=== PATIENT | female | born 1930 | race Caucasian/White ===

== ENCOUNTER 2017-08-24 02:19 | Inpatient (IN) ==
--- NOTE | 2017-08-24 02:41 | Emergency Department Note ---
Disposition Clinical Impression: Chest pain Qualifiers: Chest pain type: unspecified Qualified Code(s): R07.9 - Chest pain, unspecified Dyspnea Qualifiers: Dyspnea type: unspecified Qualified Code(s): R06.00 - Dyspnea, unspecified Disposition: Admitted As Inpatient Condition: Good Referrals: Arelis Will CNP [Primary Care Provider] - Time of Disposition: 06:02 Chest Pain HPI - General Stated Complaint: chest pain Time Seen by Provider: 08/24/17 02:22 Vital Signs Reviewed: Yes Nursing Notes Reviewed: Yes - History of Present Illness HPI Narrative: 86-year-old female arrives via squad with complaint of chest pain, shortness of breath. She did have improvement after squad had given her nitroglycerin. She is accompanied by her daughter who assist with history. They describe patient has had some intermittent chest pain, back pain shortness of breath over the past 3 days. Tonight is much more severe. Patient describes she was awake, prior to arrival, when the back pain worsened acutely. She denies any weakness , abdominal pain, cough, fever, new syncopal symptoms, vision changes. - Related Data Home Medications Medication Instructions Recorded Confirmed Amlodipine Besylate 100 mg PO 08/24/17 Atenolol [Tenormin] 25 mg PO DAILY 08/24/17 08/24/17 Cholecalciferol (Vitamin D3) 1,000 unit PO DAILY 08/24/17 08/24/17 [Vitamin D] Esomeprazole Magnesium [Nexium] 20 mg PO DAILY 08/24/17 08/24/17 Gabapentin [Neurontin] 600 mg PO BID 08/24/17 08/24/17 Hydrocodone/Acetaminophen 1 each PO 08/24/17 [Hydrocodon-Acetaminophen 5-325] Insulin Glargine,Hum.rec.anlog 24 unit SQ 08/24/17 [Lantus Solostar] Quinapril HCl [Accupril] 4 mg PO 08/24/17 Warfarin [Coumadin] 3 mg PO 1800 08/24/17 08/24/17 buPROPion HCl [Zyban] 100 mg PO DAILY 08/24/17 08/24/17 Allergies Allergy/AdvReac Type Severity Reaction Status Date / Time metoclopramide AdvReac Joint Pain Verified 08/24/17 02:53 simvastatin AdvReac Hives Verified 08/24/17 02:53 All systems ED: reviewed and negative except as stated. Review of Systems: As Per HPI Constitutional: Denies: fever, chills Eyes: Denies: vision change ENT ED: Denies: throat pain Cardiovascular: Reports: as per HPI. Denies: palpitations Respiratory: Reports: dyspnea Gastrointestinal: Reports: as per HPI Genitourinary: Denies: dysuria Musculoskeletal: Reports: as per HPI Integumentary: Denies: rash Neurological: Denies: headache, weakness Endocrine: Denies: fatigue Hematological/Lymphatic: Denies: easy bleeding Allergic/Immunologic: Denies: facial swelling Chest Pain PMH - Past Medical History Medical history: Reports: diabetes, hyperlipidemia, hypertension, pulmonary embolus - Social History Smoking Status: Never smoker Physical Exam - General Limitations: no limitations General appearance: in no apparent distress - Head Head exam: atraumatic, normocephalic - Eye Eye exam: Present: normal appearance, EOMI - ENT ENT exam: mucous membranes moist - Neck Neck exam: Present: full ROM - Chest Chest inspection: Present: normal inspection, symmetric chest wall rise - Respiratory Respiratory exam: Present: normal lung sounds bilaterally. Absent: respiratory distress - Cardiovascular Cardiovascular exam: Present: regular rate, normal rhythm - Abdominal Exam Abdominal exam: Present: soft - Extremities Exam Extremities exam: Present: normal inspection, full ROM, normal capillary refill - Back Exam Back exam: Present: full ROM - Neurological Exam Neurological exam: Present: alert - Psychiatric Psychiatric exam: Present: normal affect, normal mood - Skin Skin exam: Present: warm, dry, intact, normal color. Absent: rash, cyanosis, diaphoresis Course Course Narrative: 86-year-old female arrives via squad with complaint of chest pain, shortness of breath. She did have improvement after squad had given her nitroglycerin. She is accompanied by her daughter who assist with history. They describe patient has had some intermittent chest pain, back pain shortness of breath over the past 3 days. Tonight is much more severe. Patient describes she was awake, prior to arrival, when the back pain worsened acutely. She denies any weakness , abdominal pain, cough, fever, new syncopal symptoms, vision changes. Pt received ASA and nitro in route via squad. Patient seen and examined. she is alert no acute distress. Denies additional analgesics. Vital stable. Workup initiated. - Reevaluation(s) Reevaluation #1: patient was discussed with Dr. Banks, who agreed to see patient, and ordered the CTA due to patient's thoracic back pain. Time: 03:15 Reevaluation #2: Pt currently on 3 L oxygen. With good O2 sats. However on room air, patient does decrease into the low 90s. CTA findings show chronic pulmonary embolism, and patient is currently on Coumadin. CTA also shows evidence of groundglass opacities. Patient had presented with chest pain and SOB. Discussed with attending Dr. Banks, plan will be for admission for ACS rule out and will also start antibiotics. Will plan lactic and cultures then start antibiotics. Pt has received fluids. Time: 06:00 Vital Signs Temperature 97.9 F 08/24/17 02:26 Pulse Rate 77 08/24/17 02:26 Respiratory Rate 22 08/24/17 02:26 Blood Pressure 130/55 08/24/17 02:26 O2 Sat by Pulse Oximetry 90 08/24/17 02:26 Temperature 97.9 F 08/24/17 02:26 Pulse Rate 61 08/24/17 06:05 Respiratory Rate 16 08/24/17 06:05 Blood Pressure 153/62 08/24/17 06:05 O2 Sat by Pulse Oximetry 97 08/24/17 06:05 Oxygen Delivery Oxygen Delivery Nasal Cannula Chest Pain - MDM Narrative Medical decision making narrative: CT findings, showed chronic PE, and multifocal groundglass opacities pulmonary edema versus sepsis process. On reexamination patient is resting complaint exam bed, good oxygen saturation on 3 L, however on room air, patient does decrease into the low 90s. I did discuss patient with Dr. Alexander who also had face time with patient, and agreed with workup and evaluation. Recommendation is for admission for ACS rule out, and possible pneumonia. Patient was discussed with and accepted by hospitalist Dr. Fry. Chest CTA 08/24/17 03:10 IMPRESSION: 1. Chronic pulmonary embolism in the right lower lobar pulmonary artery. There is no evidence of right ventricular strain. 2. Multifocal ground-glass opacities in the lungs may represent pulmonary edema. Infectious or inflammatory etiologies may also be considered. 3. Several pulmonary nodules are observed bilaterally. These are unchanged since 2011. Exception in the middle lobe with slight increase in the size of a 6 mm nodule. Recommend follow-up imaging in 6-12 months to ensure stability. Critical results were called by Dr. Dakota Orozco MD to Rich Banks on 08/24/2017 at 04:35. D/ / Dakota Orozco MD / Dakota Orozco MD Interpreting Provider: Dakota Orozco MD Laboratory Tests 08/24/17 08/24/17 08/24/17 03:04 03:06 03:14 WBC 8.2 RBC 5.22 H Hgb 15.6 H Hct 47.7 H MCV 91.4 MCH 29.9 MCHC 32.7 RDW 14.5 Plt Count 150 MPV 10.2 Immature Gran % 0.5 Seg Neutrophils % 55.1 Lymphocytes % 32.6 Monocytes % 8.3 Eosinophils % 2.8 Basophils % 0.7 Neutrophils # 4.5 Lymphocytes # 2.7 Monocytes # 0.7 Eosinophils # 0.2 Basophils # 0.1 Immature Plt Fraction 3.8 PT 28.0 H INR 2.5 APTT 43.8 H Sodium Potassium Chloride Carbon Dioxide BUN Creatinine Est GFR ( Amer) Est GFR (Non-Af Amer) BUN/Creatinine Ratio Glucose Calculated Osmolality Calcium Total Bilirubin 0.3 Direct Bilirubin 0.1 Indirect Bilirubin 0.2 AST 20 ALT 17 Alkaline Phosphatase 76 Troponin I Serum Total Protein 8.0 Albumin 4.4 Globulin 3.6 H Albumin/Globulin Ratio 1.2 Lipase 17 08/24/17 03:14 WBC RBC Hgb Hct MCV MCH MCHC RDW Plt Count MPV Immature Gran % Seg Neutrophils % Lymphocytes % Monocytes % Eosinophils % Basophils % Neutrophils # Lymphocytes # Monocytes # Eosinophils # Basophils # Immature Plt Fraction PT INR APTT Sodium 134 L Potassium 4.4 Chloride 98 Carbon Dioxide 27 BUN 37 H Creatinine 1.31 H Est GFR ( Amer) 47 L Est GFR (Non-Af Amer) 38 L BUN/Creatinine Ratio 28 H Glucose 194 H Calculated Osmolality 292 Calcium 9.9 Total Bilirubin Direct Bilirubin Indirect Bilirubin AST ALT Alkaline Phosphatase Troponin I < 0.03 Serum Total Protein Albumin Globulin Albumin/Globulin Ratio Lipase - Lab Data Lab results reviewed: Yes I reviewed the patient's lab results. Result diagrams: 08/24/17 03:14 08/24/17 03:14 Lab Results 08/24/17 08/24/17 08/24/17 Range/Units 03:04 03:06 03:14 WBC 8.2 (4.3-11.1) K/mcL RBC 5.22 H (3.82-4.97) M/mcL Hgb 15.6 H (11.5-15.4) g/dL Hct 47.7 H (35.3-44.9) % MCV 91.4 (83.0-100.0) fL MCH 29.9 (28.0-33.3) pg MCHC 32.7 (31.6-35.5) g/dL RDW 14.5 (11.5-14.5) % Plt Count 150 (140-400) K/mcL MPV 10.2 (9.4-12.4) fL Immature Gran % 0.5 (0-4) % Seg Neutrophils % 55.1 % Lymphocytes % 32.6 % Monocytes % 8.3 % Eosinophils % 2.8 % Basophils % 0.7 % Neutrophils # 4.5 (1.6-8.9) K/mcL Lymphocytes # 2.7 (0.6-4.6) K/mcL Monocytes # 0.7 (0.0-1.3) K/mcL Eosinophils # 0.2 (0.0-0.6) K/mcL Basophils # 0.1 (0.0-0.2) K/mcL Immature Plt Fraction 3.8 (1.1-6.1) % PT 28.0 H (9.4-12.1) Seconds INR 2.5 APTT 43.8 H (26.0-36.0) Seconds Sodium (136-145) mEq/L Potassium (3.5-5.1) mEq/L Chloride (98-107) mEq/L Carbon Dioxide (23-29) mEq/L BUN (8-23) mg/dL Creatinine (0.60-1.20) mg/dL Est GFR ( Amer) (> 60) Est GFR (Non-Af Amer) (> 60) BUN/Creatinine Ratio (6-26) Glucose (70-105) mg/dL Calculated Osmolality (280-300) Lactic Acid (0.5-2.2) mmol/L Calcium (8.6-10.3) mg/dL Total Bilirubin 0.3 (0.3-1.0) mg/dL Direct Bilirubin 0.1 (0.0-0.2) mg/dL Indirect Bilirubin 0.2 (0.0-1.2) mg/dL AST 20 (13-39) Units/L ALT 17 (7-52) Units/L Alkaline Phosphatase 76 (34-104) Units/L Troponin I (< 0.04) ng/mL Serum Total Protein 8.0 (6.4-8.9) g/dL Albumin 4.4 (3.5-5.7) g/dL Globulin 3.6 H (2.4-3.5) g/dL Albumin/Globulin Ratio 1.2 (1.1-2.2) Lipase 17 (11-82) Units/L 08/24/17 08/24/17 Range/Units 03:14 06:16 WBC (4.3-11.1) K/mcL RBC (3.82-4.97) M/mcL Hgb (11.5-15.4) g/dL Hct (35.3-44.9) % MCV (83.0-100.0) fL MCH (28.0-33.3) pg MCHC (31.6-35.5) g/dL RDW (11.5-14.5) % Plt Count (140-400) K/mcL MPV (9.4-12.4) fL Immature Gran % (0-4) % Seg Neutrophils % % Lymphocytes % % Monocytes % % Eosinophils % % Basophils % % Neutrophils # (1.6-8.9) K/mcL Lymphocytes # (0.6-4.6) K/mcL Monocytes # (0.0-1.3) K/mcL Eosinophils # (0.0-0.6) K/mcL Basophils # (0.0-0.2) K/mcL Immature Plt Fraction (1.1-6.1) % PT (9.4-12.1) Seconds INR APTT (26.0-36.0) Seconds Sodium 134 L (136-145) mEq/L Potassium 4.4 (3.5-5.1) mEq/L Chloride 98 (98-107) mEq/L Carbon Dioxide 27 (23-29) mEq/L BUN 37 H (8-23) mg/dL Creatinine 1.31 H (0.60-1.20) mg/dL Est GFR ( Amer) 47 L (> 60) Est GFR (Non-Af Amer) 38 L (> 60) BUN/Creatinine Ratio 28 H (6-26) Glucose 194 H (70-105) mg/dL Calculated Osmolality 292 (280-300) Lactic Acid 1.3 (0.5-2.2) mmol/L Calcium 9.9 (8.6-10.3) mg/dL Total Bilirubin (0.3-1.0) mg/dL Direct Bilirubin (0.0-0.2) mg/dL Indirect Bilirubin (0.0-1.2) mg/dL AST (13-39) Units/L ALT (7-52) Units/L Alkaline Phosphatase (34-104) Units/L Troponin I < 0.03 (< 0.04) ng/mL Serum Total Protein (6.4-8.9) g/dL Albumin (3.5-5.7) g/dL Globulin (2.4-3.5) g/dL Albumin/Globulin Ratio (1.1-2.2) Lipase (11-82) Units/L - Radiology Data Radiology results reviewed: Yes I reviewed the patient's radiology results. - EKG Data EKG attestation: Yes I reviewed and interpreted this EKG. EKG shows normal: sinus rhythm Voltage: c/w LVH When compared to previous EKG there are: no significant changes Interpretation: nonspecific ST-T wave changes Heart Score - Score History: Slightly Suspicious EKG: Normal Age: Greater than 65 Risk Factors: Equal/Greater than 3 risk factor or history of atherosclerotic disease Troponin: Less than normal limit HEART Score Total: 4
[2017-08-24] MEDS ORDERED: Isovue-370 500 ML INFUS..BTL IV ONE (03:10)
[2017-08-24 03:16] LABS: Basophils # 0.1 K/mcL (0.0-0.2); Basophils % 0.7 %; Eosinophils # 0.2 K/mcL (0.0-0.6); Eosinophils % 2.8 %; Hematocrit 47.7 % (35.3-44.9); Hemoglobin 15.6 g/dL (11.5-15.4); Immature Granulocytes % 0.5 % (0-4); Immature Platelets 3.8 % (1.1-6.1); Lymphocytes # 2.7 K/mcL (0.6-4.6); Lymphocytes % 32.6 %; Mean Corpuscular HGB Conc 32.7 g/dL (31.6-35.5); Mean Corpuscular Hemoglobin 29.9 pg (28.0-33.3); Mean Corpuscular Volume 91.4 fL (83.0-100.0); Mean Platelet Volume 10.2 fL (9.4-12.4); Monocytes # 0.7 K/mcL (0.0-1.3); Monocytes % 8.3 %; Neutrophils # 4.5 K/mcL (1.6-8.9); Platelet Count 150 K/mcL (140-400); Red Blood Count 5.22 M/mcL (3.82-4.97); Red Cell Distribution Width 14.5 % (11.5-14.5); Segmented Neutrophils % 55.1 %
[2017-08-24 03:33] LABS: INR 2.5
[2017-08-24 03:35] LABS: Activated Partial Thrombo Time 43.8 Seconds (26.0-36.0)
[2017-08-24 03:47] LABS: Albumin 4.4 g/dL (3.5-5.7); Albumin/Globulin Ratio 1.2 (1.1-2.2); Bilirubin,Direct 0.1 mg/dL (0.0-0.2); Bilirubin,Indirect 0.2 mg/dL (0.0-1.2); Bilirubin,Total 0.3 mg/dL (0.3-1.0); Globulin 3.6 g/dL (2.4-3.5)
[2017-08-24 03:48] LABS: BUN/Creatinine Ratio 28 (6-26); Blood Urea Nitrogen 37 mg/dL (8-23); Calcium 9.9 mg/dL (8.6-10.3); Carbon Dioxide 27 mEq/L (23-29); Chloride 98 mEq/L (98-107); Glucose 194 mg/dL (70-105); Osmolality,Calculated 292 (280-300); Potassium 4.4 mEq/L (3.5-5.1); Sodium 134 mEq/L (136-145); eGFR For African Americans 47 (> 60); eGFR For Non-African Americans 38 (> 60)
[2017-08-24 03:49] LABS: Troponin I < 0.03 ng/mL (< 0.04)
[2017-08-24] MEDS ORDERED: 0.9 % Sodium Chloride 1,000 ML IVC ONE (04:18)
[2017-08-24] MEDS ORDERED: Ondansetron 4 MG/2 ML VIAL IVP ONE (04:18)
--- NOTE | 2017-08-24 05:50 | Emergency Department Note ---
Disposition Clinical Impression: Chest pain Qualifiers: Chest pain type: unspecified Qualified Code(s): R07.9 - Chest pain, unspecified Dyspnea Qualifiers: Dyspnea type: unspecified Qualified Code(s): R06.00 - Dyspnea, unspecified Disposition: Admitted As Inpatient Condition: Good General Adult HPI - General Chief complaint: ED Chest Pain Stated complaint: chest pain Time Seen by Provider: 08/24/17 02:22 Source: patient, family Limitations: no limitations - History of Present Illness Pain Scale: 0 - Related Data Home Medications Medication Instructions Recorded Confirmed Amlodipine Besylate 10 mg PO DAILY 08/24/17 08/25/17 Cholecalciferol (Vitamin D3) 1,000 unit PO DAILY 08/24/17 08/24/17 [Vitamin D] Esomeprazole Magnesium [Nexium] 20 mg PO DAILY 08/24/17 08/24/17 Gabapentin [Neurontin] 600 mg PO BID 08/24/17 08/24/17 Insulin Glargine,Hum.rec.anlog 24 unit SQ DAILY 08/24/17 08/25/17 [Lantus Solostar] Warfarin [Coumadin] 3 mg PO 1800 08/24/17 08/24/17 buPROPion HCl [Zyban] 100 mg PO DAILY 08/24/17 08/24/17 Atenolol 100 mg PO DAILY 08/25/17 08/25/17 HYDROcodone/Acet 7.5/325 mg [[place] 1 tab PO Q4-6H PRN 08/25/17 08/25/17 7.5-325 mg] Quinapril HCl [Accupril] 40 mg PO DAILY 08/25/17 08/25/17 Allergies Allergy/AdvReac Type Severity Reaction Status Date / Time metoclopramide AdvReac Joint Pain Verified 08/24/17 02:53 simvastatin AdvReac Hives Verified 08/24/17 02:53 Constitutional: Denies: fever, chills Eyes: Denies: vision change ENT ED: Denies: throat pain Cardiovascular: Reports: as per HPI. Denies: palpitations Respiratory: Reports: dyspnea Gastrointestinal: Reports: as per HPI Genitourinary: Denies: dysuria Musculoskeletal: Reports: as per HPI Integumentary: Denies: rash Neurological: Denies: headache, weakness Endocrine: Denies: fatigue Hematological/Lymphatic: Denies: easy bleeding Allergic/Immunologic: Denies: facial swelling Past Medical History - Past Medical History Medical history: Reports: pulmonary embolus Psychiatric history: Reports: depression - Social History Smoking Status: Never smoker Smokeless Tobacco Status: No Alcohol use: Reports: none Drug use: Reports: none Physical Exam - General Limitations: no limitations General appearance: in no apparent distress Course Vital Signs Temperature 97.9 F 08/24/17 02:26 Pulse Rate 77 08/24/17 02:26 Respiratory Rate 22 08/24/17 02:26 Blood Pressure 130/55 08/24/17 02:26 O2 Sat by Pulse Oximetry 90 08/24/17 02:26 Temperature 97.5 F L 08/26/17 19:44 Pulse Rate 102 08/26/17 19:44 Respiratory Rate 20 08/26/17 19:44 Blood Pressure 117/90 08/26/17 19:44 O2 Sat by Pulse Oximetry 93 08/26/17 19:44 Oxygen Delivery Oxygen Delivery Nasal Cannula Medical Decision Making - Lab Data Result diagrams: 08/26/17 12:44 08/26/17 04:01 Lab Results 08/24/17 08/24/17 08/24/17 Range/Units 03:04 03:06 03:14 WBC 8.2 (4.3-11.1) K/mcL RBC 5.22 H (3.82-4.97) M/mcL Hgb 15.6 H (11.5-15.4) g/dL Hct 47.7 H (35.3-44.9) % MCV 91.4 (83.0-100.0) fL MCH 29.9 (28.0-33.3) pg MCHC 32.7 (31.6-35.5) g/dL RDW 14.5 (11.5-14.5) % Plt Count 150 (140-400) K/mcL MPV 10.2 (9.4-12.4) fL Immature Gran % 0.5 (0-4) % Seg Neutrophils % 55.1 % Lymphocytes % 32.6 % Monocytes % 8.3 % Eosinophils % 2.8 % Basophils % 0.7 % Neutrophils # 4.5 (1.6-8.9) K/mcL Lymphocytes # 2.7 (0.6-4.6) K/mcL Monocytes # 0.7 (0.0-1.3) K/mcL Eosinophils # 0.2 (0.0-0.6) K/mcL Basophils # 0.1 (0.0-0.2) K/mcL Immature Plt Fraction 3.8 (1.1-6.1) % PT 28.0 H (9.4-12.1) Seconds INR 2.5 APTT 43.8 H (26.0-36.0) Seconds Sodium (136-145) mEq/L Potassium (3.5-5.1) mEq/L Chloride (98-107) mEq/L Carbon Dioxide (23-29) mEq/L BUN (8-23) mg/dL Creatinine (0.60-1.20) mg/dL Est GFR ( Amer) (> 60) Est GFR (Non-Af Amer) (> 60) BUN/Creatinine Ratio (6-26) Glucose (70-105) mg/dL Calculated Osmolality (280-300) Lactic Acid (0.5-2.2) mmol/L Calcium (8.6-10.3) mg/dL Total Bilirubin 0.3 (0.3-1.0) mg/dL Direct Bilirubin 0.1 (0.0-0.2) mg/dL Indirect Bilirubin 0.2 (0.0-1.2) mg/dL AST 20 (13-39) Units/L ALT 17 (7-52) Units/L Alkaline Phosphatase 76 (34-104) Units/L Troponin I (< 0.04) ng/mL Serum Total Protein 8.0 (6.4-8.9) g/dL Albumin 4.4 (3.5-5.7) g/dL Globulin 3.6 H (2.4-3.5) g/dL Albumin/Globulin Ratio 1.2 (1.1-2.2) Lipase 17 (11-82) Units/L 18 08/24/17 Range/Units 03:14 06:16 WBC (4.3-11.1) K/mcL RBC (3.82-4.97) M/mcL Hgb (11.5-15.4) g/dL Hct (35.3-44.9) % MCV (83.0-100.0) fL MCH (28.0-33.3) pg MCHC (31.6-35.5) g/dL RDW (11.5-14.5) % Plt Count (140-400) K/mcL MPV (9.4-12.4) fL Immature Gran % (0-4) % Seg Neutrophils % % Lymphocytes % % Monocytes % % Eosinophils % % Basophils % % Neutrophils # (1.6-8.9) K/mcL Lymphocytes # (0.6-4.6) K/mcL Monocytes # (0.0-1.3) K/mcL Eosinophils # (0.0-0.6) K/mcL Basophils # (0.0-0.2) K/mcL Immature Plt Fraction (1.1-6.1) % PT (9.4-12.1) Seconds INR APTT (26.0-36.0) Seconds Sodium 134 L (136-145) mEq/L Potassium 4.4 (3.5-5.1) mEq/L Chloride 98 (98-107) mEq/L Carbon Dioxide 27 (23-29) mEq/L BUN 37 H (8-23) mg/dL Creatinine 1.31 H (0.60-1.20) mg/dL Est GFR ( Amer) 47 L (> 60) Est GFR (Non-Af Amer) 38 L (> 60) BUN/Creatinine Ratio 28 H (6-26) Glucose 194 H (70-105) mg/dL Calculated Osmolality 292 (280-300) Lactic Acid 1.3 (0.5-2.2) mmol/L Calcium 9.9 (8.6-10.3) mg/dL Total Bilirubin (0.3-1.0) mg/dL Direct Bilirubin (0.0-0.2) mg/dL Indirect Bilirubin (0.0-1.2) mg/dL AST (13-39) Units/L ALT (7-52) Units/L Alkaline Phosphatase (34-104) Units/L Troponin I < 0.03 (< 0.04) ng/mL Serum Total Protein (6.4-8.9) g/dL Albumin (3.5-5.7) g/dL Globulin (2.4-3.5) g/dL Albumin/Globulin Ratio (1.1-2.2) Lipase (11-82) Units/L Attestation Statement - Attestation Attestation: I examined this patient and my medical decision-making was reviewed with the Resident Physician. I agree with the documented findings, disposition and treatment plan as described except to the extent set forth below. Findings consistent with chest pain. There is chronic pulmonary embolism however she is on Coumadin. We will admit for ACS rule out. Also radiology reported groundglass opacities which may suggest underlying infectious process. We will start antibiotic therapy.
[2017-08-24] MEDS ORDERED: Azithromycin 500 MG in D5% in Water 250 ML IVPB ONE (06:14)
[2017-08-24] MEDS ORDERED: *HR* Promethazine 25 MG/ML VIAL IVP PRN (07:39)
[2017-08-24] MEDS ORDERED: Acetaminophen 325 MG TABLET PO PRN (07:39)
[2017-08-24] MEDS ORDERED: Naloxone 0.4 MG/ML INJ IVP PRN (07:39)
[2017-08-24] MEDS ORDERED: 0.9 % Sodium Chloride 1,000 ML IVC SCH (07:45)
[2017-08-24] MEDS ORDERED: *HR* Dextrose 50 % in Water (Syg) 50 ML SYRINGE IVP PRN (07:47)
[2017-08-24] MEDS ORDERED: Dextrose Gel 15 GM/37.5 ML TUBE PO PRN ×2 (07:47)
[2017-08-24] MEDS ORDERED: D5% in Water 1,000 ML IVC PRN (07:47)
--- NOTE | 2017-08-24 09:28 | Internal Med History&Physical ---
Date of Encounter: 08/24/17 Time of Encounter: 08:30 Internal Medicine - H&P: HPI Chief complaint: Chest pain Admitted From: Emergency Dept Plans for Post Hospital Care: Home History of present illness: Ms. Mccloud is a 86 year old female with a known past medical history of Gerd, hypertension, hyperlipidemia, diabetes type II and chronic PE who is on Coumadin for anticoagulation who lives by herself was brought into the ER by family stating that since last night patient has been having midst general and left lateral chest wall pain. Her chest pain is so most of 10 in severity, non- radiating, and relieved with pain medication. She denied of any cold, cough and URI symptoms. She did mention intermittent chest pain from last couple of days however since last night which seems to be worsening. She denied of any active chest pain now however she feels like some chest discomfort still there. In the ER her CT of the chest showed chronic PE, multifocal ground glass opacities in the long basis may present pulmonary edema, concerning for inflammatory versus infectious process She does have several pulmonary nodules bilaterally. Past Med Surg Social Fam HX - Past Medical History Medical history: diabetes, hyperlipidemia, hypertension, pulmonary embolus Additional medical history: peripheral neuropathy Psychiatric history: depression - Past Surgical History Additional surgical history: colon cancer surgery - Social History Smoking Status: Never smoker Smokeless Tobacco Status: No Alcohol use: none Drug use: none - Additional Family History Additional family history: Family hsitory reviewed and non contribuitory to current problem. Internal Medicine - H&P: Meds Amlodipine Besylate 100 mg PO 08/24/17 [History] Atenolol [Tenormin] 25 mg PO DAILY 08/24/17 [History] Cholecalciferol (Vitamin D3) [Vitamin D] 1,000 unit PO DAILY 08/24/17 [History] Esomeprazole Magnesium [Nexium] 20 mg PO DAILY 08/24/17 [History] Gabapentin [Neurontin] 600 mg PO BID 08/24/17 [History] Hydrocodone/Acetaminophen [Hydrocodon-Acetaminophen 5-325] 1 each PO 08/24/17 [ History] Insulin Glargine,Hum.rec.anlog [Lantus Solostar] 24 unit SQ 08/24/17 [History] Quinapril HCl [Accupril] 4 mg PO 08/24/17 [History] Warfarin [Coumadin] 3 mg PO 1800 08/24/17 [History] buPROPion HCl [Zyban] 100 mg PO DAILY 08/24/17 [History] 3 Allergy/AdvReac Type Severity Reaction Status Date / Time metoclopramide AdvReac Joint Pain Verified 08/24/17 02:53 simvastatin AdvReac Hives Verified 08/24/17 02:53 All Systems PM: A 10-system review of systems was performed and is negative for pertinent findings except as documented above in the HPI. Review of systems: All the systems are reviewed everything is benign except the systems and symptoms I mentioned in the history of present illness - Constitutional Vitals: Temp Pulse Resp BP Pulse Ox 96.6 F L 76 16 157/68 97 08/24/17 09:02 08/24/17 09:02 08/24/17 09:02 08/24/17 09:02 08/24/17 09:02 General appearance: Present: cooperative, A&O X 3, no acute distress, answers questions appropriately - Head Head exam: Present: atraumatic, normal inspection - Neck Neck exam general surgery: Present: supple - Respiratory Respiratory exam: Present: decreased breath sounds. Absent: rales, respiratory distress, rhonchi, wheezes - Cardiovascular Cardiovascular exam: Present: RRR, +S1, +S2. Absent: tachycardia - GI/Abdominal GI/Abdominal exam: Present: normal bowel sounds, soft. Absent: rebound, rigid, tenderness - Extremities Exam Extremities exam: Absent: calf tenderness, pedal edema, tenderness - Back Exam Back exam: Absent: CVA tenderness (L), CVA tenderness (R) - Neurological Exam Neurological exam: Present: alert, oriented X3, no focal deficits - Psychiatric Psychiatric exam: Present: normal affect, normal mood - Skin Skin exam: Absent: rash Internal Med - H&P Results - Labs CBC & Chem 7: 08/24/17 03:14 08/24/17 03:14 - Assessment and plan (1) Chest pain Current Visit: Yes Status: Acute Assessment and plan: Admit the patient into Tele Will place pt on safety officer check serial troponin so far negative troponin EKG reviewed - showed normal sinus rhythm and some nonspecific T wave abnormalities in the letter leads will start pt on ASA and Nitro PRN for pain Will check FLP in AM patient does need stress test as further workup, however she did mention she had some kind of lightheadedness/syncopal episode with pharmacological stress test in the past here at [facility] in the past. We will reach out to the stress test lab in the morning and find out what happened Qualifiers: Chest pain type: unspecified Qualified Code(s): R07.9 - Chest pain, unspecified (2) Pneumonia Current Visit: Yes Status: Acute Assessment and plan: Reviewed her CTA of the chest concerning for pneumonia could be bacterial versus aspirational I would check for sputum culture, step pneumonia, Legionella and respiratory viral panel started her on empirical antibiotic Rocephin and azithromycin Qualifiers: Pneumonia type: due to unspecified organism Laterality: right Lung location: unspecified part of lung Qualified Code(s): J18.9 - Pneumonia, unspecified organism (3) TAVO (acute kidney injury) Current Visit: Yes Status: Acute Assessment and plan: She does have slightly elevated creatinine mostly prerenal due to dehydration started on IV hydration gently (4) Hypertension Current Visit: Yes Status: Acute Assessment and plan: Fairly controlled resumed all her home medications will use hydralazine IV PRN Qualifiers: Hypertension type: essential hypertension Qualified Code(s): I10 - Essential (primary) hypertension (5) Lung nodules Current Visit: Yes Status: Acute Assessment and plan: Which is chronic however slightly increased nodule noticed in the right middle lobe need outpatient follow-up CT scan and 6 months talked to the patient and her family at bedside, they do aware of it (6) PE (pulmonary thromboembolism) Current Visit: No Status: Acute - Time Spent With Patient Total time spent is greater than 50% in coordination of care (as documented) at patient's floor/unit and/or counseling patient:
[2017-08-24] MEDS ORDERED: Azithromycin 250 MG TABLET PO SCH (09:45)
[2017-08-24] MEDS: Ipratropium/Albuterol Neb 3 ML IH SCH ×5 (10:19→23:21)
[2017-08-24] MEDS: Cholecalciferol (D-3) 1,000 UNIT TABLET PO SCH (11:31)
[2017-08-24] MEDS: Gabapentin 300 MG CAPSULE PO SCH ×2 (11:31→21:11)
[2017-08-24] MEDS: cefTRIAXone 1,000 MG in Water for inj. (sterile) 20 ML 10 ML IVP SCH (11:31)
[2017-08-24] MEDS ORDERED: Furosemide 40 MG/4 ML VIAL IVP ONE ×2 (11:48)
--- NOTE | 2017-08-24 11:58 | Pulmonology Consult Note ---
Date of Encounter: 08/24/17 Time of Encounter: 11:00 Assessment and Plan (1) Acute respiratory failure with hypoxia Current Visit: Yes Status: Acute Secondary to Hydrostatic pulmonary edema vs Atypical pneumonia . To continue O2 supplementation Keep SPO2 around 94% (2) Pulmonary edema cardiac cause Current Visit: Yes Status: Acute Patient has classical symptoms of pulmonary edema secondary to possible ACS or can due to diastolic heart failure secondary to hypertensive heart disease will trend tropnin's will get ECHO will give dose of diuresis and then reasses . I examined the sputum it was blood tinged with frothy secretions consistent with most likely pulmonary edema . Patient got IV fluids overnight , will stop IV fluids (3) Atypical pneumonia Current Visit: Yes Status: Acute CT chest showed bilateral ground glass opacities more consistent with pulmonary edema , atypical pneumonia is possibility agree with antibiotics and a short course of steroids (4) PE (pulmonary thromboembolism) Current Visit: No Status: Chronic Patient has chronic right lower branch of pulmonary artery filling defect which is there in the old scan . Patient is chronic coumadin for this PE . Since there is blood tinged sputum will hold coumadin and observe if the blood tinged sputum worsens . (5) Lung nodules Current Visit: Yes Status: Chronic Most of the lung nodules are stable except for some increase in Size of lung nodule IN RML Will need outpatient follow up of imaging in 2-3 months History of Present Illness Consult date: 08/24/17 Requesting physician: Steph Eastman Reason for consult: dyspnea, cough, abnormal CXR/CT, other (HEMOPTYSIS ) Chief complaint: Chest pain and Shortness of breadth History of present illness: 86 year old female with past medical history significant for GERD, HLD , HTN , DM comes to the hospital sudden onset of chest pain . It started sausage wrapper with left sided chest pain , had some orthopnea for past 2-3 nights , patient has poor exercise tolerance is at baseline patient denies any current chest pain or tightness , didnt have any cough prior to the hospital stay but today suddenly she developed rattled breathing started cough with some pink frothy sputum say she feels better propped up denies any palpitations , denies any syncope , denies any neuro symptoms patient had Chronic PE from 2010 still has some chronic filling defect in one of the branches right lower lobe pulmonary artery , CT also showed bilateral ground glass opacity . Pulmonary was consulted for evaluation of blood tinged sputum. Past Med Surg Social Fam HX - Past Medical History Medical history: diabetes, hyperlipidemia, hypertension, pulmonary embolus Additional medical history: peripheral neuropathy Psychiatric history: depression - Past Surgical History Additional surgical history: colon cancer surgery - Social History Smoking Status: Never smoker Smokeless Tobacco Status: No Alcohol use: none Drug use: none - Family History Mother Living Status: Age at : 44 Hx Family Cardiac Disorders: Yes Hx Family Endocrine Disorder: Yes (DM) Father Living Status: Hx Family Respiratory Disorders: Yes (Emphyzema, Lung cancer) Brother Living Status: Hx Family Cancer: Yes Medications and Allergies Amlodipine Besylate 100 mg PO 08/24/17 [History] Atenolol [Tenormin] 25 mg PO DAILY 08/24/17 [History] Cholecalciferol (Vitamin D3) [Vitamin D] 1,000 unit PO DAILY 08/24/17 [History] Esomeprazole Magnesium [Nexium] 20 mg PO DAILY 08/24/17 [History] Gabapentin [Neurontin] 600 mg PO BID 08/24/17 [History] Hydrocodone/Acetaminophen [Hydrocodon-Acetaminophen 5-325] 1 each PO 08/24/17 [ History] Insulin Glargine,Hum.rec.anlog [Lantus Solostar] 24 unit SQ 08/24/17 [History] Quinapril HCl [Accupril] 4 mg PO 08/24/17 [History] Warfarin [Coumadin] 3 mg PO 1800 08/24/17 [History] buPROPion HCl [Zyban] 100 mg PO DAILY 08/24/17 [History] 3 Allergy/AdvReac Type Severity Reaction Status Date / Time metoclopramide AdvReac Joint Pain Verified 08/24/17 02:53 simvastatin AdvReac Hives Verified 08/24/17 02:53 All Systems: The remainder of the systems were reviewed and are negative Physical Examination Vital Signs: Vital Signs, Last 4 Hours Temp Pulse Resp BP Pulse Ox 08/24/17 11:36 98.6 F 83 14 164/77 95 08/24/17 10:19 16 96 08/24/17 09:02 96.6 F L 76 16 157/68 97 Effort: mildly labored Auscultation: bilateral: other (bilateral bibasilar crackles ) Results - Laboratory Findings CBC and BMP: 08/24/17 03:14 08/24/17 03:14 PT/INR, D-dimer PT 28.0 Seconds (9.4-12.1) H 08/24/17 03:04 Abnormal lab findings: Abnormal lab results RBC 5.22 M/mcL (3.82-4.97) H 08/24/17 03:14 Hgb 15.6 g/dL (11.5-15.4) H 08/24/17 03:14 Hct 47.7 % (35.3-44.9) H 08/24/17 03:14 PT 28.0 Seconds (9.4-12.1) H 08/24/17 03:04 APTT 43.8 Seconds (26.0-36.0) H 08/24/17 03:04 Sodium 134 mEq/L (136-145) L 08/24/17 03:14 BUN 37 mg/dL (8-23) H 08/24/17 03:14 Creatinine 1.31 mg/dL (0.60-1.20) H 08/24/17 03:14 Est GFR ( Amer) 47 (> 60) L 08/24/17 03:14 Est GFR (Non-Af Amer) 38 (> 60) L 08/24/17 03:14 BUN/Creatinine Ratio 28 (6-26) H 08/24/17 03:14 Glucose 194 mg/dL (70-105) H 08/24/17 03:14 Globulin 3.6 g/dL (2.4-3.5) H 08/24/17 03:06 - Diagnostic Findings CT scan - chest: report reviewed, image reviewed - Clinical Findings Intake & Output: Intake & Output 08/23/17 08/24/17 08/24/17 23:59 07:59 15:59 Intake Total 100 / 100 Balance 100 / 100 Consult Discharge Plan - Plan Referrals: Arelis Will, MENTAL HEALTH PROGRAM DIRECTOR [Primary Care Provider] -
[2017-08-24] MEDS: BuPROPion SR (12 HR) 100 MG TABLET PO SCH (12:18)
[2017-08-24] MEDS: Insulin LISPRO 300 UNITS/3 ML VIAL SQ SCH ×3 (12:18→21:13)
[2017-08-24] MEDS: MethylPREDNISolone 40 MG/ML VIAL IVP SCH (17:20)
[2017-08-24] MEDS ORDERED: Warfarin perPT PO PRN (18:00)
[2017-08-24] MEDS ORDERED: Nitroglycerin 0.4 MG TAB.SUBL SL ONE (20:53)
[2017-08-24] MEDS: Nitroglycerin 0.4 MG TAB.SUBL SL PRN ×6 (20:55→22:32)
[2017-08-24] MEDS ORDERED: Furosemide 20 MG/2 ML VIAL IVP SCH (21:00)
[2017-08-24] MEDS: *HR* HYDROcodone/Acet 5/325 mg TABLET PO PRN (21:05)
--- NOTE | 2017-08-24 21:44 | Event Note ---
Date of Encounter: 08/24/17 Time of Encounter: 21:37 Patient had episode of chest pain, after flipping into Atrial fib RVR, new onset. Her trop was elevated at 0.22 at 1700, getting a another trop now. The patient family indicated that she has never been in afib. Spoke with Dr. Joe ( cardiology) who will consult. Patient to be npo after midnight, no coumadin in case of need for heart cath, give cardizem bolus and start drip. EKG showed afib.
[2017-08-25] MEDS: Nitroglycerin 0.4 MG TAB.SUBL SL PRN ×5 (00:09→08:36)
[2017-08-25] MEDS: Ipratropium/Albuterol Neb 3 ML IH SCH ×2 (04:01→07:59)
[2017-08-25 05:01] LABS: Basophils % 0.1 %; Hematocrit 42.8 % (35.3-44.9); Hemoglobin 13.9 g/dL (11.5-15.4); Immature Granulocytes % 0.4 % (0-4); Lymphocytes # 0.5 K/mcL (0.6-4.6); Lymphocytes % 5.1 %; Mean Corpuscular HGB Conc 32.5 g/dL (31.6-35.5); Mean Corpuscular Hemoglobin 29.2 pg (28.0-33.3); Mean Corpuscular Volume 89.9 fL (83.0-100.0); Mean Platelet Volume 10.9 fL (9.4-12.4); Monocytes # 0.1 K/mcL (0.0-1.3); Monocytes % 1.3 %; Neutrophils # 8.5 K/mcL (1.6-8.9); Platelet Count 138 K/mcL (140-400); Red Blood Count 4.76 M/mcL (3.82-4.97); Red Cell Distribution Width 14.1 % (11.5-14.5); Segmented Neutrophils % 93.1 %
[2017-08-25 05:02] LABS: Calcium 8.8 mg/dL (8.6-10.3); Chol/HDL Ratio 6.1 (0-4.9); Potassium 4.1 mEq/L (3.5-5.1)
[2017-08-25 05:22] LABS: INR 2.4; Prothrombin Time 26.2 Seconds (9.4-12.1)
--- NOTE | 2017-08-25 08:30 | Pulmonology Progress Note ---
Date of Encounter: 08/25/17 Time of Encounter: 08:00 Assessment and Plan (1) Cough with hemoptysis Current Visit: Yes Status: Acute This is only mild and her INR above 2 and suspect this could be from pulmonary edema/pneumonia/pulmonary embolism. Less likely pulmonary hemorrhage. Continue monitor for now mainly with patient having chest pain and any invasive procedures will be high risk. (2) Chest pain Current Visit: Yes Status: Acute Concern about ACS and will change bronchodilators to less frequent and Xopenox. Cardiology has been consulted. Qualifiers: Chest pain type: unspecified Qualified Code(s): R07.9 - Chest pain, unspecified Subjective Principal diagnosis: dyspnea Interval history: Patient continue to have chest pain that respond partially to Nitroglycern and pain is worsen after bronchodilators. patient have mild hemoptysis. Objective PUL Vital signs: Last Vital Signs Temp 98.2 F 08/25/17 06:56 Pulse 93 08/25/17 06:56 Resp 18 08/25/17 06:56 BP 156/110 08/25/17 06:56 Pulse Ox 93 08/25/17 06:56 General appearance: appears uncomfortable Eyes: nonicteric ENT: oropharynx dry Neck: supple, no lymphadenopathy Effort: mildly labored Auscultation: left: clear, right: rhonchi Percussion: bilateral: not dull Cardiovascular: irregular rhythm Gastrointestinal: normoactive bowel sounds, non-distended Extremities: no cyanosis, no edema normal mental status, non-focal exam anxious Results - Laboratory Findings CBC and BMP: 08/25/17 04:08 08/25/17 04:08 PT/INR, D-dimer PT 26.2 Seconds (9.4-12.1) H 08/25/17 04:08 Abnormal lab findings: Abnormal lab results Plt Count 138 K/mcL (140-400) L 08/25/17 04:08 Lymphocytes # 0.5 K/mcL (0.6-4.6) L 08/25/17 04:08 PT 26.2 Seconds (9.4-12.1) H 08/25/17 04:08 APTT 43.8 Seconds (26.0-36.0) H 08/24/17 03:04 BUN 32 mg/dL (8-23) H 08/25/17 04:08 Creatinine 1.22 mg/dL (0.60-1.20) H 08/25/17 04:08 Est GFR ( Amer) 51 (> 60) L 08/25/17 04:08 Est GFR (Non-Af Amer) 42 (> 60) L 08/25/17 04:08 Glucose 338 mg/dL (70-105) H 08/25/17 04:08 POC Glucose 228 mg/dL (70-99) H 08/24/17 20:43 Calculated Osmolality 304 (280-300) H 08/25/17 04:08 Troponin I 0.37 ng/mL (< 0.04) H* 08/25/17 04:08 B-Natriuretic Peptide 301 pg/mL (Less than 100) H 08/25/17 04:08 Globulin 3.6 g/dL (2.4-3.5) H 08/24/17 03:06 Cholesterol 251 mg/dL (< 200) H 08/25/17 04:08 LDL Cholesterol, Calc 180 mg/dL (0-99) H 08/25/17 04:08 Cholesterol/HDL Ratio 6.1 (0-4.9) H 08/25/17 04:08 - Microbiology Findings Microbiology Findings: Microbiology, Last 48 Hours 08/24/17 17:30 Legionella Antigen - Final Urine,Clean Catch Streptococcus pneumoniae Antigen (M - Final - Diagnostic Findings Chest x-ray: report reviewed, image reviewed - Clinical Findings Intake & Output: Intake & Output 08/24/17 08/25/17 08/25/17 23:59 07:59 15:59 Intake Total 0 / 0 10 10 Output Total 250 / 250 500 / 500 Balance -250 / -250 -490 / -490 Weight 79 kg Consult Discharge Plan - Plan Referrals: Arelis Will, CHEMICAL ENGINEERING INTERN [Primary Care Provider] -
[2017-08-25] MEDS ORDERED: *HR* FentaNYL (PF) 100 MCG/2 ML VIAL IVP ONE (08:37)
--- NOTE | 2017-08-25 08:56 | Internal Med Progress Note ---
Date of Encounter: 08/25/17 Time of Encounter: 08:54 - Assessment and plan (1) Chest pain Current Visit: Yes Status: Acute Assessment and plan: Reviewed EKG no changes from y/d Now in NSR Troponin trending high.. Peak @ 0.37 this morning INR - 2.4 held Coumadin Started the pt on Nitro gtt Spoke Card Dr. Hoang who is going to evaluate the pt soon Pt may need LHC.. If so, will give 2 U FFP to reverse the coumadin effect Qualifiers: Chest pain type: unspecified Qualified Code(s): R07.9 - Chest pain, unspecified (2) Acute on chronic diastolic (congestive) heart failure Current Visit: Yes Status: Acute Assessment and plan: Reviewed 2D Echo showed preserved LVEF Her SOB improved with diuresis will hold Lasix today if she need to go for C Card consulted resumed other home meds (3) Pneumonia Current Visit: Yes Status: Acute Assessment and plan: Reviewed her CTA of the chest concerning for pneumonia could be bacterial - atypical sputum culture, and respiratory viral panel - P step pneumonia, Legionella - Negative Cont empirical antibiotic Rocephin and azithromycin Qualifiers: Pneumonia type: due to unspecified organism Laterality: right Lung location: unspecified part of lung Qualified Code(s): J18.9 - Pneumonia, unspecified organism (4) New onset a-fib Current Visit: Yes Status: Acute Assessment and plan: Resolved now in NSR rate controlled with Cardizem gtt will switch to PO Metoprolol instead atenolol and wean her off the Cardizem (5) TAVO (acute kidney injury) Current Visit: Yes Status: Acute Assessment and plan: Mostly cardio renal improving gentle diuresis Held Lasix now if pt need to go for C (6) Hypertension Current Visit: Yes Status: Acute Assessment and plan: Fairly controlled resumed all her home medications will use hydralazine IV PRN Qualifiers: Hypertension type: essential hypertension Qualified Code(s): I10 - Essential (primary) hypertension (7) Lung nodules Current Visit: Yes Status: Acute Assessment and plan: Which is chronic however slightly increased nodule noticed in the right middle lobe need outpatient follow-up CT scan and 6 months talked to the patient and her family at bedside, they do aware of it (8) PE (pulmonary thromboembolism) Current Visit: No Status: Chronic Assessment and plan: on coumadin ..but held it for now due to hemoptysis (9) Hemoptysis Current Visit: Yes Status: Acute Assessment and plan: mostly due to pulmonary edema with CHF + PNA stable Hb cont close monitoring - Time Spent With Patient Total time spent is greater than 50% in coordination of care (as documented) at patient's floor/unit and/or counseling patient: - Subjective Interval history: Pt was seen and examined at bed side. She still has intermittent hemoptysis She did c/o intermittent CP all night long which resolved with SL Nitro. Her Troponin continue trending high Also pt went into A fib last night.. Started on Cardizem gtt. Now pt is in NSR Pt c/o severe CP this morning when I examined her.. 12/31 in severity, radiating to her back. - Constitutional Vitals: Temp Pulse Resp BP Pulse Ox 98.2 F 93 18 156/110 93 08/25/17 06:56 08/25/17 06:56 08/25/17 06:56 08/25/17 06:56 08/25/17 06:56 General appearance: Present: cooperative, A&O X 3, severe distress, answers questions appropriately - Head Head exam: Present: atraumatic, normal inspection - Respiratory Respiratory exam: Present: decreased breath sounds, rales (mild), wheezes (mild) . Absent: respiratory distress, rhonchi - Cardiovascular Cardiovascular exam: Present: RRR, +S1, +S2. Absent: systolic murmur, tachycardia - GI/Abdominal GI/Abdominal exam: Present: normal bowel sounds, soft. Absent: rebound, rigid, tenderness - Extremities Exam Extremities exam: Absent: calf tenderness, pedal edema, tenderness - Back Exam Back exam: Absent: CVA tenderness (L), CVA tenderness (R) - Neurological Exam Neurological exam: Present: alert, oriented X3 - Psychiatric Psychiatric exam: Present: normal affect, normal mood - Skin Skin exam: Absent: rash Internal Medicine: Result - Labs CBC & Chem 7: 08/25/17 04:08 08/25/17 04:08 Labs: Short CBC 08/25/17 Range/Units 04:08 WBC 9.1 (4.3-11.1) K/mcL Hgb 13.9 D (11.5-15.4) g/dL Hct 42.8 (35.3-44.9) % Plt Count 138 L (140-400) K/mcL Neutrophils # 8.5 (1.6-8.9) K/mcL BMP 08/25/17 04:08 Sodium 137 Potassium 4.1 Chloride 100 Carbon Dioxide 24 BUN 32 H Creatinine 1.22 H Glucose 338 H Calcium 8.8 Cardiac Enzymes 08/24/17 08/24/17 08/24/17 Range/Units 11:01 17:11 21:12 Troponin I 0.08 H* 0.22 H* 0.12 H* (< 0.04) ng/mL 08/25/17 Range/Units 04:08 Troponin I 0.37 H* (< 0.04) ng/mL - ABG Interpretation ABG results: PT/INR, D-dimer PT 26.2 Seconds (9.4-12.1) H 08/25/17 04:08 - Impressions Impressions Chest X-Ray 08/24/17 10:56 IMPRESSION: Mild patchy opacification the lungs bilaterally, right greater than left. D/ / Rich Almanzar MD / Rich Almanzar MD Interpreting Provider: Rich Almanzar MD Echocardiogram 08/24/17 11:23 Impressions: LVEF 65%. Mild concentric left ventricular hypertrophy. Normal left ventricular diastolic function. Trace aortic regurgitation. Trace mitral regurgitation. Trace tricuspid regurgitation. Left Ventricular Wall Motion: Rest Echo Findings All wall segments showed normal motion. Findings: Study Quality * Technically adequate exam. ECG Findings * Normal sinus rhythm. Left Ventricle * LVEF 65%. * Mild concentric left ventricular hypertrophy. * Normal left ventricular diastolic function. Right Ventricle * Normal right ventricular structure and function. Left Atrium * Normal left atrial size. Right Atrium * Normal right atrial size. Aortic Valve * Trileaflet aortic valve. * Mildly calcified aortic valve leaflets. * Moderately sclerotic aortic valve leaflets. * Trace aortic regurgitation. * Mild aortic stenosis. * Aortic valve leaflets are not restricted. Mitral Valve * Normal mitral valve structure and function. * Trace mitral regurgitation. Tricuspid Valve * Normal tricuspid valve structure and function. * Trace tricuspid regurgitation. Pulmonic Valve * Pulmonic valve not well visualized. Aorta * Normally sized aortic root. Pericardium * The pericardium appears normal. Consult Discharge Plan - Plan Referrals: Arelis Will, LENNOX [Primary Care Provider] -
[2017-08-25] MEDS: cefTRIAXone 1,000 MG in Water for inj. (sterile) 20 ML 10 ML IVP SCH (09:07)
[2017-08-25] MEDS: Azithromycin 500 MG in D5% in Water 250 ML IVPB SCH (09:08)
[2017-08-25] MEDS: MethylPREDNISolone 40 MG/ML VIAL IVP SCH ×3 (09:08→16:11)
[2017-08-25] MEDS: Nitroglycerin 25 MG/250 ML INFUS..BTL IVC SCH (09:09)
--- NOTE | 2017-08-25 09:29 | Cardiology Consult Note ---
Date of Encounter: 08/25/17 Time of Encounter: 09:29 Assessment and Plan (1) Chest pain Current Visit: Yes Status: Acute - Chest pain that is atypical in nature (substernal, relieved by NTG) - No recent ischemic workup >10 years. reports normal stress tests x3 - Echo shows EF 65% with normal diastolic dysfunction. Trace MR, TR, AR. on - Trops <0.03/ 0.08/0.22/0.12/0.37. Will continue to trend - Agree with BB, NTG gtt. Will increase NTG gtt to 10 mcg. - Not on anti-platelet due to being anticoagulated on coumadin and high bleeding risk. - LIZY score 3. Heart score 6 Plan - Etiology possibly ACS vs chronic PE vs MSK - Will increase NTG drip due to 10 - Discussed with family the possibility of LHC. Family considering and will monitor for additional day to see if symptoms improve. - Repeat EKG while in room due to worsening of pain shows Sinus rhythm with indeterminate ST depression. - Will hold coumadin tonight in case of intervention tomorrow. Qualifiers: Chest pain type: unspecified Qualified Code(s): R07.9 - Chest pain, unspecified (2) New onset a-fib Current Visit: Yes Status: Suspected - Reported new onset AFib RVR per chart review - Review of EKGs show sinus rhythm with ST depression intermittently. - CHADVASC 7, HASBLED 3 - Already anticoagulated on coumadin and has home BB Plan - Suspect that EKG was misinterpreted and no AFib present - Continue BB and coumadin, however will hold tonight for possible LHC tomorrow (3) Hypertension Current Visit: Yes Status: Acute - Well controlled on BB and CCB - Continue home meds. Qualifiers: Hypertension type: essential hypertension Qualified Code(s): I10 - Essential (primary) hypertension Discussion w patient/family: The assessment and plan as outlined above was discussed with the patient and/or family members who expressed understanding and agreement. All questions were answered. Thank you for involving us in the care of your patient. Please call with any questions. History of Present Illness Consult date: 08/25/17 Requesting physician: Sima Burgos Consult reason: chest pain, AFib RVR Chief complaint: chest pain History of present illness: Ms. Mccloud is a 86 year old female with a PMHx of DM2, HTN, HLD, PE on coumadin who presented with chest pain. Describes CP as substernal and sharp in nature which then becomes dull shortly after. It is intermittent, not associated with exertion however is relieved with NTG. She was resting in bed when onset began. CP has been persistent since admission. Also admits to nausea but no orthopnea, LE swelling. Cardiac workup in the past includes echo on 08/24/17 showing EF of 65% with normal diastolic dysfunction. Reports 3 previous stress tests >10 years ago and reports normal outcomes. She does note that the pharmacological stress tests she does not tolerate well due to dizziness. Reportedly went into AFib RVR overnight. EKGs reviewed. Past Med Surg Social Fam HX - Past Medical History Medical history: diabetes, hyperlipidemia, hypertension, pulmonary embolus Additional medical history: peripheral neuropathy Psychiatric history: depression - Past Surgical History Additional surgical history: colon cancer surgery - Social History Smoking Status: Never smoker Smokeless Tobacco Status: No Alcohol use: none Drug use: none - Family History Mother Living Status: Age at : 44 Hx Family Cardiac Disorders: Yes Hx Family Endocrine Disorder: Yes (DM) Father Living Status: Hx Family Respiratory Disorders: Yes (Emphyzema, Lung cancer) Brother Living Status: Hx Family Cancer: Yes Medications and Allergies Amlodipine Besylate 100 mg PO 08/24/17 [History] Atenolol [Tenormin] 25 mg PO DAILY 08/24/17 [History] Cholecalciferol (Vitamin D3) [Vitamin D] 1,000 unit PO DAILY 08/24/17 [History] Esomeprazole Magnesium [Nexium] 20 mg PO DAILY 08/24/17 [History] Gabapentin [Neurontin] 600 mg PO BID 08/24/17 [History] Hydrocodone/Acetaminophen [Hydrocodon-Acetaminophen 5-325] 1 each PO 08/24/17 [ History] Insulin Glargine,Hum.rec.anlog [Lantus Solostar] 24 unit SQ 08/24/17 [History] Quinapril HCl [Accupril] 4 mg PO 08/24/17 [History] Warfarin [Coumadin] 3 mg PO 1800 08/24/17 [History] buPROPion HCl [Zyban] 100 mg PO DAILY 08/24/17 [History] 3 Allergy/AdvReac Type Severity Reaction Status Date / Time metoclopramide AdvReac Joint Pain Verified 08/24/17 02:53 simvastatin AdvReac Hives Verified 08/24/17 02:53 All Systems Review: The remainder of the systems were reviewed and are negative - Constitutional Constitutional: no chills, no fatigue, no fever(s) - Cardiovascular Cardiovascular: as per HPI, chest pain at rest, no chest pain with exertion, no diaphoresis, no dyspnea at rest, no dyspnea on exertion, no irregular heart rhythm, no leg edema, no lightheadedness, no palpitations - Respiratory Respiratory: no dyspnea - Gastrointestinal Gastrointestinal: nausea Physical Examination Vital Signs, Last 4 Hours Temp Pulse Resp BP Pulse Ox 08/25/17 06:56 98.2 F 93 18 156/110 93 08/25/17 06:00 75 102/45 General: Conversant, No Apparent Distress HEENT: Atraumatic, Normocephaly, Mucus Membranes Moist Neck: No JVD, Normal carotid pulses Cardiac: Reg Rate and Rhythm, Normal S1 and S2, No Murmur Lungs: Normal Breath Sounds, No Wheeze, Rales, Rhonchi Neuro: Alert and responsive, No focal deficits noted Musculoskeletal: Other (chest wall moderately tender to palpation) Extremities: No Clubbing, No Cyanosis, No Edema, Normal Pulses Results 08/25/17 04:08 08/25/17 04:08 Lab Results 08/24/17 08/24/17 08/24/17 11:01 11:12 17:11 WBC Hgb Hct Plt Count INR Sodium Potassium Chloride Carbon Dioxide BUN Creatinine Glucose Calcium Troponin I 0.08 H* 0.22 H* B-Natriuretic Peptide 180 H 08/24/17 08/25/17 08/25/17 21:12 04:08 04:08 WBC 9.1 Hgb 13.9 D Hct 42.8 Plt Count 138 L INR Sodium 137 Potassium 4.1 Chloride 100 Carbon Dioxide 24 BUN 32 H Creatinine 1.22 H Glucose 338 H Calcium 8.8 Troponin I 0.12 H* B-Natriuretic Peptide 08/25/17 08/25/17 08/25/17 04:08 04:08 04:08 WBC Hgb Hct Plt Count INR 2.4 Sodium Potassium Chloride Carbon Dioxide BUN Creatinine Glucose Calcium Troponin I 0.37 H* B-Natriuretic Peptide 301 H Consult Discharge Plan - Plan Referrals: Arelis Will, HAMMERER HELPER [Primary Care Provider] - (SENT WEB REQUEST ON 08-25-17 @ 0085)
[2017-08-25] MEDS: BuPROPion SR (12 HR) 100 MG TABLET PO SCH (09:37)
[2017-08-25] MEDS: Cholecalciferol (D-3) 1,000 UNIT TABLET PO SCH (09:37)
[2017-08-25] MEDS: Gabapentin 300 MG CAPSULE PO SCH ×2 (09:37→20:01)
[2017-08-25] MEDS: Insulin LISPRO 300 UNITS/3 ML VIAL SQ SCH ×4 (09:42→20:35)
--- NOTE | 2017-08-25 17:00 | Electrocardiograph Report ---
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
--- NOTE | 2017-08-25 17:14 | Electrocardiograph Report ---
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
--- NOTE | 2017-08-25 17:19 | Electrocardiograph Report ---
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
[2017-08-25] MEDS: Furosemide 20 MG/2 ML VIAL IVP SCH (20:02)
[2017-08-26] MEDS: MethylPREDNISolone 40 MG/ML VIAL IVP SCH ×2 (00:40→08:55)
[2017-08-26] MEDS: *HR* HYDROcodone/Acet 5/325 mg TABLET PO PRN ×3 (02:38→23:10)
[2017-08-26 04:38] LABS: Basophils % 0.1 %; Hematocrit 41.2 % (35.3-44.9); Hemoglobin 13.7 g/dL (11.5-15.4); Immature Granulocytes % 1.3 % (0-4); Lymphocytes # 1.2 K/mcL (0.6-4.6); Lymphocytes % 6.3 %; Mean Corpuscular HGB Conc 33.3 g/dL (31.6-35.5); Mean Corpuscular Hemoglobin 29.7 pg (28.0-33.3); Mean Corpuscular Volume 89.4 fL (83.0-100.0); Mean Platelet Volume 10.7 fL (9.4-12.4); Monocytes # 0.9 K/mcL (0.0-1.3); Monocytes % 4.6 %; Neutrophils # 16.7 K/mcL (1.6-8.9); Platelet Count 145 K/mcL (140-400); Red Blood Count 4.61 M/mcL (3.82-4.97); Red Cell Distribution Width 14.6 % (11.5-14.5); Segmented Neutrophils % 87.7 %
[2017-08-26] MEDS: Melatonin 3 MG TABLET PO PRN (04:39)
[2017-08-26 04:43] LABS: INR 1.6; Prothrombin Time 17.3 Seconds (9.4-12.1)
[2017-08-26 04:57] LABS: Magnesium 1.9 mg/dL (1.6-2.6); Potassium 4.5 mEq/L (3.5-5.1)
[2017-08-26] MEDS ORDERED: MOM Conc 10 ML UD.LIQ PO PRN (08:00)
[2017-08-26] MEDS: Insulin LISPRO 300 UNITS/3 ML VIAL SQ SCH ×2 (08:54→12:33)
[2017-08-26] MEDS: Furosemide 20 MG/2 ML VIAL IVP SCH (08:54)
[2017-08-26] MEDS: Gabapentin 300 MG CAPSULE PO SCH (08:54)
[2017-08-26] MEDS: Cholecalciferol (D-3) 1,000 UNIT TABLET PO SCH (08:55)
[2017-08-26] MEDS: cefTRIAXone 1,000 MG in Water for inj. (sterile) 20 ML 10 ML IVP SCH (08:55)
[2017-08-26] MEDS: BuPROPion SR (12 HR) 100 MG TABLET PO SCH (08:55)
[2017-08-26] MEDS: Azithromycin 500 MG in D5% in Water 250 ML IVPB SCH (08:56)
--- NOTE | 2017-08-26 09:27 | Pulmonology Progress Note ---
Date of Encounter: 08/26/17 Time of Encounter: 09:00 Assessment and Plan (1) Cough with hemoptysis Current Visit: Yes Status: Resolved This is only mild and her INR above 2 and suspect this could be from pulmonary edema/pneumonia/pulmonary embolism. Less likely pulmonary hemorrhage. Continue monitor for now mainly with patient having chest pain and any invasive procedures will be high risk. 6/5 This has resolved with INR is below 2. 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 Patient has cardiac cath scheduled. (2) Chest pain Current Visit: Yes Status: Acute Concern about ACS and will change bronchodilators to less frequent and Xopenox. Cardiology has been consulted. 6/ This is better and based on cardiac cath findings to decide about when to restart anticoagulation. Qualifiers: Chest pain type: unspecified Qualified Code(s): R07.9 - Chest pain, unspecified Subjective Principal diagnosis: dyspnea Interval history: Patient continue to have chest pain that respond partially to Nitroglycern and pain is worsen after bronchodilators. patient have mild hemoptysis. 6/5 No hemoptysis and INR is below 2 now and chest pain is better, plan for cardiac cath. Objective PUL Vital signs: Last Vital Signs Temp 98.0 F 08/26/17 06:44 Pulse 85 08/26/17 06:44 Resp 18 08/26/17 06:44 BP 100/60 08/26/17 04:41 Pulse Ox 93 08/26/17 06:44 General appearance: no acute distress Eyes: nonicteric ENT: oropharynx dry Neck: supple Effort: normal Auscultation: bilateral: diminished breath sounds Percussion: bilateral: not dull Cardiovascular: regular rate and rhythm Gastrointestinal: normoactive bowel sounds, non-distended Extremities: no cyanosis normal mental status, non-focal exam mood appropriate Results - Laboratory Findings CBC and BMP: 08/26/17 04:01 08/26/17 04:01 PT/INR, D-dimer PT 17.3 Seconds (9.4-12.1) H 08/26/17 04:01 Abnormal lab findings: Abnormal lab results WBC 19.0 K/mcL (4.3-11.1) H D 08/26/17 04:01 RDW 14.6 % (11.5-14.5) H 08/26/17 04:01 Neutrophils # 16.7 K/mcL (1.6-8.9) H 08/26/17 04:01 PT 17.3 Seconds (9.4-12.1) H 08/26/17 04:01 APTT 43.8 Seconds (26.0-36.0) H 08/24/17 03:04 BUN 45 mg/dL (8-23) H 08/26/17 04:01 Est GFR ( Amer) 53 (> 60) L 08/26/17 04:01 Est GFR (Non-Af Amer) 43 (> 60) L 08/26/17 04:01 BUN/Creatinine Ratio 38 (6-26) H 08/26/17 04:01 Glucose 254 mg/dL (70-105) H 08/26/17 04:01 POC Glucose 264 mg/dL (70-99) H 08/26/17 05:52 Calculated Osmolality 304 (280-300) H 08/26/17 04:01 Troponin I 0.67 ng/mL (< 0.04) H* 08/25/17 13:45 B-Natriuretic Peptide 301 pg/mL (Less than 100) H 08/25/17 04:08 Globulin 3.6 g/dL (2.4-3.5) H 08/24/17 03:06 Cholesterol 251 mg/dL (< 200) H 08/25/17 04:08 LDL Cholesterol, Calc 180 mg/dL (0-99) H 08/25/17 04:08 Cholesterol/HDL Ratio 6.1 (0-4.9) H 08/25/17 04:08 - Microbiology Findings Microbiology Findings: Microbiology, Last 48 Hours 08/24/17 17:30 Legionella Antigen - Final Urine,Clean Catch Streptococcus pneumoniae Antigen (M - Final - Clinical Findings Intake & Output: Intake & Output 08/25/17 08/26/17 08/26/17 23:59 07:59 15:59 Intake Total 129 / 129 511 / 511 Output Total 700 / 700 100 / 100 Balance -571 / -571 411 / 411 Weight 75.8 kg Consult Discharge Plan - Plan Referrals: Arelis Will, KETTLE COOK [Primary Care Provider] - (SENT WEB REQUEST ON 08-25-17 @ 1000)
[2017-08-26] MEDS: Nitroglycerin 25 MG/250 ML INFUS..BTL IVC SCH (11:41)
--- NOTE | 2017-08-26 12:25 | Cardiology Progress Note ---
Date of Encounter: 08/26/17 Time of Encounter: 12:21 Assessment and Plan (1) Elevated troponin Current Visit: Yes Status: Acute We discussed the potential etiologies of an elevated troponin. I explained to patient that mild troponin elevation could be related to other issues, namely PNA, chronic PE, AF with RVR, etc. I also explained that potential cardiac causes (NSTEMI) could not be excluded. Patient and family voiced understand, request a thorough evaluation, including. They were made aware of the r/b/a to the procedure, voiced understanding, and wish to proceed. All questions answered. Start aspirin. Continue NTG drip for now. Further recommendations pending results of [facility]. (2) PAF (paroxysmal atrial fibrillation) Current Visit: Yes Status: Acute PAF. No palpitations reported. Recommend continue BB. Okay to stop Cardizem drip. Patient will be bridged with Heparin (chronically on coumadin for PE). Episode of hemoptysis, pulmonary medicine following, recommending continue coumadin. (3) Chest pain Current Visit: Yes Status: Acute See comments under elevated troponin. Qualifiers: Chest pain type: unspecified Qualified Code(s): R07.9 - Chest pain, unspecified Discussion w patient/family: The assessment and plan as outlined above was discussed with the patient and/or family members who expressed understanding and agreement. All questions were answered. Thank you for involving us in the care of your patient. Please call with any questions. Subjective Principal diagnosis: dyspnea Interval history: Patient seen and examined. Overall, appears much better. No chest discomfort since last evening. Reports dyspnea has improved. We discussed findings up to this point - "Chronic" PE, PAF (noted overnight), mild troponin elevation, abnormal ECG, pneumonia. Objective Vital Signs, Last 4 Hours Temp Pulse Resp BP Pulse Ox 08/26/17 11:14 98.0 F 57 22 117/64 91 General: Conversant, No Apparent Distress HEENT: Atraumatic, Normocephaly, Mucus Membranes Moist, Other Neck: No JVD, Normal carotid pulses Cardiac: Other (Irregular rate and rhythm. ) Lungs: Normal Breath Sounds, No Wheeze, Rales, Rhonchi Neuro: Alert and responsive, No focal deficits noted Abdomen: Soft, Non-Tender Skin: No rashes noted on visualized skin Musculoskeletal: No Chest Wall Tenderness Extremities: No Clubbing, No Cyanosis, No Edema Results 08/26/17 04:01 08/26/17 04:01 Lab Results 08/25/17 08/26/17 08/26/17 13:45 04:01 04:01 WBC 19.0 H D Hgb 13.7 Hct 41.2 Plt Count 145 INR 1.6 Sodium Potassium Chloride Carbon Dioxide BUN Creatinine Glucose Calcium Magnesium Troponin I 0.67 H* 08/26/17 04:01 WBC Hgb Hct Plt Count INR Sodium 137 Potassium 4.5 Chloride 102 Carbon Dioxide 24 BUN 45 H Creatinine 1.18 Glucose 254 H Calcium 9.0 Magnesium 1.9 Troponin I - Imaging and Cardiology Echo: report reviewed - EKG Interpretation EKG results cardiology: personally reviewed Consult Discharge Plan - Plan Referrals: Arelis Will, LENNOX [Primary Care Provider] - 09/03/17 3:00 pm ()
[2017-08-26] MEDS ORDERED: *HR* Heparin 5,000 UNIT/ML VIAL IVP ONE ×2 (12:32→22:43)
[2017-08-26] MEDS ORDERED: *HR* Heparin 5,000 UNIT/ML VIAL IVP PRN ×4 (12:32→22:43)
[2017-08-26] MEDS ORDERED: Heparin 25,000 UNIT/500 ML D5W 25,000 UNIT/500 ML BAG IVC SCH (12:45)
[2017-08-26 13:14] LABS: Hematocrit 40.8 % (35.3-44.9); Hemoglobin 13.1 g/dL (11.5-15.4); Mean Corpuscular HGB Conc 32.1 g/dL (31.6-35.5); Mean Corpuscular Hemoglobin 28.5 pg (28.0-33.3); Mean Corpuscular Volume 88.7 fL (83.0-100.0); Mean Platelet Volume 10.7 fL (9.4-12.4); Platelet Count 146 K/mcL (140-400); Red Cell Distribution Width 14.8 % (11.5-14.5)
[2017-08-26 13:24] LABS: INR 1.5; Prothrombin Time 15.8 Seconds (9.4-12.1)
[2017-08-26 13:27] LABS: Activated Partial Thrombo Time 28.1 Seconds (26.0-36.0)
[2017-08-26] MEDS: Aspirin 81 MG TAB.CHEW PO SCH (14:11)
--- NOTE | 2017-08-26 16:25 | Internal Med Progress Note ---
Date of Encounter: 08/26/17 Time of Encounter: 16:25 - Assessment and plan (1) Chest pain Current Visit: Yes Status: Acute Assessment and plan: Reviewed EKG no changes from y/d Now in NSR Troponin trending high.. Peak @ 0.37 this morning Started the pt on Nitro gtt Cardiology on board. Plan is for [facility] today INR now 1.5 Need to evaluate based on [facility] findings in regards to anticoagulation. She is high risk and has chronic PE. Qualifiers: Chest pain type: unspecified Qualified Code(s): R07.9 - Chest pain, unspecified (2) Hypertension Current Visit: Yes Status: Acute Assessment and plan: Fairly controlled resumed all her home medications will use hydralazine IV PRN Currently on nitro drip. Qualifiers: Hypertension type: essential hypertension Qualified Code(s): I10 - Essential (primary) hypertension (3) New onset a-fib Current Visit: Yes Status: Suspected Assessment and plan: Resolved now in NSR rate controlled with Cardizem gtt will switch to PO Metoprolol instead atenolol and wean her off the Cardizem (4) Leukocytosis Current Visit: Yes Status: Acute Assessment and plan: Patient does not appear to have signs or symptoms of infection at this point unless this is an early infection Patient currently requiring O2, which not listed as home issue. She is on Solu Medrol but this has not changed acutely Will obtain CXR and rule out pneumonia. Qualifiers: Leukocytosis type: unspecified Qualified Code(s): D72.829 - Elevated white blood cell count, unspecified - Time Spent With Patient Total time spent is greater than 50% in coordination of care (as documented) at patient's floor/unit and/or counseling patient: - Subjective Interval history: No acute events. Patient states she did not have CP today. - Constitutional Vitals: Temp Pulse Resp BP Pulse Ox 98.0 F 57 22 117/64 91 08/26/17 11:14 08/26/17 11:14 08/26/17 11:14 08/26/17 11:14 08/26/17 11:14 General appearance: Present: cooperative, A&O X 3, severe distress, answers questions appropriately Exam: - Head Head exam: Present: atraumatic, normal inspection - Respiratory Respiratory exam: Present: decreased breath sounds, rales (mild), wheezes (mild) . Absent: respiratory distress, rhonchi - Cardiovascular Cardiovascular exam: Present: RRR, +S1, +S2. Absent: systolic murmur, tachycardia - GI/Abdominal GI/Abdominal exam: Present: normal bowel sounds, soft. Absent: rebound, rigid, tenderness - Extremities Exam Extremities exam: Absent: calf tenderness, pedal edema, tenderness - Back Exam Back exam: Absent: CVA tenderness (L), CVA tenderness (R) - Neurological Exam Neurological exam: Present: alert, oriented X3 - Psychiatric Psychiatric exam: Present: normal affect, normal mood - Skin Skin exam: Absent: rash Internal Medicine: Result - Labs CBC & Chem 7: 08/26/17 12:44 08/26/17 04:01 Labs: Short CBC 08/26/17 08/26/17 Range/Units 04:01 12:44 WBC 19.0 H D 18.5 H (4.3-11.1) K/mcL Hgb 13.7 13.1 (11.5-15.4) g/dL Hct 41.2 40.8 (35.3-44.9) % Plt Count 145 146 (140-400) K/mcL Neutrophils # 16.7 H (1.6-8.9) K/mcL BMP 08/26/17 04:01 Sodium 137 Potassium 4.5 Chloride 102 Carbon Dioxide 24 BUN 45 H Creatinine 1.18 Glucose 254 H Calcium 9.0 - ABG Interpretation ABG results: PT/INR, D-dimer PT 15.8 Seconds (9.4-12.1) H 08/26/17 12:44 Consult Discharge Plan - Plan Referrals: Arelis Will CNP [Primary Care Provider] - 09/03/17 3:00 pm ()
[2017-08-26] MEDS ORDERED: Verapamil 5 MG/2 ML VIAL ONE (16:39)
[2017-08-26] MEDS ORDERED: ISOVUE-370 200 ML INFUS..BTL IV ONE ×2 (16:39→18:33)
[2017-08-26] MEDS ORDERED: *HR* Heparin 10,000 UNIT/10 ML VIAL ONE (16:39)
[2017-08-26] MEDS ORDERED: 0.9 % Sodium Chloride 1,000 ML ONE ×3 (16:39→23:23)
[2017-08-26] MEDS ORDERED: Heparin 1,000 UNITS/500 mL 500 ML ONE (16:39)
[2017-08-26] MEDS ORDERED: Nitroglycerin 1,000 MCG/10 ML VIAL IV ONE (16:39)
--- NOTE | 2017-08-26 16:53 | Electrocardiograph Report ---
[place] [address] Test Date: 2017-08-25 Pat Name: Jerrica Mccloud Department: 110 Room: 2N12 Gender: F [employer]: : 1930 Requested By: Steph Eastman Order Number: [id number] Reading MD: Emile Severino Measurements Intervals [place] Rate: 86 P: 68 AL: 194 QRS: -13 QRSD: 86 T: 119 QT: 365 QTc: 409 Interpretive Statements SINUS RHYTHM LEFT VENTRICULAR HYPERTROPHY AND ST-T CHANGE Electronically Signed On 08-26-2017 16:52:29 EDT by Emile Severino
[2017-08-26] MEDS ORDERED: *HR* Midazolam HCl 2 MG/2 ML VIAL ONE (17:10)
[2017-08-26] MEDS ORDERED: *HR* FentaNYL (PF) 100 MCG/2 ML VIAL ONE (17:10)
[2017-08-26] MEDS ORDERED: Tirofiban 5 MG/100 mL 5 MG/100 ML VIAL IV ONE (17:26)
[2017-08-26] MEDS ORDERED: Tirofiban 12.5 MG/250ML 12.5 MG/250 ML BAG ONE (17:27)
[2017-08-26] MEDS ORDERED: *HR* Metoprolol 5 MG/5 ML VIAL IVP ONE (17:41)
[2017-08-26] MEDS ORDERED: *HR* Adenosine 6 MG/2 ML VIAL IVP ONE (17:45)
[2017-08-26] MEDS ORDERED: Ondansetron 4 MG/2 ML VIAL ONE (17:49)
[2017-08-26] MEDS ORDERED: Nitroglycerin 25 MG/250 ML INFUS..BTL IVC ONE (18:44)
--- NOTE | 2017-08-26 18:48 | Invasive Diagnostic Lab Proc ---
Name: Jerrica Mccloud Date of Study: 08/26/2017 Date: 1930 Ht: 63.0in Medical Record#: [id number] Age: 86 Wt: 165.35lb Gender: Female BSA: 1.78 Order #: [id number] BMI: 29.3 Physicians Procedure Physician: Emile Severino MD, [facility] Referring MD: Referring MD: Staff Name Position Time In Teddy Pierre RN Actimize Architect 05:03 PM Shireen Palacios RN Monitor 05:04 PM Shanelle, Ana RT (R) Scrub 05:04 PM Indications Indication Non-Stemi Procedures Performed Procedure L HRT ARTERY/VENTRICLE ANGIO PRQ CARD BM STENT W/ANGIO 1 VSL Pre-Procedure Checklist Informed consent is complete signed and on chart. H&P is on chart. ID band is on and ID verified with patient. Patient NPO for procedure The procedure was described for the patient and questions were answered. Blood Pressure: 134/81 ECG is on chart. Rhythm: Atrial Fibrillation Plan of Care Patient will tolerate the procedure without complications. Adequate level of comfort will be maintained. Hemodynamics will remain stable Patient will recover from procedure without complications. Respiratory function will be maintained. Cardiac rhythm will remain stable. Patient temperature will be maintained. Patient and/or family have verbalized understanding of the procedure. Patient Education Intravenous Access Time IV Size Location DC'd Fluid/Drip Rate Units RN 05:08 PM 20g 1 /" Patent On Arrival Lt Wrist 0.9NaCl 25 ml/hr Allergies simvastatin Fenofibrate metoclopramide Metoclopramide Hydrochloride No Known Allergies NONE KNOWN Vital Signs Time BP (mmHg) HR (bpm) O2 Sat. RR (bpm) LOC 05:07 PM 117 / 64 57 92 % 5 = Fully awake and oriented or at pre-proc level 05:07 PM / % 4 = Oriented but drowsy 05:22 PM / % 4 = Oriented but drowsy 05:37 PM / % 5 = Fully awake and oriented or at pre-proc level 05:53 PM / % 4 = Oriented but drowsy 05:09 PM 134 / 81 93 90 % 05:14 PM 144 / 87 130 89 % 05:19 PM 130 / 85 91 88 % 05:24 PM 140 / 79 118 88 % 05:30 PM 127 / 78 103 89 % 05:34 PM 130 / 84 97 88 % 05:39 PM 133 / 81 112 87 % 05:42 PM 124 / 85 111 87 % 05:44 PM 132 / 81 94 89 % 05:49 PM 107 / 68 77 89 % 05:54 PM 121 / 72 103 83 % 05:59 PM 118 / 88 121 91 % 06:04 PM 119 / 81 108 92 % Procedural Medications Time Medication Dose Units Method Given By 05:06 PM Oxygen 2 L/min nasal cannula Teddy Pierre RN 05:13 PM Versed 1 mg Intravenous Teddy Pierre RN 05:13 PM Fentanyl 25 mcg Intravenous Teddy Pierre RN 05:31 PM Aggrastat Bolus: 37.5 ml Intravenous Teddy Pierre RN 05:32 PM Aggrastat 12.5mg/250ml 6.75 ml Intravenous Teddy Pierre RN 05:32 PM Heparin 2000 units Intravenous Teddy Pierre RN 05:42 PM Metoprolol 2.5 mg Intravenous Teddy Pierre RN 05:45 PM Nitroglycerin 200 mcg Intracoronary Emile Severino MD 05:47 PM Adenosine 60 mcg Intracoronary Emile Severino MD, FACC 05:47 PM Adenosine 60 mcg Intracoronary Emile Severino MD, FACC 05:48 PM Adenosine 60 mcg Intracoronary Emile Severino MD, FACC 05:49 PM Adenosine 60 mcg Intracoronary Emile Severino MD, FACC 05:49 PM Fentanyl 12.5 mcg Intravenous Teddy Pierre RN 05:50 PM Zofran 4 mg Intravenous Shireen Palacios RN 06:06 PM Plavix 600 mg Orally Teddy Pierre RN ASA Classification: CLASS II- Mild systemic disease (i.e. well-controlled diabetes, hypertension, asthma, cigarette smoking) Bushra Score Preprocedure Postprocedure Activity 2- Moves 4 extremities sustained head lift Activity 2- Moves 4 extremities sustained head lift Circulation 2- SBP +/= 20 points of pre-anesthetic level Circulation 2- SBP +/= 20 points of pre-anesthetic level Consciousness 2- Awake and alert oriented x 3 Consciousness 2- Awake and alert oriented x 3 O2 Saturation 2- Able to maintain O2 satruation of 92% on room air O2 Saturation 2- Able to maintain O2 satruation of 92% on room air Respiratory 2- Able to deep breathe and cough well Respiratory 2- Able to deep breathe and cough well Total Score 10 Total Score 10 Contrast Agent: Isovue Diagnostic Contrast: 123 ml Total Contrast: 123 ml Fluoro Dose: 6774 mGy Activated Clotting Time Time Seconds to Clot 05:30 PM 220 06:11 PM 319 Procedure Log Time Note Enter By 05:03 PM Pt arrived to clinical laboratory technician 2 at 17:03 cedwards 05:04 PM Teddy Pierre RN Position: Actimize Architect Time in: 17:03 cedwards 05:04 PM Shireen Palacios RN Position: Monitor Time in: 17:04 cedwards 05:04 PM Ana Timmons (R) Position: Scrub Time in: 17:04 cedwards 05:04 PM Patient charges- Angio tray pack, Navilyst 3mm J, Pulse Oximetry and ACIST tubing and transducer cedwards 05:04 PM Hair removed from procedure site in procedure lab using clippers. Bilateral groin prepped with Chloraprep by Ana Timmons (R), then patient was draped. Skin intact. cedwards 05:04 PM Physician arrived 17:04 cedwards 05:04 PM Meet and greet completed cedwards 05:04 PM Sign in performed according to hospital policy. cedwards 05:04 PM Procedure start 17:04 cedwards 05:05 PM CathStat 05:06 PM Time: 17:06 Oxygen on at 2 L/min per nasal cannula by Teddy Pierre RN cedwards 05:06 PM Time: 17:06 Patient comfortable and pain free: Yes cedwards 05:07 PM Time: 17:07LOC: 5 = Fully awake and oriented or at pre-proc level cedwards 05:09 PM Vitals capture started with the following parameters, Patient=Adult, Interval=5 min, Initial Ywkyebhj=443 mmHg, Deflation Rate=5 mmHg, Cuff placed on Right Arm 05:09 PM HR=93 bpm, IOFO=844/81 mmhg, SpO2=90.0 % 05:13 PM Time: 17:13 Versed 1 mg Intravenous Given by Teddy Pierre RN cedwards 05:13 PM Time: 17:13 Fentanyl 25 mcg Intravenous Given by Teddy Pierre RN cedwards 05:14 PM WS=517 bpm, JTCE=177/87 mmhg, SpO2=89.0 % 05:15 PM Case Delayed no, inpatient cedwards 05:15 PM Clinical Presentation: Non-STEMI cedwards 05:18 PM Time out performed according to hospital policy cedwards 05:19 PM HR=91 bpm, GNZB=251/85 mmhg, SpO2=88.0 %, Comment=afib 05:20 PM ASA Class CLASS II- Mild systemic disease (i.e. well-controlled diabetes, hypertension, asthma, cigarette smoking) cedwards 05:20 PM Access obtained by percutaneous puncture. 5Fr 10cm Terumo [place] sheath placed in right Femoral artery. [id number] cedwards 05:21 PM 5Fr FL 4 catheter inserted over the wire [facility] cedwards 05:21 PM Recorded Pressure: Ao, HJ=472, Condition=Condition 1 (Aorta) Ao 126/102/114 05:22 PM Time: 17:06 Patient comfortable and pain free: Yes cedwards 05:22 PM Time: 17:07LOC: 4 = Oriented but drowsy cedwards 05:22 PM LCA angiography performed in multiple views. cedwards 05:23 PM Catheter removed cedwards 05:23 PM 5Fr FR 4 catheter inserted over the wire [facility] cedwards 05:24 PM Coronary Dominance: right cedwards 05:24 PM RCA angiography performed in multiple views. cedwards 05:24 PM XH=297 bpm, INYT=495/79 mmhg, SpO2=88.0 %, Comment=afib 05:26 PM Pressure channel 1 zeroed. 05:26 PM Recorded Pressure: LV, JN=079, Condition=Condition 1 (Left Ventricle) LV 150/12/21 05:28 PM Lesion found in Proximal LAD. Pre Stenosis: 99 Pre LIZY Flow: 2: Partial Flow/Perfusion (> 1 but < 3) cedwards 05:28 PM Lesion found in Mid LAD. Pre Stenosis: 60 Pre LIZY Flow: cedwards 05:28 PM Lesion found in Mid Circumflex. Pre Stenosis: 70 Pre LIZY Flow: cedwards 05:29 PM PCI Status Urgent cedwards 05:29 PM PCI Indication: PCI for high risk Non-STEMI or unstable angina cedwards 05:29 PM Inflation device was opened. cedwards 05:29 PM Sheath exchanged for a 6 Fr 11 cm Cordis Stephanie sheath [id number] cedwards 05:30 PM HA=297 bpm, JKEU=392/78 mmhg, SpO2=89.0 %, Comment=afib 05:30 PM 6Fr RBL 3.5 Convey guide catheter was used to cannulate the PCI vessel successfully. reused? No cedwards 05:30 PM .014 [place] 190cm guide wire across target lesion- successful. reused? No cedwards 05:30 PM At 17:30 the ACT was 220 seconds. cedwards 05:32 PM Time: 17:31 Aggrastat Bolus: 37.5 ml Intravenous Given by Teddy Pierre RN Curry pump cedwards 05:32 PM Time: 17:32 Aggrastat 12.5mg/250ml 6.75 ml Intravenous Given by Teddy Pierre RN Curry pump cedwards 05:32 PM Time: 17:32 Heparin 2000 units Intravenous Given by Teddy Pierre RN Curry pump cedwards 05:34 PM 2.0 mm x 12 mm Emerge Monorail balloon across target lesion- successful. reused? No cedwards 05:34 PM Balloon inflated @ 14 sangeeta for 8 seconds cedwards 05:34 PM Recorded Pressure: Ao, LH=438, Condition=Condition 1 (Aorta) Ao 114/85/100 05:34 PM HR=97 bpm, AHUA=118/84 mmhg, SpO2=88.0 %, Comment=afib 05:36 PM Balloon catheter removed intact. cedwards 05:37 PM Time: 17:22LOC: 4 = Oriented but drowsy cedwards 05:37 PM Time: 17:22 Patient comfortable and pain free: Yes cedwards 05:37 PM 3.0mm x 16mm Rebel [employer] bare metal stent across target lesion- successful Lot #[id number] cedwards 05:38 PM Stent deployed @ 11 sangeeta for 16 seconds cedwards 05:39 PM Recorded Pressure: Ao, HR=96, Condition=Condition 1 (Aorta) Ao 99/71/84 05:39 PM ZE=930 bpm, RJTS=418/81 mmhg, SpO2=87.0 % 05:40 PM Stent delivery system removed intact. cedwards 05:40 PM Recorded Pressure: Ao, LH=171, Condition=Condition 1 (Aorta) Ao 114/72/91 05:41 PM NIBP STAT measurement started. 05:42 PM 3.5 mm x 6mm NC Emerge balloon across target lesion- successful. reused? No cedwards 05:42 PM OK=804 bpm, AENE=767/85 mmhg, SpO2=87.0 %, Comment=afib 05:43 PM Time: 17:42 Metoprolol 2.5 mg Intravenous Given by Teddy Pierre RN cedwards 05:43 PM Balloon inflated @ 16 sangeeta for 8 seconds cedwards 05:43 PM Balloon inflated @ 12 sangeeta for 8 seconds cedwards 05:44 PM HR=94 bpm, MBMT=611/81 mmhg, SpO2=89.0 %, Comment=afib 05:45 PM Balloon removed. cedwards 05:46 PM Time: 17:45 Nitroglycerin 200 mcg Intracoronary Given by Emile Severino MD cedwards 05:47 PM Time: 17:47 Adenosine 60 mcg administered Intracoronary by Emile Severino MD, [facility] cedwards 05:48 PM Time: 17:47 Adenosine 60 mcg administered Intracoronary by Emile Severino MD, [facility] cedwards 05:48 PM Time: 17:48 Adenosine 60 mcg administered Intracoronary by Emile Severino MD, [facility] cedwards 05:48 PM Patient complaining of ongoing chest pain and nausea. cedwards 05:49 PM Time: 17:49 Adenosine 60 mcg administered Intracoronary by Emile Severino MD, [facility] cedwards 05:49 PM Time: 17:49 Fentanyl 12.5 mcg Intravenous Given by Teddy Pierre RN cedwards 05:49 PM HR=77 bpm, NPWX=117/68 mmhg, SpO2=89 % 05:51 PM Time: 17:50 Zofran 4 mg Intravenous Given by Teddy Pierre RN cedwards 05:53 PM Time: 17:37 Patient comfortable and pain free: No cedwards 05:53 PM Time: 17:37LOC: 5 = Fully awake and oriented or at pre-proc level cedwards 05:54 PM HV=512 bpm, SKNZ=271/72 mmhg, SpO2=83 % 05:[address] Severino assessing patient's chest pain and overall discomfort. reviewing films. cedwards 05:57 PM Patient states chest pain is 5/10. cedwards 05:59 PM Patient states "she is feeling better." cedwards 05:59 PM UR=175 bpm, WZHO=477/88 mmhg, SpO2=91 % 06:01 PM Guide wire removed intact. cedwards 06:01 PM Guide catheter removed intact. cedwards 06:04 PM BU=760 bpm, JUHL=300/81 mmhg, SpO2=92.0 % 06:06 PM Time: 18:06 Plavix 600 mg Orally Given by Teddy Pierre RN cedwards 06:07 PM Procedure completed at 18:06 cedwards 06:07 PM Sign out completed: Radiation Dose 769 mGy Fluoro Time: 6.6 Isovue 370 - 200ml contrast 123 ml given by Emile Severino MD, [facility]. Complications: NoneCardiac Rehab Consult needed: YesConfirmed administered medications: Yes cedwards 06:08 PM Time: 17:53LOC: 4 = Oriented but drowsy cedwards 06:08 PM Time: 17:53 Patient comfortable and pain free: Yes cedwards 06:11 PM At 18:11 the ACT was 319 seconds. cedwards 06:14 PM Sheath left in place to be pulled on floor/holding area cedwards 06:15 PM Estimated Blood Loss: less than 20cc cedwards 06:15 PM Post ECG Atrial Fibrillation cedwards 06:15 PM patient states that she is having no chest pain at all at this time cedwards 06:16 PM Post Blood Pressure 119/81 cedwards 06:16 PM 18:16 Post Pulses Bilateral DP & PT 1+ cedwards 06:16 PM Information taught Cardiac Cath and PCI cedwards 06:16 PM Education needs Procedure, Plan of Care, and Responsibilities of Patient in Care cedwards 06:16 PM Learning barriers :None cedwards 06:16 PM Education Methods Verbal cedwards 06:16 PM Education evaluation Able to repeat information cedwards 06:16 PM Site status No bleeding/hematoma - Rt Groin as reported by Sites, Ana RT (R) at 18:16 cedwards 06:16 PM Opsite applied cedwards 06:16 PM Plavix, Effient or Brilinta given Yes cedwards 06:16 PM Delay to floor No cedwards 06:16 PM Patient out of room: 18:16 cedwards 06:16 PM Family placed in consult room. cedwards 06:16 PM Complications: None cedwards 06:17 PM Fluoro Time: 6.6 cedwards 06:17 PM Isovue 370 - 200ml contrast 123 ml given by . cedwards 06:17 PM Radiation Dose 6774 mGy cedwards 06:19 PM Lesion found in LMCA. Pre Stenosis: 40 Pre LIZY Flow: cedwards Complications Complication None None Hemodynamics Pressures Site Systolic/A Wave Diastolic/V Wave Mean AO 126 102 114 LV 150 12 21 AO 114 85 100 AO 99 71 84 AO 114 72 91 Post Procedure Information Blood Pressure: 119/81 mmHg Rhythm: Atrial Fibrillation Post procedural instructions were given Closure Device Time Device Success/Fail 08/26/2017 6:18:00 PM Manual Compression - sheath to be pulled on 2N when appropriate Site Checks Time Location Status Staff Sheath In? Note 06:16 PM Rt Groin No bleeding/hematoma Sites, Ana RT (R) Pulses Time Site Pre-Procedure Post-Procedure Note 08/26/2017 5:09:00 PM Bilateral DP & PT 1+ 08/26/2017 5:09:00 PM Bilateral radial 2+ 6:16:00 PM Bilateral DP & PT 1+ Updated by Teddy Pierre RN on 08/26/2017 6:40:21 PM electronically signed on 08/26/2017 6:40:54 PM with status of Final
--- NOTE | 2017-08-26 19:13 | Invasive Diagnostic Lab Proc ---
Name: Jerrica Mccloud Date of Study: 08/26/2017 Date: 1930 Ht: 63.0in Medical Record#: [id number] Age: 86 Wt: 165.35lb Gender: Female BSA: 1.78 Order #: [id number] BMI: 29.3 Physicians Procedure Physician: Emile Severino MD, [facility] Referring MD: Referring MD: Staff Name Position Time In Teddy Pierre RN Supply Chain Systems Manager 05:03 PM Shireen Palacios RN Monitor 05:04 PM Shanelle, Ana RT (R) Scrub 05:04 PM Indications Indication Non-Stemi Procedures Performed Procedure L HRT ARTERY/VENTRICLE ANGIO PRQ CARD BM STENT W/ANGIO 1 VSL Pre-Procedure Checklist Informed consent is complete signed and on chart. H&P is on chart. ID band is on and ID verified with patient. Patient NPO for procedure The procedure was described for the patient and questions were answered. Blood Pressure: 134/81 ECG is on chart. Rhythm: Atrial Fibrillation Plan of Care Patient will tolerate the procedure without complications. Adequate level of comfort will be maintained. Hemodynamics will remain stable Patient will recover from procedure without complications. Respiratory function will be maintained. Cardiac rhythm will remain stable. Patient temperature will be maintained. Patient and/or family have verbalized understanding of the procedure. Patient Education Intravenous Access Time IV Size Location DC'd Fluid/Drip Rate Units RN 05:08 PM 20g 1 /" Patent On Arrival Lt Wrist 0.9NaCl 25 ml/hr Allergies simvastatin Fenofibrate metoclopramide Metoclopramide Hydrochloride No Known Allergies NONE KNOWN Vital Signs Time BP (mmHg) HR (bpm) O2 Sat. RR (bpm) LOC 05:07 PM 117 / 64 57 92 % 5 = Fully awake and oriented or at pre-proc level 05:07 PM / % 4 = Oriented but drowsy 05:22 PM / % 4 = Oriented but drowsy 05:37 PM / % 5 = Fully awake and oriented or at pre-proc level 05:53 PM / % 4 = Oriented but drowsy 05:09 PM 134 / 81 93 90 % 05:14 PM 144 / 87 130 89 % 05:19 PM 130 / 85 91 88 % 05:24 PM 140 / 79 118 88 % 05:30 PM 127 / 78 103 89 % 05:34 PM 130 / 84 97 88 % 05:39 PM 133 / 81 112 87 % 05:42 PM 124 / 85 111 87 % 05:44 PM 132 / 81 94 89 % 05:49 PM 107 / 68 77 89 % 05:54 PM 121 / 72 103 83 % 05:59 PM 118 / 88 121 91 % 06:04 PM 119 / 81 108 92 % 07:01 PM 164 / 90 112 95 % 20 5 = Fully awake and oriented or at pre-proc level Procedural Medications Time Medication Dose Units Method Given By 05:06 PM Oxygen 2 L/min nasal cannula Teddy Pierre RN 05:13 PM Versed 1 mg Intravenous Teddy Pierre RN 05:13 PM Fentanyl 25 mcg Intravenous Teddy Pierre RN 05:31 PM Aggrastat Bolus: 37.5 ml Intravenous Teddy Pierre RN 05:32 PM Aggrastat 12.5mg/250ml 6.75 ml Intravenous Teddy Pierre RN 05:32 PM Heparin 2000 units Intravenous Teddy Pierre RN 05:42 PM Metoprolol 2.5 mg Intravenous Teddy Pierre RN 05:45 PM Nitroglycerin 200 mcg Intracoronary Emile Severino MD 05:47 PM Adenosine 60 mcg Intracoronary Emile Severino MD, FACC 05:47 PM Adenosine 60 mcg Intracoronary Emile Severino MD, FACC 05:48 PM Adenosine 60 mcg Intracoronary Emile Severino MD, FACC 05:49 PM Adenosine 60 mcg Intracoronary Emile Severino MD, FACC 05:49 PM Fentanyl 12.5 mcg Intravenous Teddy Pierre RN 05:50 PM Zofran 4 mg Intravenous Shireen Palacios RN 06:06 PM Plavix 600 mg Orally Teddy Pierre RN ASA Classification: CLASS II- Mild systemic disease (i.e. well-controlled diabetes, hypertension, asthma, cigarette smoking) Bushra Score Preprocedure Postprocedure Activity 2- Moves 4 extremities sustained head lift Activity 2- Moves 4 extremities sustained head lift Circulation 2- SBP +/= 20 points of pre-anesthetic level Circulation 2- SBP +/= 20 points of pre-anesthetic level Consciousness 2- Awake and alert oriented x 3 Consciousness 2- Awake and alert oriented x 3 O2 Saturation 2- Able to maintain O2 satruation of 92% on room air O2 Saturation 2- Able to maintain O2 satruation of 92% on room air Respiratory 2- Able to deep breathe and cough well Respiratory 2- Able to deep breathe and cough well Total Score 10 Total Score 10 Contrast Agent: Isovue Diagnostic Contrast: 123 ml Total Contrast: 123 ml Fluoro Dose: 6774 mGy Activated Clotting Time Time Seconds to Clot 05:30 PM 220 06:11 PM 319 Procedure Log Time Note Enter By 05:03 PM Pt arrived to labor service representative 2 at 17:03 cedwards 05:04 PM Teddy Pierre RN Position: Supply Chain Systems Manager Time in: 17:03 cedwards 05:04 PM Shireen Palacios RN Position: Monitor Time in: 17:04 cedwards 05:04 PM Aan Timmons RT (R) Position: Scrub Time in: 17:04 cedwards 05:04 PM Patient charges- Angio tray pack, Navilyst 3mm J, Pulse Oximetry and ACIST tubing and transducer cedwards 05:04 PM Hair removed from procedure site in procedure lab using clippers. Bilateral groin prepped with Chloraprep by Ana Timmons (R), then patient was draped. Skin intact. cedwards 05:04 PM Physician arrived 17:04 cedwards 05:04 PM Chester and jayden completed cedwards 05:04 PM Sign in performed according to hospital policy. cedwards 05:04 PM Procedure start 17:04 cedwards 05:05 PM CathStat 05:06 PM Time: 17:06 Oxygen on at 2 L/min per nasal cannula by Teddy Pierre RN cedwards 05:06 PM Time: 17:06 Patient comfortable and pain free: Yes cedwards 05:07 PM Time: 17:07LOC: 5 = Fully awake and oriented or at pre-proc level cedwards 05:09 PM Vitals capture started with the following parameters, Patient=Adult, Interval=5 min, Initial Ktjcxxro=137 mmHg, Deflation Rate=5 mmHg, Cuff placed on Right Arm 05:09 PM HR=93 bpm, QHVA=354/81 mmhg, SpO2=90.0 % 05:13 PM Time: 17:13 Versed 1 mg Intravenous Given by Teddy Pierre RN cedwards 05:13 PM Time: 17:13 Fentanyl 25 mcg Intravenous Given by Teddy Pierre RN cedwards 05:14 PM PL=727 bpm, ZSTV=529/87 mmhg, SpO2=89.0 % 05:15 PM Case Delayed no, inpatient cedwards 05:15 PM Clinical Presentation: Non-STEMI cedwards 05:18 PM Time out performed according to hospital policy cedwards 05:19 PM HR=91 bpm, QCPR=209/85 mmhg, SpO2=88.0 %, Comment=afib 05:20 PM ASA Class CLASS II- Mild systemic disease (i.e. well-controlled diabetes, hypertension, asthma, cigarette smoking) cedwards 05:20 PM Access obtained by percutaneous puncture. 5Fr 10cm Terumo Centerview sheath placed in right Femoral artery. [id number] cedwards 05:21 PM 5Fr FL 4 catheter inserted over the wire [facility] cedwards 05:21 PM Recorded Pressure: Ao, ZY=306, Condition=Condition 1 (Aorta) Ao 126/102/114 05:22 PM Time: 17:06 Patient comfortable and pain free: Yes cedwards 05:22 PM Time: 17:07LOC: 4 = Oriented but drowsy cedwards 05:22 PM LCA angiography performed in multiple views. cedwards 05:23 PM Catheter removed cedwards 05:23 PM 5Fr FR 4 catheter inserted over the wire [facility] cedwards 05:24 PM Coronary Dominance: right cedwards 05:24 PM RCA angiography performed in multiple views. cedwards 05:24 PM EH=424 bpm, BCBF=711/79 mmhg, SpO2=88.0 %, Comment=afib 05:26 PM Pressure channel 1 zeroed. 05:26 PM Recorded Pressure: LV, UT=156, Condition=Condition 1 (Left Ventricle) LV 150/12/21 05:28 PM Lesion found in Proximal LAD. Pre Stenosis: 99 Pre LIZY Flow: 2: Partial Flow/Perfusion (> 1 but < 3) cedwards 05:28 PM Lesion found in Mid LAD. Pre Stenosis: 60 Pre LIZY Flow: cedwards 05:28 PM Lesion found in Mid Circumflex. Pre Stenosis: 70 Pre LIZY Flow: cedwards 05:29 PM PCI Status Urgent cedwards 05:29 PM PCI Indication: PCI for high risk Non-STEMI or unstable angina cedwards 05:29 PM Inflation device was opened. cedwards 05:29 PM Sheath exchanged for a 6 Fr 11 cm Cordis Stephanie sheath [id number] cedwards 05:30 PM OB=750 bpm, LENY=771/78 mmhg, SpO2=89.0 %, Comment=afib 05:30 PM 6Fr RBL 3.5 Convey guide catheter was used to cannulate the PCI vessel successfully. reused? No cedwards 05:30 PM .014 Glendo 190cm guide wire across target lesion- successful. reused? No cedwards 05:30 PM At 17:30 the ACT was 220 seconds. cedwards 05:32 PM Time: 17:31 Aggrastat Bolus: 37.5 ml Intravenous Given by Teddy Pierre RN Curry pump cedwards 05:32 PM Time: 17:32 Aggrastat 12.5mg/250ml 6.75 ml Intravenous Given by Teddy Pierre RN Curry pump cedwards 05:32 PM Time: 17:32 Heparin 2000 units Intravenous Given by Teddy Pierre RN Curry pump cedwards 05:34 PM 2.0 mm x 12 mm Emerge Monorail balloon across target lesion- successful. reused? No cedwards 05:34 PM Balloon inflated @ 14 sangeeta for 8 seconds cedwards 05:34 PM Recorded Pressure: Ao, OW=714, Condition=Condition 1 (Aorta) Ao 114/85/100 05:34 PM HR=97 bpm, VEXH=852/84 mmhg, SpO2=88.0 %, Comment=afib 05:36 PM Balloon catheter removed intact. cedwards 05:37 PM Time: 17:22LOC: 4 = Oriented but drowsy cedwards 05:37 PM Time: 17:22 Patient comfortable and pain free: Yes cedwards 05:37 PM 3.0mm x 16mm Re[employer] bare metal stent across target lesion- successful Lot #[id number] cedwards 05:38 PM Stent deployed @ 11 sangeeta for 16 seconds cedwards 05:39 PM Recorded Pressure: Ao, HR=96, Condition=Condition 1 (Aorta) Ao 99/71/84 05:39 PM JO=367 bpm, HKVW=222/81 mmhg, SpO2=87.0 % 05:40 PM Stent delivery system removed intact. cedwards 05:40 PM Recorded Pressure: Ao, SL=379, Condition=Condition 1 (Aorta) Ao 114/72/91 05:41 PM NIBP STAT measurement started. 05:42 PM 3.5 mm x 6mm NC Emerge balloon across target lesion- successful. reused? No cedwards 05:42 PM XI=003 bpm, JUPS=523/85 mmhg, SpO2=87.0 %, Comment=afib 05:43 PM Time: 17:42 Metoprolol 2.5 mg Intravenous Given by Teddy Pierre RN cedwards 05:43 PM Balloon inflated @ 16 sangeeta for 8 seconds cedwards 05:43 PM Balloon inflated @ 12 sangeeta for 8 seconds cedwards 05:44 PM HR=94 bpm, YFQV=595/81 mmhg, SpO2=89.0 %, Comment=afib 05:45 PM Balloon removed. cedwards 05:46 PM Time: 17:45 Nitroglycerin 200 mcg Intracoronary Given by Emile Severino MD cedwards 05:47 PM Time: 17:47 Adenosine 60 mcg administered Intracoronary by Emile Severino MD, [facility] cedwards 05:48 PM Time: 17:47 Adenosine 60 mcg administered Intracoronary by Emile Severino MD, [facility] cedwards 05:48 PM Time: 17:48 Adenosine 60 mcg administered Intracoronary by Emile Severino MD, [facility] cedwards 05:48 PM Patient complaining of ongoing chest pain and nausea. cedwards 05:49 PM Time: 17:49 Adenosine 60 mcg administered Intracoronary by Emile Severino MD, [facility] cedwards 05:49 PM Time: 17:49 Fentanyl 12.5 mcg Intravenous Given by Teddy Pierre RN cedwards 05:49 PM HR=77 bpm, FAQL=936/68 mmhg, SpO2=89 % 05:51 PM Time: 17:50 Zofran 4 mg Intravenous Given by Teddy Pierre RN cedwards 05:53 PM Time: 17:37 Patient comfortable and pain free: No cedwards 05:53 PM Time: 17:37LOC: 5 = Fully awake and oriented or at pre-proc level cedwards 05:54 PM JV=277 bpm, ISPH=500/72 mmhg, SpO2=83 % 05:[address] Severino assessing patient's chest pain and overall discomfort. reviewing films. cedwards 05:57 PM Patient states chest pain is 5/10. cedwards 05:59 PM Patient states "she is feeling better." cedwards 05:59 PM HU=775 bpm, ECZA=301/88 mmhg, SpO2=91 % 06:01 PM Guide wire removed intact. cedwards 06:01 PM Guide catheter removed intact. cedwards 06:04 PM MQ=467 bpm, PLLE=674/81 mmhg, SpO2=92.0 % 06:06 PM Time: 18:06 Plavix 600 mg Orally Given by Teddy Pierre RN cedwards 06:07 PM Procedure completed at 18:06 cedwards 06:07 PM Sign out completed: Radiation Dose 769 mGy Fluoro Time: 6.6 Isovue 370 - 200ml contrast 123 ml given by Emile Severino MD, [facility]. Complications: NoneCardiac Rehab Consult needed: YesConfirmed administered medications: Yes cedwards 06:08 PM Time: 17:53LOC: 4 = Oriented but drowsy cedwards 06:08 PM Time: 17:53 Patient comfortable and pain free: Yes cedwards 06:11 PM At 18:11 the ACT was 319 seconds. cedwards 06:14 PM Sheath left in place to be pulled on floor/holding area cedwards 06:15 PM Estimated Blood Loss: less than 20cc cedwards 06:15 PM Post ECG Atrial Fibrillation cedwards 06:15 PM patient states that she is having no chest pain at all at this time cedwards 06:16 PM Post Blood Pressure 119/81 cedwards 06:16 PM 18:16 Post Pulses Bilateral DP & PT 1+ cedwards 06:16 PM Information taught Cardiac Cath and PCI cedwards 06:16 PM Education needs Procedure, Plan of Care, and Responsibilities of Patient in Care cedwards 06:16 PM Learning barriers :None cedwards 06:16 PM Education Methods Verbal cedwards 06:16 PM Education evaluation Able to repeat information cedwards 06:16 PM Site status No bleeding/hematoma - Rt Groin as reported by Sites, Ana RT (R) at 18:16 cedwards 06:16 PM Opsite applied cedwards 06:16 PM Plavix, Effient or Brilinta given Yes cedwards 06:16 PM Delay to floor No cedwards 06:16 PM Patient out of room: 18:16 cedwards 06:16 PM Family placed in consult room. cedwards 06:16 PM Complications: None cedwards 06:17 PM Fluoro Time: 6.6 cedwards 06:17 PM Isovue 370 - 200ml contrast 123 ml given by . cedwards 06:17 PM Radiation Dose 6774 mGy cedwards 06:19 PM Lesion found in LMCA. Pre Stenosis: 40 Pre LIZY Flow: cedwards 06:41 PM Pt states that she is having chest pain again 12/01. Dr. Severino paged. He ordered an EKG and a nitro gtt scoates 06:59 PM EKG completed, Pt placed on a nitro gtt at 10mcg/min scoates 07:00 PM Current EKG and previous EKG sent to Dr.Chen song 07:02 PM pt states that her chest pain is now a 08/31 scoates 07:02 PM pt will be taken to 2N room 12 now scoates Complications Complication None None Hemodynamics Pressures Site Systolic/A Wave Diastolic/V Wave Mean AO 126 102 114 LV 150 12 21 AO 114 85 100 AO 99 71 84 AO 114 72 91 Post Procedure Information Blood Pressure: 119/81 mmHg Rhythm: Atrial Fibrillation Post procedural instructions were given Closure Device Time Device Success/Fail 08/26/2017 6:18:00 PM Manual Compression - sheath to be pulled on 2N when appropriate Site Checks Time Location Status Staff Sheath In? Note 06:16 PM Rt Groin No bleeding/hematoma Sites, Ana RT (R) Pulses Time Site Pre-Procedure Post-Procedure Note 08/26/2017 5:09:00 PM Bilateral DP & PT 1+ 08/26/2017 5:09:00 PM Bilateral radial 2+ 6:16:00 PM Bilateral DP & PT 1+ 08/26/2017 7:00:00 PM Bilateral DP & PT 1+ Updated by Shireen Delgado RN on 08/26/2017 7:06:25 PM electronically signed on 08/26/2017 7:07:38 PM with status of Final
--- NOTE | 2017-08-26 20:49 | Electrocardiograph Report ---
[address] [place], [place] [address] Test Date: 2017-08-25 Pat Name: Jerrica Mccloud Department: 110 Room: 2N12 Gender: F [employer] Driver: : [id number] Requested By: Bijan Real Order Number: [id number] Reading MD: Emile Severino Measurements Intervals [place] Rate: 111 P: OK: 0 QRS: -12 QRSD: 112 T: 152 QT: 339 QTc: 405 Interpretive Statements ATRIAL FIBRILLATION WITH RAPID VENTRICULAR RESPONSE VOLTAGE CRITERIA FOR LVH MARKED ST DEPRESSION, CONSIDER SUBENDOCARDIAL INJURY Electronically Signed On 08-26-2017 20:47:51 EDT by Emile Severino
[2017-08-26] MEDS ORDERED: *HR* Atropine Sulfate 1 MG/10 ML SYRINGE ONE (23:01)
[2017-08-26 23:07] LABS: Hematocrit 43.1 % (35.3-44.9); Hemoglobin 13.7 g/dL (11.5-15.4); Mean Corpuscular HGB Conc 31.8 g/dL (31.6-35.5); Mean Corpuscular Hemoglobin 28.8 pg (28.0-33.3); Mean Corpuscular Volume 90.7 fL (83.0-100.0); Platelet Count 165 K/mcL (140-400); Red Blood Count 4.75 M/mcL (3.82-4.97); Red Cell Distribution Width 14.9 % (11.5-14.5)
[2017-08-26 23:15] LABS: INR 1.5; Prothrombin Time 16.2 Seconds (9.4-12.1)
[2017-08-27] MEDS: MethylPREDNISolone 40 MG/ML VIAL IVP SCH ×4 (00:41→17:04)
[2017-08-27] MEDS: Insulin LISPRO 300 UNITS/3 ML VIAL SQ SCH ×6 (00:41→21:32)
[2017-08-27] MEDS: Gabapentin 300 MG CAPSULE PO SCH ×3 (01:01→21:25)
[2017-08-27] MEDS: Furosemide 20 MG/2 ML VIAL IVP SCH ×3 (01:04→17:06)
[2017-08-27] MEDS: Heparin 25,000 UNIT/500 ML D5W 25,000 UNIT/500 ML BAG IVC SCH ×2 (01:57→10:56)
[2017-08-27 04:20] LABS: Basophils % 0.1 %; Hematocrit 39.4 % (35.3-44.9); Hemoglobin 12.9 g/dL (11.5-15.4); Immature Granulocytes % 0.8 % (0-4); Lymphocytes # 0.9 K/mcL (0.6-4.6); Lymphocytes % 5.5 %; Mean Corpuscular HGB Conc 32.7 g/dL (31.6-35.5); Mean Corpuscular Hemoglobin 29.9 pg (28.0-33.3); Mean Corpuscular Volume 91.2 fL (83.0-100.0); Mean Platelet Volume 10.9 fL (9.4-12.4); Monocytes # 1.4 K/mcL (0.0-1.3); Monocytes % 8.8 %; Neutrophils # 13.8 K/mcL (1.6-8.9); Platelet Count 147 K/mcL (140-400); Red Blood Count 4.32 M/mcL (3.82-4.97); Red Cell Distribution Width 14.8 % (11.5-14.5); Segmented Neutrophils % 84.8 %
[2017-08-27 04:41] LABS: BUN/Creatinine Ratio 46 (6-26); Blood Urea Nitrogen 48 mg/dL (8-23); Calcium 8.7 mg/dL (8.6-10.3); Carbon Dioxide 24 mEq/L (23-29); Chloride 103 mEq/L (98-107); Glucose 333 mg/dL (70-105); Osmolality,Calculated 310 (280-300); Potassium 4.4 mEq/L (3.5-5.1); Sodium 137 mEq/L (136-145); eGFR For African Americans > 60 (> 60); eGFR For Non-African Americans 50 (> 60)
[2017-08-27] MEDS: BuPROPion SR (12 HR) 100 MG TABLET PO SCH (08:09)
[2017-08-27] MEDS: Aspirin 81 MG TAB.CHEW PO SCH (08:09)
[2017-08-27] MEDS: cefTRIAXone 1,000 MG in Water for inj. (sterile) 20 ML 10 ML IVP SCH (08:09)
[2017-08-27] MEDS: Cholecalciferol (D-3) 1,000 UNIT TABLET PO SCH (08:09)
--- NOTE | 2017-08-27 08:09 | Pre-Sedation Evaluation ---
Pre-sedation evaluation - Pre-sedation checklist Date of procedure: 08/26/17 Procedure: heart cath Recent Vitals: Last Vital Signs Temp 97.5 F L 08/27/17 03:29 Pulse 109 08/27/17 07:27 Resp 16 08/27/17 07:27 BP 118/95 08/27/17 07:27 Pulse Ox 93 08/27/17 07:27 H&P (including ROS) documented in medical record: Yes Previous reaction to sedatives/anesthetics: No Dietary Status: NPO after Midnight Dentition: No loose teeth or bridges ASA Classification *see protocol: CLASS II-Mild systemic disease Plan of Care: Pt appropriate candidate for procedure/moderate/conscious sedation , Risks/benefits of procedure/sedation discussed w/ patient/family (presedation late entry)
[2017-08-27] MEDS: Azithromycin 500 MG in D5% in Water 250 ML IVPB SCH (08:10)
[2017-08-27] MEDS: Nitroglycerin 25 MG/250 ML INFUS..BTL IVC SCH (08:48)
--- NOTE | 2017-08-27 09:35 | Cardiology Progress Note ---
Date of Encounter: 08/27/17 Time of Encounter: 09:10 Assessment and Plan (1) Chest pain Current Visit: Yes Status: Acute See comments under elevated troponin. Qualifiers: Chest pain type: unspecified Qualified Code(s): R07.9 - Chest pain, unspecified (2) New onset a-fib Current Visit: Yes Status: Suspected - Confirmed on EKG - Review of EKGs show sinus rhythm with ST depression intermittently. - CHADVASC 7, HASBLED 3 - Already anticoagulated on coumadin and has home BB - Rate mildly elevated in 90s-100s. Plan - Continue BB and heparin gtt with bridge to coumadin - Continue to monitor as underlying PNA, PE resolve (3) Hypertension Current Visit: Yes Status: Acute - Well controlled on BB and CCB - Continue home meds. Qualifiers: Hypertension type: essential hypertension Qualified Code(s): I10 - Essential (primary) hypertension (4) Elevated troponin Current Visit: Yes Status: Acute LHC performed 08/26/17 with placement of 1 BMS and PTCA to proximal LAD. Also noted borderline severe mid LCx We discussed the potential etiologies of an elevated troponin. I explained to patient that mild troponin elevation could be related to other issues, namely PNA, chronic PE, AF with RVR, etc. I also explained that potential cardiac causes (NSTEMI) could not be excluded. Chest pain resolved. Plan - Continue triple therapy (ASA, plavix, AC) for at least 1 month in duration - Duration depends on follow up at 1 month - Patient and family advised to continue triple therapy and to watch for signs of bleeding including melena, hematochezia, etc. - She will have a follow up appointment with cardiology and PCP upon discharge. (5) PE (pulmonary thromboembolism) Current Visit: Yes Status: Chronic - Chronic on anticoagulation of coumadin - Continue to bridge from heparin gtt (6) NSTEMI (non-ST elevated myocardial infarction) Current Visit: Yes Status: Suspected - As above under elevated troponin Discussion w patient/family: The assessment and plan as outlined above was discussed with the patient and/or family members who expressed understanding and agreement. All questions were answered. Thank you for involving us in the care of your patient. Please call with any questions. Subjective Principal diagnosis: dyspnea Interval history: patient seen and examined at bedside. Patient states that she is doing much better after undergoing LHC yesterday. She reports no episodes of chest pain since the evening of 08/25 and no associated SOB, nausea, vomiting. She does have complaint of persistent "rattling" in her chest with cough. Objective Vital Signs, Last 4 Hours Pulse Resp BP Pulse Ox 08/27/17 07:27 109 16 118/95 93 General: Conversant, No Apparent Distress HEENT: Atraumatic, Normocephaly, Mucus Membranes Moist Neck: No JVD, Normal carotid pulses Cardiac: Reg Rate and Rhythm, Normal S1 and S2, No Murmur, Other (mildly tachycardic) Lungs: Other (diffuse stridor, course breath sounds, upper airway congestion) Neuro: Alert and responsive, No focal deficits noted Abdomen: Soft, Non-Tender Skin: No rashes noted on visualized skin Musculoskeletal: No Chest Wall Tenderness Extremities: No Clubbing, No Cyanosis, No Edema, Normal Pulses Results 08/27/17 03:50 08/27/17 03:50 Lab Results 08/26/17 08/26/17 08/26/17 12:44 12:44 19:27 WBC 18.5 H 16.9 H Hgb 13.1 13.7 Hct 40.8 43.1 Plt Count 146 165 INR 1.5 APTT 28.1 Sodium Potassium Chloride Carbon Dioxide BUN Creatinine Glucose Calcium 08/26/17 08/27/17 08/27/17 19:27 03:50 03:50 WBC 16.3 H Hgb 12.9 Hct 39.4 Plt Count 147 INR 1.5 APTT 77.0 H D Sodium 137 Potassium 4.4 Chloride 103 Carbon Dioxide 24 BUN 48 H Creatinine 1.04 Glucose 333 H Calcium 8.7 Consult Discharge Plan - Plan Referrals: Arelis Will, LENNOX [Primary Care Provider] - 09/03/17 3:00 pm ()
[2017-08-27 11:33] LABS: Activated Partial Thrombo Time > 360.0 Seconds (26.0-36.0)
[2017-08-27 11:39] LABS: Activated Partial Thrombo Time > 360.0 Seconds (26.0-36.0)
[2017-08-27 11:48] LABS: Heparin anti-factor XA UFH 1.93 IU/mL (0.30-0.70)
[2017-08-27 11:48] LABS: Heparin anti-factor XA UFH 1.95 IU/mL (0.30-0.70)
[2017-08-27] MEDS ORDERED: *HR* Metoprolol 5 MG/5 ML VIAL IVP ONE (11:53)
--- NOTE | 2017-08-27 11:53 | Internal Med Progress Note ---
Date of Encounter: 08/27/17 Time of Encounter: 11:53 - Assessment and plan (1) PE (pulmonary thromboembolism) Current Visit: Yes Status: Chronic Assessment and plan: Coumadin was held for procedure and brief episode of hemoptysis Patient is extremely high risk for further VTE and cardiovascular events. Since patient had C 08/26 now it is okay to bridge her back to coumadin. (2) Chest pain Current Visit: Yes Status: Acute Assessment and plan: Reviewed EKG no changes from y/d NSTEMI Troponin trended, Peak @ 0.67 Cardiology on board. [facility] 08/26: high grade lesion - recommendations per Cardiology asa/plavix for 30 days and bridging back to coumadin. Stopping aspirin in 30 days. Qualifiers: Chest pain type: unspecified Qualified Code(s): R07.9 - Chest pain, unspecified (3) Hypertension Current Visit: Yes Status: Acute Assessment and plan: Fairly controlled On lopressor and is going to be increased today because of RVR Qualifiers: Hypertension type: essential hypertension Qualified Code(s): I10 - Essential (primary) hypertension (4) New onset a-fib Current Visit: Yes Status: Suspected Assessment and plan: Patient tachycardic today and so PO Toprol being increased in dose. (5) Elevated troponin Current Visit: Yes Status: Acute (6) NSTEMI (non-ST elevated myocardial infarction) Current Visit: Yes Status: Suspected Assessment and plan: Plan as above. (7) Leukocytosis Current Visit: Yes Status: Acute Assessment and plan: Patient does not appear to have signs or symptoms of infection at this point unless this is an early infection Patient currently requiring O2, which not listed as home issue. She is on Solu Medrol but this has not changed acutely A follow-up CXR 08/26 done for leukocytosis shows right perihilar consolidation c/ w pneumonia and also shows perihilar nodular densities that could be representing septic emboli. No change in antibiotics were done and patient was monitored on Rocephin/ Azithromycin WBC still 16k today. Will continue antibiotics and discuss with Pulmonology on this findings, which on portable chest x-ray may be limited in interpretation. Clinically she states she is feeling great better than the past two days. Qualifiers: Leukocytosis type: unspecified Qualified Code(s): D72.829 - Elevated white blood cell count, unspecified - Time Spent With Patient Total time spent is greater than 50% in coordination of care (as documented) at patient's floor/unit and/or counseling patient: - Subjective Interval history: No acute events. Patient denies CP or shortness of breath She states "i feel much better today". Denies fevers/chills, n/v. States having some better energy today and is sitting upright. - Constitutional Vitals: Temp Pulse Resp BP Pulse Ox 97.5 F L 115 16 110/84 92 08/27/17 03:29 08/27/17 11:30 08/27/17 11:30 08/27/17 11:30 08/27/17 11:30 General appearance: Present: cooperative, A&O X 3, severe distress, answers questions appropriately - Head Head exam: Present: atraumatic, normocephalic - Eye Eye exam: Present: PERRL, conjuntiva pink, sclera anicteric Pupils: Present: PERRL - Neck Neck exam general surgery: Present: supple, trachea midline. Absent: lymphadenopathy - Respiratory Respiratory exam: Present: decreased breath sounds, CTAB. Absent: accessory muscle use, rales, rhonchi, wheezes - Cardiovascular Cardiovascular exam: Present: irregular rhythm, +S1, +S2, tachycardia. Absent: diastolic murmur, gallop, rubs, systolic murmur - GI/Abdominal GI/Abdominal exam: Present: normal bowel sounds, soft, no peritoneal signs. Absent: distended, tenderness - Extremities Exam Extremities exam: Present: warm, radial pulses palpable and symmetrical. Absent : calf tenderness, cyanotic, pedal edema - Neurological Exam Neurological exam: Present: CN II-XII intact, oriented X3, no focal deficits. Absent: pronater drift, facial droop, speech deficit - Skin Skin exam: Present: dry, intact Internal Medicine: Result - Labs CBC & Chem 7: 08/27/17 03:50 08/27/17 03:50 Labs: Short CBC 08/26/17 08/26/17 08/27/17 Range/Units 12:44 19:27 03:50 WBC 18.5 H 16.9 H 16.3 H (4.3-11.1) K/mcL Hgb 13.1 13.7 12.9 (11.5-15.4) g/dL Hct 40.8 43.1 39.4 (35.3-44.9) % Plt Count 146 165 147 (140-400) K/mcL Neutrophils # 13.8 H (1.6-8.9) K/mcL BMP 08/27/17 03:50 Sodium 137 Potassium 4.4 Chloride 103 Carbon Dioxide 24 BUN 48 H Creatinine 1.04 Glucose 333 H Calcium 8.7 - ABG Interpretation ABG results: PT/INR, D-dimer PT 16.2 Seconds (9.4-12.1) H 08/26/17 19:27 - Impressions Impressions Chest X-Ray 08/26/17 16:42 IMPRESSION: 1. Patchy right perihilar consolidation which may represent pneumonia. 2. Progressive perihilar nodular densities with the largest measuring 1.6 cm. This could represent developing septic emboli. D/ / 08/26/2017 17:16:22 Tre Harden MD / traci Interpreting Provider: Tre Harden MD Consult Discharge Plan - Plan Referrals: Arelis Will, LINUX KERNEL DEVELOPER [Primary Care Provider] - 09/03/17 3:00 pm ()
[2017-08-27 12:55] LABS: Mycoplasma pneumoniae IgG 0.91 U/L (<=0.09)
[2017-08-27 14:00] LABS: INR 1.5; Prothrombin Time 16.5 Seconds (9.4-12.1)
[2017-08-27] MEDS ORDERED: *HR* Warfarin 3 MG TABLET PO ONE (18:00)
[2017-08-27] MEDS ORDERED: Warfarin perPT PO PRN (18:00)
--- NOTE | 2017-08-27 18:07 | Electrocardiograph Report ---
[address] [place], [place] [address] Test Date: 2017-08-26 Pat Name: Jerrica Mccloud Department: 106 Room: 2N12 Gender: F Director Of Human Resources: : [id number] Requested By: Emile Severino Order Number: [id number] Reading MD: Emile Severino Measurements Intervals [place] Rate: 95 P: IA: 0 QRS: -30 QRSD: 105 T: 129 QT: 389 QTc: 441 Interpretive Statements ATRIAL FIB BORDERLINE LEFT AXIS DEVIATION Electronically Signed On 08-27-2017 18:05:38 EDT by Emile Severino
[2017-08-27 20:40] LABS: Activated Partial Thrombo Time > 360.0 Seconds (26.0-36.0)
[2017-08-27 20:45] LABS: Heparin anti-factor XA UFH 1.52 IU/mL (0.30-0.70)
[2017-08-27] MEDS: Insulin DETEMIR 100 UNIT/ML X5UNITS SQ SCH (21:26)
[2017-08-27] MEDS: *HR* Metoprolol 5 MG/5 ML VIAL IVP PRN (22:30)
[2017-08-28] MEDS: MethylPREDNISolone 40 MG/ML VIAL IVP SCH ×2 (00:41→07:36)
[2017-08-28 04:16] LABS: Basophils % 0.2 %; Hematocrit 38.5 % (35.3-44.9); Hemoglobin 12.3 g/dL (11.5-15.4); Immature Granulocytes % 1.4 % (0-4); Lymphocytes # 1.3 K/mcL (0.6-4.6); Lymphocytes % 8.3 %; Mean Corpuscular HGB Conc 31.9 g/dL (31.6-35.5); Mean Corpuscular Hemoglobin 28.9 pg (28.0-33.3); Mean Corpuscular Volume 90.6 fL (83.0-100.0); Monocytes # 1.2 K/mcL (0.0-1.3); Monocytes % 8.2 %; Neutrophils # 12.4 K/mcL (1.6-8.9); Nucleated Red Blood Cells 0.1 /100 WBC (0); Platelet Count 139 K/mcL (140-400); Red Blood Count 4.25 M/mcL (3.82-4.97); Red Cell Distribution Width 14.7 % (11.5-14.5); Segmented Neutrophils % 81.9 %
[2017-08-28 04:33] LABS: BUN/Creatinine Ratio 46 (6-26); Blood Urea Nitrogen 46 mg/dL (8-23); Calcium 8.6 mg/dL (8.6-10.3); Carbon Dioxide 25 mEq/L (23-29); Chloride 107 mEq/L (98-107); Glucose 203 mg/dL (70-105); Osmolality,Calculated 314 (280-300); Potassium 4.3 mEq/L (3.5-5.1); Sodium 143 mEq/L (136-145); eGFR For African Americans > 60 (> 60); eGFR For Non-African Americans 53 (> 60)
[2017-08-28 04:35] LABS: INR 1.6; Prothrombin Time 17.5 Seconds (9.4-12.1)
[2017-08-28 05:08] LABS: Activated Partial Thrombo Time 115.5 Seconds (26.0-36.0)
[2017-08-28 05:09] LABS: Heparin anti-factor XA UFH 1.28 IU/mL (0.30-0.70)
[2017-08-28] MEDS: Furosemide 20 MG/2 ML VIAL IVP SCH ×2 (07:36→16:31)
[2017-08-28] MEDS: Heparin 25,000 UNIT/500 ML D5W 25,000 UNIT/500 ML BAG IVC SCH (07:37)
[2017-08-28] MEDS: Insulin LISPRO 300 UNITS/3 ML VIAL SQ SCH ×4 (07:56→20:26)
--- NOTE | 2017-08-28 09:20 | Cardiology Progress Note ---
Date of Encounter: 08/28/17 Time of Encounter: 09:20 Assessment and Plan (1) Chest pain Current Visit: Yes Status: Acute See comments under elevated troponin. Qualifiers: Chest pain type: unspecified Qualified Code(s): R07.9 - Chest pain, unspecified (2) New onset a-fib Current Visit: Yes Status: Acute - Confirmed on EKG - Review of EKGs show sinus rhythm with ST depression intermittently. - CHADVASC 7, HASBLED 3 - Already anticoagulated on coumadin and has home BB - Rate has been very labile from 70-150 documented. - Increased metoprolol to 50 mg BID yesterday from 25. Plan - Continue BB and heparin gtt with bridge to coumadin - Add amiodarone 200 mg PO BID today - Continue to monitor as underlying PNA, PE resolve (3) Hypertension Current Visit: Yes Status: Acute - Well controlled on BB and CCB - Continue home meds. Qualifiers: Hypertension type: essential hypertension Qualified Code(s): I10 - Essential (primary) hypertension (4) Elevated troponin Current Visit: Yes Status: Acute LHC performed 08/26/17 with placement of 1 BMS and PTCA to proximal LAD. Also noted borderline severe mid LCx We discussed the potential etiologies of an elevated troponin. I explained to patient that mild troponin elevation could be related to other issues, namely PNA, chronic PE, AF with RVR, etc. I also explained that potential cardiac causes (NSTEMI) could not be excluded. Chest pain resolved. Plan - Continue triple therapy (ASA, plavix, AC) for at least 1 month in duration - Duration depends on follow up at 1 month, likely discontinue ASA at that time. - Patient and family advised to continue triple therapy and to watch for signs of bleeding including melena, hematochezia, etc. - She will have a follow up appointment with cardiology and PCP upon discharge. (5) PE (pulmonary thromboembolism) Current Visit: Yes Status: Chronic - Chronic on anticoagulation of coumadin - Continue to bridge from heparin gtt (6) NSTEMI (non-ST elevated myocardial infarction) Current Visit: Yes Status: Acute - As above under elevated troponin Discussion w patient/family: The assessment and plan as outlined above was discussed with the patient and/or family members who expressed understanding and agreement. All questions were answered. Thank you for involving us in the care of your patient. Please call with any questions. Subjective Principal diagnosis: dyspnea Interval history: patient seen and examined at bedside. She reports no futher episodes of chest pain. SOB is improved and rattling in her chest is minimal. No complaints of pain, nausea, vomiting. Overall is doing much better. She has had continued new onset AFib with RVR. Objective Vital Signs, Last 4 Hours Temp Pulse Resp BP Pulse Ox 08/28/17 07:44 97.6 F 84 18 136/108 95 General: Conversant, No Apparent Distress HEENT: Atraumatic, Normocephaly, Mucus Membranes Moist Cardiac: Normal S1 and S2, No Murmur, Other (Irregular rhythm, tachycardic) Lungs: Other (moderate rales, more prominent on right) Neuro: Alert and responsive, No focal deficits noted Abdomen: Soft, Non-Tender Skin: No rashes noted on visualized skin Musculoskeletal: No Chest Wall Tenderness Extremities: No Clubbing, No Cyanosis, No Edema, Normal Pulses Results 08/28/17 04:04 08/28/17 04:04 Lab Results 08/27/17 08/27/17 08/27/17 08:01 10:33 13:27 WBC Hgb Hct Plt Count INR 1.5 APTT > 360.0 H* D > 360.0 H* Sodium Potassium Chloride Carbon Dioxide BUN Creatinine Glucose Calcium 08/27/17 08/28/17 08/28/17 19:34 04:04 04:04 WBC 15.1 H Hgb 12.3 Hct 38.5 Plt Count 139 L INR APTT > 360.0 H* Sodium 143 Potassium 4.3 Chloride 107 Carbon Dioxide 25 BUN 46 H Creatinine 0.99 Glucose 203 H Calcium 8.6 08/28/17 08/28/17 04:04 04:04 WBC Hgb Hct Plt Count INR 1.6 APTT 115.5 H* D Sodium Potassium Chloride Carbon Dioxide BUN Creatinine Glucose Calcium Consult Discharge Plan - Plan Referrals: Arelis Will CNP [Primary Care Provider] - 09/03/17 3:00 pm ()
[2017-08-28] MEDS: Gabapentin 300 MG CAPSULE PO SCH ×2 (09:25→20:25)
[2017-08-28] MEDS: Cholecalciferol (D-3) 1,000 UNIT TABLET PO SCH (09:25)
[2017-08-28] MEDS: cefTRIAXone 1,000 MG in Water for inj. (sterile) 20 ML 10 ML IVP SCH (09:25)
[2017-08-28] MEDS: BuPROPion SR (12 HR) 100 MG TABLET PO SCH (09:25)
[2017-08-28] MEDS: Aspirin 81 MG TAB.CHEW PO SCH (09:25)
[2017-08-28] MEDS: Azithromycin 500 MG in D5% in Water 250 ML IVPB SCH (09:28)
--- NOTE | 2017-08-28 17:35 | Internal Med Progress Note ---
Date of Encounter: 08/28/17 Time of Encounter: 17:32 - Assessment and plan (1) Pneumonia Current Visit: Yes Status: Acute Assessment and plan: Reviewed her CTA of the chest CXR on 08/26 shows right lung consolidation likely pneumonia. step pneumonia, Legionella - Negative - Completed Azithro course, has received 4 days rocephin - De escalate antibiotics to Omnicef. Qualifiers: Pneumonia type: due to unspecified organism Laterality: right Lung location: unspecified part of lung Qualified Code(s): J18.9 - Pneumonia, unspecified organism (2) PE (pulmonary thromboembolism) Current Visit: Yes Status: Chronic Assessment and plan: Coumadin was held for procedure and brief episode of hemoptysis Patient is extremely high risk for further VTE and cardiovascular events. Since patient had [facility] 08/26 now it is okay to bridge her back to coumadin. Continue bridge until INR therapeutic (3) Chest pain Current Visit: Yes Status: Acute Assessment and plan: Reviewed EKG no changes from y/d NSTEMI Troponin trended, Peak @ 0.[address] [facility] 08/26: high grade lesion - recommendations per Cardiology asa/plavix for 30 days and bridging back to coumadin. Stopping aspirin in 30 days. Qualifiers: Chest pain type: unspecified Qualified Code(s): R07.9 - Chest pain, unspecified (4) Hypertension Current Visit: Yes Status: Acute Assessment and plan: Continue current treatment. Qualifiers: Hypertension type: essential hypertension Qualified Code(s): I10 - Essential (primary) hypertension (5) New onset a-fib Current Visit: Yes Status: Acute Assessment and plan: Patient had toprol increased and now HR improved. (6) Elevated troponin Current Visit: Yes Status: Acute (7) NSTEMI (non-ST elevated myocardial infarction) Current Visit: Yes Status: Acute Assessment and plan: Plan as above. - Time Spent With Patient Total time spent is greater than 50% in coordination of care (as documented) at patient's floor/unit and/or counseling patient: - Subjective Interval history: No acute events. Patient denies CP or shortness of breath. Enjoying lunch. - Constitutional Vitals: Temp Pulse Resp BP Pulse Ox 97.9 F 83 18 123/62 96 08/28/17 15:42 08/28/17 15:42 08/28/17 15:42 08/28/17 15:42 08/28/17 15:42 General appearance: Present: cooperative, A&O X 3, severe distress, answers questions appropriately Exam: - Head Head exam: Present: atraumatic, normocephalic - Eye Eye exam: Present: PERRL, conjuntiva pink, sclera anicteric Pupils: Present: PERRL - Neck Neck exam general surgery: Present: supple, trachea midline. Absent: lymphadenopathy - Respiratory Respiratory exam: Present: decreased breath sounds, CTAB. Absent: accessory muscle use, rales, rhonchi, wheezes - Cardiovascular Cardiovascular exam: Present: irregular rhythm, +S1, +S2, tachycardia. Absent: diastolic murmur, gallop, rubs, systolic murmur - GI/Abdominal GI/Abdominal exam: Present: normal bowel sounds, soft, no peritoneal signs. Absent: distended, tenderness - Extremities Exam Extremities exam: Present: warm, radial pulses palpable and symmetrical. Absent : calf tenderness, cyanotic, pedal edema - Neurological Exam Neurological exam: Present: CN II-XII intact, oriented X3, no focal deficits. Absent: pronater drift, facial droop, speech deficit - Skin Skin exam: Present: dry, intact Internal Medicine: Result - Labs CBC & Chem 7: 08/28/17 04:04 08/28/17 04:04 Labs: Short CBC 08/28/17 Range/Units 04:04 WBC 15.1 H (4.3-11.1) K/mcL Hgb 12.3 (11.5-15.4) g/dL Hct 38.5 (35.3-44.9) % Plt Count 139 L (140-400) K/mcL Neutrophils # 12.4 H (1.6-8.9) K/mcL BMP 08/28/17 04:04 Sodium 143 Potassium 4.3 Chloride 107 Carbon Dioxide 25 BUN 46 H Creatinine 0.99 Glucose 203 H Calcium 8.6 - ABG Interpretation ABG results: PT/INR, D-dimer PT 17.5 Seconds (9.4-12.1) H 08/28/17 04:04 Consult Discharge Plan - Plan Referrals: Arelis Will, HUSKER OPERATOR [Primary Care Provider] - 09/03/17 3:00 pm ()
[2017-08-28] MEDS ORDERED: *HR* Metoprolol 5 MG/5 ML VIAL IVP ONE (17:48)
[2017-08-28] MEDS ORDERED: *HR* Warfarin 3 MG TABLET PO ONE (18:00)
[2017-08-28] MEDS: *HR* Amiodarone 200 MG TABLET PO SCH (20:26)
[2017-08-28] MEDS: Insulin DETEMIR 100 UNIT/ML X5UNITS SQ SCH (20:26)
[2017-08-28] MEDS ORDERED: *HR* LORazepam 2 MG/ML VIAL IVP ONE (20:47)
[2017-08-28] MEDS: *HR* Metoprolol 5 MG/5 ML VIAL IVP PRN (22:04)
[2017-08-29 01:23] LABS: Basophils % 0.2 %; Hematocrit 31.6 % (35.3-44.9); Immature Granulocytes % 2.3 % (0-4); Lymphocytes # 1.4 K/mcL (0.6-4.6); Lymphocytes % 12.5 %; Mean Corpuscular HGB Conc 31.6 g/dL (31.6-35.5); Mean Corpuscular Hemoglobin 29.1 pg (28.0-33.3); Mean Corpuscular Volume 91.9 fL (83.0-100.0); Mean Platelet Volume 11.3 fL (9.4-12.4); Monocytes # 1.1 K/mcL (0.0-1.3); Monocytes % 9.8 %; Neutrophils # 8.1 K/mcL (1.6-8.9); Nucleated Red Blood Cells 0.3 /100 WBC (0); Platelet Count 105 K/mcL (140-400); Red Blood Count 3.44 M/mcL (3.82-4.97); Red Cell Distribution Width 14.6 % (11.5-14.5); Segmented Neutrophils % 75.2 %
[2017-08-29 01:30] LABS: INR 1.8; Prothrombin Time 20.1 Seconds (9.4-12.1)
[2017-08-29 01:33] LABS: Activated Partial Thrombo Time 80.7 Seconds (26.0-36.0)
[2017-08-29 01:45] LABS: BUN/Creatinine Ratio 41 (6-26); Blood Urea Nitrogen 39 mg/dL (8-23); Calcium 7.9 mg/dL (8.6-10.3); Carbon Dioxide 27 mEq/L (23-29); Chloride 104 mEq/L (98-107); Glucose 362 mg/dL (70-105); Osmolality,Calculated 310 (280-300); Potassium 3.5 mEq/L (3.5-5.1); Sodium 138 mEq/L (136-145); eGFR For African Americans > 60 (> 60); eGFR For Non-African Americans 56 (> 60)
[2017-08-29] MEDS ORDERED: 0.9 % Sodium Chloride 1,000 ML ONE (03:39)
[2017-08-29] MEDS: Aspirin 81 MG TAB.CHEW PO SCH (08:42)
[2017-08-29] MEDS: Cefdinir 300 MG CAPSULE PO SCH ×2 (08:42→20:53)
[2017-08-29] MEDS: Gabapentin 300 MG CAPSULE PO SCH ×2 (08:42→20:53)
[2017-08-29] MEDS: *HR* Amiodarone 200 MG TABLET PO SCH ×2 (08:42→20:53)
[2017-08-29] MEDS: Cholecalciferol (D-3) 1,000 UNIT TABLET PO SCH (08:42)
[2017-08-29] MEDS: BuPROPion SR (12 HR) 100 MG TABLET PO SCH (08:43)
[2017-08-29] MEDS: Furosemide 20 MG/2 ML VIAL IVP SCH ×2 (08:43→16:38)
[2017-08-29] MEDS ORDERED: Insulin DETEMIR 100 UNIT/ML X5UNITS SQ ONE (08:45)
[2017-08-29] MEDS: Insulin LISPRO 300 UNITS/3 ML VIAL SQ SCH ×4 (08:48→20:52)
[2017-08-29] MEDS ORDERED: predniSONE 20 MG TABLET PO SCH (09:00)
--- NOTE | 2017-08-29 11:04 | Cardiology Progress Note ---
<Aristides John - Last Filed: 08/29/17 14:33> Date of Encounter: 08/29/17 Time of Encounter: 11:03 Assessment and Plan (1) Chest pain Current Visit: Yes Status: Resolved See comments under elevated troponin. Qualifiers: Chest pain type: chest pain due to myocardial ischemia Ischemic chest pain type: unspecified angina pectoris type Qualified Code(s): I25.9 - Chronic ischemic heart disease, unspecified (2) New onset a-fib Current Visit: Yes Status: Acute - Confirmed on EKG - CHADVASC 7, HASBLED 3 - Already anticoagulated on coumadin and has home BB - Rate has better controlled with range of 80s-90s - Increased metoprolol to 50 mg BID Plan - Continue BB and heparin gtt with bridge to coumadin, INR 1.8 - Added amiodarone 200 mg PO BID yesterday - Continue to monitor as underlying PNA, PE resolve - Will need close cardiology follow up with possible cardioversion as outpatient. (3) Hypertension Current Visit: Yes Status: Acute - Well controlled on BB and CCB - Continue home meds. Qualifiers: Hypertension type: essential hypertension Qualified Code(s): I10 - Essential (primary) hypertension (4) Elevated troponin Current Visit: Yes Status: Acute LHC performed 08/26/17 with placement of 1 BMS and PTCA to proximal LAD. Also noted borderline severe mid LCx We discussed the potential etiologies of an elevated troponin. Mild troponin elevation could be related to other issues, namely PNA, chronic PE , AF with RVR, etc. Likely etiology of NSTEMI however. Chest pain resolved. Plan - Continue triple therapy (ASA, plavix, AC) for at least 1 month in duration - Duration depends on follow up at 1 month, likely discontinue ASA at that time. - Patient and family advised to continue triple therapy and to watch for signs of bleeding including melena, hematochezia, etc. - She will have a follow up appointment with cardiology and PCP upon discharge. (5) PE (pulmonary thromboembolism) Current Visit: Yes Status: Chronic - Chronic on anticoagulation of coumadin - Continue to bridge from heparin gtt (6) NSTEMI (non-ST elevated myocardial infarction) Current Visit: Yes Status: Acute - As above under elevated troponin Discussion w patient/family: The assessment and plan as outlined above was discussed with the patient and/or family members who expressed understanding and agreement. All questions were answered. Thank you for involving us in the care of your patient. Please call with any questions. Subjective Principal diagnosis: dyspnea Interval history: patient seen and examined at bedside. She reports no futher episodes of chest pain. SOB is improved and rattling in her chest is minimal. No complaints of pain, nausea, vomiting. Overall is doing much better. She has had continued new onset AFib with rate ranging from 80s-90s. Objective Vital Signs, Last 4 Hours Temp Pulse Resp BP Pulse Ox 08/29/17 07:15 98.3 F 82 16 131/66 93 General: Conversant, No Apparent Distress HEENT: Atraumatic, Normocephaly, Mucus Membranes Moist Neck: No JVD, Normal carotid pulses Cardiac: Normal S1 and S2, No Murmur, Other (irregular rhythm) Lungs: Other (decreased rales on right, improving) Neuro: Alert and responsive, No focal deficits noted Abdomen: Soft, Non-Tender Skin: No rashes noted on visualized skin Musculoskeletal: No Chest Wall Tenderness Extremities: No Clubbing, No Cyanosis, No Edema, Normal Pulses Results 08/29/17 01:09 08/29/17 01:09 Lab Results 08/28/17 08/28/17 08/29/17 11:47 18:54 01:09 WBC 10.8 Hgb 10.0 L D Hct 31.6 L Plt Count 105 L INR APTT 49.3 H D 91.0 H D Sodium Potassium Chloride Carbon Dioxide BUN Creatinine Glucose Calcium 08/29/17 08/29/17 01:09 01:09 WBC Hgb Hct Plt Count INR 1.8 APTT 80.7 H Sodium 138 Potassium 3.5 Chloride 104 Carbon Dioxide 27 BUN 39 H Creatinine 0.94 Glucose 362 H Calcium 7.9 L Consult Discharge Plan - Plan Referrals: Arelis Will, COMMUNITY RELATIONS OFFICER [Primary Care Provider] - 09/03/17 3:00 pm () <Anand Joe - Last Filed: 08/29/17 15:32> Date of Encounter: 08/29/17 Assessment and Plan Discussion w patient/family: The assessment and plan as outlined above was discussed with the patient and/or family members who expressed understanding and agreement. All questions were answered. Thank you for involving us in the care of your patient. Please call with any questions. Objective Vital Signs, Last 4 Hours Pulse 08/29/17 13:00 151 Results 08/29/17 01:09 08/29/17 01:09 Lab Results 08/28/17 08/29/17 08/29/17 18:54 01:09 01:09 WBC 10.8 Hgb 10.0 L D Hct 31.6 L Plt Count 105 L INR APTT 91.0 H D Sodium 138 Potassium 3.5 Chloride 104 Carbon Dioxide 27 BUN 39 H Creatinine 0.94 Glucose 362 H Calcium 7.9 L 08/29/17 01:09 WBC Hgb Hct Plt Count INR 1.8 APTT 80.7 H Sodium Potassium Chloride Carbon Dioxide BUN Creatinine Glucose Calcium - Attending Attestation I examined this patient and my medical decision-making was reviewed with the Resident Physician. I agree with the documented findings, disposition and treatment plan as described except to the extent set forth below. CC: Palpitations, chest pain Pt reports heart racing and skipping have resolved. She had brief episode early evening yesterday, felt like her heart was skipping, lasted less than two minutes, resolved spontaneously, did not contact nursing. She feels much better today. IMP: 1. A Fib, new onset, ventricular rate controlled, on po aminodarone and metoprolol, continue current meds, increase activity as tolerated. Pt started on oral warfarin for systemic anticoagulation for primary stroke risk reduction , goal INR 2.0 to 3.0 2, CAD: chest pain resolved post PCI with BMS mild LAD for ACS. 3. Benign essetial hypertension, well controlled on current meds., continue to monitor.
--- NOTE | 2017-08-29 13:54 | Internal Med Progress Note ---
Date of Encounter: 08/29/17 Time of Encounter: 13:54 - Assessment and plan (1) Acute respiratory failure with hypoxia Current Visit: Yes Status: Acute Assessment and plan: Likely from pneumonia, PE. - Continue Omnicef - Heparin drip bridging to coumadin - I.S. - Increase activity as tolerated. (2) Chest pain Current Visit: Yes Status: Resolved Assessment and plan: Reviewed EKG no changes from y/d NSTEMI Troponin trended, Peak @ 0.67 Cardiology on board. [facility] 08/26: high grade lesion - recommendations per Cardiology asa/plavix for 30 days and bridging back to coumadin. Stopping aspirin in 30 days. Qualifiers: Chest pain type: chest pain due to myocardial ischemia Ischemic chest pain type: unspecified angina pectoris type Qualified Code(s): I25.9 - Chronic ischemic heart disease, unspecified (3) PE (pulmonary thromboembolism) Current Visit: Yes Status: Chronic Assessment and plan: Coumadin was held for procedure and brief episode of hemoptysis Patient is extremely high risk for further VTE and cardiovascular events. Since patient had [facility] 08/26 now it is okay to bridge her back to coumadin. Continue bridge until INR therapeutic, currently 1.8 (4) NSTEMI (non-ST elevated myocardial infarction) Current Visit: Yes Status: Acute Assessment and plan: Plan as above. (5) Hypertension Current Visit: Yes Status: Acute Assessment and plan: Continue current treatment. Qualifiers: Hypertension type: essential hypertension Qualified Code(s): I10 - Essential (primary) hypertension (6) New onset a-fib Current Visit: Yes Status: Acute Assessment and plan: Management per Cardiology (7) Elevated troponin Current Visit: Yes Status: Acute (8) Pneumonia Current Visit: Yes Status: Acute Assessment and plan: Reviewed her CTA of the chest CXR on 08/26 shows right lung consolidation likely pneumonia. step pneumonia, Legionella - Negative - Completed Azithro course, has received 4 days rocephin - Continue Omnicef Qualifiers: Pneumonia type: due to unspecified organism Laterality: right Lung location: unspecified part of lung Qualified Code(s): J18.9 - Pneumonia, unspecified organism (9) Diabetes Current Visit: Yes Status: Acute Assessment and plan: Continue Levemir - Insulin 200-300s but she is completing steroids today - Recheck in AM. Insulin adjusted today Continue ISS Diabetic diet. Qualifiers: Diabetes mellitus type: type 2 Diabetes mellitus assisted insulin use: unspecified assisted insulin use status Diabetes mellitus complication status : with unspecified complications Qualified Code(s): E11.8 - Type 2 diabetes mellitus with unspecified complications - Time Spent With Patient Total time spent is greater than 50% in coordination of care (as documented) at patient's floor/unit and/or counseling patient: - Subjective Interval history: No acute events. Patient denies CP or shortness of breath. Cooperative with I.S. per nursing. - Constitutional Vitals: Temp Pulse Resp BP Pulse Ox 98.2 F 151 18 105/90 92 08/29/17 11:09 08/29/17 13:00 08/29/17 11:09 08/29/17 11:09 08/29/17 11:09 General appearance: Present: cooperative, A&O X 3, severe distress, answers questions appropriately Exam: - Head Head exam: Present: atraumatic, normocephalic - Eye Eye exam: Present: PERRL, conjuntiva pink, sclera anicteric Pupils: Present: PERRL - Neck Neck exam general surgery: Present: supple, trachea midline. Absent: lymphadenopathy - Respiratory Respiratory exam: Present: decreased breath sounds, CTAB. Absent: accessory muscle use, rales, rhonchi, wheezes - Cardiovascular Cardiovascular exam: Present: irregular rhythm, +S1, +S2, tachycardia. Absent: diastolic murmur, gallop, rubs, systolic murmur - GI/Abdominal GI/Abdominal exam: Present: normal bowel sounds, soft, no peritoneal signs. Absent: distended, tenderness - Extremities Exam Extremities exam: Present: warm, radial pulses palpable and symmetrical. Absent : calf tenderness, cyanotic, pedal edema - Neurological Exam Neurological exam: Present: CN II-XII intact, oriented X3, no focal deficits. Absent: pronater drift, facial droop, speech deficit - Skin Skin exam: Present: dry, intact Internal Medicine: Result - Labs CBC & Chem 7: 08/29/17 01:09 08/29/17 01:09 Labs: Short CBC 08/29/17 Range/Units 01:09 WBC 10.8 (4.3-11.1) K/mcL Hgb 10.0 L D (11.5-15.4) g/dL Hct 31.6 L (35.3-44.9) % Plt Count 105 L (140-400) K/mcL Neutrophils # 8.1 (1.6-8.9) K/mcL BMP 08/29/17 01:09 Sodium 138 Potassium 3.5 Chloride 104 Carbon Dioxide 27 BUN 39 H Creatinine 0.94 Glucose 362 H Calcium 7.9 L - ABG Interpretation ABG results: PT/INR, D-dimer PT 20.1 Seconds (9.4-12.1) H 08/29/17 01:09 Consult Discharge Plan - Plan Referrals: Arelis Will, HIDE MILL MAN [Primary Care Provider] - 09/03/17 3:00 pm ()
--- NOTE | 2017-08-29 14:20 | Event Note ---
Date of Encounter: 08/29/17 Time of Encounter: 14:20 - Cardiology Event Note Apparently IV Cardizem gtt weaned to off this am. HR now up in 140's. On amio 200mg PO BID. On Lopressor 50mg PO BID. SBP 100's - 110's. Will give IV Cardizem 10mg bolus and start Cardizem 30mg PO every 6 hrs as BP tolerates. Will attempt to avoid IV cardizem gtt if able. Will resume IV Lopressor 5mg PRN for HR greater than 110 and as lons as SBP over 100 mmHG
[2017-08-29] MEDS ORDERED: *HR* Metoprolol 5 MG/5 ML VIAL IVP PRN (14:21)
[2017-08-29 16:15] LABS: Hematocrit 32.2 % (35.3-44.9); Hemoglobin 10.1 g/dL (11.5-15.4)
[2017-08-29] MEDS ORDERED: *HR* Warfarin 3 MG TABLET PO ONE (18:00)
[2017-08-29] MEDS ORDERED: Insulin DETEMIR 100 UNIT/ML X5UNITS SQ SCH (21:00)
[2017-08-29] MEDS: Melatonin 3 MG TABLET PO PRN (23:10)
[2017-08-30 00:56] LABS: Basophils % 0.2 %; Eosinophils % 0.1 %; Immature Granulocytes % 3.9 % (0-4); Lymphocytes # 1.4 K/mcL (0.6-4.6); Lymphocytes % 11.5 %; Mean Corpuscular HGB Conc 32.1 g/dL (31.6-35.5); Mean Corpuscular Hemoglobin 29.1 pg (28.0-33.3); Mean Corpuscular Volume 90.6 fL (83.0-100.0); Monocytes # 1.2 K/mcL (0.0-1.3); Monocytes % 9.6 %; Neutrophils # 8.9 K/mcL (1.6-8.9); Nucleated Red Blood Cells 0.8 /100 WBC (0); Platelet Count 107 K/mcL (140-400); Red Blood Count 3.09 M/mcL (3.82-4.97); Red Cell Distribution Width 14.9 % (11.5-14.5); Segmented Neutrophils % 74.7 %
[2017-08-30 01:03] LABS: INR 2.1; Prothrombin Time 22.6 Seconds (9.4-12.1)
[2017-08-30 01:15] LABS: BUN/Creatinine Ratio 38 (6-26); Blood Urea Nitrogen 37 mg/dL (8-23); Calcium 8.1 mg/dL (8.6-10.3); Carbon Dioxide 29 mEq/L (23-29); Chloride 104 mEq/L (98-107); Glucose 265 mg/dL (70-105); Osmolality,Calculated 306 (280-300); Potassium 3.5 mEq/L (3.5-5.1); Sodium 139 mEq/L (136-145); eGFR For African Americans > 60 (> 60); eGFR For Non-African Americans 54 (> 60)
[2017-08-30] MEDS: Heparin 25,000 UNIT/500 ML D5W 25,000 UNIT/500 ML BAG IVC SCH (05:36)
[2017-08-30] MEDS: Aspirin 81 MG TAB.CHEW PO SCH (08:00)
[2017-08-30] MEDS: Furosemide 20 MG/2 ML VIAL IVP SCH ×2 (08:00→16:56)
[2017-08-30] MEDS: Gabapentin 300 MG CAPSULE PO SCH ×2 (08:00→20:28)
[2017-08-30] MEDS: BuPROPion SR (12 HR) 100 MG TABLET PO SCH (08:00)
[2017-08-30] MEDS: Cefdinir 300 MG CAPSULE PO SCH ×2 (08:00→20:28)
[2017-08-30] MEDS: *HR* Amiodarone 200 MG TABLET PO SCH ×2 (08:00→20:28)
[2017-08-30] MEDS: Cholecalciferol (D-3) 1,000 UNIT TABLET PO SCH (08:01)
[2017-08-30] MEDS: Insulin LISPRO 300 UNITS/3 ML VIAL SQ SCH ×4 (08:03→20:28)
--- NOTE | 2017-08-30 09:13 | Cardiology Progress Note ---
Date of Encounter: 08/30/17 Time of Encounter: 09:10 Assessment and Plan (1) PE (pulmonary thromboembolism) Current Visit: Yes Status: Chronic Per Cardiology: Chronic on anticoagulation of coumadin. (2) New onset a-fib Current Visit: Yes Status: Acute Per Cardiology: Apparent new onset atrial ablation in setting of chronic PE, non-STEMI status post stenting, and pneumonia. Currently telemetry shows heart rates in the 80s to 100s and atrial atrial fibrillation/flutter with average heart rate the past 12 hours 100. Systolic blood pressures in the 100s. On amiodarone 200 mg by mouth twice a day. On Lopressor 50 mg by mouth twice a day. On Cardizem 30 mg by mouth every 6 hours. Did received IV Lopressor 5 mg yesterday evening. Will increase Cardizem to 60 mg by mouth every 6 hours. Continue to monitor heart rate and blood pressure closely. Anticipate will be difficult to rate control with underlining comorbidities. Acceptable target heart rate around 100. CHADVASC 7, HASBLED 3. INR today 2.1. We will discontinue IV heparin drip. Of note, hemoglobin overall down from 15.6 to now 9.0 during hospital stay. Patient now on triple therapy of Coumadin, aspirin, Plavix-- recent stenting to this hospital stay. Recommend guaiac stools. Monitor closely. May require blood transfusion. (3) NSTEMI (non-ST elevated myocardial infarction) Current Visit: Yes Status: Acute Per Cardiology: [facility] performed 08/26/17 with placement of 1 BMS and PTCA to proximal LAD. Also noted borderline severe mid LCx. Continue triple therapy (ASA, plavix, AC) for at least 1 month in duration. Duration depends on follow up at 1 month, likely discontinue ASA at that time. Patient and family advised to continue triple therapy and to watch for signs of bleeding including melena, hematochezia, etc. CP free. On aspirin, Plavix, beta sp. Not currently on statin, however has listed allergy to simvastatin. Discussion w patient/family: The assessment and plan as outlined above was discussed with the patient who expressed understanding and agreement. All questions were answered. Thank you for involving us in the care of your patient. Please call with any questions. Subjective Principal diagnosis: dyspnea Interval history: Patient denies any new concerns over night. She denies any chest pain, shortness of breath, palpitations. Denies any active bleeding or blood loss. Objective Vital Signs, Last 4 Hours Temp Pulse Resp BP Pulse Ox 08/30/17 08:00 95 08/30/17 07:46 97.8 F 91 20 102/69 91 General: Conversant, No Apparent Distress HEENT: Atraumatic, Normocephaly, Mucus Membranes Moist Cardiac: No Murmur, Other (Irregularly irregular) Lungs: Normal Breath Sounds, No Wheeze, Rales, Rhonchi Neuro: Alert and responsive, No focal deficits noted Extremities: No Edema Results 08/30/17 00:42 08/30/17 00:42 Lab Results Laboratory Tests 08/24/17 08/26/17 08/30/17 03:14 04:01 00:42 Hgb 15.6 H 9.0 L Hct 47.7 H 28.0 L INR Creatinine Est GFR (Non-Af Amer) Magnesium 1.9 08/30/17 08/30/17 00:42 00:42 Hgb Hct INR 2.1 Creatinine 0.97 Est GFR (Non-Af Amer) 54 L Magnesium ITS Impressions Chest CTA 08/24/17 03:10 IMPRESSION: 1. Chronic pulmonary embolism in the right lower lobar pulmonary artery. There is no evidence of right ventricular strain. 2. Multifocal ground-glass opacities in the lungs may represent pulmonary edema. Infectious or inflammatory etiologies may also be considered. 3. Several pulmonary nodules are observed bilaterally. These are unchanged since 2011. Exception in the middle lobe with slight increase in the size of a 6 mm nodule. Recommend follow-up imaging in 6-12 months to ensure stability. Critical results were called by Dr. Dakota Orozco MD to Rich Banks on 08/24/2017 at 04:35. D/ / Dakota Orozco MD / Dakota Orozco MD Interpreting Provider: Daokta Orozco MD Chest X-Ray 08/24/17 10:56 IMPRESSION: Mild patchy opacification the lungs bilaterally, right greater than left. D/ / Rich Almanzar MD / Rich Almanzar MD Interpreting Provider: Rich Almanzar MD Echocardiogram 08/24/17 11:23 Impressions: LVEF 65%. Mild concentric left ventricular hypertrophy. Normal left ventricular diastolic function. Trace aortic regurgitation. Trace mitral regurgitation. Trace tricuspid regurgitation. Left Ventricular Wall Motion: Rest Echo Findings All wall segments showed normal motion. Findings: Study Quality * Technically adequate exam. ECG Findings * Normal sinus rhythm. Left Ventricle * LVEF 65%. * Mild concentric left ventricular hypertrophy. * Normal left ventricular diastolic function. Right Ventricle * Normal right ventricular structure and function. Left Atrium * Normal left atrial size. Right Atrium * Normal right atrial size. Aortic Valve * Trileaflet aortic valve. * Mildly calcified aortic valve leaflets. * Moderately sclerotic aortic valve leaflets. * Trace aortic regurgitation. * Mild aortic stenosis. * Aortic valve leaflets are not restricted. Mitral Valve * Normal mitral valve structure and function. * Trace mitral regurgitation. Tricuspid Valve * Normal tricuspid valve structure and function. * Trace tricuspid regurgitation. Pulmonic Valve * Pulmonic valve not well visualized. Aorta * Normally sized aortic root. Pericardium * The pericardium appears normal. Chest X-Ray 08/26/17 16:42 IMPRESSION: 1. Patchy right perihilar consolidation which may represent pneumonia. 2. Progressive perihilar nodular densities with the largest measuring 1.6 cm. This could represent developing septic emboli. D/ / 08/26/2017 17:16:22 Tre Harden MD / traci Interpreting Provider: Tre Harden MD Active Medications Acetaminophen (Tylenol) 650 mg PO Q6H PRN PRN Reason: Mild Pain/Fever Stop: 02/23/18 07:40 Hydrocodone Bitart/Acetaminophen ([place] 5-325 Mg) 1 tab PO Q6H PRN PRN Reason: Moderate Pain Stop: 02/23/18 07:40 Last Admin: 08/26/17 23:10 Dose: 1 tab Amiodarone HCl (Cordarone) 200 mg PO BID CIARA Stop: 02/27/18 21:01 Last Admin: 08/30/17 08:00 Dose: 200 mg Aspirin (Aspirin) 81 mg PO DAILY [facility] Stop: 02/25/18 12:46 Last Admin: 08/30/17 08:00 Dose: 81 mg Bupropion HCl (Wellbutrin Sr) 100 mg PO DAILY [facility]ARA Stop: 02/23/18 09:01 Last Admin: 08/30/17 08:00 Dose: 100 mg Cefdinir (Omnicef) 300 mg PO BID CIARA PRN Reason: Protocol Stop: 09/01/17 09:01 Last Admin: 08/30/17 08:00 Dose: 300 mg Clopidogrel Bisulfate (Plavix) 75 mg PO DAILY [facility] Stop: 02/26/18 09:01 Last Admin: 08/30/17 08:00 Dose: 75 mg Dextrose/Water (Dextrose 50% (Syg)) 25 ml IVP AD PRN PRN Reason: Hypoglycemia Stop: 02/23/18 07:48 Diltiazem HCl (Cardizem) 30 mg PO Q6HR CIARA Stop: 02/28/18 14:16 Last Admin: 08/30/17 05:36 Dose: 30 mg Docusate Sodium (Colace) 100 mg PO BID PRN PRN Reason: Constipation Stop: 02/23/18 09:01 Furosemide (Lasix) 20 mg IVP BIDDIURETIC CIARA Stop: 02/24/18 19:01 Last Admin: 08/30/17 08:00 Dose: 20 mg Gabapentin (Neurontin) 600 mg PO BID CIARA Stop: 02/23/18 09:01 Last Admin: 08/30/17 08:00 Dose: 600 mg Glucagon (Glucagen) 1 mg IM ONCE PRN PRN Reason: Hypoglycemia Stop: 02/23/18 07:48 Glucose (Gluctose) 15 gm PO ONCE PRN PRN Reason: Hypoglycemia Stop: 02/23/18 07:48 Glucose (Gluctose) 30 gm PO ONCE PRN PRN Reason: Hypoglycemia Stop: 02/23/18 07:48 Heparin Sodium (Porcine) (Heparin) 5,300 unit 70 unit/kg (5300 unit) IVP Q6HR PRN PRN Reason: SEE COMMENTS Stop: 02/25/18 22:44 Heparin Sodium (Porcine) (Heparin) 2,700 unit 35 unit/kg (2700 unit) IVP Q6H PRN PRN Reason: SEE COMMENTS Stop: 02/25/18 22:44 Last Admin: 08/28/17 13:13 Dose: 2,700 unit Dextrose (Dextrose 5%) 1,000 mls @ 100 mls/hr IVC .Q10H PRN PRN Reason: HYPOGLYCEMIA Stop: 02/23/18 07:48 Heparin Sodium/Dextrose (Heparin 25,000 Unit/500 Ml D5w) 25,000 unit in 500 mls @ 22.708 mls/hr IVC .Q22H2M CIARA; 14 UNIT/KG/HR PRN Reason: Protocol Stop: 02/25/18 22:46 Last Admin: 08/30/17 05:36 Dose: 8.77 unit/kg/hr, 13.3 mls/hr Insulin Detemir (Levemir) 30 unit SQ HS CIARA Stop: 02/28/18 21:01 Last Admin: 08/29/17 20:53 Dose: 30 unit Insulin Human Lispro (Humalog) 0 units SQ HS CIARA PRN Reason: Protocol Stop: 02/23/18 21:01 Last Admin: 08/29/17 20:52 Dose: 7 unit Insulin Human Lispro (Humalog) 0 units SQ TIDAC CIARA PRN Reason: Protocol Stop: 02/23/18 11:31 Last Admin: 08/30/17 08:03 Dose: 6 units Levalbuterol HCl (Xopenex) 0.63 mg IH [id number] PRN PRN Reason: shortness of breath/wheezing Stop: 09/24/17 08:07 Magnesium Hydroxide (Milk Of Magnesia Conc) 10 ml PO DAILY PRN PRN Reason: Constipation Stop: 02/25/18 08:01 Melatonin (Melatonin) 3 mg PO HS PRN PRN Reason: Insomnia Stop: 02/25/18 02:36 Last Admin: 08/29/17 23:10 Dose: 3 mg Metoprolol Tartrate (Lopressor) 50 mg PO BID CIARA Stop: 02/26/18 12:01 Last Admin: 08/30/17 08:00 Dose: 50 mg Metoprolol Tartrate (Lopressor) 5 mg IVP Q6HR PRN PRN Reason: SEE COMMENTS Stop: 02/26/18 12:16 Last Admin: 08/28/17 22:04 Dose: 5 mg Metoprolol Tartrate (Lopressor) 5 mg IVP Q6HR PRN PRN Reason: tachy Stop: 02/28/18 14:22 Last Admin: 08/29/17 20:52 Dose: 5 mg Naloxone HCl (Narcan) 0.4 mg IVP Q2MIN PRN PRN Reason: SEE COMMENTS Stop: 02/23/18 07:40 Nitroglycerin (Nitroglycerin) 0.4 mg SL Q5MIN PRN PRN Reason: Chest Pain Stop: 02/23/18 20:50 Last Admin: 08/25/17 08:36 Dose: 0.4 mg Omeprazole (Prilosec) 20 mg PO DAILY [facility] Stop: 02/23/18 09:01 Last Admin: 08/30/17 07:59 Dose: 20 mg Ondansetron HCl (Zofran) 4 mg IVP Q8H PRN PRN Reason: Nausea And Vomiting Stop: 02/23/18 07:40 Promethazine HCl (Phenergan) 12.5 mg IVP Q6H PRN PRN Reason: Nausea And Vomiting Stop: 02/23/18 07:40 Vitamin D (Vitamin D) 1,000 unit PO DAILY [facility] Stop: 02/23/18 09:01 Last Admin: 08/30/17 08:01 Dose: 1,000 unit Warfarin Sodium (Coumadin Perpt) 1 each PO DAILY@1800 PRN PRN Reason: SEE COMMENTS Stop: 02/26/18 18:01 - Imaging and Cardiology Echo: report reviewed Cardiac cath: report reviewed - EKG Interpretation EKG results cardiology: other (Telemetry reviewed and shows atrial fib/flutter with average heart rate the past 12 hours 100) Consult Discharge Plan - Plan Referrals: Arelis Will [employer] ADMINISTRATOR [Primary Care Provider] - 09/03/17 3:00 pm ()
[2017-08-30] MEDS: dilTIAZem HCl 60 MG TABLET PO SCH ×3 (11:29→23:51)
--- NOTE | 2017-08-30 12:18 | Event Note ---
Date of Encounter: 08/30/17 Time of Encounter: 12:15 - Cardiology Event Note Patient reevaluated with current systolic blood pressures in high 90s and heart rate still 110s to 120s. Upon further discussion, patient did mention still having significant bruising and soreness from her right groin site. Patient noticed to have moderate to large ecchymotic area with no active bleeding, no bruit noted, baseball-sized hematoma noted to medial aspect of groin, right to posterior lateral hip with ecchymosis and large hematoma. In light of patient being on triple therapy, and overall downgrade in hemoglobin, and continued A. fib with RVR with hypotension; suspect potential pseudoaneurysm/RP bleed. Discussed and reviewed with Dr. Severino, we will proceed with right lower extremity arterial imaging to rule out pseudoaneurysm and CT of abdomen and pelvis without contrast to rule out RP bleed. Continue to monitor closely.
--- NOTE | 2017-08-30 16:26 | Internal Med Progress Note ---
Date of Encounter: 08/30/17 Time of Encounter: 16:26 - Assessment and plan (1) Acute respiratory failure with hypoxia Current Visit: Yes Status: Acute Assessment and plan: Likely from pneumonia, PE. -Continue Omnicef - Continue coumadin, now is therapeutic - I.S. - Increase activity as tolerated. (2) Chest pain Current Visit: Yes Status: Resolved Assessment and plan: Reviewed EKG no changes from y/d NSTEMI Troponin trended, Peak @ 0.67 Cardiology on board. [facility] 08/26: high grade lesion - recommendations per Cardiology asa/plavix for 30 days and bridging back to coumadin. Stopping aspirin in 30 days. Qualifiers: Chest pain type: chest pain due to myocardial ischemia Ischemic chest pain type: unspecified angina pectoris type Qualified Code(s): I25.9 - Chronic ischemic heart disease, unspecified (3) PE (pulmonary thromboembolism) Current Visit: Yes Status: Chronic Assessment and plan: Coumadin was held for procedure and brief episode of hemoptysis Patient is extremely high risk for further VTE and cardiovascular events. Since patient had [facility] 08/26 now it is okay to bridge her back to coumadin. Continue bridge until INR therapeutic, currently 1.8 (4) NSTEMI (non-ST elevated myocardial infarction) Current Visit: Yes Status: Acute Assessment and plan: Plan as above. (5) Hypertension Current Visit: Yes Status: Acute Assessment and plan: Continue current treatment. Qualifiers: Hypertension type: essential hypertension Qualified Code(s): I10 - Essential (primary) hypertension (6) New onset a-fib Current Visit: Yes Status: Acute Assessment and plan: Management per Cardiology (7) Elevated troponin Current Visit: Yes Status: Acute (8) Pneumonia Current Visit: Yes Status: Acute Assessment and plan: Reviewed her CTA of the chest CXR on 08/26 shows right lung consolidation likely pneumonia. step pneumonia, Legionella - Negative - Completed Azithro course, has received 4 days rocephin - Continue Omnicef Qualifiers: Pneumonia type: due to unspecified organism Laterality: right Lung location: unspecified part of lung Qualified Code(s): J18.9 - Pneumonia, unspecified organism (9) Diabetes Current Visit: Yes Status: Acute Assessment and plan: Continue Levemir - Insulin 200-300s but she is completing steroids today - Recheck in AM. Insulin adjusted today Continue ISS Diabetic diet. 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 Patient denies CP or shortness of breath. Cooperative with I.S. patient states uses it 6-10 times per hour - Constitutional Vitals: Temp Pulse Resp BP Pulse Ox 98.5 F 101 18 99/75 92 08/30/17 16:00 08/30/17 16:00 08/30/17 16:00 08/30/17 16:00 08/30/17 16:00 General appearance: Present: cooperative, A&O X 3, severe distress, answers questions appropriately Exam: CVS: irregular rhythm Lungs: CTAB abd; nt/md Skin: right groin region with bruising along iliac and groin region, no induration appreciated Ext: no edema Internal Medicine: Result - Labs CBC & Chem 7: 08/30/17 00:42 08/30/17 00:42 Labs: Short CBC 08/30/17 Range/Units 00:42 WBC 12.0 H (4.3-11.1) K/mcL Hgb 9.0 L (11.5-15.4) g/dL Hct 28.0 L (35.3-44.9) % Plt Count 107 L (140-400) K/mcL Neutrophils # 8.9 (1.6-8.9) K/mcL BMP 08/30/17 00:42 Sodium 139 Potassium 3.5 Chloride 104 Carbon Dioxide 29 BUN 37 H Creatinine 0.97 Glucose 265 H Calcium 8.1 L - ABG Interpretation ABG results: PT/INR, D-dimer PT 22.6 Seconds (9.4-12.1) H 08/30/17 00:42 - Impressions Impressions Abdomen/Pelvis CT 08/30/17 12:07 IMPRESSION: No retroperitoneal or intrapelvic hematoma. Induration of the fat and skin in the inferior abdominal wall extending to the perineum is noted which may represent soft tissue blood products or inflammatory process. Bilateral lower lobe airspace disease and a discrete left lower lobe nodule is noted, as detailed on recent chest CT imaging. No new airspace disease is otherwise appreciated in this region. D/ / Wenceslao Abdul / Wenceslao Abdul Interpreting Provider: Wenceslao Abdul Consult Discharge Plan - Plan Referrals: Arelis Will CNP [Primary Care Provider] - 09/03/17 3:00 pm ()
[2017-08-30] MEDS ORDERED: *HR* Warfarin 3 MG TABLET PO ONE (18:00)
[2017-08-30] MEDS: Insulin DETEMIR 100 UNIT/ML X5UNITS SQ SCH (20:29)
[2017-08-30] MEDS: Melatonin 3 MG TABLET PO PRN (21:51)
[2017-08-31 03:42] LABS: Basophils % 0.1 %; Eosinophils # 0.1 K/mcL (0.0-0.6); Eosinophils % 1.2 %; Hematocrit 25.4 % (35.3-44.9); Hemoglobin 8.1 g/dL (11.5-15.4); Immature Granulocytes % 2.9 % (0-4); Lymphocytes # 1.7 K/mcL (0.6-4.6); Lymphocytes % 16.2 %; Mean Corpuscular HGB Conc 31.9 g/dL (31.6-35.5); Mean Platelet Volume 11.3 fL (9.4-12.4); Monocytes % 9.3 %; Neutrophils # 7.5 K/mcL (1.6-8.9); Platelet Count 100 K/mcL (140-400); Red Blood Count 2.79 M/mcL (3.82-4.97); Segmented Neutrophils % 70.3 %
[2017-08-31 03:50] LABS: INR 2.1; Prothrombin Time 23.4 Seconds (9.4-12.1)
[2017-08-31 04:01] LABS: BUN/Creatinine Ratio 40 (6-26); Blood Urea Nitrogen 42 mg/dL (8-23); Carbon Dioxide 28 mEq/L (23-29); Chloride 103 mEq/L (98-107); Glucose 154 mg/dL (70-105); Osmolality,Calculated 302 (280-300); Potassium 3.3 mEq/L (3.5-5.1); Sodium 139 mEq/L (136-145); eGFR For African Americans > 60 (> 60); eGFR For Non-African Americans 50 (> 60)
[2017-08-31] MEDS: dilTIAZem HCl 60 MG TABLET PO SCH (05:20)
[2017-08-31] MEDS: Gabapentin 300 MG CAPSULE PO SCH ×2 (07:39→19:34)
[2017-08-31] MEDS: BuPROPion SR (12 HR) 100 MG TABLET PO SCH (07:39)
[2017-08-31] MEDS: Cefdinir 300 MG CAPSULE PO SCH ×2 (07:39→19:34)
--- NOTE | 2017-08-31 07:39 | Cardiology Progress Note ---
Date of Encounter: 08/31/17 Time of Encounter: 07:35 Assessment and Plan (1) PE (pulmonary thromboembolism) Current Visit: Yes Status: Chronic Per Cardiology: Chronic on anticoagulation of coumadin. (2) New onset a-fib Current Visit: Yes Status: Acute Per Cardiology: Apparent new onset atrial ablation in setting of chronic PE, non-STEMI status post stenting, and pneumonia. Telemetry shows avg heart past 12 hours 84, currently a flutter in the 80s. Systolic blood pressures in the 100s. On amiodarone 200 mg by mouth twice a day, lopressor 50 mg by mouth twice a day, Cardizem 60 mg by mouth every 6 hours-- patient better rate controlled now and systolic blood pressures fairly stable. We will switch Cardizem to Cardizem CD 240 mg by mouth daily.. CHADVASC 7, HASBLED 3. INR today 2.1. Off IV heparin drip. Of note, hemoglobin overall down from 15.6 to now 8.1 during hospital stay. Patient now on triple therapy of Coumadin, aspirin, Plavix-- recent stenting this hospital stay. Monitor/guaiac stools. Suspect acute anemia related to R groin large hematoma-- CT Abd/Pelvis shows no evidence of RP bleed. Prelim vascular study shows no pseudoaneurysm. Continue to monitor closely. Appears improved today. May require blood transfusion. Will review/discuss with Dr. Severino. (3) NSTEMI (non-ST elevated myocardial infarction) Current Visit: Yes Status: Acute Per Cardiology: [facility] performed 08/26/17 with placement of 1 BMS and PTCA to proximal LAD. Also noted borderline severe mid LCx. Continue triple therapy (ASA, plavix, AC) for at least 1 month in duration-- likely discontinue ASA at that time. On aspirin , Plavix, beta sp. Not currently on statin, however has listed allergy to simvastatin. Discussion w patient/family: The assessment and plan as outlined above was discussed with the patient who expressed understanding and agreement. All questions were answered. Thank you for involving us in the care of your patient. Please call with any questions. Subjective Principal diagnosis: dyspnea Interval history: Denies any concerns this morning. Reports shortness of breath overall improved. Denies any awareness any active bleeding or blood loss. Objective Vital Signs, Last 4 Hours Temp Pulse Resp BP Pulse Ox 08/31/17 07:23 98.2 F 98 20 103/57 91 08/31/17 04:06 98 F 77 22 102/48 96 General: Conversant, No Apparent Distress HEENT: Atraumatic, Normocephaly, Mucus Membranes Moist Neck: No JVD, Normal carotid pulses Cardiac: No Murmur, Other (Irregularly irregular) Lungs: Normal Breath Sounds, No Wheeze, Rales, Rhonchi Neuro: Alert and responsive, No focal deficits noted Abdomen: Soft, Non-Tender Skin: Other (Right groin large amount of ecchymosis and moderate to large hematoma, appears improved today, no active bleeding or blood loss, right PT and dorsalis pedis pulses 2+ palpable) Musculoskeletal: No Chest Wall Tenderness Extremities: No Clubbing, No Cyanosis, No Edema, Normal Pulses Results 08/31/17 03:10 08/31/17 03:10 Lab Results Laboratory Tests 08/31/17 08/31/17 08/31/17 03:10 03:10 03:10 Hgb 8.1 L Hct 25.4 L INR 2.1 Potassium 3.3 L Creatinine 1.04 BUN/Creatinine Ratio 40 H Impressions Abdomen/Pelvis CT 08/30/17 12:07 IMPRESSION: No retroperitoneal or intrapelvic hematoma. Induration of the fat and skin in the inferior abdominal wall extending to the perineum is noted which may represent soft tissue blood products or inflammatory process. Bilateral lower lobe airspace disease and a discrete left lower lobe nodule is noted, as detailed on recent chest CT imaging. No new airspace disease is otherwise appreciated in this region. D/ / Wenceslao Abdul / Wenceslao Abdul Interpreting Provider: Wenceslao Abdul - EKG Interpretation EKG results cardiology: other (Telemetry reviewed with average heart rate the past 12 hours 84, currently 84 atrial flutter, longest pause 2.5 seconds) Consult Discharge Plan - Plan Referrals: Arelis Will, CLAIMS PROCESSOR [Primary Care Provider] - 09/03/17 3:00 pm ()
[2017-08-31] MEDS: Furosemide 20 MG/2 ML VIAL IVP SCH ×2 (07:40→17:56)
[2017-08-31] MEDS: *HR* Amiodarone 200 MG TABLET PO SCH ×2 (07:40→19:34)
[2017-08-31] MEDS: Insulin LISPRO 300 UNITS/3 ML VIAL SQ SCH ×4 (07:40→21:32)
[2017-08-31] MEDS: Aspirin 81 MG TAB.CHEW PO SCH (07:40)
[2017-08-31] MEDS: Cholecalciferol (D-3) 1,000 UNIT TABLET PO SCH (07:40)
[2017-08-31] MEDS: Diltiazem CD (24hr) 240 MG CAPSULE PO SCH (10:53)
[2017-08-31 12:29] LABS: Hematocrit 26.5 % (35.3-44.9); Hemoglobin 8.5 g/dL (11.5-15.4)
--- NOTE | 2017-08-31 15:42 | Internal Med Progress Note ---
Date of Encounter: 08/31/17 Time of Encounter: 15:35 - Assessment and plan (1) Acute respiratory failure with hypoxia Current Visit: Yes Status: Acute Assessment and plan: Likely from pneumonia, PE. - Continue Omnicef - Continue coumadin, now is therapeutic - I.S. - Increase activity as tolerated. Disposition: - Wean oxygen, would like to get patient to room air, currently on 2L - Bipap qualification test tonight - SW to set up [facility] if approved. (2) Chest pain Current Visit: Yes Status: Resolved Assessment and plan: Reviewed EKG no changes from y/d NSTEMI Troponin trended, Peak @ 0.67 Cardiology on board. [facility] 08/26: high grade lesion - recommendations per Cardiology asa/plavix for 30 days and bridging back to coumadin. Stopping aspirin in 30 days. Qualifiers: Chest pain type: chest pain due to myocardial ischemia Ischemic chest pain type: unspecified angina pectoris type Qualified Code(s): I25.9 - Chronic ischemic heart disease, unspecified (3) PE (pulmonary thromboembolism) Current Visit: Yes Status: Chronic Assessment and plan: Coumadin was held for procedure and brief episode of hemoptysis Patient is extremely high risk for further VTE and cardiovascular events. Since patient had [facility] 08/26 now it is okay to bridge her back to coumadin. Continue bridge until INR therapeutic, currently 1.8 (4) NSTEMI (non-ST elevated myocardial infarction) Current Visit: Yes Status: Acute Assessment and plan: Plan as above. (5) Hypertension Current Visit: Yes Status: Acute Assessment and plan: Continue current treatment. Qualifiers: Hypertension type: essential hypertension Qualified Code(s): I10 - Essential (primary) hypertension (6) New onset a-fib Current Visit: Yes Status: Acute Assessment and plan: Management per Cardiology (7) Elevated troponin Current Visit: Yes Status: Acute (8) Pneumonia Current Visit: Yes Status: Acute Assessment and plan: Reviewed her CTA of the chest CXR on 08/26 shows right lung consolidation likely pneumonia. step pneumonia, Legionella - Negative - Completed Azithro course, has received 4 days rocephin - Continue Omnicef Qualifiers: Pneumonia type: due to unspecified organism Laterality: right Lung location: unspecified part of lung Qualified Code(s): J18.9 - Pneumonia, unspecified organism (9) Diabetes Current Visit: Yes Status: Acute Assessment and plan: Continue Levemir - Insulin 200-300s but she is completing steroids today - Recheck in AM. Insulin adjusted today Continue ISS Diabetic diet. 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 Qualifiers: Anemia type: unspecified type Qualified Code(s): D64.9 - Anemia, unspecified - Time Spent With Patient Total time spent is greater than 50% in coordination of care (as documented) at patient's floor/unit and/or counseling patient: - Subjective Interval history: No acute events. Patient denies CP or shortness of breath. Cooperative with I.S. States she does feel weak but she knows she is getting better. Denies palpitations denies any worsening bruising. - Constitutional Vitals: Temp Pulse Resp BP Pulse Ox 98.1 F 92 18 105/64 96 08/31/17 11:17 08/31/17 15:15 08/31/17 15:15 08/31/17 11:17 08/31/17 15:15 General appearance: Present: cooperative, A&O X 3, severe distress, answers questions appropriately Exam: CVS: irregular rhythm Lungs: CTAB abd; nt/md Skin: right groin region with bruising along iliac and groin region, no induration appreciated Ext: no edema Internal Medicine: Result - Labs CBC & Chem 7: 08/31/17 12:05 08/31/17 03:10 Labs: Short CBC 08/31/17 08/31/17 Range/Units 03:10 12:05 WBC 10.6 (4.3-11.1) K/mcL Hgb 8.1 L 8.5 L (11.5-15.4) g/dL Hct 25.4 L 26.5 L (35.3-44.9) % Plt Count 100 L (140-400) K/mcL Neutrophils # 7.5 (1.6-8.9) K/mcL BMP 08/31/17 03:10 Sodium 139 Potassium 3.3 L Chloride 103 Carbon Dioxide 28 BUN 42 H Creatinine 1.04 Glucose 154 H Calcium 8.0 L - ABG Interpretation ABG results: PT/INR, D-dimer PT 23.4 Seconds (9.4-12.1) H 08/31/17 03:10 Consult Discharge Plan - Plan Referrals: Arelis Will, LENNOX [Primary Care Provider] - 09/03/17 3:00 pm ()
[2017-08-31] MEDS ORDERED: *HR* Warfarin 3 MG TABLET PO ONE (18:00)
[2017-08-31] MEDS: Insulin DETEMIR 100 UNIT/ML X5UNITS SQ SCH (21:33)
[2017-08-31] MEDS: Melatonin 3 MG TABLET PO PRN (21:33)
[2017-09-01 04:45] LABS: Basophils % 0.1 %; Eosinophils # 0.1 K/mcL (0.0-0.6); Eosinophils % 1.5 %; Hematocrit 24.8 % (35.3-44.9); Hemoglobin 8.2 g/dL (11.5-15.4); Immature Granulocytes % 3.2 % (0-4); Lymphocytes % 10.4 %; Mean Corpuscular HGB Conc 33.1 g/dL (31.6-35.5); Mean Corpuscular Hemoglobin 29.9 pg (28.0-33.3); Mean Corpuscular Volume 90.5 fL (83.0-100.0); Mean Platelet Volume 11.5 fL (9.4-12.4); Monocytes # 1.1 K/mcL (0.0-1.3); Monocytes % 11.2 %; Nucleated Red Blood Cells 0.5 /100 WBC (0); Platelet Count 109 K/mcL (140-400); Red Blood Count 2.74 M/mcL (3.82-4.97); Red Cell Distribution Width 15.4 % (11.5-14.5); Segmented Neutrophils % 73.6 %
[2017-09-01 04:54] LABS: INR 2.3; Prothrombin Time 25.4 Seconds (9.4-12.1)
[2017-09-01 05:08] LABS: BUN/Creatinine Ratio 38 (6-26); Blood Urea Nitrogen 36 mg/dL (8-23); Calcium 8.3 mg/dL (8.6-10.3); Carbon Dioxide 31 mEq/L (23-29); Chloride 103 mEq/L (98-107); Glucose 139 mg/dL (70-105); Osmolality,Calculated 303 (280-300); Potassium 3.3 mEq/L (3.5-5.1); Sodium 141 mEq/L (136-145); eGFR For African Americans > 60 (> 60); eGFR For Non-African Americans 56 (> 60)
[2017-09-01] MEDS: Diltiazem CD (24hr) 240 MG CAPSULE PO SCH (08:25)
[2017-09-01] MEDS: *HR* Amiodarone 200 MG TABLET PO SCH (08:25)
[2017-09-01] MEDS: Furosemide 20 MG/2 ML VIAL IVP SCH (08:25)
[2017-09-01] MEDS: Aspirin 81 MG TAB.CHEW PO SCH (08:25)
[2017-09-01] MEDS: Gabapentin 300 MG CAPSULE PO SCH ×2 (08:26→21:33)
[2017-09-01] MEDS: Cholecalciferol (D-3) 1,000 UNIT TABLET PO SCH (08:27)
[2017-09-01] MEDS: Cefdinir 300 MG CAPSULE PO SCH (08:27)
[2017-09-01] MEDS: BuPROPion SR (12 HR) 100 MG TABLET PO SCH (08:28)
[2017-09-01] MEDS: Insulin LISPRO 300 UNITS/3 ML VIAL SQ SCH ×4 (09:23→21:32)
--- NOTE | 2017-09-01 09:40 | Cardiology Progress Note ---
Date of Encounter: 09/01/17 Time of Encounter: 09:10 Assessment and Plan (1) PE (pulmonary thromboembolism) Current Visit: Yes Status: Chronic Per Cardiology: Chronic on anticoagulation of coumadin. (2) New onset a-fib Current Visit: Yes Status: Acute Per Cardiology: Apparent new onset atrial ablation in setting of chronic PE, non-STEMI status post stenting, and pneumonia. Telemetry shows avg heart past 12 hours 84, currently a flutter in the 80s. Systolic blood pressures in the 100s. On amiodarone 200 mg by mouth twice a day, lopressor 50 mg by mouth twice a day, Cardizem 60 CD 240mg. Afib RVR 110-120 today. Will increase Lopressor to 75mg PO BID. SBP stable. CHADVASC 7, HASBLED 3. INR today 2.1. Off IV heparin drip. Of note, hemoglobin overall down from 15.6 to now 8.1 during hospital stay. Patient now on triple therapy of Coumadin, aspirin, Plavix-- recent stenting this hospital stay. Monitor/guaiac stools. Suspect acute anemia related to R groin large hematoma-- CT Abd/Pelvis shows no evidence of RP bleed. Prelim vascular study shows no pseudoaneurysm. Continue to monitor closely. Appears improved today. May require blood transfusion. (3) NSTEMI (non-ST elevated myocardial infarction) Current Visit: Yes Status: Acute Per Cardiology: LHC performed 08/26/17 with placement of 1 BMS and PTCA to proximal LAD. Also noted borderline severe mid LCx. Continue triple therapy (ASA, plavix, AC) for at least 1 month in duration-- likely discontinue ASA at that time. On aspirin , Plavix, beta sp. Not currently on statin, however has listed allergy to simvastatin. Discussion w patient/family: The assessment and plan as outlined above was discussed with the patient who expressed understanding and agreement. All questions were answered. Thank you for involving us in the care of your patient. Please call with any questions. Subjective Principal diagnosis: dyspnea Interval history: Denies any concerns this morning. Reports shortness of breath overall improved. Denies any awareness any active bleeding or blood loss. Objective Vital Signs, Last 4 Hours Temp Pulse Resp BP Pulse Ox 09/01/17 07:23 97.8 F 114 20 114/71 93 General: Conversant, No Apparent Distress HEENT: Atraumatic, Normocephaly, Mucus Membranes Moist Neck: No JVD, Normal carotid pulses Cardiac: No Murmur, Other (Irregularly irregular) Lungs: Normal Breath Sounds, No Wheeze, Rales, Rhonchi Neuro: Alert and responsive, No focal deficits noted Abdomen: Soft, Non-Tender Skin: Other (Right groin site remains stable with large hematoma and large ecchymosis, no active bleeding or blood loss, right PT and DP pulses 1+ palpable ) Musculoskeletal: No Chest Wall Tenderness Extremities: No Clubbing, No Cyanosis, No Edema, Normal Pulses Results 09/01/17 04:09 09/01/17 04:09 Lab Results Laboratory Tests 09/01/17 09/01/17 09/01/17 04:09 04:09 04:09 Hgb 8.2 L Hct 24.8 L INR 2.3 Creatinine 0.94 Est GFR (Non-Af Amer) 56 L Active Medications Acetaminophen (Tylenol) 650 mg PO Q6H PRN PRN Reason: Mild Pain/Fever Stop: 02/23/18 07:40 Last Admin: 08/30/17 21:51 Dose: 650 mg Hydrocodone Bitart/Acetaminophen ([place] 5-325 Mg) 1 tab PO Q6H PRN PRN Reason: Moderate Pain Stop: 02/23/18 07:40 Last Admin: 08/26/17 23:10 Dose: 1 tab Amiodarone HCl (Cordarone) 200 mg PO BID [facility]ARA Stop: 02/27/18 21:01 Last Admin: 09/01/17 08:25 Dose: 200 mg Aspirin (Aspirin) 81 mg PO DAILY [facility] Stop: 02/25/18 12:46 Last Admin: 09/01/17 08:25 Dose: 81 mg Bupropion HCl (Wellbutrin Sr) 100 mg PO DAILY [facility] Stop: 02/23/18 09:01 Last Admin: 09/01/17 08:28 Dose: 100 mg Clopidogrel Bisulfate (Plavix) 75 mg PO DAILY [facility] Stop: 02/26/18 09:01 Last Admin: 09/01/17 08:27 Dose: 75 mg Dextrose/Water (Dextrose 50% (Syg)) 25 ml IVP AD PRN PRN Reason: Hypoglycemia Stop: 02/23/18 07:48 Diltiazem HCl (Cardizem Cd) 240 mg PO DAILY [facility] Stop: 03/02/18 09:01 Last Admin: 09/01/17 08:25 Dose: 240 mg Docusate Sodium (Colace) 100 mg PO BID PRN PRN Reason: Constipation Stop: 02/23/18 09:01 Furosemide (Lasix) 20 mg IVP BIDDIURETIC [facility] Stop: 02/24/18 19:01 Last Admin: 09/01/17 08:25 Dose: 20 mg Gabapentin (Neurontin) 600 mg PO BID [facility] Stop: 02/23/18 09:01 Last Admin: 09/01/17 08:26 Dose: 600 mg Glucagon (Glucagen) 1 mg IM ONCE PRN PRN Reason: Hypoglycemia Stop: 02/23/18 07:48 Glucose (Gluctose) 15 gm PO ONCE PRN PRN Reason: Hypoglycemia Stop: 02/23/18 07:48 Glucose (Gluctose) 30 gm PO ONCE PRN PRN Reason: Hypoglycemia Stop: 02/23/18 07:48 Dextrose (Dextrose 5%) 1,000 mls @ 100 mls/hr IVC .Q10H PRN PRN Reason: HYPOGLYCEMIA Stop: 02/23/18 07:48 Insulin Detemir (Levemir) 35 unit SQ HS [facility] Stop: 03/01/18 21:01 Last Admin: 08/31/17 21:33 Dose: 35 unit Insulin Human Lispro (Humalog) 0 units SQ HS [facility] PRN Reason: Protocol Stop: 02/23/18 21:01 Last Admin: 08/31/17 21:32 Dose: 7 unit Insulin Human Lispro (Humalog) 0 units SQ TIDAC [facility] PRN Reason: Protocol Stop: 02/23/18 11:31 Last Admin: 09/01/17 09:23 Dose: Not Given Levalbuterol HCl (Xopenex) 0.63 mg IH [id number] PRN PRN Reason: shortness of breath/wheezing Stop: 09/24/17 08:07 Magnesium Hydroxide (Milk Of Magnesia Conc) 10 ml PO DAILY PRN PRN Reason: Constipation Stop: 02/25/18 08:01 Melatonin (Melatonin) 3 mg PO HS PRN PRN Reason: Insomnia Stop: 02/25/18 02:36 Last Admin: 08/31/17 21:33 Dose: 3 mg Metoprolol Tartrate (Lopressor) 50 mg PO BID [facility] Stop: 02/26/18 12:01 Last Admin: 09/01/17 08:26 Dose: 50 mg Naloxone HCl (Narcan) 0.4 mg IVP Q2MIN PRN PRN Reason: SEE COMMENTS Stop: 02/23/18 07:40 Nitroglycerin (Nitroglycerin) 0.4 mg SL Q5MIN PRN PRN Reason: Chest Pain Stop: 02/23/18 20:50 Last Admin: 08/25/17 08:36 Dose: 0.4 mg Omeprazole (Prilosec) 20 mg PO DAILY [facility] Stop: 02/23/18 09:01 Last Admin: 09/01/17 08:27 Dose: 20 mg Ondansetron HCl (Zofran) 4 mg IVP Q8H PRN PRN Reason: Nausea And Vomiting Stop: 02/23/18 07:40 Promethazine HCl (Phenergan) 12.5 mg IVP Q6H PRN PRN Reason: Nausea And Vomiting Stop: 02/23/18 07:40 Vitamin D (Vitamin D) 1,000 unit PO DAILY [facility] Stop: 02/23/18 09:01 Last Admin: 09/01/17 08:27 Dose: 1,000 unit Warfarin Sodium (Coumadin Perpt) 1 each PO DAILY@1800 PRN PRN Reason: SEE COMMENTS Stop: 02/26/18 18:01 - EKG Interpretation EKG results cardiology: other (Tele shows avg HR 99 past 12 hrs, currently aflutter/fib 100's - 110's) Consult Discharge Plan - Plan Referrals: Arelis Will, HOSPITAL ADMISSIONS OFFICER [Primary Care Provider] - 09/03/17 3:00 pm ()
[2017-09-01] MEDS: Furosemide 20 MG/2 ML VIAL IVP ONE ×2 (09:55→10:56)
[2017-09-01] MEDS ORDERED: Furosemide 40 MG TABLET PO ONE (10:53)
--- NOTE | 2017-09-01 13:30 | Event Note ---
Date of Encounter: 09/01/17 Time of Encounter: 13:30 - Cardiology Event Note Tele reviewed and now noted to be SR 68. Monitor HR and SBP with meds. Will decrease amio to 200mg PO daily (send home on this dose). Cardiology will s/o, re-consult PRN, f/u arranged. Continue to monitor H&H.
[2017-09-01 15:23] LABS: Hematocrit 29.5 % (35.3-44.9)
[2017-09-01] MEDS: Furosemide 20 MG TABLET PO SCH (17:24)
--- NOTE | 2017-09-01 17:43 | Discharge Summary ---
- NOTES TO OUTPATIENT PROVIDER Notes to Outpatient Provider: Follow-up CBC. Monitor for signs of worsening bleeding. Per Cardiology recommendations, DC aspirin in 30 days. Mointor INR for therapeutic levels. Wean O2 as tolerated. Orders not resulted at time of discharge: Pending orders 08/27/17 06:00 ECG 12 lead ECG [ECG] AM 0600 09/01/17 05:49 Fecal Hemoccult [Occult Blood,Stool] [BF] Routine 09/02/17 04:00 INR/PT [Prothrombin Time INR] [COAG] AM 0400 09/03/17 04:00 INR/PT [Prothrombin Time INR] [COAG] AM 0400 Date of Encounter: 09/01/17 Time of Encounter: 17:41 - Discharge Diagnosis (1) Acute respiratory failure with hypoxia Priority: Primary Status: Acute (2) Chest pain Priority: Secondary Status: Resolved Qualifiers: Chest pain type: chest pain due to myocardial ischemia Ischemic chest pain type: unspecified angina pectoris type Qualified Code(s): I25.9 - Chronic ischemic heart disease, unspecified (3) PE (pulmonary thromboembolism) Priority: Secondary Status: Chronic (4) NSTEMI (non-ST elevated myocardial infarction) Priority: Secondary Status: Acute (5) Hypertension Priority: Secondary Status: Acute Qualifiers: Hypertension type: essential hypertension Qualified Code(s): I10 - Essential (primary) hypertension (6) New onset a-fib Priority: Secondary Status: Acute (7) Elevated troponin Priority: Secondary Status: Acute (8) Pneumonia Priority: Secondary Status: Acute Qualifiers: Pneumonia type: due to unspecified organism Laterality: right Lung location: unspecified part of lung Qualified Code(s): J18.9 - Pneumonia, unspecified organism (9) Diabetes Priority: Secondary Status: Acute Qualifiers: Diabetes mellitus type: type 2 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 Mccloud is a 86 year old female hypertension, hyperlipidemia, diabetes type II and chronic PE who is on Coumadin for anticoagulation who lives by herself was brought into the ER by family stating that since last night patient has been having midst general and left lateral chest wall pain. Her chest pain is so most of 10 in severity, non-radiating, and relieved with pain medication. She did mention intermittent chest pain from last couple of days however since last night which seems to be worsening. She denied of any active chest pain now however she feels like some chest discomfort still there. In the ER her CT of the chest showed chronic PE, multifocal ground glass opacities in the long basis may present pulmonary edema, concerning for inflammatory versus infectious process She does have several pulmonary nodules bilaterally. She had troponin initially negative. She was admitted for further management of chest pain, NSTEMI, PE, and pneumonia. She had blood cultures obtained, started on antibiotics, IV steroids, IV Lasix. She was admitted to the 2N step down unit for critical care monitoring. She did have episode of chest pain and also went nto atrial fibrillation with RVR which is new to patient. She had troponin levels that were now elevated. Cardiology was consulted. She was placed briefly on a nitro drip. Once her INR was 1.5 she had left heart cath done on 08/26/17, which showed high grade lesion, proximal LAD with 99% disease and had successful PTCA/BMS placement. Per Cardiology recommendations, she will be on coumadin, aspirin, and Plavix. Aspirin and Plavix for 30 days and after 30 days stopping aspirin. After titration of rate control medications, atrial fibrillation was under rate control. Her INR was therapeutic on discharge. She had episode of bruising with drop of hemoglobin after left heart cath. She was hemodynamically stable and hemoglobin stablized. She was monitored closely and CT was negative for acute bleed or hematoma. Rate remained controlled, patient respiratory campbell was stable but being weaned off of oxygen, currently requires 2 L at time of discharge. She was discharged to SNF in stable condition. - Time Spent with Patient Total time spent providing and/or coordinating discharge services: - Discharge Medications Prescriptions: HYDROcodone/Acet 7.5/325 mg [Zoe 7.5-325 mg] 1 tab PO Q6H PRN 3 Days #12 tablet PRN Reason: Pain Home Medications: Cholecalciferol (Vitamin D3) [Vitamin D3] 1,000 unit PO DAILY 08/24/17 [History] Esomeprazole Magnesium [Nexium] 20 mg PO DAILY 08/24/17 [History] Gabapentin [Neurontin] 600 mg PO BID 08/24/17 [History] Insulin Glargine,Hum.rec.anlog [Lantus Solostar] 24 unit SQ DAILY 08/24/17 [ History] buPROPion HCl [Zyban] 100 mg PO DAILY 08/24/17 [History] Amiodarone [Cordarone] 200 mg PO DAILY tablet 09/01/17 [Rx] Aspirin 81 mg PO DAILY 30 Days tab.chew 09/01/17 [Rx] Clopidogrel [Plavix] 75 mg PO DAILY tablet 09/01/17 [Rx] Diltiazem CD (24hr) [Cardizem CD] 240 mg PO DAILY cap.er.24h 09/01/17 [Rx] Docusate [Colace] 100 mg PO BID PRN capsule 09/01/17 [Rx] Furosemide [Lasix] 20 mg PO BIDDIURETIC tablet 09/01/17 [Rx] HYDROcodone/Acet 7.5/325 mg [[place]oe 7.5-325 mg] 1 tab PO Q6H PRN 3 Days #12 tablet 09/01/17 [Rx] Insulin LISPRO [HumaLOG] 0 units SQ HS vial 09/01/17 [Rx] Insulin LISPRO [HumaLOG] 0 units SQ TIDAC vial 09/01/17 [Rx] MOM Conc [MILK OF MAGNESIA conc] 10 ml PO DAILY PRN ud.liq 09/01/17 [Rx] Melatonin 3 mg PO HS PRN tablet 09/01/17 [Rx] Metoprolol [Lopressor] 75 mg PO BID tablet 09/01/17 [Rx] Warfarin perPT [Coumadin perPT] 3 each PO DAILY@1800 PRN each 09/01/17 [Rx] Allergies/Adverse Reactions: 3 Allergy/AdvReac Type Severity Reaction Status Date / Time metoclopramide AdvReac Joint Pain Verified 08/24/17 02:53 simvastatin AdvReac Hives Verified 08/24/17 02:53 Date of admission: 08/24/17 07:54 Primary care physician: Arelis Will CNP Consults: 08/24/17 11:46 Consult to Pulmonology [CONS] Routine Consulting Provider: Pulm [facility] Berenice Reason for Consult: Shortness of breath Time Notified: 11:48 Call Completed: Yes 08/24/17 21:44 Consult to Cardiology [CONS] Routine Comment: Consulting Provider: Cardiology Berenice Reason for Consult: Afib, elevated trops, chest pain Time Notified: 21:44 Call Completed: Yes 08/27/17 08:06 Consult to Cardiac Rehabilitation-Phase1 [CONS] Routine Comment: Reason for Consult: nstemi Call Completed: No 08/28/17 15:08 OT [Consult to Occupational Therapy] [CONS] Routine Comment: Evaluate, develop and implement POC Reason for Consult: Weakness Does patient have active BEDREST order?: No Is patient medically & hemodynamically stable?: Yes PT [Consult to Physical Therapy] [CONS] Routine Comment: Evaluate, develop and implement POC Reason for Consult: Weakness Does patient have active BEDREST order?: No Is patient medically & hemodynamically stable?: Yes 08/30/17 17:10 Consult to Drier Unloader [CONS] Routine Reason for SW Consult: Home health set up Discharging clinician: Debora Garzon - Constitutional Vitals: Temp Pulse Resp BP Pulse Ox 97.8 F 72 18 118/53 92 09/01/17 16:24 09/01/17 16:24 09/01/17 16:24 09/01/17 16:24 09/01/17 16:24 General appearance: Present: cooperative, A&O X 3, severe distress, answers questions appropriately Exam: CVS: irregular rhythm Lungs: CTAB abd; nt/md Skin: right groin region with bruising along iliac and groin region, no induration appreciated Ext: no edema - Patient Status Disposition: Transfer SNF Condition: Good Functional capacity at discharge: wheelchair bound Overall status at discharge: patient is progressing back to baseline - Discharge Instructions Follow Up With: Arelis Will [employer] [Primary Care Provider] - 09/03/17 3:00 pm () Forms: ED Satisfaction Letter - Diet and Activity Activity: as per physical therapy Diet: diabetic diet, low fat, low cholesterol, low salt diet
[2017-09-01] MEDS ORDERED: *HR* Warfarin 3 MG TABLET PO ONE (18:00)
--- NOTE | 2017-09-01 18:00 | Physician Discharge Referral ---
ExtendedCare Referral Info Institutional Level of Care: Skilled - Diagnosis (1) Acute respiratory failure with hypoxia Priority: Primary Status: Acute (2) Chest pain Priority: Secondary Status: Resolved (3) PE (pulmonary thromboembolism) Priority: Secondary Status: Chronic (4) NSTEMI (non-ST elevated myocardial infarction) Priority: Secondary Status: Acute (5) Hypertension Priority: Secondary Status: Acute (6) New onset a-fib Priority: Secondary Status: Acute (7) Elevated troponin Priority: Secondary Status: Acute (8) Pneumonia Priority: Secondary Status: Acute (9) Diabetes Priority: Secondary Status: Acute (10) Anemia Priority: Secondary Status: Acute - Transfer Medications Prescriptions: HYDROcodone/Acet 7.5/325 mg [[place] 7.5-325 mg] 1 tab PO Q6H PRN 3 Days #12 tablet PRN Reason: Pain Home Medications: Cholecalciferol (Vitamin D3) [Vitamin D3] 1,000 unit PO DAILY 08/24/17 [History] Esomeprazole Magnesium [Nexium] 20 mg PO DAILY 08/24/17 [History] Gabapentin [Neurontin] 600 mg PO BID 08/24/17 [History] Insulin Glargine,Hum.rec.anlog [Lantus Solostar] 24 unit SQ DAILY 08/24/17 [ History] buPROPion HCl [Zyban] 100 mg PO DAILY 08/24/17 [History] Amiodarone [Cordarone] 200 mg PO DAILY tablet 09/01/17 [Rx] Aspirin 81 mg PO DAILY 30 Days tab.chew 09/01/17 [Rx] Clopidogrel [Plavix] 75 mg PO DAILY tablet 09/01/17 [Rx] Diltiazem CD (24hr) [Cardizem CD] 240 mg PO DAILY cap.er.24h 09/01/17 [Rx] Docusate [Colace] 100 mg PO BID PRN capsule 09/01/17 [Rx] Furosemide [Lasix] 20 mg PO BIDDIURETIC tablet 09/01/17 [Rx] HYDROcodone/Acet 7.5/325 mg [[place] 7.5-325 mg] 1 tab PO Q6H PRN 3 Days #12 tablet 09/01/17 [Rx] Insulin LISPRO [HumaLOG] 0 units SQ HS vial 09/01/17 [Rx] Insulin LISPRO [HumaLOG] 0 units SQ TIDAC vial 09/01/17 [Rx] MOM Conc [MILK OF MAGNESIA conc] 10 ml PO DAILY PRN ud.liq 09/01/17 [Rx] Melatonin 3 mg PO HS PRN tablet 09/01/17 [Rx] Metoprolol [Lopressor] 75 mg PO BID tablet 09/01/17 [Rx] Warfarin perPT [Coumadin perPT] 3 each PO DAILY@1800 PRN each 09/01/17 [Rx] Allergies/Adverse Reactions: 3 Allergy/AdvReac Type Severity Reaction Status Date / Time metoclopramide AdvReac Joint Pain Verified 08/24/17 02:53 simvastatin AdvReac Hives Verified 08/24/17 02:53 - Respiratory Orders Oxygen / L per min (2) Smoking Cessation: Smoking cessation has been advised. For more information, call the [employer] Tobacco Quit Line at 4-058-UFGN-NOW. - Lab Orders Lab Orders: CBC - Ancillary Orders May use pressure relief devices daily prn, May go on CHRISTI w/family/respon republican w /meds at nurse discretion PRN - Advance Directives Code Status: Full Code - Mobility Orders Other (As per physical therapy) - Rehabiliation Orders Rehab Orders: Evaluation for Physical Therapy, Evaluation for Occupational Therapy - Treatments Skin tear care topically daily PRN per policy, May check for fecal impaction rectally daily PRN - Diet Orders No Concentrated Sweets, Pureed, Cardiac CERTIFICATION: I certify that the transfer of the above named patient to an Extended Care Facility is necessary for the continuing treatment of the diagnosis listed. The above information is true and accurate reflection of patient's current condition. Confidential - Redisclosure prohibited without a patient's written consent.
[2017-09-01] MEDS: Insulin DETEMIR 100 UNIT/ML X5UNITS SQ SCH (21:32)
[2017-09-01] MEDS: *HR* HYDROcodone/Acet 5/325 mg TABLET PO PRN (21:33)
[2017-09-01] MEDS: Melatonin 3 MG TABLET PO PRN (21:34)
[2017-09-02] MEDS: Levalbuterol Neb 0.63 MG/3 ML IH PRN ×2 (04:33→13:27)
[2017-09-02 04:49] LABS: INR 2.4; Prothrombin Time 26.8 Seconds (9.4-12.1)
[2017-09-02] MEDS: Insulin LISPRO 300 UNITS/3 ML VIAL SQ SCH ×4 (08:10→20:41)
[2017-09-02] MEDS: Furosemide 20 MG TABLET PO SCH ×2 (08:22→16:53)
[2017-09-02] MEDS: Cholecalciferol (D-3) 1,000 UNIT TABLET PO SCH (08:22)
[2017-09-02] MEDS: BuPROPion SR (12 HR) 100 MG TABLET PO SCH (08:22)
[2017-09-02] MEDS: Aspirin 81 MG TAB.CHEW PO SCH (08:22)
[2017-09-02] MEDS: Gabapentin 300 MG CAPSULE PO SCH ×2 (08:22→20:44)
[2017-09-02] MEDS: Diltiazem CD (24hr) 240 MG CAPSULE PO SCH (08:23)
[2017-09-02] MEDS: *HR* Amiodarone 200 MG TABLET PO SCH (08:23)
--- NOTE | 2017-09-02 13:37 | Internal Med Progress Note ---
Date of Encounter: 09/02/17 Time of Encounter: 15:01 - Assessment and plan (1) Acute respiratory failure with hypoxia Current Visit: Yes Status: Acute Assessment and plan: Patient remains hypoxic and requiring oxygen supplementation. Chest x-ray done today shows increased bilateral infiltrates especially in right upper lobe. Most likely due to asymmetric. Pulmonary edema. We will give additional dose of Lasix today. Awaiting placement to skilled rehabilitation. (2) PE (pulmonary thromboembolism) Current Visit: Yes Status: Chronic Assessment and plan: On anticoagulation with Coumadin. INR is therapeutic (3) Chest pain Current Visit: Yes Status: Resolved Assessment and plan: Improved. Status post left heart catheterization with bare-metal stent to proximal LAD Qualifiers: Chest pain type: chest pain due to myocardial ischemia Ischemic chest pain type: unspecified angina pectoris type Qualified Code(s): I25.9 - Chronic ischemic heart disease, unspecified (4) Pneumonia Current Visit: Yes Status: Acute Assessment and plan: Completed antibiotic course Qualifiers: Pneumonia type: due to unspecified organism Laterality: right Lung location: unspecified part of lung Qualified Code(s): J18.9 - Pneumonia, unspecified organism (5) Hypertension Current Visit: Yes Status: Chronic Assessment and plan: well-controlled Qualifiers: Hypertension type: essential hypertension Qualified Code(s): I10 - Essential (primary) hypertension (6) New onset a-fib Current Visit: Yes Status: Acute (7) Elevated troponin Current Visit: Yes Status: Acute (8) NSTEMI (non-ST elevated myocardial infarction) Current Visit: Yes Status: Acute Assessment and plan: Treated with left heart catheterization and bare metal stent to proximal LAD. On aspirin, Plavix. Continue dual antiplatelet therapy for 30 days. Follow up with cardiology as outpatient (9) Diabetes Current Visit: Yes Status: Chronic Assessment and plan: Blood sugars are better controlled today. 95 this morning. We will continue to monitor and adjust insulin regimen accordingly Qualifiers: Diabetes mellitus type: type 2 Diabetes mellitus jail insulin use: unspecified jail insulin use status Diabetes mellitus complication status : with unspecified complications Qualified Code(s): E11.8 - Type 2 diabetes mellitus with unspecified complications (10) Anemia Current Visit: Yes Status: Chronic Assessment and plan: Hemoglobin levels for 9 yesterday. Will continue to monitor. Qualifiers: Anemia type: unspecified type Qualified Code(s): D64.9 - Anemia, unspecified (11) PAF (paroxysmal atrial fibrillation) Current Visit: Yes Status: Chronic Assessment and plan: Rate controlled. On anticoagulation with Coumadin. Also on amiodarone at 200 mg daily. - Time Spent With Patient Total time spent is greater than 50% in coordination of care (as documented) at patient's floor/unit and/or counseling patient: - Subjective Interval history: Patient complaining of shortness of breath. Especially with minimal exertion. Improves with rest. She is awaiting placement to skilled rehabilitation. Denies any chest pain or palpitations. No nausea or vomiting. - Constitutional Vitals: Temp Pulse Resp BP Pulse Ox 97.6 F 68 18 136/58 92 09/02/17 11:34 09/02/17 11:34 09/02/17 11:34 09/02/17 11:34 09/02/17 11:34 General appearance: Present: cooperative, A&O X 3, severe distress, answers questions appropriately - Respiratory Respiratory exam: Absent: accessory muscle use, rales, rhonchi, wheezes Additional comments: Bilateral crackles especially in right upper lobe - Cardiovascular Cardiovascular exam: Present: RRR, +S1, +S2. Absent: diastolic murmur, gallop, rubs, systolic murmur - GI/Abdominal GI/Abdominal exam: Present: normal bowel sounds, soft, no peritoneal signs. Absent: distended, tenderness - Extremities Exam Extremities exam: Present: pedal edema (Bilateral), warm, radial pulses palpable and symmetrical. Absent: calf tenderness, cyanotic - Neurological Exam Neurological exam: Present: alert, oriented X3, no focal deficits. Absent: facial droop, speech deficit - Skin Skin exam: Present: dry, intact Internal Medicine: Result - Labs CBC & Chem 7: 09/01/17 15:04 09/01/17 04:09 Labs: Short CBC 09/01/17 Range/Units 15:04 Hgb 9.0 L (11.5-15.4) g/dL Hct 29.5 L (35.3-44.9) % - ABG Interpretation ABG results: PT/INR, D-dimer PT 26.8 Seconds (9.4-12.1) H 09/02/17 04:10 Consult Discharge Plan - Plan Referrals: Arelis Will, LIGHT BULB TESTER [Primary Care Provider] - (Patient is going to [facility] no PCP appointment needed) Prescriptions: HYDROcodone/Acet 7.5/325 mg [[place] 7.5-325 mg] 1 tab PO Q6H PRN 3 Days #12 tablet PRN Reason: Moderate Pain
[2017-09-02] MEDS ORDERED: Furosemide 40 MG TABLET PO ONE (14:20)
[2017-09-02] MEDS ORDERED: *HR* Warfarin 3 MG TABLET PO ONE (18:00)
[2017-09-02] MEDS: Insulin DETEMIR 100 UNIT/ML X5UNITS SQ SCH (20:44)
[2017-09-02] MEDS ORDERED: Furosemide 40 MG/4 ML VIAL IVP ONE (22:19)
[2017-09-02] MEDS ORDERED: Nitroglycerin 1 INCH/GM PACKET TP ONE (22:20)
[2017-09-02] MEDS ORDERED: Nitroglycerin 1 INCH/GM PACKET ONE (22:35)
[2017-09-02] MEDS ORDERED: Furosemide 40 MG/4 ML VIAL ONE (22:35)
[2017-09-02] MEDS: Ondansetron 4 MG/2 ML VIAL IVP PRN (23:02)
[2017-09-02] MEDS ORDERED: *HR* Morphine 2 MG/ML SYRINGE IV ONE (23:45)
--- NOTE | 2017-09-02 23:53 | Event Note ---
Date of Encounter: 09/02/17 Time of Encounter: 23:30 Called to see patient for concerns of respiratory distress. I ordered Lasix, NTP, and IV placement earlier. Upon my assessment, patient has clinical evidence of flash pulmonary edema. I ordered some more Lasix, IV Morphine one time, Jones, and BiPap placement. I asked RN to reassess and update me. If she fails above measures, she may need intubation. However, patient and RN note some improvement with initial measures.
[2017-09-03] MEDS ORDERED: Furosemide 40 MG/4 ML VIAL IVP ONE
[2017-09-03 00:21] LABS: BUN/Creatinine Ratio 33 (6-26); Blood Urea Nitrogen 31 mg/dL (8-23); Carbon Dioxide 31 mEq/L (23-29); Chloride 100 mEq/L (98-107); Glucose 136 mg/dL (70-105); Magnesium 1.8 mg/dL (1.6-2.6); Osmolality,Calculated 301 (280-300); Potassium 4.1 mEq/L (3.5-5.1); Sodium 141 mEq/L (136-145); eGFR For African Americans > 60 (> 60); eGFR For Non-African Americans 56 (> 60)
[2017-09-03 01:08] LABS: Troponin I 0.69 ng/mL (< 0.04)
[2017-09-03 06:40] LABS: Basophils % 0.2 %; Eosinophils # 0.1 K/mcL (0.0-0.6); Eosinophils % 0.6 %; Hematocrit 25.3 % (35.3-44.9); Immature Granulocytes % 1.8 % (0-4); Lymphocytes # 0.7 K/mcL (0.6-4.6); Lymphocytes % 6.5 %; Mean Corpuscular HGB Conc 31.6 g/dL (31.6-35.5); Mean Corpuscular Hemoglobin 29.1 pg (28.0-33.3); Mean Platelet Volume 11.1 fL (9.4-12.4); Monocytes # 0.9 K/mcL (0.0-1.3); Monocytes % 8.1 %; Neutrophils # 9.4 K/mcL (1.6-8.9); Nucleated Red Blood Cells 0.3 /100 WBC (0); Platelet Count 123 K/mcL (140-400); Red Blood Count 2.75 M/mcL (3.82-4.97); Red Cell Distribution Width 15.7 % (11.5-14.5); Segmented Neutrophils % 82.8 %
[2017-09-03 06:51] LABS: INR 2.8; Prothrombin Time 30.6 Seconds (9.4-12.1)
[2017-09-03 07:01] LABS: BUN/Creatinine Ratio 34 (6-26); Blood Urea Nitrogen 30 mg/dL (8-23); Calcium 8.7 mg/dL (8.6-10.3); Carbon Dioxide 32 mEq/L (23-29); Chloride 100 mEq/L (98-107); Glucose 110 mg/dL (70-105); Osmolality,Calculated 299 (280-300); Potassium 3.7 mEq/L (3.5-5.1); Sodium 141 mEq/L (136-145); eGFR For African Americans > 60 (> 60); eGFR For Non-African Americans > 60 (> 60)
[2017-09-03] MEDS: Insulin LISPRO 300 UNITS/3 ML VIAL SQ SCH ×4 (07:40→21:07)
[2017-09-03] MEDS ORDERED: Furosemide 20 MG TABLET PO SCH (08:00)
[2017-09-03] MEDS: Cholecalciferol (D-3) 1,000 UNIT TABLET PO SCH (08:41)
[2017-09-03] MEDS: *HR* Amiodarone 200 MG TABLET PO SCH (08:41)
[2017-09-03] MEDS: BuPROPion SR (12 HR) 100 MG TABLET PO SCH (08:42)
[2017-09-03] MEDS: Aspirin 81 MG TAB.CHEW PO SCH (08:42)
[2017-09-03] MEDS: Diltiazem CD (24hr) 240 MG CAPSULE PO SCH (08:42)
[2017-09-03] MEDS: Gabapentin 300 MG CAPSULE PO SCH ×2 (08:42→21:02)
[2017-09-03] MEDS: Furosemide 40 MG/4 ML VIAL IVP SCH ×2 (11:49→21:05)
--- NOTE | 2017-09-03 15:49 | Internal Med Progress Note ---
Date of Encounter: 09/03/17 Time of Encounter: 10:45 - Assessment and plan (1) Acute respiratory failure with hypoxia Current Visit: Yes Status: Acute Assessment and plan: Due to acute flash pulmonary edema. We will continue IV Lasix. Monitor input and output. Renal function is stable. Continue O2 supplementation. Hold discharge plan for now. Patient at high risk for complications (2) Pulmonary edema Current Visit: Yes Status: Acute Assessment and plan: Patient with acute pulmonary edema. We will treat with IV Lasix. Monitor input and output. Patient does have a negative fluid balance since admission. 2-D echocardiogram done earlier this hospitalization showed EF of risk 65% with normal left ventricular diastolic function. Pulmonary edema could be related to fluid overload. Qualifiers: Chronicity: acute Qualified Code(s): J81.0 - Acute pulmonary edema (3) PE (pulmonary thromboembolism) Current Visit: Yes Status: Chronic Assessment and plan: On Coumadin. INR is therapeutic (4) Chest pain Current Visit: Yes Status: Resolved Qualifiers: Chest pain type: chest pain due to myocardial ischemia Ischemic chest pain type: unspecified angina pectoris type Qualified Code(s): I25.9 - Chronic ischemic heart disease, unspecified (5) Pneumonia Current Visit: Yes Status: Acute Assessment and plan: Patient has completed antibiotic treatment. Qualifiers: Pneumonia type: due to unspecified organism Laterality: right Lung location: unspecified part of lung Qualified Code(s): J18.9 - Pneumonia, unspecified organism (6) Hypertension Current Visit: Yes Status: Chronic Assessment and plan: Blood pressure is well controlled at this time. Qualifiers: Hypertension type: essential hypertension Qualified Code(s): I10 - Essential (primary) hypertension (7) New onset a-fib Current Visit: Yes Status: Acute Assessment and plan: On amiodarone. Heart rate is well controlled. On and correlation with Coumadin. (8) Elevated troponin Current Visit: Yes Status: Acute (9) NSTEMI (non-ST elevated myocardial infarction) Current Visit: Yes Status: Acute Assessment and plan: Status post left heart catheterization with bare-metal stent placement to proximal LAD. Continue aspirin, Plavix (10) Diabetes Current Visit: Yes Status: Chronic Assessment and plan: Well controlled at this time Qualifiers: Diabetes mellitus type: type 2 Diabetes mellitus superintendent container terminal insulin use: unspecified superintendent container terminal insulin use status Diabetes mellitus complication status : with unspecified complications Qualified Code(s): E11.8 - Type 2 diabetes mellitus with unspecified complications (11) Anemia Current Visit: Yes Status: Chronic Assessment and plan: Hemoglobin 8. We will continue to monitor. Check iron, folic acid and B12 levels Qualifiers: Anemia type: unspecified type Qualified Code(s): D64.9 - Anemia, unspecified (12) PAF (paroxysmal atrial fibrillation) Current Visit: Yes Status: Chronic - Time Spent With Patient Total time spent is greater than 50% in coordination of care (as documented) at patient's floor/unit and/or counseling patient: - Subjective Interval history: Patient became significantly dyspneic last night and chest x-ray done showed flash pulmonary edema. She received IV Lasix with some improvement in her symptoms. She remains on mask ventilation at 5 L/m. Using BiPAP as needed. She denies any chest pain or palpitations - Constitutional Vitals: Temp Pulse Resp BP Pulse Ox 99.4 F 72 23 134/60 95 09/03/17 15:31 09/03/17 15:31 09/03/17 15:31 09/03/17 15:31 09/03/17 15:31 General appearance: Present: cooperative, A&O X 3, answers questions appropriately Exam: Moderate distress - Neck Neck exam general surgery: Present: supple, trachea midline. Absent: lymphadenopathy - Respiratory Respiratory exam: Absent: accessory muscle use, rales, rhonchi, wheezes Additional comments: Bilateral crackles especially in the right upper lobe - Cardiovascular Cardiovascular exam: Present: RRR, +S1, +S2, systolic murmur. Absent: diastolic murmur, gallop, rubs - GI/Abdominal GI/Abdominal exam: Present: normal bowel sounds, soft, no peritoneal signs. Absent: distended, tenderness - Extremities Exam Extremities exam: Present: pedal edema (Improved compared to yesterday), warm, radial pulses palpable and symmetrical. Absent: calf tenderness, cyanotic Internal Medicine: Result - Labs CBC & Chem 7: 09/03/17 05:53 09/03/17 05:53 Labs: Short CBC 09/03/17 Range/Units 05:53 WBC 11.3 H (4.3-11.1) K/mcL Hgb 8.0 L (11.5-15.4) g/dL Hct 25.3 L (35.3-44.9) % Plt Count 123 L (140-400) K/mcL Neutrophils # 9.4 H (1.6-8.9) K/mcL BMP 09/02/17 09/03/17 23:45 05:53 Sodium 141 141 Potassium 4.1 3.7 Chloride 100 100 Carbon Dioxide 31 H 32 H BUN 31 H 30 H Creatinine 0.94 0.87 Glucose 136 H 110 H Calcium 9.0 8.7 Cardiac Enzymes 09/02/17 09/03/17 09/03/17 Range/Units 23:45 05:53 11:14 Troponin I 0.69 H* 0.53 H* 0.51 H* (< 0.04) ng/mL - ABG Interpretation ABG results: PT/INR, D-dimer PT 30.6 Seconds (9.4-12.1) H 09/03/17 05:53 - Impressions Impressions Chest X-Ray 09/02/17 13:37 IMPRESSION: 1. Interval worsening of patchy airspace opacities bilaterally, worst in the right upper lung zone. Differential considerations include asymmetric edema versus atypical infection. D/ / 09/02/2017 14:25:39 Shireen Garcia MD / [facility] Interpreting Provider: Shireen Garcia MD Chest X-Ray 09/02/17 23:23 IMPRESSION: Rapid progression of bilateral airspace disease suggest pulmonary edema/ARDS. Superimposed pneumonia may also be present. D/ / Antonio Amos MD / Antonio Amos MD Interpreting Provider: Antonio Amos MD Consult Discharge Plan - Plan Referrals: Arelis Will, FISH CHECKER [Primary Care Provider] - (Patient is going to [facility] no PCP appointment needed) Prescriptions: HYDROcodone/Acet 7.5/325 mg [[place] 7.5-325 mg] 1 tab PO Q6H PRN 3 Days #12 tablet PRN Reason: Moderate Pain
[2017-09-03] MEDS ORDERED: *HR* Warfarin 3 MG TABLET PO ONE (18:00)
--- NOTE | 2017-09-03 19:49 | Electrocardiograph Report ---
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
[2017-09-03] MEDS: Insulin DETEMIR 100 UNIT/ML X5UNITS SQ SCH (21:07)
[2017-09-04 04:11] LABS: Eosinophils # 0.2 K/mcL (0.0-0.6); Eosinophils % 1.4 %; Hematocrit 24.6 % (35.3-44.9); Hemoglobin 7.7 g/dL (11.5-15.4); Immature Granulocytes % 1.3 % (0-4); Lymphocytes # 0.9 K/mcL (0.6-4.6); Lymphocytes % 8.7 %; Mean Corpuscular HGB Conc 31.3 g/dL (31.6-35.5); Mean Corpuscular Hemoglobin 29.4 pg (28.0-33.3); Mean Corpuscular Volume 93.9 fL (83.0-100.0); Mean Platelet Volume 11.1 fL (9.4-12.4); Monocytes # 0.8 K/mcL (0.0-1.3); Monocytes % 7.4 %; Neutrophils # 8.7 K/mcL (1.6-8.9); Nucleated Red Blood Cells 0.2 /100 WBC (0); Platelet Count 121 K/mcL (140-400); Red Blood Count 2.62 M/mcL (3.82-4.97); Red Cell Distribution Width 15.9 % (11.5-14.5); Segmented Neutrophils % 81.2 %
[2017-09-04 04:19] LABS: INR 2.9; Prothrombin Time 32.5 Seconds (9.4-12.1)
[2017-09-04 04:30] LABS: % Iron Saturation 7 % (15-50); BUN/Creatinine Ratio 27 (6-26); Blood Urea Nitrogen 27 mg/dL (8-23); Calcium 8.4 mg/dL (8.6-10.3); Carbon Dioxide 37 mEq/L (23-29); Chloride 99 mEq/L (98-107); Glucose 105 mg/dL (70-105); Iron 20 mcg/dL (50-170); Osmolality,Calculated 301 (280-300); Potassium 3.6 mEq/L (3.5-5.1); Sodium 143 mEq/L (136-145); Transferrin 195 mg/dL (203-362); eGFR For African Americans > 60 (> 60); eGFR For Non-African Americans 53 (> 60)
[2017-09-04 04:49] LABS: Ferritin 191 ng/mL (10-120)
[2017-09-04 04:54] LABS: Folate 11.5 ng/mL (3.0-16.0)
[2017-09-04] MEDS: Insulin LISPRO 300 UNITS/3 ML VIAL SQ SCH ×4 (09:31→20:26)
[2017-09-04] MEDS: Diltiazem CD (24hr) 240 MG CAPSULE PO SCH (09:34)
[2017-09-04] MEDS: Gabapentin 300 MG CAPSULE PO SCH ×2 (09:34→20:26)
[2017-09-04] MEDS: Cholecalciferol (D-3) 1,000 UNIT TABLET PO SCH (09:34)
[2017-09-04] MEDS: BuPROPion SR (12 HR) 100 MG TABLET PO SCH (09:34)
[2017-09-04] MEDS: Aspirin 81 MG TAB.CHEW PO SCH (09:34)
[2017-09-04] MEDS: *HR* Amiodarone 200 MG TABLET PO SCH (09:34)
[2017-09-04] MEDS: Furosemide 40 MG/4 ML VIAL IVP SCH ×2 (09:34→20:27)
[2017-09-04] MEDS: *HR* HYDROcodone/Acet 5/325 mg TABLET PO PRN (09:55)
[2017-09-04] MEDS ORDERED: 0.9 % Sodium Chloride 250 ML ONE (12:41)
[2017-09-04] MEDS ORDERED: Furosemide 40 MG/4 ML VIAL IVP ONE (13:23)
--- NOTE | 2017-09-04 14:10 | Pulmonology Consult Note ---
Date of Encounter: 09/04/17 Time of Encounter: 14:09 Assessment and Plan (1) Acute respiratory failure with hypoxia Current Visit: Yes Status: Acute Impression: In conclusion Mrs. 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 She presented with chest pain noted to have an STEMI status post left heart catheterization with PCI. She is now on dual antiplatelet therapy and continued on chronic warfarin therapy. She has had progressive hypoxemia over the last 48 hours requiring high flow nasal cannula and at times BiPAP. I reviewed her CT scan which is notable for multifocal infiltrates and bilateral pleural effusions. My overall impression is that this represents hydrostatic pulmonary edema from a cardiac etiology. Reviewed her echocardiogram which was not suggestive of diastolic heart failure although given her long-standing hypertension elevated BNP left heart catheter with evidence of LVEDP elevation and clinical presentation I suspect she does have underlying heart failure with preserved ejection fraction. Less likely but possible differential diagnosis would include hospital associated pneumonia atypical pneumonia possibly related to exposure to a sick contact while in the hospital inflammation with progression to ARDS this diagnosis would be very difficult to make at face value given her elevated BNP and underlying heart disease or the possibility of diffuse alveolar hemorrhage but given the absence of hemoptysis on 3 medications that can provoke bleeding I suspect this is very unlikely - fortunately. Recs: -Agree with continued diuresis with Gold that -1-1.5 L over the next 12-24 hours. She will need at least daily monitoring of her serum creatinine and electrolytes including magnesium I will defer to the primary medicine service for monitoring of these -Please obtain blood and sputum cultures and including urinary strep and legionella antigens. She will also need a respiratory infectious panel. Without elevation in her white count no fever and clinical stability and has not the start broad-spectrum antimicrobial for coverage however if any further decline in her course I would have low threshold first starting empiric broad- spectrum antimicrobials to cover for hospital associated organisms -Continue management of coronary artery disease status post PCI per cardiology service she is on dual antiplatelet therapy at explained to the family she has a high risk in general of pulmonary hemorrhage -Continue supplemental oxygen keep saturation around 92% she can use noninvasive ventilation as needed for hypoxemia or increased work of breathing -MR lunsford's began suspect she does have a significant component of atelectasis and recommend increased use of incentive spirometry which I showed her how to use a bedside out of bed to chair and ambulation with oxygen as tolerated and under supervision. This should help mitigate the effects of atelectasis causing VQ mismatching and worsening hypoxemia. -Continue warfarin with continued monitoring of INR per primary medicine service Despite the above measures patient does have a high risk of further decline/ decompensation will need to be continued to watch carefully in the stepdown unit. Thank you for this consultation pulmonary will continue to follow (2) Pulmonary edema cardiac cause Current Visit: Yes Status: Acute (3) Acute on chronic diastolic (congestive) heart failure Current Visit: Yes Status: Acute (4) NSTEMI (non-ST elevated myocardial infarction) Current Visit: Yes Status: Acute (5) PE (pulmonary thromboembolism) Current Visit: Yes Status: Chronic History of Present Illness Consult date: 09/04/17 Requesting physician: Thom Yousif Reason for consult: hypoxemia Chief complaint: Difficulty in Breathing History of present illness: This is a very pleasant 86-year-old woman with past medical history of hypertension who presented initially on this 08/24/17 for chest pain noted to be in respiratory failure. She also had minor hemoptysis it was really pink frothy secretions. At that time she was admitted to the ICU and was treated with noninvasive ventilation seen by pulmonary/critical care but was able to quickly be discharged from the ICU. She is undergone invasive cardiac evaluation was notable for significant coronary artery disease disease status post bare metal stent placement to the LAD. Subsequent to that she has done relatively well over last 48 hours she has had increasing oxygen requirements prompting a CT scan of the chest which is notable for multifocal infiltrates. This prompted a reconsultation to pulmonary for evaluation of worsening hypoxemia. She is required high flow nasal cannula is high as 8 L and intermittently requiring noninvasive ventilation to maintain oxygen saturation this is accompanied with a subjective increase in work of breathing and dyspnea. She denies any hemoptysis since presentation. She also denies cough fevers chills joint pains. She has multiple family members in the room and from the best I can tell she has had many visitors given her donna disposition and general positive outlook. Delay that seems to be bothering her outside of her respiratory complaints is chronic hip pain. She is a lifelong nonsmoker. She does have a history of pulmonary embolus and has been maintained on warfarin since diagnosis. She follows and warfarin clinic for this. She keeps cats at home but not no exposure to exotic animals no recent travel and no sick contacts. She worked in a [employer]. 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 No other industrial/environmental exposures. At the time of his writing the patient is hemodynamically stable she is on high flow nasal cannula at approximately 8 L she is speaking in full sentences without distress her oxygen saturation is in the low to mid 90s during this time. Past Med Surg Social Fam HX - Past Medical History Medical history: pulmonary embolus Additional medical history: peripheral neuropathy Psychiatric history: depression - Past Surgical History Additional surgical history: colon cancer surgery - Social History Smoking Status: Never smoker Smokeless Tobacco Status: No Alcohol use: none Drug use: none - Family History Mother Living Status: Age at : 44 Hx Family Cardiac Disorders: Yes Hx Family Endocrine Disorder: Yes (DM) Father Living Status: Hx Family Respiratory Disorders: Yes (Emphyzema, Lung cancer) Brother Living Status: Hx Family Cancer: Yes Medications and Allergies Cholecalciferol (Vitamin D3) [Vitamin D3] 1,000 unit PO DAILY 08/24/17 [History] Esomeprazole Magnesium [Nexium] 20 mg PO DAILY 08/24/17 [History] Gabapentin [Neurontin] 600 mg PO BID 08/24/17 [History] Insulin Glargine,Hum.rec.anlog [Lantus Solostar] 24 unit SQ DAILY 08/24/17 [ History] buPROPion HCl [Zyban] 100 mg PO DAILY 08/24/17 [History] Amiodarone [Cordarone] 200 mg PO DAILY tablet 09/01/17 [Rx] Aspirin 81 mg PO DAILY 30 Days tab.chew 09/01/17 [Rx] Clopidogrel [Plavix] 75 mg PO DAILY tablet 09/01/17 [Rx] Diltiazem CD (24hr) [Cardizem CD] 240 mg PO DAILY cap.er.24h 09/01/17 [Rx] Docusate [Colace] 100 mg PO BID PRN capsule 09/01/17 [Rx] Furosemide [Lasix] 20 mg PO BIDDIURETIC tablet 09/01/17 [Rx] Insulin LISPRO [HumaLOG] 0 units SQ HS vial 09/01/17 [Rx] Insulin LISPRO [HumaLOG] 0 units SQ TIDAC vial 09/01/17 [Rx] MOM Conc [MILK OF MAGNESIA conc] 10 ml PO DAILY PRN ud.liq 09/01/17 [Rx] Melatonin 3 mg PO HS PRN tablet 09/01/17 [Rx] Metoprolol [Lopressor] 75 mg PO BID tablet 09/01/17 [Rx] Warfarin perPT [Coumadin perPT] 3 each PO DAILY@1800 PRN each 09/01/17 [Rx] HYDROcodone/Acet 7.5/325 mg [[place] 7.5-325 mg] 1 tab PO Q6H PRN 3 Days #12 tablet 09/02/17 [Rx] 3 Allergy/AdvReac Type Severity Reaction Status Date / Time metoclopramide AdvReac Joint Pain Verified 08/24/17 02:53 simvastatin AdvReac Hives Verified 08/24/17 02:53 All Systems: The remainder of the systems were reviewed and are negative Physical Examination Vital Signs: Vital Signs, Last 4 Hours Temp Pulse Resp BP Pulse Ox 09/04/17 13:27 97.9 F 70 20 123/53 97 09/04/17 13:12 98.4 F 74 22 122/50 95 09/04/17 11:27 98.4 F 70 17 136/67 95 General appearance: no acute distress Eyes: nonicteric ENT: oropharynx moist Neck: supple Effort: normal Auscultation: bilateral: rales Cardiovascular: regular rate and rhythm Gastrointestinal: normoactive bowel sounds, soft, non-tender Integumentary: other (Scattered areas of ecchymosis. She also has diffuse ecchymotic changes in the right femoral region with extension into the pubis region) Extremities: no cyanosis, no clubbing, pink and warm, pulses normal, edema ( Trace bilateral nonpitting edema) Musculoskeletal: no deformities normal mental status, non-focal exam mood appropriate Results - Laboratory Findings CBC and BMP: 09/04/17 04:00 09/04/17 04:00 PT/INR, D-dimer PT 32.5 Seconds (9.4-12.1) H 09/04/17 04:00 Abnormal lab findings: Abnormal lab results RBC 2.62 M/mcL (3.82-4.97) L 09/04/17 04:00 Hgb 7.7 g/dL (11.5-15.4) L 09/04/17 04:00 Hct 24.6 % (35.3-44.9) L 09/04/17 04:00 MCHC 31.3 g/dL (31.6-35.5) L 09/04/17 04:00 RDW 15.9 % (11.5-14.5) H 09/04/17 04:00 Plt Count 121 K/mcL (140-400) L 09/04/17 04:00 Nucleated RBCs/100 WBC 0.2 /100 WBC (0) H 09/04/17 04:00 PT 32.5 Seconds (9.4-12.1) H 09/04/17 04:00 APTT 67.3 Seconds (26.0-36.0) H 08/30/17 07:07 Heparin Anti-Xa, Unfract 1.28 IU/mL (0.30-0.70) H* 08/28/17 04:04 Carbon Dioxide 37 mEq/L (23-29) H 09/04/17 04:00 BUN 27 mg/dL (8-23) H 09/04/17 04:00 Est GFR (Non-Af Amer) 53 (> 60) L 09/04/17 04:00 BUN/Creatinine Ratio 27 (6-26) H 09/04/17 04:00 Calculated Osmolality 301 (280-300) H 09/04/17 04:00 Calcium 8.4 mg/dL (8.6-10.3) L 09/04/17 04:00 Iron 20 mcg/dL (50-170) L 09/04/17 04:00 % Saturation 7 % (15-50) L 09/04/17 04:00 Transferrin 195 mg/dL (203-362) L 09/04/17 04:00 Ferritin 191 ng/mL (10-120) H 09/04/17 04:00 Troponin I 0.53 ng/mL (< 0.04) H* 09/03/17 17:30 B-Natriuretic Peptide 567 pg/mL (Less than 100) H 09/04/17 04:00 Globulin 3.6 g/dL (2.4-3.5) H 08/24/17 03:06 Cholesterol 251 mg/dL (< 200) H 08/25/17 04:08 LDL Cholesterol, Calc 180 mg/dL (0-99) H 08/25/17 04:08 Cholesterol/HDL Ratio 6.1 (0-4.9) H 08/25/17 04:08 Mycoplasma pneumon IgG 0.91 U/L (<=0.09) H 08/24/17 11:12 - Diagnostic Findings Chest x-ray: report reviewed, image reviewed CT scan - chest: report reviewed, image reviewed - Clinical Findings Intake & Output: Intake & Output 09/03/17 09/04/17 09/04/17 23:59 07:59 15:59 Intake Total 120 / 120 540 / 540 Output Total 1150 / 1150 500 / 500 1150 / 1150 Balance -1030 / -1030 -500 / -500 -610 / -610 Weight 81.8 kg Consult Discharge Plan - Plan Referrals: Arelis Will, SPEED READING TEACHER [Primary Care Provider] - (Patient is going to [facility] no PCP appointment needed) Prescriptions: HYDROcodone/Acet 7.5/325 mg [[place] 7.5-325 mg] 1 tab PO Q6H PRN 3 Days #12 tablet PRN Reason: Moderate Pain
--- NOTE | 2017-09-04 15:58 | Internal Med Progress Note ---
Date of Encounter: 09/04/17 Time of Encounter: 15:56 - Assessment and plan (1) Acute respiratory failure with hypoxia Current Visit: Yes Status: Acute Assessment and plan: Patient remains on high flow nasal cannula and requiring BiPAP intermittently. Most likely due to pulmonary edema. We will repeat limited echocardiogram to look at ejection fraction and diastolic function. We will consult cardiology for recommendations. Evaluated CT scan of the chest which shows bilateral infiltrates concerning for ARDS or multifocal pneumonia. Patient does not having fever and WBC count is normal. She does not have any cough either. I do not suspect ARDS or multifocal pneumonia at this time. However, we will consult pulmonology at this time for further evaluation to see if they would recommend broadening antibiotic spectrum. Patient did complete antibiotic course for pneumonia earlier during this hospitalization. High risk for complications. (2) Pulmonary edema Current Visit: Yes Status: Acute Assessment and plan: Continue IV Lasix for another day. Patient developing contraction alkalosis but her creatinine remains normal. Continue to monitor urine output. Cardiology and pulmonology consulted. 2-D echocardiogram-limited ordered. Qualifiers: Chronicity: acute Qualified Code(s): J81.0 - Acute pulmonary edema (3) Anemia Current Visit: Yes Status: Chronic Assessment and plan: Hemoglobin 7.7 today. We will transfuse 1 unit of packed red blood cells given patient's shortness of breath and also as patient is on aspirin and Plavix and Coumadin. Will also check stool for occult blood. Iron levels are low. We will place patient on iron replacement therapy. At this time patient is not stable to undergo EGD or colonoscopy. Qualifiers: Anemia type: iron deficiency Iron deficiency anemia type: unspecified iron deficiency Qualified Code(s): D50.9 - Iron deficiency anemia, unspecified (4) PE (pulmonary thromboembolism) Current Visit: Yes Status: Chronic Assessment and plan: On Coumadin. Patient does continue to have anemia. INR is therapeutic. Stool for occult blood ordered and is currently pending. (5) Chest pain Current Visit: Yes Status: Resolved Qualifiers: Chest pain type: chest pain due to myocardial ischemia Ischemic chest pain type: unspecified angina pectoris type Qualified Code(s): I25.9 - Chronic ischemic heart disease, unspecified (6) Pneumonia Current Visit: Yes Status: Acute Assessment and plan: Patient has completed treatment for this. WBC count is normal. No new episodes of fever. No cough or sputum production. Qualifiers: Pneumonia type: due to unspecified organism Laterality: right Lung location: unspecified part of lung Qualified Code(s): J18.9 - Pneumonia, unspecified organism (7) Hypertension Current Visit: Yes Status: Chronic Assessment and plan: Blood pressure is well controlled at this time Qualifiers: Hypertension type: essential hypertension Qualified Code(s): I10 - Essential (primary) hypertension (8) New onset a-fib Current Visit: Yes Status: Acute Assessment and plan: Rate controlled and regular rhythm currently. On the amiodarone. On anticoagulation with Coumadin (9) Elevated troponin Current Visit: Yes Status: Acute Assessment and plan: Could be related to pulmonary edema and recent non-ST elevation IA. Cardiology consulted for further recommendations (10) NSTEMI (non-ST elevated myocardial infarction) Current Visit: Yes Status: Acute Assessment and plan: Treated with left heart catheterization and placement of bare metal stent to proximal LAD. On aspirin, Plavix (11) Diabetes Current Visit: Yes Status: Chronic Assessment and plan: Improved blood sugars today. We will continue current insulin regimen Qualifiers: Diabetes mellitus type: type 2 Diabetes mellitus [employer] insulin use: unspecified [employer] insulin use status Diabetes mellitus complication status : with unspecified complications Qualified Code(s): E11.8 - Type 2 diabetes mellitus with unspecified complications (12) PAF (paroxysmal atrial fibrillation) Current Visit: Yes Status: Chronic - Time Spent With Patient Total time spent is greater than 50% in coordination of care (as documented) at patient's floor/unit and/or counseling patient: - Subjective Interval history: Patient continues to have shortness of breath today. Not much improvement compared to yesterday. Her sats dropped to 60% earlier this morning and patient was placed on BiPAP. Sats improved after that. Currently on nasal cannula at 6 L/m. She does have good urine output. No chest pain. - Constitutional Vitals: Temp Pulse Resp BP Pulse Ox 97.9 F 70 20 123/53 97 09/04/17 13:27 09/04/17 13:27 09/04/17 13:27 09/04/17 13:27 09/04/17 13:27 General appearance: Present: cooperative, A&O X 3, answers questions appropriately - Neck Neck exam general surgery: Present: supple, trachea midline. Absent: lymphadenopathy - Respiratory Respiratory exam: Absent: accessory muscle use, rales, rhonchi, wheezes Additional comments: Bilateral crackles still present - Cardiovascular Cardiovascular exam: Present: RRR, +S1, +S2. Absent: diastolic murmur, gallop, rubs, systolic murmur - GI/Abdominal GI/Abdominal exam: Present: normal bowel sounds, soft, no peritoneal signs. Absent: distended, tenderness - Extremities Exam Extremities exam: Present: pedal edema (Continues to improve), warm, radial pulses palpable and symmetrical. Absent: calf tenderness, cyanotic - Skin Skin exam: Present: dry, intact, pallor Internal Medicine: Result - Labs CBC & Chem 7: 09/04/17 04:00 09/04/17 04:00 Labs: Short CBC 09/04/17 Range/Units 04:00 WBC 10.7 (4.3-11.1) K/mcL Hgb 7.7 L (11.5-15.4) g/dL Hct 24.6 L (35.3-44.9) % Plt Count 121 L (140-400) K/mcL Neutrophils # 8.7 (1.6-8.9) K/mcL BMP 09/04/17 04:00 Sodium 143 Potassium 3.6 Chloride 99 Carbon Dioxide 37 H BUN 27 H Creatinine 0.99 Glucose 105 Calcium 8.4 L Cardiac Enzymes 09/03/17 Range/Units 17:30 Troponin I 0.53 H* (< 0.04) ng/mL - ABG Interpretation ABG results: PT/INR, D-dimer PT 32.5 Seconds (9.4-12.1) H 09/04/17 04:00 - Impressions Impressions Chest X-Ray 09/04/17 07:00 IMPRESSION: 1. Interval worsening of multifocal airspace opacities throughout both lungs, most likely a combination of asymmetric pulmonary edema, superimposed multifocal pneumonia. 2. Stable small bilateral pleural effusions. 3. Stable cardiomegaly. D/ / 09/04/2017 08:25:22 Arist[facility]ina[facility] Provider: Aristides Linares MD Chest CT 09/04/17 12:00 IMPRESSION: 1. Significant progressive bilateral pulmonary consolidation, more prominent on the right, which may represent respiratory ARDS versus multifocal pneumonia. 2. New mild bilateral pleural effusions with mild lower lobe atelectasis. Developing reactive mediastinal lymphadenopathy. 3. Stable right upper and lower lobe solid pulmonary nodules, with the right upper lobe nodule measuring 1.2 cm with speculation. These were identified on a prior 10/04/2011 exam and are stable consistent with benign nodules; no further evaluation is recommended. 4. Stable right inguinal hemorrhage/irregular hematoma. No intraabdominal/pelvic retroperitoneal extension. Stable pelvic subcutaneous induration which may represent hemorrhage. 5. Liver findings suggesting cirrhosis with mild splenomegaly. No acute intra-abdominal/pelvic process. D/ /04/2017 13:52:03 Tre Harden MD / [place] Interpreting Provider: Tre Harden MD Abdomen/Pelvis CT 09/04/17 12:07 IMPRESSION: 1. Significant progressive bilateral pulmonary consolidation, more prominent on the right, which may represent respiratory ARDS versus multifocal pneumonia. 2. New mild bilateral pleural effusions with mild lower lobe atelectasis. Developing reactive mediastinal lymphadenopathy. 3. Stable right upper and lower lobe solid pulmonary nodules, with the right upper lobe nodule measuring 1.2 cm with speculation. These were identified on a prior 10/04/2011 exam and are stable consistent with benign nodules; no further evaluation is recommended. 4. Stable right inguinal hemorrhage/irregular hematoma. No intraabdominal/pelvic retroperitoneal extension. Stable pelvic subcutaneous induration which may represent hemorrhage. 5. Liver findings suggesting cirrhosis with mild splenomegaly. No acute intra-abdominal/pelvic process. D/ : / 09/04/2017 13:52:03 Tre Harden MD / [place] Interpreting Provider: Tre Harden MD Hip CT 09/04/17 12:09 IMPRESSION: Mild subcutaneous fat stranding laterally to the right hip as well as anteriorly to the right groin/inguinal region and in the patient's pannus. There is also skin thickening in the patient's pannus. Findings appear mildly improved from prior CT exam 08/30/2017. There also appear to be some small somewhat focal areas of high-attenuation material within the subcutaneous fat of the right inguinal region measuring up to 2 cm in size which could reflect some small hematomas. These appear stable to minimally improved from prior CT exam. No acute bony or intrapelvic abnormalities. Degenerative changes to both hips and both SI joints as well as to the visualized lower lumbar spine. Diffuse bone demineralization. D/ / 09/04/2017 13:32:31 Wenceslao Villafana MD / [facility] Interpreting Provider: Wenceslao Villafana MD Consult Discharge Plan - Plan Referrals: Arelis Will, PRODUCTION TESTER [Primary Care Provider] - (Patient is going to [facility] no PCP appointment needed) Prescriptions: HYDROcodone/Acet 7.5/325 mg [[place] 7.5-325 mg] 1 tab PO Q6H PRN 3 Days #12 tablet PRN Reason: Moderate Pain
[2017-09-04 16:09] LABS: Estimated Average Glucose 177 mg/dl; Hemoglobin A1C 7.8 %
[2017-09-04] MEDS ORDERED: *HR* Warfarin 2 MG TABLET PO SCH (18:00)
[2017-09-04 19:02] LABS: Adenovirus Not Detected (Not Detect); Coronavirus 229E Not Detected (Not Detect); Coronavirus HKU1 Not Detected (Not Detect); Coronavirus NL63 Not Detected (Not Detect); Coronavirus OC43 Not Detected (Not Detect); Human Metapneumovirus Not Detected (Not Detect); Human Rhinovirus/Enterovirus Not Detected (Not Detect); Influenza A Subtype 2009 H1 Not Detected (Not Detect); Influenza A Untypeable Not Detected (Not Detect); Influenza B Not Detected (Not Detect); Parainfluenza Virus 1 Not Detected (Not Detect); Parainfluenza Virus 2 Not Detected (Not Detect); Parainfluenza Virus 3 Not Detected (Not Detect); Parainfluenza Virus 4 Not Detected (Not Detect); Respiratory Syncytial Virus Not Detected (Not Detect)
[2017-09-04 19:03] LABS: Bordetella Pertussis Not Detected (Not Detect); Chlamydophila pneumoniae Not Detected (Not Detect); Mycoplasma pneumoniae Not Detected (Not Detect)
[2017-09-04] MEDS: Insulin DETEMIR 100 UNIT/ML X5UNITS SQ SCH (20:27)
[2017-09-04] MEDS: Melatonin 3 MG TABLET PO PRN (22:10)
[2017-09-05 04:15] LABS: Basophils % 0.2 %; Eosinophils # 0.2 K/mcL (0.0-0.6); Eosinophils % 1.4 %; Hematocrit 27.9 % (35.3-44.9); Hemoglobin 8.8 g/dL (11.5-15.4); Immature Granulocytes % 1.3 % (0-4); Lymphocytes # 0.8 K/mcL (0.6-4.6); Lymphocytes % 7.3 %; Mean Corpuscular HGB Conc 31.5 g/dL (31.6-35.5); Mean Corpuscular Hemoglobin 28.8 pg (28.0-33.3); Mean Corpuscular Volume 91.2 fL (83.0-100.0); Mean Platelet Volume 10.6 fL (9.4-12.4); Monocytes # 0.8 K/mcL (0.0-1.3); Monocytes % 7.6 %; Neutrophils # 8.9 K/mcL (1.6-8.9); Nucleated Red Blood Cells 0.2 /100 WBC (0); Platelet Count 118 K/mcL (140-400); Red Blood Count 3.06 M/mcL (3.82-4.97); Red Cell Distribution Width 15.8 % (11.5-14.5); Segmented Neutrophils % 82.2 %
[2017-09-05 04:25] LABS: INR 2.5; Prothrombin Time 27.8 Seconds (9.4-12.1)
[2017-09-05 04:40] LABS: BUN/Creatinine Ratio 28 (6-26); Blood Urea Nitrogen 26 mg/dL (8-23); Calcium 8.7 mg/dL (8.6-10.3); Carbon Dioxide 37 mEq/L (23-29); Chloride 97 mEq/L (98-107); Glucose 186 mg/dL (70-105); Osmolality,Calculated 304 (280-300); Potassium 3.5 mEq/L (3.5-5.1); Sodium 142 mEq/L (136-145); eGFR For African Americans > 60 (> 60); eGFR For Non-African Americans 58 (> 60)
--- NOTE | 2017-09-05 06:25 | Pulmonology Progress Note ---
Date of Encounter: 09/05/17 Time of Encounter: 06:25 Assessment and Plan (1) Acute respiratory failure with hypoxia Current Visit: Yes Status: Acute This is second dairy to hydrostatic pulmonary edema wean FiO2 to keep saturation greater than 88% to approximately 92%. Out of bed to chair incentive spirometry and early ambulation under supervision and on oxygen as needed can also help mitigate the effects of atelectasis and improve VQ mismatching which can improve oxygenation Although the multifocal infiltrates could be of an infectious such as pneumonia or inflammatory such as ARDS pattern there is no clinical evidence that this is the case as of right now. Recommend formal PTOT consultation about already ordered (2) Pulmonary edema cardiac cause Current Visit: Yes Status: Acute Agree with continued Lasix diuresis today would again goal -1.5-2 L with daily monitoring of kidney function and electrolytes per primary medicine service (3) Acute on chronic diastolic (congestive) heart failure Current Visit: Yes Status: Acute Blood pressure stable continue diuresis (4) NSTEMI (non-ST elevated myocardial infarction) Current Visit: Yes Status: Acute Status post PCI on dual antiplatelet therapy cardiology managing this (5) PE (pulmonary thromboembolism) Current Visit: Yes Status: Chronic Continue warfarin goal INR between 2 and 3 she is at high risk for bleeding given dual antiplatelet therapy. Subjective Principal diagnosis: dyspnea Interval history: No acute events overnight. She has not had to wear BiPAP further. Per the nursing staff she had a very brisk diuresis of about 2 L over last 24 hours. She says she is generally feeling about the same to slightly better. Remains afebrile otherwise hemodynamically stable. Objective PUL Vital signs: Last Vital Signs Temp 98.1 F 09/05/17 03:55 Pulse 71 09/05/17 03:55 Resp 17 09/05/17 03:55 BP 141/65 09/05/17 03:55 Pulse Ox 94 09/05/17 03:55 General appearance: no acute distress Eyes: nonicteric ENT: oropharynx moist Neck: supple Effort: normal Auscultation: bilateral: diminished breath sounds, rales (In lung bases) Cardiovascular: regular rate and rhythm Gastrointestinal: normoactive bowel sounds, soft, non-tender Integumentary: normal Extremities: no cyanosis, no clubbing, edema (Trace bilateral pedal edema) Musculoskeletal: no deformities normal mental status, non-focal exam affect normal Results - Laboratory Findings CBC and BMP: 09/05/17 04:00 09/05/17 04:00 PT/INR, D-dimer PT 27.8 Seconds (9.4-12.1) H 09/05/17 04:00 Abnormal lab findings: Abnormal lab results RBC 3.06 M/mcL (3.82-4.97) L 09/05/17 04:00 Hgb 8.8 g/dL (11.5-15.4) L 09/05/17 04:00 Hct 27.9 % (35.3-44.9) L 09/05/17 04:00 MCHC 31.5 g/dL (31.6-35.5) L 09/05/17 04:00 RDW 15.8 % (11.5-14.5) H 09/05/17 04:00 Plt Count 118 K/mcL (140-400) L 09/05/17 04:00 Nucleated RBCs/100 WBC 0.2 /100 WBC (0) H 09/05/17 04:00 PT 27.8 Seconds (9.4-12.1) H 09/05/17 04:00 APTT 67.3 Seconds (26.0-36.0) H 08/30/17 07:07 Heparin Anti-Xa, Unfract 1.28 IU/mL (0.30-0.70) H* 08/28/17 04:04 Chloride 97 mEq/L (98-107) L 09/05/17 04:00 Carbon Dioxide 37 mEq/L (23-29) H 09/05/17 04:00 BUN 26 mg/dL (8-23) H 09/05/17 04:00 Est GFR (Non-Af Amer) 58 (> 60) L 09/05/17 04:00 BUN/Creatinine Ratio 28 (6-26) H 09/05/17 04:00 Glucose 186 mg/dL (70-105) H 09/05/17 04:00 POC Glucose 324 mg/dL (70-99) H 09/04/17 20:03 Hemoglobin A1c 7.8 % (-5.6) H 09/04/17 04:00 Calculated Osmolality 304 (280-300) H 09/05/17 04:00 Iron 20 mcg/dL (50-170) L 09/04/17 04:00 % Saturation 7 % (15-50) L 09/04/17 04:00 Transferrin 195 mg/dL (203-362) L 09/04/17 04:00 Ferritin 191 ng/mL (10-120) H 09/04/17 04:00 Troponin I 0.37 ng/mL (< 0.04) H* 09/04/17 12:38 B-Natriuretic Peptide 567 pg/mL (Less than 100) H 09/04/17 04:00 Globulin 3.6 g/dL (2.4-3.5) H 08/24/17 03:06 Cholesterol 251 mg/dL (< 200) H 08/25/17 04:08 LDL Cholesterol, Calc 180 mg/dL (0-99) H 08/25/17 04:08 Cholesterol/HDL Ratio 6.1 (0-4.9) H 08/25/17 04:08 Mycoplasma pneumon IgG 0.91 U/L (<=0.09) H 08/24/17 11:12 - Microbiology Findings Microbiology Findings: Microbiology, Last 48 Hours 09/04/17 20:41 Legionella Antigen - Final Urine,Clean Catch Streptococcus pneumoniae Antigen (M - Final - Clinical Findings Intake & Output: Intake & Output 09/04/17 09/04/17 09/05/17 15:59 23:59 07:59 Intake Total 540 / 540 780 / 780 Output Total 1150 / 1150 1900 / 1900 300 / 300 Balance -610 / -610 -1120 / -1120 -300 / -300 Weight 77 kg Consult Discharge Plan - Plan Referrals: Arelis Will, OCCUPATIONAL THERAPY AIDES TEACHER [Primary Care Provider] - (Patient is going to [facility] no PCP appointment needed) Prescriptions: HYDROcodone/Acet 7.5/325 mg [[place] 7.5-325 mg] 1 tab PO Q6H PRN 3 Days #12 tablet PRN Reason: Moderate Pain
[2017-09-05] MEDS: Insulin LISPRO 300 UNITS/3 ML VIAL SQ SCH ×4 (07:51→21:42)
[2017-09-05] MEDS: Diltiazem CD (24hr) 240 MG CAPSULE PO SCH (07:59)
[2017-09-05] MEDS: BuPROPion SR (12 HR) 100 MG TABLET PO SCH (07:59)
[2017-09-05] MEDS: Gabapentin 300 MG CAPSULE PO SCH ×2 (07:59→21:50)
[2017-09-05] MEDS: Aspirin 81 MG TAB.CHEW PO SCH (07:59)
[2017-09-05] MEDS: *HR* Amiodarone 200 MG TABLET PO SCH (07:59)
[2017-09-05] MEDS: Cholecalciferol (D-3) 1,000 UNIT TABLET PO SCH (07:59)
[2017-09-05] MEDS: Furosemide 40 MG/4 ML VIAL IVP SCH (08:00)
[2017-09-05] MEDS: Potassium Chloride Elixir 20 MEQ/15 ML UDC PO SCH (09:44)
--- NOTE | 2017-09-05 11:22 | Cardiology Consult Note ---
Date of Encounter: 09/05/17 Time of Encounter: 11:19 Assessment and Plan (1) Acute respiratory failure with hypoxia Current Visit: Yes Status: Acute Respiratory insufficiency likely non cardiac, continue medical management of CAD. No cardiac procedures planned Discussion w patient/family: The assessment and plan as outlined above was discussed with the patient and/or family members who expressed understanding and agreement. All questions were answered. Thank you for involving us in the care of your patient. Please call with any questions. History of Present Illness Consult date: 09/05/17 Consult reason: SOB Chief complaint: SOB History of present illness: Ms. Mccloud is a 86 year old female s/pPCI of the proximal LAD with residual mid LAD disease. Patient with no CP but having SOB. No significant riske in trops to indicate stent thrombosis. Trop repeat flat and groin stable. No indication for cardiac procedures at this time. Past Med Surg Social Fam HX - Past Medical History Medical history: pulmonary embolus Additional medical history: peripheral neuropathy Psychiatric history: depression - Past Surgical History Additional surgical history: colon cancer surgery - Social History Smoking Status: Never smoker Smokeless Tobacco Status: No Alcohol use: none Drug use: none - Family History Mother Living Status: Age at : 44 Hx Family Cardiac Disorders: Yes Hx Family Endocrine Disorder: Yes (DM) Father Living Status: Hx Family Respiratory Disorders: Yes (Emphyzema, Lung cancer) Brother Living Status: Hx Family Cancer: Yes Medications and Allergies Cholecalciferol (Vitamin D3) [Vitamin D3] 1,000 unit PO DAILY 08/24/17 [History] Esomeprazole Magnesium [Nexium] 20 mg PO DAILY 08/24/17 [History] Gabapentin [Neurontin] 600 mg PO BID 08/24/17 [History] Insulin Glargine,Hum.rec.anlog [Lantus Solostar] 24 unit SQ DAILY 08/24/17 [ History] buPROPion HCl [Zyban] 100 mg PO DAILY 08/24/17 [History] Amiodarone [Cordarone] 200 mg PO DAILY tablet 09/01/17 [Rx] Aspirin 81 mg PO DAILY 30 Days tab.chew 09/01/17 [Rx] Clopidogrel [Plavix] 75 mg PO DAILY tablet 09/01/17 [Rx] Diltiazem CD (24hr) [Cardizem CD] 240 mg PO DAILY cap.er.24h 09/01/17 [Rx] Docusate [Colace] 100 mg PO BID PRN capsule 09/01/17 [Rx] Furosemide [Lasix] 20 mg PO BIDDIURETIC tablet 09/01/17 [Rx] Insulin LISPRO [HumaLOG] 0 units SQ HS vial 09/01/17 [Rx] Insulin LISPRO [HumaLOG] 0 units SQ TIDAC vial 09/01/17 [Rx] MOM Conc [MILK OF MAGNESIA conc] 10 ml PO DAILY PRN ud.liq 09/01/17 [Rx] Melatonin 3 mg PO HS PRN tablet 09/01/17 [Rx] Metoprolol [Lopressor] 75 mg PO BID tablet 09/01/17 [Rx] Warfarin perPT [Coumadin perPT] 3 each PO DAILY@1800 PRN each 09/01/17 [Rx] HYDROcodone/Acet 7.5/325 mg [[place] 7.5-325 mg] 1 tab PO Q6H PRN 3 Days #12 tablet 09/02/17 [Rx] 3 Allergy/AdvReac Type Severity Reaction Status Date / Time metoclopramide AdvReac Joint Pain Verified 08/24/17 02:53 simvastatin AdvReac Hives Verified 08/24/17 02:53 All Systems Review: The remainder of the systems were reviewed and are negative Physical Examination Vital Signs, Last 4 Hours Temp Pulse Resp BP Pulse Ox 09/05/17 07:35 98.3 F 74 24 147/69 90 General: Conversant, No Apparent Distress HEENT: Atraumatic, Normocephaly, Mucus Membranes Moist Neck: No JVD, Normal carotid pulses Cardiac: Reg Rate and Rhythm, Normal S1 and S2, No Murmur Lungs: Normal Breath Sounds, No Wheeze, Rales, Rhonchi Neuro: Alert and responsive, No focal deficits noted Abdomen: Soft, Non-Tender Skin: No rashes noted on visualized skin Musculoskeletal: No Chest Wall Tenderness Extremities: No Clubbing, No Cyanosis, No Edema, Normal Pulses Results 09/05/17 04:00 09/05/17 04:00 Lab Results 09/04/17 09/05/17 09/05/17 12:38 04:00 04:00 WBC 10.9 Hgb 8.8 L Hct 27.9 L Plt Count 118 L INR 2.5 Sodium Potassium Chloride Carbon Dioxide BUN Creatinine Glucose Calcium Troponin I 0.37 H* 09/05/17 04:00 WBC Hgb Hct Plt Count INR Sodium 142 Potassium 3.5 Chloride 97 L Carbon Dioxide 37 H BUN 26 H Creatinine 0.92 Glucose 186 H Calcium 8.7 Troponin I Consult Discharge Plan - Plan Referrals: Arelis Will, SOFTWARE DEVELOPMENT ADVISOR [Primary Care Provider] - (Patient is going to [facility] no PCP appointment needed) Prescriptions: HYDROcodone/Acet 7.5/325 mg [[place] 7.5-325 mg] 1 tab PO Q6H PRN 3 Days #12 tablet PRN Reason: Moderate Pain
--- NOTE | 2017-09-05 15:58 | Internal Med Progress Note ---
Date of Encounter: 09/05/17 Time of Encounter: 15:59 - Assessment and plan (1) Acute respiratory failure with hypoxia Current Visit: Yes Status: Acute Assessment and plan: Due to pulmonary edema. Improving. Currently on 4 L O2 supplementation. Continue PT OT. Continue incentive spirometry. Has responded well to intravenous Lasix. Pulmonology and cardiology recommendations appreciated. (2) Pulmonary edema Current Visit: Yes Status: Acute Assessment and plan: Due to fluid overload. Improved with Lasix. Patient is breathing better now. Has had good response to IV Lasix. -6 L fluid balance during this hospital stay. Qualifiers: Chronicity: acute Qualified Code(s): J81.0 - Acute pulmonary edema (3) Anemia Current Visit: Yes Status: Chronic Assessment and plan: stool positive for occult blood. Hemoglobin is 8.8. Patient is on dual antiplatelet therapy and on anticoagulation with Coumadin.we will monitor blood counts for now. Consider EGD and colonoscopy as outpatient. If blood counts drop further, we may need to hold Coumadin temporarily. Qualifiers: Anemia type: iron deficiency Iron deficiency anemia type: unspecified iron deficiency Qualified Code(s): D50.9 - Iron deficiency anemia, unspecified (4) PE (pulmonary thromboembolism) Current Visit: Yes Status: Chronic Assessment and plan: Patient is currently on Coumadin. INR is therapeutic (5) Chest pain Current Visit: Yes Status: Resolved Qualifiers: Chest pain type: chest pain due to myocardial ischemia Ischemic chest pain type: unspecified angina pectoris type Qualified Code(s): I25.9 - Chronic ischemic heart disease, unspecified (6) Pneumonia Current Visit: Yes Status: Acute Assessment and plan: Patient has completed treatment for pneumonia. Chest x-ray does show bilateral infiltrates most likely related to pulmonary edema. Patient not having any fever. WBC count is normal. No cough or sputum production. Qualifiers: Pneumonia type: due to unspecified organism Laterality: right Lung location: unspecified part of lung Qualified Code(s): J18.9 - Pneumonia, unspecified organism (7) Hypertension Current Visit: Yes Status: Chronic Assessment and plan: Well-controlled at this time. Continue current medications Qualifiers: Hypertension type: essential hypertension Qualified Code(s): I10 - Essential (primary) hypertension (8) New onset a-fib Current Visit: Yes Status: Acute Assessment and plan: On amiodarone. Rate controlled. (9) Elevated troponin Current Visit: Yes Status: Acute (10) NSTEMI (non-ST elevated myocardial infarction) Current Visit: Yes Status: Acute Assessment and plan: Status post left heart catheterization with bare-metal stent placement (11) Diabetes Current Visit: Yes Status: Chronic Assessment and plan: Blood sugars are elevated this morning. We will adjust insulin regimen accordingly. 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 She was sitting up in chair. Feels better overall compared to the past couple of days. Denies any dizziness or lightheadedness at this time. Is currently on 4 L nasal cannula. No chest pain. Shortness of breath is improving. - Constitutional Vitals: Temp Pulse Resp BP Pulse Ox 98.6 F 57 24 134/53 94 09/05/17 11:29 09/05/17 11:29 09/05/17 11:29 09/05/17 11:29 09/05/17 11:29 General appearance: Present: cooperative, A&O X 3, answers questions appropriately - Respiratory Respiratory exam: Absent: accessory muscle use, rales, rhonchi, wheezes Additional comments: Bilateral crackles present - GI/Abdominal GI/Abdominal exam: Present: normal bowel sounds, soft, no peritoneal signs. Absent: distended, tenderness - Extremities Exam Extremities exam: Present: warm, radial pulses palpable and symmetrical. Absent : calf tenderness, cyanotic, pedal edema - Skin Skin exam: Present: dry, intact Internal Medicine: Result - Labs CBC & Chem 7: 09/05/17 04:00 09/05/17 04:00 Labs: Short CBC 09/05/17 Range/Units 04:00 WBC 10.9 (4.3-11.1) K/mcL Hgb 8.8 L (11.5-15.4) g/dL Hct 27.9 L (35.3-44.9) % Plt Count 118 L (140-400) K/mcL Neutrophils # 8.9 (1.6-8.9) K/mcL BMP 09/05/17 04:00 Sodium 142 Potassium 3.5 Chloride 97 L Carbon Dioxide 37 H BUN 26 H Creatinine 0.92 Glucose 186 H Calcium 8.7 Cardiac Enzymes 09/04/17 Range/Units 12:38 Troponin I 0.37 H* (< 0.04) ng/mL - ABG Interpretation ABG results: PT/INR, D-dimer PT 27.8 Seconds (9.4-12.1) H 09/05/17 04:00 - Impressions Impressions Chest X-Ray 09/04/17 07:00 IMPRESSION: 1. Interval worsening of multifocal airspace opacities throughout both lungs, most likely a combination of asymmetric pulmonary edema and superimposed multifocal pneumonia. 2. Stable small bilateral pleural effusions. 3. Stable cardiomegaly. D/ / 09/04/2017 08:25:22 Aristides Linares MD / [email or web address] Interpreting Provider: Aristides Linares MD Echocardiogram Limited Views 09/04/17 10:42 Impressions: LVEF 65%. Normal LV chamber size and function. Mild asymmetric hypertrophy of the basal septum. Left Ventricular Wall Motion: Rest Echo Findings All wall segments showed normal motion. Findings: Study Quality * Technically adequate exam. ECG Findings * Normal sinus rhythm. Left Ventricle * LVEF 65%. * Normal LV chamber size and function. * Mild asymmetric hypertrophy of the basal septum. Right Ventricle * Normal right ventricular structure and function. Aorta * Normally sized aortic root. Pericardium * There is a trivial pericardial effusion present. IVC * Normal IVC dimensions and inspiratory collapse. Consult Discharge Plan - Plan Referrals: Arelis Will, FIXTURE BUILDER [Primary Care Provider] - (Patient is going to [facility] no PCP appointment needed) Prescriptions: HYDROcodone/Acet 7.5/325 mg [[place] 7.5-325 mg] 1 tab PO Q6H PRN 3 Days #12 tablet PRN Reason: Moderate Pain
[2017-09-05] MEDS: Furosemide 40 MG TABLET PO SCH (16:53)
[2017-09-05] MEDS ORDERED: *HR* Warfarin 3 MG TABLET PO ONE (18:00)
[2017-09-05] MEDS: Insulin DETEMIR 100 UNIT/ML X5UNITS SQ SCH (21:51)
[2017-09-05] MEDS: Melatonin 3 MG TABLET PO PRN (21:51)
[2017-09-06 06:38] LABS: Basophils % 0.1 %; Eosinophils # 0.2 K/mcL (0.0-0.6); Eosinophils % 1.3 %; Hematocrit 29.5 % (35.3-44.9); Hemoglobin 9.4 g/dL (11.5-15.4); Immature Granulocytes % 1.3 % (0-4); Lymphocytes # 0.7 K/mcL (0.6-4.6); Lymphocytes % 5.1 %; Mean Corpuscular HGB Conc 31.9 g/dL (31.6-35.5); Mean Corpuscular Hemoglobin 29.6 pg (28.0-33.3); Mean Corpuscular Volume 92.8 fL (83.0-100.0); Mean Platelet Volume 10.3 fL (9.4-12.4); Monocytes # 0.9 K/mcL (0.0-1.3); Monocytes % 6.7 %; Neutrophils # 10.8 K/mcL (1.6-8.9); Nucleated Red Blood Cells 0.2 /100 WBC (0); Platelet Count 130 K/mcL (140-400); Red Blood Count 3.18 M/mcL (3.82-4.97); Red Cell Distribution Width 15.4 % (11.5-14.5); Segmented Neutrophils % 85.5 %
[2017-09-06 06:46] LABS: INR 2.7; Prothrombin Time 30.2 Seconds (9.4-12.1)
--- NOTE | 2017-09-06 06:49 | Pulmonology Progress Note ---
Date of Encounter: 09/06/17 Time of Encounter: 06:49 Assessment and Plan (1) Acute respiratory failure with hypoxia Current Visit: Yes Status: Acute This is second dairy to hydrostatic pulmonary edema wean FiO2 to keep saturation greater than 88% to approximately 92%. Out of bed to chair incentive spirometry and early ambulation under supervision and on oxygen as needed can also help mitigate the effects of atelectasis and improve VQ mismatching which can improve oxygenation Although the multifocal infiltrates could be of an infectious such as pneumonia or inflammatory such as ARDS pattern there is no clinical evidence that this is the case as of right now. Recommend formal PTOT consultation about already ordered (2) Pulmonary edema cardiac cause Current Visit: Yes Status: Acute Agree with continued Lasix diuresis today would again goal -1.5-2 L with daily monitoring of kidney function and electrolytes per primary medicine service (3) Acute on chronic diastolic (congestive) heart failure Current Visit: Yes Status: Acute Blood pressure stable continue diuresis (4) NSTEMI (non-ST elevated myocardial infarction) Current Visit: Yes Status: Acute Status post PCI on dual antiplatelet therapy cardiology managing this (5) PE (pulmonary thromboembolism) Current Visit: Yes Status: Chronic Continue warfarin goal INR between 2 and 3 she is at high risk for bleeding given dual antiplatelet therapy. Subjective Principal diagnosis: dyspnea Interval history: No acute events overnight. She has not had to wear BiPAP further. Per the nursing staff she had a very brisk diuresis of about 2 L over last 24 hours. She says she is generally feeling about the same to slightly better. Remains afebrile otherwise hemodynamically stable. Objective PUL Vital signs: Last Vital Signs Temp 98 F 09/06/17 04:12 Pulse 67 09/06/17 04:12 Resp 20 09/06/17 05:05 BP 142/62 09/06/17 05:05 Pulse Ox 95 09/06/17 05:05 Results - Laboratory Findings CBC and BMP: 09/06/17 06:15 09/05/17 04:00 PT/INR, D-dimer PT 30.2 Seconds (9.4-12.1) H 09/06/17 06:15 Abnormal lab findings: Abnormal lab results WBC 12.6 K/mcL (4.3-11.1) H 09/06/17 06:15 RBC 3.18 M/mcL (3.82-4.97) L 09/06/17 06:15 Hgb 9.4 g/dL (11.5-15.4) L 09/06/17 06:15 Hct 29.5 % (35.3-44.9) L 09/06/17 06:15 RDW 15.4 % (11.5-14.5) H 09/06/17 06:15 Plt Count 130 K/mcL (140-400) L 09/06/17 06:15 Neutrophils # 10.8 K/mcL (1.6-8.9) H 09/06/17 06:15 Nucleated RBCs/100 WBC 0.2 /100 WBC (0) H 09/06/17 06:15 PT 30.2 Seconds (9.4-12.1) H 09/06/17 06:15 APTT 67.3 Seconds (26.0-36.0) H 08/30/17 07:07 Heparin Anti-Xa, Unfract 1.28 IU/mL (0.30-0.70) H* 08/28/17 04:04 Chloride 97 mEq/L (98-107) L 09/05/17 04:00 Carbon Dioxide 37 mEq/L (23-29) H 09/05/17 04:00 BUN 26 mg/dL (8-23) H 09/05/17 04:00 Est GFR (Non-Af Amer) 58 (> 60) L 09/05/17 04:00 BUN/Creatinine Ratio 28 (6-26) H 09/05/17 04:00 Glucose 186 mg/dL (70-105) H 09/05/17 04:00 POC Glucose 148 mg/dL (70-99) H 09/05/17 21:09 Hemoglobin A1c 7.8 % (-5.6) H 09/04/17 04:00 Calculated Osmolality 304 (280-300) H 09/05/17 04:00 Iron 20 mcg/dL (50-170) L 09/04/17 04:00 % Saturation 7 % (15-50) L 09/04/17 04:00 Transferrin 195 mg/dL (203-362) L 09/04/17 04:00 Ferritin 191 ng/mL (10-120) H 09/04/17 04:00 Troponin I 0.37 ng/mL (< 0.04) H* 09/04/17 12:38 B-Natriuretic Peptide 567 pg/mL (Less than 100) H 09/04/17 04:00 Globulin 3.6 g/dL (2.4-3.5) H 08/24/17 03:06 Cholesterol 251 mg/dL (< 200) H 08/25/17 04:08 LDL Cholesterol, Calc 180 mg/dL (0-99) H 08/25/17 04:08 Cholesterol/HDL Ratio 6.1 (0-4.9) H 08/25/17 04:08 Stool Occult Blood Positive (Negative) A 09/05/17 09:45 Mycoplasma pneumon IgG 0.91 U/L (<=0.09) H 08/24/17 11:12 - Microbiology Findings Microbiology Findings: Microbiology, Last 48 Hours 09/04/17 20:41 Legionella Antigen - Final Urine,Clean Catch Streptococcus pneumoniae Antigen (M - Final - Clinical Findings Intake & Output: Intake & Output 09/05/17 09/05/17 09/06/17 15:59 23:59 07:59 Intake Total 360 / 360 Output Total 500 / 500 200 / 200 200 / 200 Balance -140 / -140 -200 / -200 -200 / -200 Weight 80.2 kg Consult Discharge Plan - Plan Referrals: Arelis Will, DRAPERY AND UPHOLSTERY MEASURER [Primary Care Provider] - (Patient is going to [facility] no PCP appointment needed) Prescriptions: HYDROcodone/Acet 7.5/325 mg [[place] 7.5-325 mg] 1 tab PO Q6H PRN 3 Days #12 tablet PRN Reason: Moderate Pain
[2017-09-06 07:02] LABS: BUN/Creatinine Ratio 28 (6-26); Blood Urea Nitrogen 22 mg/dL (8-23); Calcium 8.7 mg/dL (8.6-10.3); Carbon Dioxide 35 mEq/L (23-29); Chloride 97 mEq/L (98-107); Glucose 143 mg/dL (70-105); Osmolality,Calculated 298 (280-300); Potassium 3.5 mEq/L (3.5-5.1); Sodium 141 mEq/L (136-145); eGFR For African Americans > 60 (> 60); eGFR For Non-African Americans > 60 (> 60)
[2017-09-06] MEDS ORDERED: 0.9 % Sodium Chloride 1,000 ML ONE (07:59)
[2017-09-06] MEDS: Ondansetron 4 MG/2 ML VIAL IVP PRN (08:18)
[2017-09-06] MEDS: Cholecalciferol (D-3) 1,000 UNIT TABLET PO SCH (09:33)
[2017-09-06] MEDS: Furosemide 40 MG TABLET PO SCH ×2 (09:33→16:45)
[2017-09-06] MEDS: *HR* Amiodarone 200 MG TABLET PO SCH (09:33)
[2017-09-06] MEDS: BuPROPion SR (12 HR) 100 MG TABLET PO SCH (09:33)
[2017-09-06] MEDS: Aspirin 81 MG TAB.CHEW PO SCH (09:33)
[2017-09-06] MEDS: Diltiazem CD (24hr) 240 MG CAPSULE PO SCH (09:33)
[2017-09-06] MEDS: Gabapentin 300 MG CAPSULE PO SCH ×2 (09:33→21:27)
[2017-09-06] MEDS: Insulin LISPRO 300 UNITS/3 ML VIAL SQ SCH ×3 (09:34→16:46)
[2017-09-06] MEDS: Potassium Chloride Elixir 20 MEQ/15 ML UDC PO SCH (09:41)
[2017-09-06] MEDS ORDERED: Piperacillin/Tazobactam 3.375 GM in 0.9 % Sodium Chloride Mini Bag 100 ML IVPB SCH (10:31)
[2017-09-06] MEDS: Doxycycline 100 MG in 0.9 % Sodium Chloride Mini Bag 100 ML IVPB SCH ×2 (11:15→18:04)
[2017-09-06] MEDS: Insulin DETEMIR 100 UNIT/ML X5UNITS SQ SCH ×2 (11:16→21:27)
--- NOTE | 2017-09-06 15:54 | Internal Med Progress Note ---
Date of Encounter: 09/06/17 Time of Encounter: 15:51 - Assessment and plan (1) Acute respiratory failure with hypoxia Current Visit: Yes Status: Acute Assessment and plan: Respiratory failure persists. Patient currently on high flow nasal cannula. Discussed plan of care with family. Patient has not had much improvement despite aggressive diuresis. Chest x-ray also continues to show bilateral infiltrates concerning for multifocal pneumonia versus pulmonary edema. She has not had any fevers or cough. Pulmonology has no further recommendations at this time besides continuing diuresis. Explained situation to patient and family. Gave them options of continuing current management or transferring to a tertiary care center or changing CODE STATUS and consulting palliative care. At this time they wish to continue current management here and to see how the patient responds over the next day or 2. (2) Pulmonary edema Current Visit: Yes Status: Acute Assessment and plan: Patient continues to have hypoxic respiratory failure and pulmonary edema per chest x-ray. She does have good urine output. So far she has had almost 7-1/ 2 L negative fluid balance. On oral Lasix currently. Qualifiers: Chronicity: acute Qualified Code(s): J81.0 - Acute pulmonary edema (3) Pneumonia Current Visit: Yes Status: Acute Assessment and plan: Patient has completed treatment for pneumonia previously. However chest x-ray does continue to show bilateral infiltrates. Although this is most likely pulmonary edema, patient does have slight rise in her leukocytosis. Also she has not really improved despite aggressive diuresis. Cannot entirely rule out pneumonia. She has not had any fevers or chills. At this time I think it is appropriate to start patient back on broad-spectrum antibiotics. Will place her on Zosyn and doxycycline for now. Qualifiers: Pneumonia type: due to unspecified organism Laterality: right Lung location: unspecified part of lung Qualified Code(s): J18.9 - Pneumonia, unspecified organism (4) Anemia Current Visit: Yes Status: Chronic Assessment and plan: Hemoglobin levels are stable. Stool for occult blood was positive but patient at this time not in a position to undergo GI workup for this. We will continue to monitor blood counts for now. Patient is on dual antiplatelet therapy and Coumadin which increases risk of bleeding. Qualifiers: Anemia type: iron deficiency Iron deficiency anemia type: unspecified iron deficiency Qualified Code(s): D50.9 - Iron deficiency anemia, unspecified (5) PE (pulmonary thromboembolism) Current Visit: Yes Status: Chronic Assessment and plan: On Coumadin (6) Chest pain Current Visit: Yes Status: Resolved Qualifiers: Chest pain type: chest pain due to myocardial ischemia Ischemic chest pain type: unspecified angina pectoris type Qualified Code(s): I25.9 - Chronic ischemic heart disease, unspecified (7) Hypertension Current Visit: Yes Status: Chronic Assessment and plan: Blood pressure elevated today. Monitor. If persistently elevated, will increase antihypertensive regimen. Continue Cardizem and Lopressor. Qualifiers: Hypertension type: essential hypertension Qualified Code(s): I10 - Essential (primary) hypertension (8) New onset a-fib Current Visit: Yes Status: Acute Assessment and plan: Rate controlled. On Cardizem, Lopressor and amiodarone. (9) Elevated troponin Current Visit: Yes Status: Acute (10) NSTEMI (non-ST elevated myocardial infarction) Current Visit: Yes Status: Acute Assessment and plan: Treated with left heart catheterization and bare metal stent. On aspirin, Plavix (11) Diabetes Current Visit: Yes Status: Chronic Assessment and plan: Well controlled at this time. Continue current insulin regimen Qualifiers: Diabetes mellitus type: type 2 Diabetes mellitus longterm insulin use: unspecified longterm insulin use status Diabetes mellitus complication status : with unspecified complications Qualified Code(s): E11.8 - Type 2 diabetes mellitus with unspecified complications (12) PAF (paroxysmal atrial fibrillation) Current Visit: Yes Status: Chronic - Time Spent With Patient Total time spent is greater than 50% in coordination of care (as documented) at patient's floor/unit and/or counseling patient: - Subjective Interval history: Patient became hypoxic last night and was placed on BiPAP. She is concerned that she is not getting any better. Denies any chest pain. Shortness of breath persists. Feels very weak and tired. - Constitutional Vitals: Temp Pulse Resp BP Pulse Ox 98.6 F 62 20 142/58 96 09/06/17 11:15 09/06/17 11:15 09/06/17 11:15 09/06/17 11:15 09/06/17 11:15 General appearance: Present: cooperative, A&O X 3, answers questions appropriately - Neck Neck exam general surgery: Present: supple, trachea midline. Absent: lymphadenopathy - Respiratory Respiratory exam: Absent: accessory muscle use, rales, rhonchi, wheezes Additional comments: Bilateral crackles in all lung grace - Cardiovascular Cardiovascular exam: Present: RRR, +S1, +S2. Absent: diastolic murmur, gallop, rubs, systolic murmur - GI/Abdominal GI/Abdominal exam: Present: normal bowel sounds, soft, no peritoneal signs. Absent: distended, tenderness - Neurological Exam Neurological exam: Present: alert, oriented X3, no focal deficits. Absent: facial droop, speech deficit Internal Medicine: Result - Labs CBC & Chem 7: 09/06/17 06:15 09/06/17 06:15 Labs: Short CBC 09/06/17 Range/Units 06:15 WBC 12.6 H (4.3-11.1) K/mcL Hgb 9.4 L (11.5-15.4) g/dL Hct 29.5 L (35.3-44.9) % Plt Count 130 L (140-400) K/mcL Neutrophils # 10.8 H (1.6-8.9) K/mcL BMP 09/06/17 06:15 Sodium 141 Potassium 3.5 Chloride 97 L Carbon Dioxide 35 H BUN 22 Creatinine 0.78 Glucose 143 H Calcium 8.7 - ABG Interpretation ABG results: PT/INR, D-dimer PT 30.2 Seconds (9.4-12.1) H 09/06/17 06:15 - Impressions Impressions Chest X-Ray 09/06/17 07:00 IMPRESSION: 1. Worsening bilateral airspace disease. D/ / Dakota Nguyen MD / Dakota Nguyen MD Interpreting Provider: Dakota Nguyen MD Consult Discharge Plan - Plan Referrals: Arelis Will, LAWN SERVICE SUPERVISOR [Primary Care Provider] - (Patient is going to [facility] no PCP appointment needed) Prescriptions: HYDROcodone/Acet 7.5/325 mg [[place] 7.5-325 mg] 1 tab PO Q6H PRN 3 Days #12 tablet PRN Reason: Moderate Pain
[2017-09-06] MEDS: MethylPREDNISolone 40 MG/ML VIAL IVP SCH (16:45)
[2017-09-06] MEDS ORDERED: *HR* Warfarin 2 MG TABLET PO ONE (18:00)
[2017-09-06] MEDS: Piperacillin/Tazobactam 3.375 GM in 0.9 % Sodium Chloride Mini Bag 100 ML IVPB SCH ×2 (21:11→21:28)
[2017-09-06] MEDS: Lactobacillus 1 EACH CAP.SPRINK PO SCH (21:30)
[2017-09-07] MEDS: Insulin LISPRO 300 UNITS/3 ML VIAL SQ SCH ×5 (00:06→21:53)
[2017-09-07] MEDS: Doxycycline 100 MG in 0.9 % Sodium Chloride Mini Bag 100 ML IVPB SCH ×2 (06:54→17:03)
[2017-09-07] MEDS: MethylPREDNISolone 40 MG/ML VIAL IVP SCH ×2 (06:54→17:04)
[2017-09-07] MEDS: Furosemide 40 MG TABLET PO SCH ×2 (08:28→17:03)
[2017-09-07] MEDS: Diltiazem CD (24hr) 240 MG CAPSULE PO SCH (08:29)
[2017-09-07] MEDS: Cholecalciferol (D-3) 1,000 UNIT TABLET PO SCH (08:29)
[2017-09-07] MEDS: BuPROPion SR (12 HR) 100 MG TABLET PO SCH (08:29)
[2017-09-07] MEDS: *HR* Amiodarone 200 MG TABLET PO SCH (08:29)
[2017-09-07] MEDS: Lactobacillus 1 EACH CAP.SPRINK PO SCH ×2 (08:29→21:52)
[2017-09-07] MEDS: Gabapentin 300 MG CAPSULE PO SCH ×2 (08:29→21:53)
[2017-09-07] MEDS: Aspirin 81 MG TAB.CHEW PO SCH (08:29)
[2017-09-07] MEDS: Piperacillin/Tazobactam 3.375 GM in 0.9 % Sodium Chloride Mini Bag 100 ML IVPB SCH ×2 (08:34→20:21)
[2017-09-07 09:19] LABS: Basophils % 0.1 %; Hematocrit 29.7 % (35.3-44.9); Hemoglobin 9.4 g/dL (11.5-15.4); Immature Granulocytes % 1.4 % (0-4); Lymphocytes # 0.4 K/mcL (0.6-4.6); Lymphocytes % 3.1 %; Mean Corpuscular HGB Conc 31.6 g/dL (31.6-35.5); Mean Corpuscular Hemoglobin 29.4 pg (28.0-33.3); Mean Corpuscular Volume 92.8 fL (83.0-100.0); Mean Platelet Volume 10.6 fL (9.4-12.4); Monocytes # 0.6 K/mcL (0.0-1.3); Monocytes % 4.2 %; Neutrophils # 11.9 K/mcL (1.6-8.9); Platelet Count 136 K/mcL (140-400); Red Cell Distribution Width 14.9 % (11.5-14.5); Segmented Neutrophils % 91.2 %
[2017-09-07 09:43] LABS: BUN/Creatinine Ratio 30 (6-26); Blood Urea Nitrogen 24 mg/dL (8-23); Calcium 8.8 mg/dL (8.6-10.3); Carbon Dioxide 36 mEq/L (23-29); Chloride 98 mEq/L (98-107); Glucose 260 mg/dL (70-105); Osmolality,Calculated 303 (280-300); Potassium 3.7 mEq/L (3.5-5.1); Sodium 140 mEq/L (136-145); eGFR For African Americans > 60 (> 60); eGFR For Non-African Americans > 60 (> 60)
[2017-09-07] MEDS: Insulin DETEMIR 100 UNIT/ML X5UNITS SQ SCH ×2 (11:05→21:52)
--- NOTE | 2017-09-07 13:42 | Internal Med Progress Note ---
Date of Encounter: 09/07/17 Time of Encounter: 10:30 - Assessment and plan (1) Acute respiratory failure with hypoxia Current Visit: Yes Status: Acute Assessment and plan: Patient remains on high flow nasal cannula. Feels better today. Continue current management. Wean FiO2 as tolerated. Guarded prognosis. (2) Pulmonary edema Current Visit: Yes Status: Acute Assessment and plan: On oral Lasix. Has had good urine output and response to Lasix so far. Pedal edema has completely subsided. Qualifiers: Chronicity: acute Qualified Code(s): J81.0 - Acute pulmonary edema (3) Pneumonia Current Visit: Yes Status: Acute Assessment and plan: Patient was started on Zosyn and doxycycline yesterday. WBC count remains slightly elevated. She did receive steroids also. Will continue current antibiotics for now. No fever or chills reported. Qualifiers: Pneumonia type: due to unspecified organism Laterality: right Lung location: unspecified part of lung Qualified Code(s): J18.9 - Pneumonia, unspecified organism (4) Anemia Current Visit: Yes Status: Chronic Assessment and plan: Stable hemoglobin levels. Patient did have positive occult blood in stool. She is on dual antiplatelet therapy and Coumadin. Continue to monitor for now. At this time patient would not tolerate upper GI endoscopy or colonoscopy due to her respiratory illness. Once she gets better from this consider these procedures as outpatient. Qualifiers: Anemia type: iron deficiency Iron deficiency anemia type: unspecified iron deficiency Qualified Code(s): D50.9 - Iron deficiency anemia, unspecified (5) PE (pulmonary thromboembolism) Current Visit: Yes Status: Chronic Assessment and plan: On Coumadin. INR is therapeutic. (6) Chest pain Current Visit: Yes Status: Resolved Qualifiers: Chest pain type: chest pain due to myocardial ischemia Ischemic chest pain type: unspecified angina pectoris type Qualified Code(s): I25.9 - Chronic ischemic heart disease, unspecified (7) Hypertension Current Visit: Yes Status: Chronic Assessment and plan: Blood pressure is elevated today. Will place patient on lisinopril Qualifiers: Hypertension type: essential hypertension Qualified Code(s): I10 - Essential (primary) hypertension (8) New onset a-fib Current Visit: Yes Status: Acute Assessment and plan: Rate controlled. On anticoagulation with Coumadin. On Cardizem and metoprolol for rate control. (9) Elevated troponin Current Visit: Yes Status: Acute (10) NSTEMI (non-ST elevated myocardial infarction) Current Visit: Yes Status: Acute Assessment and plan: Treated with left heart catheterization with bare-metal stent to LAD. On aspirin, Plavix. (11) Diabetes Current Visit: Yes Status: Chronic Assessment and plan: Blood sugars are elevated today. Likely due to steroid use. Will increase long -acting insulin coverage. 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 Doing well today. Sitting up in chair. Feels much better overall. Is able to breathe much better. She denies any chest pain or palpitations. She does remain on high flow nasal cannula - Constitutional Vitals: Temp Pulse Resp BP Pulse Ox 98.3 F 66 18 150/62 94 09/07/17 11:10 09/07/17 11:10 09/07/17 11:10 09/07/17 11:10 09/07/17 11:10 General appearance: Present: cooperative, A&O X 3, answers questions appropriately - Neck Neck exam general surgery: Present: supple, trachea midline. Absent: lymphadenopathy - Respiratory Respiratory exam: Present: prolonged expiratory phase. Absent: accessory muscle use, rales, rhonchi, wheezes Additional comments: Bilateral crackles. - Cardiovascular Cardiovascular exam: Present: RRR, +S1, +S2. Absent: diastolic murmur, gallop, rubs, systolic murmur - GI/Abdominal GI/Abdominal exam: Present: normal bowel sounds, soft, no peritoneal signs. Absent: distended, tenderness - Extremities Exam Extremities exam: Present: warm, radial pulses palpable and symmetrical. Absent : calf tenderness, cyanotic, pedal edema - Neurological Exam Neurological exam: Present: alert, oriented X3, no focal deficits. Absent: facial droop, speech deficit Internal Medicine: Result - Labs CBC & Chem 7: 09/07/17 08:50 09/07/17 08:50 Labs: Short CBC 09/07/17 Range/Units 08:50 WBC 13.0 H (4.3-11.1) K/mcL Hgb 9.4 L (11.5-15.4) g/dL Hct 29.7 L (35.3-44.9) % Plt Count 136 L (140-400) K/mcL Neutrophils # 11.9 H (1.6-8.9) K/mcL BMP 09/07/17 08:50 Sodium 140 Potassium 3.7 Chloride 98 Carbon Dioxide 36 H BUN 24 H Creatinine 0.80 Glucose 260 H Calcium 8.8 - ABG Interpretation ABG results: PT/INR, D-dimer PT 33.0 Seconds (9.4-12.1) H 09/07/17 03:50 Consult Discharge Plan - Plan Referrals: Arelis Will, PHYSICAL SCIENCES INSTRUCTOR [Primary Care Provider] - (Patient is going to [facility] no PCP appointment needed) Prescriptions: HYDROcodone/Acet 7.5/325 mg [[place] 7.5-325 mg] 1 tab PO Q6H PRN 3 Days #12 tablet PRN Reason: Moderate Pain
[2017-09-07] MEDS ORDERED: *HR* Warfarin 3 MG TABLET PO ONE (18:00)
--- NOTE | 2017-09-07 20:08 | Electrocardiograph Report ---
[place] [id number] Test Date: 2017-09-03 Pat Name: Jerrica Mccloud Department: 110 Room: 2N12 Gender: F Manager Valuation: MARLEN : 1930 Requested By: Raf Morales Order Number: [id number] Reading MD: Hal Hoang Measurements Intervals [place] Rate: 74 P: 67 KS: 216 QRS: -4 QRSD: 89 T: 153 QT: 425 QTc: 452 Interpretive Statements SINUS RHYTHM WITH FIRST DEGREE AV BLOCK LEFT VENTRICULAR HYPERTROPHY AND ST-T CHANGE Electronically Signed On 09-07-2017 20:07:16 EDT by Hal Hoang
[2017-09-08] MEDS: Melatonin 3 MG TABLET PO PRN (00:41)
[2017-09-08] MEDS: Piperacillin/Tazobactam 3.375 GM in 0.9 % Sodium Chloride Mini Bag 100 ML IVPB SCH ×2 (03:30→09:11)
[2017-09-08] MEDS: MethylPREDNISolone 40 MG/ML VIAL IVP SCH (04:58)
[2017-09-08 05:50] LABS: INR 2.8; Prothrombin Time 30.3 Seconds (9.4-12.1)
[2017-09-08] MEDS: Doxycycline 100 MG in 0.9 % Sodium Chloride Mini Bag 100 ML IVPB SCH (07:56)
[2017-09-08] MEDS: Insulin LISPRO 300 UNITS/3 ML VIAL SQ SCH ×4 (08:02→20:50)
[2017-09-08] MEDS: Gabapentin 300 MG CAPSULE PO SCH ×2 (08:13→20:43)
[2017-09-08] MEDS: BuPROPion SR (12 HR) 100 MG TABLET PO SCH (08:13)
[2017-09-08] MEDS: Cholecalciferol (D-3) 1,000 UNIT TABLET PO SCH (08:13)
[2017-09-08] MEDS: Aspirin 81 MG TAB.CHEW PO SCH (08:13)
[2017-09-08] MEDS: *HR* Amiodarone 200 MG TABLET PO SCH (08:13)
[2017-09-08] MEDS: Lactobacillus 1 EACH CAP.SPRINK PO SCH ×2 (08:14→20:43)
[2017-09-08] MEDS: Diltiazem CD (24hr) 240 MG CAPSULE PO SCH (08:14)
[2017-09-08] MEDS: Furosemide 40 MG TABLET PO SCH ×2 (08:14→16:44)
[2017-09-08] MEDS: Insulin DETEMIR 100 UNIT/ML X5UNITS SQ SCH ×2 (08:23→20:43)
--- NOTE | 2017-09-08 10:37 | Internal Med Progress Note ---
Date of Encounter: 09/08/17 Time of Encounter: 09:30 - Assessment and plan (1) Acute respiratory failure with hypoxia Current Visit: Yes Status: Acute Assessment and plan: Due to pulmonary edema and possibly pneumonia. Improving. Currently on 9 L high flow nasal cannula but we should be able to wean down. Patient is saturating at 100%. Plan on discharge to skilled rehabilitation when patient tolerating 45 L O2 supplementation with sats greater than 88%. She may continue to need BiPAP at night . We will make arrangements for this. Taper steroids. (2) Pulmonary edema Current Visit: Yes Status: Acute Assessment and plan: Has responded well to Lasix. Currently on oral Lasix. Has had -8.8 L of fluid balance during her stay here. Renal function has been stable. Patient continues to have good urine output. We will continue Lasix at current dose Qualifiers: Chronicity: acute Qualified Code(s): J81.0 - Acute pulmonary edema (3) Pneumonia Current Visit: Yes Status: Acute Assessment and plan: Patient is clinically getting better. We will transition to oral antibiotics. Will place her on Augmentin and doxycycline. Also on lactobacillus to prevent C. difficile Qualifiers: Pneumonia type: due to unspecified organism Laterality: right Lung location: unspecified part of lung Qualified Code(s): J18.9 - Pneumonia, unspecified organism (4) Anemia Current Visit: Yes Status: Chronic Assessment and plan: Hemoglobin levels are stable. Stool was positive for occult blood. Given her respiratory status, patient is not in a stable state to undergo EGD or colonoscopy at this time. Since her blood counts have remained stable there is no urgency in getting these procedures done during this hospital stay. This can be arranged as outpatient once her respiratory status improves. We will continue to monitor blood counts. Continue iron supplementation. Patient is on dual antiplatelet therapy and on Coumadin. Qualifiers: Anemia type: iron deficiency Iron deficiency anemia type: unspecified iron deficiency Qualified Code(s): D50.9 - Iron deficiency anemia, unspecified (5) PE (pulmonary thromboembolism) Current Visit: Yes Status: Chronic Assessment and plan: History of PE with chronic thromboembolism per CT. On Coumadin (6) Chest pain Current Visit: Yes Status: Resolved Qualifiers: Chest pain type: chest pain due to myocardial ischemia Ischemic chest pain type: unspecified angina pectoris type Qualified Code(s): I25.9 - Chronic ischemic heart disease, unspecified (7) Hypertension Current Visit: Yes Status: Chronic Assessment and plan: Started on lisinopril. Will assess response. Continue to monitor blood pressure. Qualifiers: Hypertension type: essential hypertension Qualified Code(s): I10 - Essential (primary) hypertension (8) New onset a-fib Current Visit: Yes Status: Acute Assessment and plan: Rate controlled. On Coumadin. On amiodarone and Cardizem. (9) Elevated troponin Current Visit: Yes Status: Acute (10) NSTEMI (non-ST elevated myocardial infarction) Current Visit: Yes Status: Acute Assessment and plan: Status post left heart catheterization and bare metal stent to proximal LAD. On dual antiplatelet therapy. Not on statin due to Allergic reaction to simvastatin (11) Diabetes Current Visit: Yes Status: Chronic Assessment and plan: Blood sugars were elevated last night but has improved today. We will continue to monitor. Aspirations steroids are tapered, her sugar should improve. Continue current sliding scale insulin. Qualifiers: Diabetes mellitus type: type 2 Diabetes mellitus termite control technician insulin use: unspecified termite control technician insulin use status Diabetes mellitus complication status : with unspecified complications Qualified Code(s): E11.8 - Type 2 diabetes mellitus with unspecified complications (12) PAF (paroxysmal atrial fibrillation) Current Visit: Yes Status: Chronic - Time Spent With Patient Total time spent is greater than 50% in coordination of care (as documented) at patient's floor/unit and/or counseling patient: - Subjective Interval history: Patient is sitting up in chair. Continues to do well. On 9 L high flow nasal cannula but saturating at 100%. Denies any chest pain. Feels much better overall. - Constitutional Vitals: Temp Pulse Resp BP Pulse Ox 97.5 F L 62 18 158/78 95 09/08/17 07:00 09/08/17 10:26 09/08/17 10:26 09/08/17 07:00 09/08/17 10:26 General appearance: Present: cooperative, A&O X 3, answers questions appropriately - Neck Neck exam general surgery: Present: supple, trachea midline. Absent: lymphadenopathy - Respiratory Respiratory exam: Present: prolonged expiratory phase. Absent: accessory muscle use, rales, rhonchi, wheezes Additional comments: Bilateral crackles present - Cardiovascular Cardiovascular exam: Present: RRR, +S1, +S2. Absent: diastolic murmur, gallop, rubs, systolic murmur - GI/Abdominal GI/Abdominal exam: Present: normal bowel sounds, soft, no peritoneal signs. Absent: distended, tenderness - Extremities Exam Extremities exam: Present: warm, radial pulses palpable and symmetrical. Absent : calf tenderness, cyanotic, pedal edema - Neurological Exam Neurological exam: Present: CN II-XII intact, oriented X3, no focal deficits. Absent: facial droop, speech deficit - Skin Skin exam: Present: dry, intact Internal Medicine: Result - Labs CBC & Chem 7: 09/07/17 08:50 09/07/17 08:50 - ABG Interpretation ABG results: PT/INR, D-dimer PT 30.3 Seconds (9.4-12.1) H 09/08/17 05:15 Consult Discharge Plan - Plan Referrals: Arelis Will, TRACTOR DISTRIBUTOR [Primary Care Provider] - (Patient is going to [facility] no PCP appointment needed) Prescriptions: HYDROcodone/Acet 7.5/325 mg [[place] 7.5-325 mg] 1 tab PO Q6H PRN 3 Days #12 tablet PRN Reason: Moderate Pain
[2017-09-08] MEDS ORDERED: *HR* Warfarin 2 MG TABLET PO SCH (18:00)
[2017-09-08] MEDS: Doxycycline 100 MG CAPSULE PO SCH (20:43)
[2017-09-09 07:23] LABS: Basophils % 0.1 %; Eosinophils # 0.1 K/mcL (0.0-0.6); Eosinophils % 0.5 %; Hematocrit 32.1 % (35.3-44.9); Hemoglobin 10.2 g/dL (11.5-15.4); Immature Granulocytes % 1.4 % (0-4); Lymphocytes # 1.3 K/mcL (0.6-4.6); Lymphocytes % 7.1 %; Mean Corpuscular HGB Conc 31.8 g/dL (31.6-35.5); Mean Corpuscular Hemoglobin 29.3 pg (28.0-33.3); Mean Corpuscular Volume 92.2 fL (83.0-100.0); Mean Platelet Volume 10.4 fL (9.4-12.4); Monocytes # 0.9 K/mcL (0.0-1.3); Monocytes % 4.7 %; Neutrophils # 16.1 K/mcL (1.6-8.9); Nucleated Red Blood Cells 0.2 /100 WBC (0); Platelet Count 161 K/mcL (140-400); Red Blood Count 3.48 M/mcL (3.82-4.97); Red Cell Distribution Width 15.6 % (11.5-14.5); Segmented Neutrophils % 86.2 %
[2017-09-09] MEDS: Insulin LISPRO 300 UNITS/3 ML VIAL SQ SCH ×2 (07:23→11:46)
[2017-09-09 07:35] LABS: BUN/Creatinine Ratio 35 (6-26); Blood Urea Nitrogen 25 mg/dL (8-23); Carbon Dioxide 32 mEq/L (23-29); Chloride 100 mEq/L (98-107); Glucose 61 mg/dL (70-105); Osmolality,Calculated 296 (280-300); Potassium 3.3 mEq/L (3.5-5.1); Sodium 142 mEq/L (136-145); eGFR For African Americans > 60 (> 60); eGFR For Non-African Americans > 60 (> 60)
[2017-09-09] MEDS: Lactobacillus 1 EACH CAP.SPRINK PO SCH (07:44)
[2017-09-09] MEDS: Aspirin 81 MG TAB.CHEW PO SCH (07:45)
[2017-09-09] MEDS: Diltiazem CD (24hr) 240 MG CAPSULE PO SCH (07:45)
[2017-09-09] MEDS: Cholecalciferol (D-3) 1,000 UNIT TABLET PO SCH (07:45)
[2017-09-09] MEDS: Doxycycline 100 MG CAPSULE PO SCH (07:45)
[2017-09-09] MEDS: BuPROPion SR (12 HR) 100 MG TABLET PO SCH (07:46)
[2017-09-09] MEDS: Furosemide 40 MG TABLET PO SCH ×2 (07:46→17:51)
[2017-09-09] MEDS: Gabapentin 300 MG CAPSULE PO SCH (07:46)
[2017-09-09] MEDS: *HR* Amiodarone 200 MG TABLET PO SCH (07:46)
[2017-09-09] MEDS: Insulin DETEMIR 100 UNIT/ML X5UNITS SQ SCH (08:12)
[2017-09-09 08:16] LABS: INR 3.1; Prothrombin Time 33.9 Seconds (9.4-12.1)
[2017-09-09] MEDS ORDERED: predniSONE 20 MG TABLET PO SCH (09:00)
--- NOTE | 2017-09-09 15:55 | Discharge Summary ---
- NOTES TO OUTPATIENT PROVIDER Notes to Outpatient Provider: Follow-up with PCP in 3-5 day. Follow with log driver in 1-2 week. Follow-up with pulmonologists as per PCP advice. Keep appointment with other regular physician as a scheduled. CBC on 09/10/2017 -follow white count and hemoglobin level. Monitor for any active bleed or drop in hemoglobin. INR level in 2-3 days especially while on antibiotic to look out for interaction Orders not resulted at time of discharge: Pending orders 09/03/17 01:16 ECG 12 lead ECG [ECG] Stat 09/10/17 04:00 INR/PT [Prothrombin Time INR] [COAG] AM 0400 Date of Encounter: 09/12/17 Time of Encounter: 15:44 - Discharge Diagnosis (1) Acute respiratory failure with hypoxia Priority: Primary Status: Acute Assessment and Plan: Due to pulmonary edema and possibly pneumonia. Improving but is still requiring oxygen by nasal cannula. Therefore will discharge patient to skilled rehabilitation on home oxygen by nasal cannula. (2) New onset a-fib Priority: Primary Status: Acute Assessment and Plan: Rate controlled. Continue Coumadin, amiodarone and Cardizem. Follow with log driver in 1-2 weeks (3) Chest pain Priority: Primary Status: Resolved Assessment and Plan: Improved. Status post left heart catheterization with bare-metal stent to proximal LAD therefore needs to continue dual antiplatelet therapy and follow with log driver in 1 week. Qualifiers: Chest pain type: chest pain due to myocardial ischemia Ischemic chest pain type: unspecified angina pectoris type Qualified Code(s): I25.9 - Chronic ischemic heart disease, unspecified (4) Pneumonia Priority: Primary Status: Acute Assessment and Plan: Based on clinical assessment. Patient is improving after starting antibiotic and tapering steroid. Tapering a steroid and total 7 days course of antibiotic is the discharge plan .continue Augmentin and doxycycline. Patient had leukocytosis worsening with left shift but clinically improving more likely reactionary response to steroid. Repeat chest x-ray with no worsening. Recommended to continue same treatment and monitor CBC closely that can be done at [facility] though I offered patient to stay overnight in the hospital and get repeated CBC tomorrow morning but she chose for the discharge Qualifiers: Pneumonia type: due to unspecified organism Laterality: right Lung location: unspecified part of lung Qualified Code(s): J18.9 - Pneumonia, unspecified organism (5) PE (pulmonary thromboembolism) Priority: Secondary Status: Chronic Assessment and Plan: History of PE with chronic thromboembolism per CT. On Coumadin with subtherapeutic INR. Continue home dose of Coumadin (6) Hypertension Priority: Secondary Status: Chronic Assessment and Plan: Started on lisinopril. Monitor blood pressure. Stable at present. Qualifiers: Hypertension type: essential hypertension Qualified Code(s): I10 - Essential (primary) hypertension (7) NSTEMI (non-ST elevated myocardial infarction) Priority: Primary Status: Acute Assessment and Plan: Status post left heart catheterization and bare metal stent to proximal LAD. On dual antiplatelet therapy. Not on statin due to Allergic reaction to simvastatin (8) Diabetes Priority: Secondary Status: Chronic Assessment and Plan: Blood glucose level has been lower side therefore will hold long-acting insulin or preferably low-dose can be started at [facility]. Qualifiers: Diabetes mellitus type: type 2 Diabetes mellitus termite control technician insulin use: unspecified termite control technician insulin use status Diabetes mellitus complication status : with unspecified complications Qualified Code(s): E11.8 - Type 2 diabetes mellitus with unspecified complications (9) Anemia Priority: Primary Status: Chronic Assessment and Plan: Hemoglobin levels are stable. Stool was positive for occult blood. Given her respiratory status, patient is not in a stable state to undergo EGD or colonoscopy at this time. Since her blood counts have remained stable after 1 unit blood transfusion there is no urgency in getting these procedures done during this hospital stay. This can be arranged as outpatient once her respiratory status improves. iron supplementation was given. Patient is on dual antiplatelet therapy and on Coumadin therefore is still high risk for bleeding and needs to monitor CBC closely with the help of PCP. Her PCP can refer to GI specialist for EGD if find patient in appropriate condition. Qualifiers: Anemia type: iron deficiency Iron deficiency anemia type: unspecified iron deficiency Qualified Code(s): D50.9 - Iron deficiency anemia, unspecified (10) Pulmonary edema Priority: Primary Status: Acute Assessment and Plan: Has responded well to Lasix. Currently on oral Lasix. Has had -8.8 L of fluid balance during her stay here. Renal function has been stable. Patient continues to have good urine output. Continue Lasix and follow with PCP. Patient also has to keep follow-up appointment with food sales clerk within 7-10 days Qualifiers: Chronicity: acute Qualified Code(s): J81.0 - Acute pulmonary edema Hospital course: Ms. Mccloud is a 86 year old female hypertension, hyperlipidemia, diabetes type II and chronic PE who is on Coumadin for anticoagulation who lives by herself was brought into the ER by family for the evaluation of chest pain In the ER her CT of the chest showed chronic PE, multifocal ground glass opacities in the long basis may present pulmonary edema, concerning for inflammatory versus infectious process She does have several pulmonary nodules bilaterally. She had troponin initially negative. She was admitted for further management of chest pain, NSTEMI, PE, and pneumonia. She had blood cultures obtained, started on antibiotics, IV steroids, IV Lasix. She was admitted to the 2N step down unit for critical care monitoring. She did have episode of chest pain and also went nto atrial fibrillation with RVR which is new to patient. She had troponin levels that were now elevated. Cardiology was consulted. She was placed briefly on a nitro drip. Once her INR was 1.5 she had left heart cath done on 08/26/17, which showed high grade lesion, proximal LAD with 99% disease and had successful PTCA/BMS placement. Per Cardiology recommendations, she will be on coumadin, aspirin, and Plavix. Aspirin and Plavix for 30 days and after 30 days stop aspirin. Eventually patient is started to improve and there was planned to discharge but next day patient developed shortness of breath with pulmonary edema and lower extremity swelling therefore discharge was canceled. IV Lasix was restarted and patient responded. Eventually there was concern for pneumonia and therefore antibiotic and steroid was also started. Patient has been requiring oxygen by nasal cannula therefore home oxygen evaluation was done and recommended further continuation of oxygen. His stool was positive but is stable hemoglobin after 1 unit of PRC transfusion therefore it was decided to continue dual antiplatelet therapy for recent stent and Coumadin for existing PE. At the time of discharge hemoglobin stable and INR is therapeutic. Raised in white count with left shift but patient did not had any fever no new onset of cough or any urine problems therefore chest x-ray was repeated but no acute finding. Leukocytosis appear most likely reactionary due to steroid but is still needs to monitor closely. I discuss with patient and family whether to keep overnight to monitor white count but no additional treatment versus transferring to ECF with continuation of same antibiotic with tapering steroid and monitor CBC tomorrow. Patient decided to go [facility] jail. As patient has been is stable for last 2 days no further deterioration as she had fluctuant clinical condition during this admission therefore I also feel comfortable to discharge and monitor at [facility]. That could be still possibility that patient may get worse based on underlying multiple chronic condition but I would not offer anything different today except continuation of current treatment. She had episode of bruising with drop of hemoglobin after left heart cath therefore 1 unit of PRC was transfused and since then she has been hemodynamically stable with progressive improvement of hemoglobin. No active bleeding noticed. At the time of discharge patient is clinically stable, ambulating does still feel weakness Discharge discussed with: patient, family, nurse, social work - Time Spent with Patient Total time spent providing and/or coordinating discharge services: Greater than 30 minutes - Discharge Medications Prescriptions: Amoxicillin/Clavulanate [Augmentin] 875 mg PO BIDWM #10 tablet Doxycycline 100 mg PO BID #10 capsule HYDROcodone/Acet 7.5/325 mg [[place] 7.5-325 mg] 1 tab PO Q6H PRN 3 Days #12 tablet PRN Reason: Moderate Pain Home Medications: Cholecalciferol (Vitamin D3) [Vitamin D3] 1,000 unit PO DAILY 08/24/17 [History] Esomeprazole Magnesium [Nexium] 20 mg PO DAILY 08/24/17 [History] Gabapentin [Neurontin] 600 mg PO BID 08/24/17 [History] Insulin Glargine,Hum.rec.anlog [Lantus Solostar] 24 unit SQ DAILY 08/24/17 [ History] buPROPion HCl [Zyban] 100 mg PO DAILY 08/24/17 [History] Amiodarone [Cordarone] 200 mg PO DAILY tablet 09/01/17 [Rx] Aspirin 81 mg PO DAILY 30 Days tab.chew 09/01/17 [Rx] Clopidogrel [Plavix] 75 mg PO DAILY tablet 09/01/17 [Rx] Diltiazem CD (24hr) [Cardizem CD] 240 mg PO DAILY cap.er.24h 09/01/17 [Rx] Docusate [Colace] 100 mg PO BID PRN capsule 09/01/17 [Rx] Furosemide [Lasix] 20 mg PO BIDDIURETIC tablet 09/01/17 [Rx] Insulin LISPRO [HumaLOG] 0 units SQ HS vial 09/01/17 [Rx] Insulin LISPRO [HumaLOG] 0 units SQ TIDAC vial 09/01/17 [Rx] MOM Conc [MILK OF MAGNESIA conc] 10 ml PO DAILY PRN ud.liq 09/01/17 [Rx] Melatonin 3 mg PO HS PRN tablet 09/01/17 [Rx] Metoprolol [Lopressor] 75 mg PO BID tablet 09/01/17 [Rx] Warfarin perPT [Coumadin perPT] 3 each PO DAILY@1800 PRN each 09/01/17 [Rx] HYDROcodone/Acet 7.5/325 mg [[place] 7.5-325 mg] 1 tab PO Q6H PRN 3 Days #12 tablet 09/02/17 [Rx] Amoxicillin/Clavulanate [Augmentin] 875 mg PO BIDWM #10 tablet 09/09/17 [Rx] Doxycycline 100 mg PO BID #10 capsule 09/09/17 [Rx] Allergies/Adverse Reactions: 3 Allergy/AdvReac Type Severity Reaction Status Date / Time metoclopramide AdvReac Joint Pain Verified 08/24/17 02:53 simvastatin AdvReac Hives Verified 08/24/17 02:53 Date of admission: 08/24/17 07:54 Primary care physician: Arelis Will CNP Consults: 08/24/17 11:46 Consult to Pulmonology [CONS] Routine Consulting Provider: [facility] [place] Reason for Consult: Shortness of breath Time Notified: 11:48 Call Completed: Yes 08/24/17 21:44 Consult to Cardiology [CONS] Routine Comment: Consulting Provider: [facility] [place] Reason for Consult: Afib, elevated trops, chest pain Time Notified: 21:44 Call Completed: Yes 08/27/17 08:06 Consult to Cardiac Rehabilitation-Phase1 [CONS] Routine Comment: Reason for Consult: nstemi Call Completed: No 08/28/17 15:08 OT [Consult to Occupational Therapy] [CONS] Routine Comment: Evaluate, develop and implement POC Reason for Consult: Weakness Does patient have active BEDREST order?: No Is patient medically & hemodynamically stable?: Yes PT [Consult to Physical Therapy] [CONS] Routine Comment: Evaluate, develop and implement POC Reason for Consult: Weakness Does patient have active BEDREST order?: No Is patient medically & hemodynamically stable?: Yes 08/30/17 17:10 Consult to Senior Java Architect [CONS] Routine Reason for SW Consult: Home health set up 09/04/17 11:21 Consult to Cardiology [CONS] Routine Comment: Consulting Provider: [facility] [place] Reason for Consult: CHF Time Notified: 11:22 Call Completed: Yes 09/04/17 14:07 Consult to Pulmonology [CONS] Routine Consulting Provider: [facility] [place] Reason for Consult: Acute resp failure; ? ARDS/ multifocal pneumonia per CT Time Notified: 14:07 Call Completed: Yes - Constitutional Vitals: Temp Pulse Resp BP Pulse Ox 98.0 F 55 18 136/57 95 09/09/17 11:18 09/09/17 11:51 09/09/17 11:18 09/09/17 11:18 09/09/17 11:18 General appearance: Present: cooperative, A&O X 3, answers questions appropriately Exam: General appearance: No acute distress, A&O X 3. Oxygen by nasal cannula Head exam: Atraumatic Eye exam: EOMI, PERRLA ENT exam: Moist oral mucosa Neck nontender, supple Respiratory exam: Rales bilaterally Cardiovascular exam: Regular rate and rhythm Abdominal exam: Soft, nontender, nondistended, positive bowel sounds Extremities exam: No calf tenderness, no pedal edema Present: Skin-no rash, warm, dry, intact Neurological exam: Alert, awake, oriented 3, CN II-XII intact, no focal deficits. No facial droop. Normal speech. Normal gait. - Patient Status Disposition: Transfer SNF Condition: Fair Functional capacity at discharge: uses cane/walker Overall status at discharge: patient is not back to baseline - Discharge Instructions Follow Up With: Arelis Will, PRISON CLASSIFICATION COUNSELOR [Primary Care Provider] - (Patient is going to [facility] no PCP appointment needed) Forms: ED Satisfaction Letter - Diet and Activity Activity: as per physical therapy Diet: diabetic diet, low fat, low cholesterol, low salt diet
[2017-09-09 17:06] VITALS: BP 168/67
[2017-09-09] MEDS ORDERED: *HR* Warfarin 1 MG TABLET PO ONE (18:00)
== END 2017-09-09 18:44 | DRG 246 ==
LOC: 3BNU 02:19 → EMEROO 02:19 → SUATTDRO 07:54 → 3BNU 07:59 → 2NNU 16:52
PROVIDERS: ADMIT Internal Medicine; ATTEND Internal Medicine

== ENCOUNTER 2017-09-17 01:37 | Inpatient (IN) ==
--- NOTE | 2017-09-17 02:28 | Emergency Department Note ---
Disposition Clinical Impression: Acute dyspnea Acute exacerbation of CHF (congestive heart failure) Qualifiers: Heart failure type: combined systolic and diastolic Qualified Code(s): I50.43 - Acute on chronic combined systolic (congestive) and diastolic (congestive) heart failure Pneumonia Qualifiers: Pneumonia type: due to unspecified organism Laterality: bilateral Lung location : lower lobe of lung Qualified Code(s): J18.1 - Lobar pneumonia, unspecified organism Disposition: Admitted As Inpatient Condition: Undetermined Time of Disposition: 03:09 SOB HPI - General Chief Complaint: ED Shortness of Breath/Dyspnea Stated Complaint: sob Time Seen by Provider: 09/17/17 01:41 Source: patient, EMS Mode of arrival: EMS Limitations: no limitations Nursing Notes Reviewed: Yes Vital Signs Reviewed: Yes - History of Present Illness 86-year-old female with history of congestive heart failure who currently lives at for [facility] alf facility was recently discharged from the hospital arrives to the emergency department complaining of dyspnea. The patient states that she started complaining of his dyspnea roughly 1.5 hours ago. The patient wears BiPAP at night and states that despite the BiPAP she felt very short of breath. EMS was called due to the patient's shortness of breath and they noted an O2 saturation of 72% on the BiPAP. The patient was placed on nonrebreather and she quickly [place] to the upper 90s. She denies any chest pain, leg swelling, hemoptysis, fevers, chills. The patient states is identical to her previous congestive heart failure episodes in the past. Pt Subjective Complaint: shortness of breath - Related Data Home Medications Medication Instructions Recorded Confirmed Cholecalciferol (Vitamin D3) 1,000 unit PO DAILY 08/24/17 08/24/17 [Vitamin D3] Esomeprazole Magnesium [Nexium] 20 mg PO DAILY 08/24/17 08/24/17 Gabapentin [Neurontin] 600 mg PO BID 08/24/17 08/24/17 Insulin Glargine,Hum.rec.anlog 24 unit SQ DAILY 08/24/17 08/25/17 [Lantus Solostar] buPROPion HCl [Zyban] 100 mg PO DAILY 08/24/17 08/24/17 Previous Rx's Medication Instructions Recorded Amiodarone [Cordarone] 200 mg PO DAILY tablet 09/01/17 Aspirin 81 mg PO DAILY 30 Days tab.chew 09/01/17 Clopidogrel [Plavix] 75 mg PO DAILY tablet 09/01/17 Diltiazem CD (24hr) [Cardizem CD] 240 mg PO DAILY cap.er.24h 09/01/17 Docusate [Colace] 100 mg PO BID PRN capsule 09/01/17 Furosemide [Lasix] 20 mg PO BIDDIURETIC tablet 09/01/17 Insulin LISPRO [HumaLOG] 0 units SQ HS vial 09/01/17 Insulin LISPRO [HumaLOG] 0 units SQ TIDAC vial 09/01/17 MOM Conc [MILK OF MAGNESIA conc] 10 ml PO DAILY PRN ud.liq 09/01/17 Melatonin 3 mg PO HS PRN tablet 09/01/17 Metoprolol [Lopressor] 75 mg PO BID tablet 09/01/17 Warfarin perPT [Coumadin perPT] 3 each PO DAILY@1800 PRN each 09/01/17 HYDROcodone/Acet 7.5/325 mg [[place] 1 tab PO Q6H PRN 3 Days #12 tablet 09/02/17 7.5-325 mg] Amoxicillin/Clavulanate [Augmentin] 875 mg PO BIDWM #10 tablet 09/09/17 Doxycycline 100 mg PO BID #10 capsule 09/09/17 Allergies Allergy/AdvReac Type Severity Reaction Status Date / Time metoclopramide AdvReac Joint Pain Verified 08/24/17 02:53 simvastatin AdvReac Hives Verified 08/24/17 02:53 All systems ED: reviewed and negative except as stated. Constitutional: Denies: fever, chills, weakness ENT ED: Denies: congestion Cardiovascular: Reports: edema. Denies: chest pain, orthopnea Respiratory: Reports: dyspnea. Denies: sputum production Gastrointestinal: Denies: abdominal pain, nausea Genitourinary: Denies: urgency, dysuria Musculoskeletal: Denies: back pain Integumentary: Denies: rash Neurological: Denies: headache Past Medical History - Past Medical History Attestation: Yes The following information was validated with the patient. Source: patient Medical history: Reports: pulmonary embolus Surgical history: Reports: non-contributory Psychiatric history: Reports: depression - Social History Smoking Status: Never smoker Smokeless Tobacco Status: No Alcohol use: Reports: none Drug use: Reports: none Physical Exam - General Limitations: no limitations General appearance: alert, in distress (mild respiratory) - Head Head exam: atraumatic, normocephalic, normal inspection - Eye Eye exam: Present: normal appearance, PERRL, EOMI - ENT ENT exam: normal exam, normal oropharynx, mucous membranes moist - Neck Neck exam: Present: normal inspection, full ROM, trachea midline - Chest Chest inspection: Present: normal inspection, symmetric chest wall rise - Respiratory Respiratory exam: Present: respiratory distress (mild), accessory muscle use, other (Bilateral Lower lobe rhonchi). Absent: wheezes - Cardiovascular Cardiovascular exam: Present: regular rate, normal rhythm, normal heart sounds - Abdominal Exam Abdominal exam: Present: soft, Non-Tender. Absent: tenderness, distention, guarding, rebound, rigidity - Extremities Exam Extremities exam: Present: normal inspection, full ROM, pedal edema (1+ pitting) . Absent: tenderness - Neurological Exam Neurological exam: Present: alert, oriented X3 - Skin Skin exam: Present: warm, dry, intact, normal color Course Vital Signs Temperature 98.2 F 09/17/17 01:37 Pulse Rate 88 09/17/17 01:37 Respiratory Rate 28 09/17/17 01:37 Blood Pressure 169/65 09/17/17 01:37 O2 Sat by Pulse Oximetry 95 09/17/17 01:37 Temperature 98.2 F 09/17/17 01:37 Pulse Rate 59 09/17/17 04:03 Respiratory Rate 22 09/17/17 04:09 Blood Pressure 142/65 09/17/17 04:09 O2 Sat by Pulse Oximetry 95 09/17/17 04:03 Oxygen Delivery Oxygen Delivery Bipap Shortness of Breath/Dyspnea - [facility] Narrative Medical decision making narrative: Patient's workup in the emergency department demonstrates findings consistent with bilateral lower lobe pneumonia as well as congestive heart failure exacerbation. We will admit the patient to the hospital at this time after providing Rocephin as well as vancomycin. There is concern for possible hospital-acquired pneumonia as well as concern for the patient living at an extended care facility. Patient's family was made aware and agrees to plan. No further questions or concerns noted at this time. Accepted by Dr. Craven. - Medical Records Medical records reviewed: Yes I reviewed the patient's medical records. - Lab Data Lab results reviewed: Yes I reviewed the patient's lab results. Result diagrams: 09/17/17 01:42 09/17/17 01:42 Lab Results 09/17/17 09/17/17 09/17/17 Range/Units 01:42 01:42 01:42 WBC 11.6 H (4.3-11.1) K/mcL RBC 3.81 L (3.82-4.97) M/mcL Hgb 11.1 L (11.5-15.4) g/dL Hct 36.2 (35.3-44.9) % MCV 95.0 (83.0-100.0) fL MCH 29.1 (28.0-33.3) pg MCHC 30.7 L (31.6-35.5) g/dL RDW 17.2 H (11.5-14.5) % Plt Count 159 (140-400) K/mcL MPV 10.5 (9.4-12.4) fL Immature Gran % 4.1 H (0-4) % Seg Neutrophils % 83.0 % Lymphocytes % 5.5 % Monocytes % 5.0 % Eosinophils % 2.2 % Basophils % 0.2 % Neutrophils # 9.7 H (1.6-8.9) K/mcL Lymphocytes # 0.6 (0.6-4.6) K/mcL Monocytes # 0.6 (0.0-1.3) K/mcL Eosinophils # 0.3 (0.0-0.6) K/mcL Basophils # 0.0 (0.0-0.2) K/mcL Nucleated RBCs/100 WBC 0.3 H (0) /100 WBC Sodium 139 (136-145) mEq/L Potassium 3.5 (3.5-5.1) mEq/L Chloride 98 (98-107) mEq/L Carbon Dioxide 34 H (23-29) mEq/L BUN 24 H (8-23) mg/dL Creatinine 0.84 (0.60-1.20) mg/dL Est GFR ( Amer) > 60 (> 60) Est GFR (Non-Af Amer) > 60 (> 60) BUN/Creatinine Ratio 29 H (6-26) Glucose 194 H (70-105) mg/dL Calculated Osmolality 297 (280-300) Lactic Acid (0.5-2.2) mmol/L Calcium 8.6 (8.6-10.3) mg/dL Troponin I 0.03 (< 0.04) ng/mL B-Natriuretic Peptide 437 H (Less than 100) pg/mL 09/17/17 Range/Units 02:07 WBC (4.3-11.1) K/mcL RBC (3.82-4.97) M/mcL Hgb (11.5-15.4) g/dL Hct (35.3-44.9) % MCV (83.0-100.0) fL MCH (28.0-33.3) pg MCHC (31.6-35.5) g/dL RDW (11.5-14.5) % Plt Count (140-400) K/mcL MPV (9.4-12.4) fL Immature Gran % (0-4) % Seg Neutrophils % % Lymphocytes % % Monocytes % % Eosinophils % % Basophils % % Neutrophils # (1.6-8.9) K/mcL Lymphocytes # (0.6-4.6) K/mcL Monocytes # (0.0-1.3) K/mcL Eosinophils # (0.0-0.6) K/mcL Basophils # (0.0-0.2) K/mcL Nucleated RBCs/100 WBC (0) /100 WBC Sodium (136-145) mEq/L Potassium (3.5-5.1) mEq/L Chloride (98-107) mEq/L Carbon Dioxide (23-29) mEq/L BUN (8-23) mg/dL Creatinine (0.60-1.20) mg/dL Est GFR ( Amer) (> 60) Est GFR (Non-Af Amer) (> 60) BUN/Creatinine Ratio (6-26) Glucose (70-105) mg/dL Calculated Osmolality (280-300) Lactic Acid 1.8 (0.5-2.2) mmol/L Calcium (8.6-10.3) mg/dL Troponin I (< 0.04) ng/mL B-Natriuretic Peptide (Less than 100) pg/mL - Radiology Data Radiology results reviewed: Yes I reviewed the patient's radiology results. Chest X-Ray 09/17/17 01:42 IMPRESSION: Shifting bilateral airspace disease, probably pneumonia. D/ / Antonio Amos MD / Antonio Amos MD Interpreting Provider: Antonio Amos MD - EKG Data EKG attestation: Yes I reviewed and interpreted this EKG. EKG results narrative: Heart rate 62 beats for minute. Normal sinus rhythm. Mild ST depression noted in V4 as well as V3. No ST elevation noted. Critical Care Time Critical Care Time: Yes Total Critical Care Time: 35 Attestation: The high probability of a clinically significant, sudden or life threatening deterioration of the [respiratory] system(s) required my full and direct attention, intervention and personal management. The aggregate critical care time was [35] minutes. This time is in addition to time spent performing reported procedures but includes the following: Attestation Statement - Attestation Attestation: I examined this patient and my medical decision-making was reviewed with the Resident Physician. I agree with the documented findings, disposition and treatment plan as described except to the extent set forth below. Findings consistent with acute on chronic respiratory failure. Will start bipap, will admit for further management of hypoxic respiratory failure. I spent greater than 35 minutes of critical care time with this critical patient suffering from hypoxic respiratory failure. This was excluding billable procedures.
[2017-09-17 02:37] LABS: Basophils % 0.2 %; Eosinophils # 0.3 K/mcL (0.0-0.6); Eosinophils % 2.2 %; Hematocrit 36.2 % (35.3-44.9); Hemoglobin 11.1 g/dL (11.5-15.4); Immature Granulocytes % 4.1 % (0-4); Lymphocytes # 0.6 K/mcL (0.6-4.6); Lymphocytes % 5.5 %; Mean Corpuscular HGB Conc 30.7 g/dL (31.6-35.5); Mean Corpuscular Hemoglobin 29.1 pg (28.0-33.3); Mean Platelet Volume 10.5 fL (9.4-12.4); Monocytes # 0.6 K/mcL (0.0-1.3); Neutrophils # 9.7 K/mcL (1.6-8.9); Nucleated Red Blood Cells 0.3 /100 WBC (0); Platelet Count 159 K/mcL (140-400); Red Blood Count 3.81 M/mcL (3.82-4.97); Red Cell Distribution Width 17.2 % (11.5-14.5)
[2017-09-17 02:55] LABS: BUN/Creatinine Ratio 29 (6-26); Blood Urea Nitrogen 24 mg/dL (8-23); Calcium 8.6 mg/dL (8.6-10.3); Carbon Dioxide 34 mEq/L (23-29); Chloride 98 mEq/L (98-107); Glucose 194 mg/dL (70-105); Osmolality,Calculated 297 (280-300); Potassium 3.5 mEq/L (3.5-5.1); Sodium 139 mEq/L (136-145); eGFR For African Americans > 60 (> 60); eGFR For Non-African Americans > 60 (> 60)
[2017-09-17 02:56] LABS: Troponin I 0.03 ng/mL (< 0.04)
[2017-09-17] MEDS ORDERED: cefTRIAXone 1,000 MG in Water for inj. (sterile) 20 ML 10 ML IVP ONE (02:58)
[2017-09-17] MEDS ORDERED: Aminoglycoside Consult 1 EACH MC ONE (08:20)
[2017-09-17] MEDS ORDERED: Acetaminophen 325 MG TABLET PO PRN (09:15)
[2017-09-17] MEDS ORDERED: Naloxone 0.4 MG/ML INJ IVP PRN (09:15)
[2017-09-17] MEDS ORDERED: D5% in Water 1,000 ML IVC PRN (09:19)
[2017-09-17] MEDS ORDERED: *HR* Dextrose 50 % in Water (Syg) 50 ML SYRINGE IVP PRN (09:19)
[2017-09-17] MEDS ORDERED: Dextrose Gel 15 GM/37.5 ML TUBE PO PRN ×2 (09:19)
--- NOTE | 2017-09-17 09:28 | Internal Med History&Physical ---
Date of Encounter: 09/17/17 Time of Encounter: 05:00 Internal Medicine - H&P: HPI Chief complaint: CHF exacerbation, bilateral pneumonia Admitted From: Home Plans for Post Hospital Care: Home History of present illness: Ms. Mccloud is a 86 year old female Patient discharged a few days ago to a assisted facility. Previously admitted for CHF exacerbation. She states that she was using her Bipap but could not breathe. EMS called and noted that she was saturating at 72% with her bipap. She improved to greater than 90% with a non-rebreather mask. She was previously feeling fine up until the evening before she was taken to the ER. She denies chest pain, edema, fever and cough. She had not previously been on bipap prior to her last admission. Chest x-ray in the ER showed bilateral lung disease, probably pneumonia. Past Med Surg Social Fam HX - Past Medical History Medical history: pulmonary embolus Additional medical history: NSTEMI, ARF, neoplasm of large intestines, pulm edema, Psychiatric history: depression - Past Surgical History Surgical History: non-contributory Additional surgical history: colon cancer surgery, heart cath - Social History Smoking Status: Never smoker Smokeless Tobacco Status: No Alcohol use: none Drug use: none - Family History Mother Living Status: Age at : 44 Hx Family Cardiac Disorders: Yes Hx Family Endocrine Disorder: Yes (DM) Father Living Status: Age at : 80 Cause of : Influenza Hx Family Respiratory Disorders: Yes (Emphyzema, Lung cancer) Brother Name: Jhonny Living Status: Age at : 75 Hx Family Cancer: Yes Internal Medicine - H&P: Meds Amiodarone [Cordarone] 200 mg PO DAILY 09/17/17 [History] Aspirin [Adult Aspirin] 1 tab PO DAILY 09/17/17 [History] BuPROPion SR (12 HR) [Wellbutrin SR] 100 mg PO DAILY 09/17/17 [History] Cholecalciferol (Vitamin D3) [Vitamin D] 1,000 unit PO DAILY 09/17/17 [History] Clopidogrel [Plavix] 1 tab PO DAILY 09/17/17 [History] Diltiazem CD (24hr) [Cardizem CD] 240 mg PO DAILY 09/17/17 [History] Furosemide [Lasix] 2 tab PO DAILY 09/17/17 [History] Furosemide [Lasix] 20 mg PO 1600 09/17/17 [History] Gabapentin [Neurontin] 600 mg PO BID 09/17/17 [History] HYDROcodone/Acet 7.5/325 mg [[place] 7.5-325 mg] 1 tab PO Q6H PRN 09/17/17 [ History] Insulin Glargine,Hum.rec.anlog [Lantus Solostar] 24 units SQ HS 09/17/17 [ History] Insulin LISPRO [Humalog] 6 units SQ HS 09/17/17 [History] Insulin LISPRO [Humalog] 8 unit SQ TID 09/17/17 [History] Melatonin [Melatin] 1 tab PO HS 09/17/17 [History] Metoprolol Tartrate [Metoprolol Tartrate] 1 tab PO BID 09/17/17 [History] Pantoprazole Sodium [Protonix] 40 mg PO DAILY 09/17/17 [History] Warfarin [Coumadin] 2.5 mg PO DAILY 09/17/17 [History] predniSONE [PredniSONE] 10 mg PO DAILY 09/17/17 [History] 3 Allergy/AdvReac Type Severity Reaction Status Date / Time metoclopramide AdvReac Joint Pain Verified 08/24/17 02:53 simvastatin AdvReac Hives Verified 08/24/17 02:53 All Systems PM: A 10-system review of systems was performed and is negative for pertinent findings except as documented above in the HPI. - Constitutional Vitals: Temp Pulse Resp BP Pulse Ox 97.4 F L 72 22 138/62 93 09/17/17 07:17 09/17/17 07:17 09/17/17 07:17 09/17/17 07:17 09/17/17 07:17 General appearance: Present: A&O X 3, pleasant - Eye Eye exam: Present: EOMI, normal appearance - Respiratory Respiratory exam: Present: CTAB. Absent: respiratory distress, wheezes Additional comments: currently wearing non-rebreather mask. - Cardiovascular Cardiovascular exam: Present: RRR. Absent: diastolic murmur, systolic murmur - GI/Abdominal GI/Abdominal exam: Present: normal bowel sounds, soft. Absent: tenderness - Extremities Exam Extremities exam: Present: normal inspection, warm. Absent: tenderness - Neurological Exam Neurological exam: Present: oriented X3, no focal deficits, strengths equal and symetr throughout. Absent: facial droop, speech deficit - Skin Skin exam: Present: dry. Absent: rash Additional comments: Bruising on arms from past admission IV sites. Internal Med - H&P Results - Labs CBC & Chem 7: 09/17/17 01:42 09/17/17 01:42 - Assessment and plan (1) Pneumonia Current Visit: Yes Status: Acute Assessment and plan: As evidenced by chest x-ray, started on ceftriaxone and vanco in the ER. Continue antibiotics Follow up blood cultures. Continue to monitor oxygen status. Qualifiers: Pneumonia type: due to unspecified organism Laterality: bilateral Lung location: lower lobe of lung Qualified Code(s): J18.1 - Lobar pneumonia, unspecified organism (2) Acute exacerbation of CHF (congestive heart failure) Current Visit: Yes Status: Acute Assessment and plan: Elevated BNP of 437, on non-rebreather mask. Troponins likely elevated due to CHF as well. Continue lasix Qualifiers: Heart failure type: combined systolic and diastolic Qualified Code(s): I50.43 - Acute on chronic combined systolic (congestive) and diastolic ( congestive) heart failure (3) Acute respiratory failure with hypoxia Current Visit: No Status: Acute Assessment and plan: Patient improved with non-rebreather mask. Likely exacerbated by bilateral pneumonia. Treat pneumonia as above. Continue lasix Continue oxygen support, wean as tolerated. (4) Diabetes Current Visit: No Status: Chronic Assessment and plan: Chronic, patient on insulin. 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 Qualifiers: Diabetes mellitus type: type 2 Diabetes mellitus senior living insulin use: unspecified senior living insulin use status Diabetes mellitus complication status : with unspecified complications Qualified Code(s): E11.8 - Type 2 diabetes mellitus with unspecified complications (5) Afib Current Visit: Yes Status: Acute Assessment and plan: Patient well controlled Continue home meds Continue coumadin. Qualifiers: Qualified Code(s): I48.2 - Chronic atrial fibrillation (6) DVT prophylaxis Current Visit: Yes Status: Acute Assessment and plan: On coumadin at home for Afib. Continue. Check INR Pharmacy to dose coumadin - Time Spent With Patient Total time spent is greater than 50% in coordination of care (as documented) at patient's floor/unit and/or counseling patient: Greater than 35 minutes
[2017-09-17] MEDS ORDERED: Furosemide 20 MG/2 ML VIAL IVP SCH (09:30)
[2017-09-17] MEDS ORDERED: Furosemide 40 MG/4 ML VIAL IVP SCH (09:30)
--- NOTE | 2017-09-17 10:27 | Event Note ---
<Shaye Lynn - Last Filed: 09/17/17 10:25> Date of Encounter: 09/17/17 Time of Encounter: 10:25 Patient was seen and examined. No acute distress. Doing well on BiPAP. Vital signs stable. Physical exam shows coarse breath sounds throughout otherwise within normal limits. Patient diagnosed with multifocal pneumonia. Due to concerns for healthcare acquired pneumonia we will start vanc and Zosyn. Patient also has elevated BNP therefore we will provide her with 40 mg Lasix twice a day. Case discussed with Dr. Garibay. <Modesto Garibay R - Last Filed: 09/17/17 15:40> Date of Encounter: 09/17/17 I performed an independent interview and examine this patient.. Findings, assessment, and plan of Dr. Lynn, internal medicine resident. We saw the patient together at the bedside. Patient appears to have in addition to healthcare acquired pneumonia, acute on chronic diastolic CHF. We will continue with BiPAP as necessary, diuresis. Patient is still quite dyspneic but improving. Please see my partners for H&P done earlier this morning. This case was discussed in detail with the patient's family at the bedside.
[2017-09-17 11:20] LABS: INR 4.3
[2017-09-17 11:24] LABS: Prothrombin Time 48.2 Seconds (9.4-12.1)
[2017-09-17 11:43] LABS: Estimated Average Glucose 166 mg/dl; Hemoglobin A1C 7.4 %
[2017-09-17] MEDS ORDERED: Piperacillin/Tazobactam 3.375 GM in 0.9 % Sodium Chloride Mini Bag 100 ML IVPB SCH (12:00)
[2017-09-17] MEDS: Piperacillin/Tazobactam 3.375 GM in 0.9 % Sodium Chloride Mini Bag 100 ML IVPB SCH ×2 (12:06→19:22)
[2017-09-17] MEDS: Insulin LISPRO 300 UNITS/3 ML VIAL SQ SCH ×2 (12:07→16:38)
--- NOTE | 2017-09-17 12:25 | Electrocardiograph Report ---
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
[2017-09-17] MEDS ORDERED: *HR* HYDROcodone/Acet 7.5/325 mg TABLET PO PRN (14:49)
[2017-09-17] MEDS ORDERED: Ipratropium/Albuterol Neb 3 ML IH PRN (14:52)
[2017-09-17] MEDS: Furosemide 40 MG/4 ML VIAL IVP SCH (16:38)
[2017-09-17] MEDS ORDERED: Warfarin perPT PO PRN (18:00)
[2017-09-17] MEDS: Melatonin 3 MG TABLET PO SCH (22:32)
[2017-09-17] MEDS: Insulin DETEMIR 100 UNIT/ML X5UNITS SQ SCH (22:32)
[2017-09-17] MEDS: Gabapentin 300 MG CAPSULE PO SCH (22:32)
[2017-09-18] MEDS: Piperacillin/Tazobactam 3.375 GM in 0.9 % Sodium Chloride Mini Bag 100 ML IVPB SCH ×3 (03:22→17:54)
[2017-09-18 04:28] LABS: Mean Corpuscular Hemoglobin 28.8 pg (28.0-33.3); Mean Corpuscular Volume 92.9 fL (83.0-100.0); Mean Platelet Volume 10.4 fL (9.4-12.4); Platelet Count 109 K/mcL (140-400); Red Blood Count 3.23 M/mcL (3.82-4.97); Red Cell Distribution Width 17.1 % (11.5-14.5)
[2017-09-18 04:29] LABS: Hemoglobin 9.3 g/dL (11.5-15.4)
[2017-09-18 04:35] LABS: INR 3.6; Prothrombin Time 39.8 Seconds (9.4-12.1)
[2017-09-18 04:50] LABS: BUN/Creatinine Ratio 26 (6-26); Blood Urea Nitrogen 19 mg/dL (8-23); Carbon Dioxide 36 mEq/L (23-29); Chloride 95 mEq/L (98-107); Glucose 229 mg/dL (70-105); Osmolality,Calculated 298 (280-300); Potassium 2.8 mEq/L (3.5-5.1); Sodium 139 mEq/L (136-145); eGFR For African Americans > 60 (> 60); eGFR For Non-African Americans > 60 (> 60)
[2017-09-18] MEDS: Aspirin Enteric Coated 81 MG Tablet PO SCH (08:03)
[2017-09-18] MEDS: BuPROPion SR (12 HR) 100 MG TABLET PO SCH (08:03)
[2017-09-18] MEDS: Gabapentin 300 MG CAPSULE PO SCH ×2 (08:03→22:22)
[2017-09-18] MEDS: Diltiazem CD (24hr) 240 MG CAPSULE PO SCH (08:03)
[2017-09-18] MEDS: Cholecalciferol (D-3) 1,000 UNIT TABLET PO SCH (08:03)
[2017-09-18] MEDS: *HR* Amiodarone 200 MG TABLET PO SCH (08:04)
[2017-09-18] MEDS: Furosemide 40 MG/4 ML VIAL IVP SCH ×2 (08:04→17:50)
[2017-09-18] MEDS: Insulin LISPRO 300 UNITS/3 ML VIAL SQ SCH ×3 (08:04→17:49)
[2017-09-18 08:56] LABS: Magnesium 1.5 mg/dL (1.6-2.6)
[2017-09-18] MEDS ORDERED: cefTRIAXone 1,000 MG in Water for inj. (sterile) 20 ML 10 ML IVP SCH (09:00)
[2017-09-18] MEDS: Potassium Effervescent 25 MEQ TABLET.EFF PO SCH ×2 (10:30→15:48)
--- NOTE | 2017-09-18 10:35 | Internal Med Progress Note ---
<Shaye Lynn - Last Filed: 09/18/17 10:33> Date of Encounter: 09/18/17 Time of Encounter: 10:33 - Assessment and plan (1) HCAP (healthcare-associated pneumonia) Current Visit: Yes Status: Acute Assessment and plan: As evidenced by chest x-ray Patient MRSA swab negative therefore vancomycin stopped and augmentin stared, patient also on zosyn Follow up blood cultures. Continue to monitor oxygen status. (2) Diabetes Current Visit: No Status: Chronic Assessment and plan: Chronic, patient on insulin. 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 Increased lasix to 80mg BID Qualifiers: Heart failure type: combined systolic and diastolic Qualified Code(s): I50.43 - Acute on chronic combined systolic (congestive) and diastolic ( congestive) heart failure (4) Afib Current Visit: Yes Status: Acute Assessment and plan: Patient well controlled Continue home meds Continue coumadin. Qualifiers: Atrial fibrillation type: unspecified Qualified Code(s): I48.91 - Unspecified atrial fibrillation (5) DVT prophylaxis Current Visit: Yes Status: Acute Assessment and plan: INR supratherpeutic Holding dose and then pharmacy dosing - Time Spent With Patient Total time spent is greater than 50% in coordination of care (as documented) at patient's floor/unit and/or counseling patient: - Subjective Interval history: Patient feeling significantly better this am. Breathing well on 6L nasal cannula home oxygen. Eating and drinking without difficulty. - Constitutional Vitals: Temp Pulse Resp BP Pulse Ox 97.9 F 76 27 140/74 91 09/18/17 06:55 09/18/17 06:55 09/18/17 06:55 09/18/17 06:55 09/18/17 08:20 General appearance: Present: A&O X 3, pleasant - Head Head exam: Present: atraumatic, normocephalic - Respiratory Respiratory exam: Absent: accessory muscle use, respiratory distress Additional comments: coarse breath sounds throughout - Cardiovascular Cardiovascular exam: Present: RRR, +S1, +S2. Absent: diastolic murmur, gallop, rubs, systolic murmur - GI/Abdominal GI/Abdominal exam: Present: normal bowel sounds, soft, no peritoneal signs. Absent: distended, tenderness - Neurological Exam Neurological exam: Present: alert, oriented X3, no focal deficits Internal Medicine: Result - Labs CBC & Chem 7: 09/18/17 04:03 09/18/17 04:03 Labs: Short CBC 09/18/17 Range/Units 04:03 WBC 7.8 (4.3-11.1) K/mcL Hgb 9.3 L D (11.5-15.4) g/dL Hct 30.0 L (35.3-44.9) % Plt Count 109 L (140-400) K/mcL BMP 09/18/17 04:03 Sodium 139 Potassium 2.8 L Chloride 95 L Carbon Dioxide 36 H BUN 19 Creatinine 0.72 Glucose 229 H Calcium 8.0 L - ABG Interpretation ABG results: PT/INR, D-dimer PT 39.8 Seconds (9.4-12.1) H 09/18/17 04:03 Consult Discharge Plan - Plan Referrals: Arelis Will, [facility] [Primary Care Provider] - <Modesto Garibay - Last Filed: 09/18/17 15:40> Date of Encounter: 09/18/17 - Time Spent With Patient Total time spent is greater than 50% in coordination of care (as documented) at patient's floor/unit and/or counseling patient: - Constitutional Vitals: Temp Pulse Resp BP Pulse Ox 97.8 F 69 26 144/62 94 09/18/17 15:07 09/18/17 15:07 09/18/17 15:07 09/18/17 15:07 09/18/17 15:07 Internal Medicine: Result - Labs CBC & Chem 7: 09/18/17 04:03 09/18/17 04:03 Labs: Short CBC 09/18/17 Range/Units 04:03 WBC 7.8 (4.3-11.1) K/mcL Hgb 9.3 L D (11.5-15.4) g/dL Hct 30.0 L (35.3-44.9) % Plt Count 109 L (140-400) K/mcL BMP 09/18/17 04:03 Sodium 139 Potassium 2.8 L Chloride 95 L Carbon Dioxide 36 H BUN 19 Creatinine 0.72 Glucose 229 H Calcium 8.0 L Cardiac Enzymes 09/18/17 Range/Units 14:31 Troponin I 0.04 H* (< 0.04) ng/mL - ABG Interpretation ABG results: PT/INR, D-dimer PT 39.8 Seconds (9.4-12.1) H 09/18/17 04:03 - Impressions Impressions Chest X-Ray 09/18/17 14:15 IMPRESSION: Diffuse, multifocal airspace opacities are stable from prior exam. Pattern may represent ARDS or multifocal pneumonia. D/ / Dakota Orozco MD / Dakota Orozco MD Interpreting Provider: Dakota Orozco MD - Attending Attestation I performed an dependent interview and exam of this patient. I agree with the findings, assessment, and plan of Dr. Lynn, internal medicine resident. Patient has been improving. She continues with diuresis and his renal function allows. She remains on IV Zosyn for healthcare associated pneumonia. Vancomycin has been stopped. Patient's A. fib was under good control, her INR is elevated at 3.6 and we are going to be adjusting her Coumadin. Otherwise is beginning to increase activity. She will likely need to go home on oxygen but we will reassess frequently. Exam: Mild increased work of breathing, conversational dyspnea. Patient is pleasant. Skin warm and dry Lungs show crackles at the bases bilaterally Heart regular rate and rhythm Abdomen soft nontender Extremities 1+ edema Case was discussed with patient's daughter at the bedside.
--- NOTE | 2017-09-18 16:30 | Electrocardiograph Report ---
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
[2017-09-18] MEDS: Insulin DETEMIR 100 UNIT/ML X5UNITS SQ SCH (22:22)
[2017-09-18] MEDS: Melatonin 3 MG TABLET PO SCH (22:22)
[2017-09-19] MEDS: Piperacillin/Tazobactam 3.375 GM in 0.9 % Sodium Chloride Mini Bag 100 ML IVPB SCH ×3 (03:20→18:25)
[2017-09-19 04:08] LABS: Basophils % 0.1 %; Eosinophils # 0.3 K/mcL (0.0-0.6); Eosinophils % 4.2 %; Hematocrit 33.5 % (35.3-44.9); Hemoglobin 10.6 g/dL (11.5-15.4); Immature Granulocytes % 1.5 % (0-4); Lymphocytes # 0.5 K/mcL (0.6-4.6); Lymphocytes % 6.4 %; Mean Corpuscular HGB Conc 31.6 g/dL (31.6-35.5); Mean Corpuscular Hemoglobin 29.7 pg (28.0-33.3); Mean Corpuscular Volume 93.8 fL (83.0-100.0); Mean Platelet Volume 10.2 fL (9.4-12.4); Monocytes # 0.4 K/mcL (0.0-1.3); Monocytes % 4.4 %; Neutrophils # 6.8 K/mcL (1.6-8.9); Nucleated Red Blood Cells 0.2 /100 WBC (0); Platelet Count 116 K/mcL (140-400); Red Blood Count 3.57 M/mcL (3.82-4.97); Red Cell Distribution Width 17.1 % (11.5-14.5); Segmented Neutrophils % 83.4 %
[2017-09-19 04:15] LABS: INR 2.2; Prothrombin Time 25.1 Seconds (9.4-12.1)
[2017-09-19 04:34] LABS: BUN/Creatinine Ratio 27 (6-26); Blood Urea Nitrogen 20 mg/dL (8-23); Calcium 8.2 mg/dL (8.6-10.3); Carbon Dioxide 41 mEq/L (23-29); Chloride 92 mEq/L (98-107); Glucose 203 mg/dL (70-105); Osmolality,Calculated 294 (280-300); Potassium 3.1 mEq/L (3.5-5.1); Sodium 138 mEq/L (136-145); eGFR For African Americans > 60 (> 60); eGFR For Non-African Americans > 60 (> 60)
--- NOTE | 2017-09-19 09:20 | Internal Med Progress Note ---
<Shaye Lynn - Last Filed: 09/19/17 09:20> Date of Encounter: 09/19/17 Time of Encounter: 09:19 - Assessment and plan (1) HCAP (healthcare-associated pneumonia) Current Visit: Yes Status: Acute Assessment and plan: As evidenced by chest x-ray Patient MRSA swab negative therefore vancomycin stopped and augmentin stared, patient also on zosyn Follow up blood cultures. Continue to monitor oxygen status. (2) Diabetes Current Visit: No Status: Chronic Assessment and plan: Chronic, patient on insulin. 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 Increased lasix to 80mg BID Qualifiers: Heart failure type: combined systolic and diastolic Qualified Code(s): I50.43 - Acute on chronic combined systolic (congestive) and diastolic ( congestive) heart failure (4) Afib Current Visit: Yes Status: Acute Assessment and plan: Patient well controlled Continue home meds Continue coumadin per pharmacy dosing Qualifiers: Atrial fibrillation type: unspecified Qualified Code(s): I48.91 - Unspecified atrial fibrillation (5) DVT prophylaxis Current Visit: Yes Status: Acute Assessment and plan: Coumadin per pharmacy dosing - Time Spent With Patient Total time spent is greater than 50% in coordination of care (as documented) at patient's floor/unit and/or counseling patient: - Subjective Interval history: Patient states breathing status same as yesterday. Had some chest discomfort last evening and this morning. Patient states she believes this is associated with her anxiety. Patient used to take anti-anxiety medications at home but no longer is taking them. Denies chest pain at this time. Denies any dizziness or palpitations. Currently on 6 L high flow nasal cannula. Has been wearing BiPAP at night. - Constitutional Vitals: Temp Pulse Resp BP Pulse Ox 98.0 F 70 25 136/55 93 09/19/17 06:41 09/19/17 06:41 09/19/17 06:41 09/19/17 06:41 09/19/17 06:41 General appearance: Present: A&O X 3, pleasant - Head Head exam: Present: atraumatic, normocephalic - Respiratory Additional comments: coarse breath sounds throughout - Cardiovascular Cardiovascular exam: Present: RRR, +S1, +S2. Absent: gallop, rubs - GI/Abdominal GI/Abdominal exam: Present: normal bowel sounds, soft, no peritoneal signs. Absent: distended, tenderness - Extremities Exam Extremities exam: Present: warm. Absent: tenderness - Neurological Exam Neurological exam: Present: alert, oriented X3, no focal deficits Internal Medicine: Result - Labs CBC & Chem 7: 09/19/17 03:43 09/19/17 03:43 Labs: Short CBC 09/19/17 Range/Units 03:43 WBC 8.2 (4.3-11.1) K/mcL Hgb 10.6 L (11.5-15.4) g/dL Hct 33.5 L (35.3-44.9) % Plt Count 116 L (140-400) K/mcL Neutrophils # 6.8 (1.6-8.9) K/mcL BMP 09/19/17 03:43 Sodium 138 Potassium 3.1 L Chloride 92 L Carbon Dioxide 41 H* BUN 20 Creatinine 0.73 Glucose 203 H Calcium 8.2 L Cardiac Enzymes 09/18/17 09/18/17 Range/Units 14:31 20:14 Troponin I 0.04 H* 0.04 H* (< 0.04) ng/mL - ABG Interpretation ABG results: PT/INR, D-dimer PT 25.1 Seconds (9.4-12.1) H 09/19/17 03:43 - Impressions Impressions Chest X-Ray 09/18/17 14:15 IMPRESSION: Diffuse, multifocal airspace opacities are stable from prior exam. Pattern may represent ARDS or multifocal pneumonia. D/ / Dakota Orozco MD / Dakota Orozco MD Interpreting Provider: Dakota Orozco MD Consult Discharge Plan - Plan Referrals: Arelis Will, [facility] [employer] [facility] [Primary Care Provider] - <Modesto Garibay - Last Filed: 09/19/17 13:10> Date of Encounter: 09/19/17 - Time Spent With Patient Total time spent is greater than 50% in coordination of care (as documented) at patient's floor/unit and/or counseling patient: - Constitutional Vitals: Temp Pulse Resp BP Pulse Ox 97.5 F L 72 25 153/64 93 09/19/17 11:13 09/19/17 11:13 09/19/17 11:13 09/19/17 11:13 09/19/17 11:13 Internal Medicine: Result - Labs CBC & Chem 7: 09/19/17 03:43 09/19/17 03:43 Labs: Short CBC 09/19/17 Range/Units 03:43 WBC 8.2 (4.3-11.1) K/mcL Hgb 10.6 L (11.5-15.4) g/dL Hct 33.5 L (35.3-44.9) % Plt Count 116 L (140-400) K/mcL Neutrophils # 6.8 (1.6-8.9) K/mcL BMP 09/19/17 03:43 Sodium 138 Potassium 3.1 L Chloride 92 L Carbon Dioxide 41 H* BUN 20 Creatinine 0.73 Glucose 203 H Calcium 8.2 L Cardiac Enzymes 09/18/17 09/18/17 Range/Units 14:31 20:14 Troponin I 0.04 H* 0.04 H* (< 0.04) ng/mL - ABG Interpretation ABG results: PT/INR, D-dimer PT 25.1 Seconds (9.4-12.1) H 09/19/17 03:43 - Impressions Impressions Chest X-Ray 09/18/17 14:15 IMPRESSION: Diffuse, multifocal airspace opacities are stable from prior exam. Pattern may represent ARDS or multifocal pneumonia. D/ / Dakota Orozco MD / Dakota Orozco MD Interpreting Provider: Dakota Orozco MD - Attending Attestation I performed an independent interview and examine of this patient. I agree with the findings, assessment, and plan of Dr. Lynn , internal medicine resident. We discussed the case in detail. Patient continues to improve. She is diuresing well with IV Lasix, and renal function continues to tolerate this. We will continue with IV Lasix today. She also continues on 1 more day of Zosyn for healthcare associated pneumonia. He is having a very slow improvement , and we did add azithromycin to cover for atypical organisms. We will continue to wean oxygen as able. I discussed the case with the patient and her daughter at the bedside. Gen: Conversational dyspnea (although appears improved from yesterday), AAOx3 Skin warm and dry Neck supple Lung crackles bilat Ht IRR Abd Soft, NT +BS Ext -no edema
[2017-09-19] MEDS: Ipratropium/Albuterol Neb 3 ML IH SCH ×4 (09:21→20:08)
[2017-09-19] MEDS: Insulin LISPRO 300 UNITS/3 ML VIAL SQ SCH ×3 (09:35→18:29)
[2017-09-19] MEDS: Furosemide 40 MG/4 ML VIAL IVP SCH ×2 (09:35→18:25)
[2017-09-19] MEDS: Cholecalciferol (D-3) 1,000 UNIT TABLET PO SCH (09:41)
[2017-09-19] MEDS: *HR* Amiodarone 200 MG TABLET PO SCH (09:41)
[2017-09-19] MEDS: BuPROPion SR (12 HR) 100 MG TABLET PO SCH (09:41)
[2017-09-19] MEDS: Aspirin Enteric Coated 81 MG Tablet PO SCH (09:41)
[2017-09-19] MEDS: Diltiazem CD (24hr) 240 MG CAPSULE PO SCH (09:42)
[2017-09-19] MEDS: Gabapentin 300 MG CAPSULE PO SCH ×2 (09:42→21:51)
[2017-09-19] MEDS ORDERED: Potassium Effervescent 25 MEQ TABLET.EFF PO ONE (11:53)
[2017-09-19] MEDS: Azithromycin 500 MG in D5% in Water 250 ML IVPB SCH (13:00)
[2017-09-19] MEDS ORDERED: *HR* Warfarin 3 MG TABLET PO ONE (18:00)
[2017-09-19] MEDS ORDERED: *HR* Metoprolol 5 MG/5 ML VIAL IVP ONE ×6 (20:07→20:37)
--- NOTE | 2017-09-19 21:06 | Event Note ---
Date of Encounter: 09/19/17 Time of Encounter: 21:02 Was called to bedside a nurse at 1950 due to heart rate fluctuating between 100 and 140 with a systolic blood pressure in the 150s. EKG showed A. fib RVR. Patient was asymptomatic without chest pain,sob, palpitations, or dizziness. Patient was given three 5 mg doses of Lopressor without resolution of A. fib RVR. Cardizem bolus and drip was initiated. Last blood pressure reading before starting Cardizem drip was 125/64. Duoneb treatment for 1999 held and was switched to Levoalbuterol. Patient's HR responded to the Cardizem bolus and initiation of the drip.
[2017-09-19] MEDS ORDERED: 0.9 % Sodium Chloride 250 ML ONE (21:39)
[2017-09-19] MEDS: Insulin DETEMIR 100 UNIT/ML X5UNITS SQ SCH (21:51)
[2017-09-19] MEDS: Melatonin 3 MG TABLET PO SCH (21:51)
[2017-09-19] MEDS: Levalbuterol Neb 0.63 MG/3 ML IH SCH (22:18)
[2017-09-20] MEDS: Piperacillin/Tazobactam 3.375 GM in 0.9 % Sodium Chloride Mini Bag 100 ML IVPB SCH ×3 (02:39→18:19)
[2017-09-20] MEDS: Levalbuterol Neb 0.63 MG/3 ML IH SCH ×4 (03:33→21:05)
[2017-09-20 06:26] LABS: Basophils % 0.2 %; Eosinophils # 0.4 K/mcL (0.0-0.6); Eosinophils % 4.1 %; Hematocrit 30.5 % (35.3-44.9); Hemoglobin 9.3 g/dL (11.5-15.4); Immature Granulocytes % 1.3 % (0-4); Lymphocytes # 0.7 K/mcL (0.6-4.6); Lymphocytes % 8.4 %; Mean Corpuscular HGB Conc 30.5 g/dL (31.6-35.5); Mean Corpuscular Hemoglobin 28.2 pg (28.0-33.3); Mean Corpuscular Volume 92.4 fL (83.0-100.0); Mean Platelet Volume 10.6 fL (9.4-12.4); Monocytes # 0.4 K/mcL (0.0-1.3); Monocytes % 5.1 %; Nucleated Red Blood Cells 0.2 /100 WBC (0); Platelet Count 116 K/mcL (140-400); Red Cell Distribution Width 17.2 % (11.5-14.5); Segmented Neutrophils % 80.9 %
[2017-09-20 06:35] LABS: INR 1.8; Prothrombin Time 19.8 Seconds (9.4-12.1)
[2017-09-20 06:51] LABS: BUN/Creatinine Ratio 24 (6-26); Blood Urea Nitrogen 23 mg/dL (8-23); Calcium 8.2 mg/dL (8.6-10.3); Carbon Dioxide 40 mEq/L (23-29); Chloride 92 mEq/L (98-107); Glucose 173 mg/dL (70-105); Osmolality,Calculated 298 (280-300); Potassium 3.1 mEq/L (3.5-5.1); Sodium 140 mEq/L (136-145); eGFR For African Americans > 60 (> 60); eGFR For Non-African Americans 55 (> 60)
[2017-09-20] MEDS: Aspirin Enteric Coated 81 MG Tablet PO SCH (09:15)
[2017-09-20] MEDS: BuPROPion SR (12 HR) 100 MG TABLET PO SCH (09:15)
[2017-09-20] MEDS: *HR* Amiodarone 200 MG TABLET PO SCH (09:16)
[2017-09-20] MEDS: Diltiazem CD (24hr) 240 MG CAPSULE PO SCH (09:16)
[2017-09-20] MEDS: Gabapentin 300 MG CAPSULE PO SCH ×2 (09:16→20:49)
[2017-09-20] MEDS: Cholecalciferol (D-3) 1,000 UNIT TABLET PO SCH (09:17)
[2017-09-20] MEDS: Insulin LISPRO 300 UNITS/3 ML VIAL SQ SCH ×3 (09:27→18:18)
[2017-09-20] MEDS: Furosemide 40 MG/4 ML VIAL IVP SCH (09:48)
--- NOTE | 2017-09-20 10:43 | Internal Med Progress Note ---
Date of Encounter: 09/20/17 Time of Encounter: 09:00 - Assessment and plan (1) Acute respiratory failure with hypoxia Current Visit: No Status: Acute Assessment and plan: Multifactorial respiratory failure. Predominantly due to acute on chronic diastolic CHF. Healthcare associated pneumonia. ?COPD ?ARDS Chronic pulmonary embolism. See below. Continue Bipap and supplem O2 to maintain sats around 89-90% (2) Acute on chronic diastolic (congestive) heart failure Current Visit: No Status: Acute Assessment and plan: Lasix 80 mg IV twice a day. Excellent diuresis thus far of 6.3 L. Lasix due to soft blood pressure of 90 systolic. Renal function has tolerated Lasix well with a BUN/creatinine creatinine today of 23 over 0.96. Lopressor 75 mg po BID Continue to monitor. (3) HCAP (healthcare-associated pneumonia) Current Visit: Yes Status: Acute Assessment and plan: Day #4 IV Zosyn Day #2 IV Azithromycin All Cx Negative to date. Continue current abx. As she is not improving significantly, will add Vanco empirically for MRSA coverage Day #1 IV Vancomycin If fails to improve, will consider Pulmonary consult (4) Afib Current Visit: Yes Status: Acute Assessment and plan: Patient is on Coumadin. INR is near goal at 1.8. Of note she was supratherapeutic on admission. We will continue to adjust Coumadin dose as necessary. Check INR daily. She had A. fib with RVR last night. Rate is now controlled. Cardizem drip is off. Monitor. Qualifiers: Atrial fibrillation type: unspecified Qualified Code(s): I48.91 - Unspecified atrial fibrillation (5) Diabetes Current Visit: No Status: Chronic Assessment and plan: Attenuation basal bolus insulin. Overall reasonable glycemic control. 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 Diabetes mellitus complication status : with unspecified complications Qualified Code(s): E11.8 - Type 2 diabetes mellitus with unspecified complications (6) Hypertension Current Visit: No Status: Chronic Qualifiers: Hypertension type: essential hypertension Qualified Code(s): I10 - Essential (primary) hypertension (7) NSTEMI (non-ST elevated myocardial infarction) Current Visit: No Status: Acute Assessment and plan: S/P [facility] with PTCA and BMS on August 26 (8) Hypokalemia Current Visit: Yes Status: Acute (9) PE (pulmonary thromboembolism) Current Visit: No Status: Chronic Assessment and plan: On chronic anticoagulation - Time Spent With Patient Total time spent is greater than 50% in coordination of care (as documented) at patient's floor/unit and/or counseling patient: Greater than 35 minutes - Subjective Interval history: This is an 86-year-old female with a past medical history of hypertension, hyperlipidemia, coronary artery disease with NSTEMI ( [facility] on 08/26/17 with PTCA and BMS), type 2 diabetes mellitus, atrial fibrillation (new since 08/26/17), pulmonary embolism for which she is on Coumadin, as well as a recent admission for multifactorial respiratory failure from August 24 through 09/09/2017. During that admission patient was also felt to have CHF. Likely acute on chronic diastolic CHF. Echocardiogram performed on 09/04/2017 showed EF of 65%. Essntially a normal echocardiogram with the exception of some mild asymmetric hypertrophy of the basal septum. During that admission patient ultimately improved with medical management. He was ultimately discharged on Coumadin, aspirin, and Plavix. During that admission patient was also treated for suspected pneumonia with a 7 day course of antibiotics including Augmentin and doxycycline. She was also given a steroid taper for suspected COPD exacerbation. She was discharged to a alf facility on 09/09/2017. Patient was readmitted to our facility on 09/17/2017 for worsening shortness of breath, acute respiratory distress. She was placed on BiPAP and despite this was not improving. On arrival she had an O2 sat of 72%. Chest x-ray showed bilateral pneumonia versus CHF or both. White blood cell count was normal. BUN /creatinine of 24 over 0.76. INR 2.4. BNP elevated at 437. Troponin was 0.03. 09/17-: Patient has been placed on Lasix 80 mg IV twice a day. Patient has diuresed 6.3 L. He is slowly improving. Still requiring BiPAP. She also is undergoing treatment for suspected healthcare associated pneumonia. As of September 19 she is currently day #3 of IV Zosyn. Azithromycin was also started on September 19 at which time she is day #1. 09/20: Overnight patient developed atrial fibrillation with rapid ventricular response. She was on a Cardizem drip which is now turned off. Her heart rate remains controlled. Patient is still complaining of shortness of breath and weakness but is feeling better in this regard. No nausea, vomiting, diarrhea. She continues on BiPAP as needed, also wearing it at night. - Constitutional Vitals: Temp Pulse Resp BP Pulse Ox 97.8 F 104 27 101/48 94 09/20/17 07:52 09/20/17 07:52 09/20/17 10:09 09/20/17 07:52 09/20/17 10:09 General appearance: Present: mild distress, A&O X 3, pleasant Exam: Conversational dyspnea, pursed lip breathing - Head Head exam: Present: atraumatic, normocephalic - Eye Eye exam: Present: PERRL, conjuntiva pink, sclera anicteric Pupils: Present: PERRL - Neck Neck exam general surgery: Present: supple, trachea midline. Absent: lymphadenopathy - Respiratory Respiratory exam: Present: accessory muscle use, rales, respiratory distress - Cardiovascular Cardiovascular exam: Present: irregular rhythm - GI/Abdominal GI/Abdominal exam: Present: normal bowel sounds, soft, no peritoneal signs. Absent: distended, tenderness - Extremities Exam Extremities exam: Present: pedal edema, warm, radial pulses palpable and symmetrical. Absent: calf tenderness, cyanotic Additional comments: 1+ edema bilaterally - Neurological Exam Neurological exam: Present: CN II-XII intact, oriented X3, no focal deficits. Absent: pronater drift, facial droop, speech deficit - Skin Skin exam: Present: dry, intact Internal Medicine: Result - Labs CBC & Chem 7: 09/20/17 05:44 09/20/17 05:44 Labs: Short CBC 09/20/17 Range/Units 05:44 WBC 8.6 (4.3-11.1) K/mcL Hgb 9.3 L (11.5-15.4) g/dL Hct 30.5 L (35.3-44.9) % Plt Count 116 L (140-400) K/mcL Neutrophils # 7.0 (1.6-8.9) K/mcL BMP 09/20/17 05:44 Sodium 140 Potassium 3.1 L Chloride 92 L Carbon Dioxide 40 H* BUN 23 Creatinine 0.96 Glucose 173 H Calcium 8.2 L - ABG Interpretation ABG results: PT/INR, D-dimer PT 19.8 Seconds (9.4-12.1) H 09/20/17 05:44 Consult Discharge Plan - Plan Referrals: Arelis Will, [facility] [Primary Care Provider] -
[2017-09-20] MEDS ORDERED: Vancomycin 1 EACH in EMPTY BAG 1 EACH IVPB SCH (12:00)
[2017-09-20] MEDS: Azithromycin 500 MG in D5% in Water 250 ML IVPB SCH (12:34)
[2017-09-20] MEDS ORDERED: *HR* Warfarin 2.5 MG TABLET PO ONE (18:00)
[2017-09-20] MEDS: Melatonin 3 MG TABLET PO SCH (20:49)
[2017-09-20] MEDS: Insulin DETEMIR 100 UNIT/ML X5UNITS SQ SCH (20:53)
[2017-09-21] MEDS: Piperacillin/Tazobactam 3.375 GM in 0.9 % Sodium Chloride Mini Bag 100 ML IVPB SCH ×3 (02:38→17:13)
[2017-09-21] MEDS: Levalbuterol Neb 0.63 MG/3 ML IH SCH ×4 (03:52→22:20)
[2017-09-21 04:48] LABS: INR 2.1; Prothrombin Time 24.1 Seconds (9.4-12.1)
[2017-09-21] MEDS ORDERED: Furosemide 40 MG/4 ML VIAL IVP ONE ×2 (07:59→23:55)
[2017-09-21] MEDS: Cholecalciferol (D-3) 1,000 UNIT TABLET PO SCH (08:24)
[2017-09-21] MEDS: Gabapentin 300 MG CAPSULE PO SCH ×2 (08:25→20:41)
[2017-09-21] MEDS: *HR* Amiodarone 200 MG TABLET PO SCH (08:25)
[2017-09-21] MEDS: Diltiazem CD (24hr) 240 MG CAPSULE PO SCH (08:26)
[2017-09-21] MEDS: Aspirin Enteric Coated 81 MG Tablet PO SCH (08:26)
[2017-09-21] MEDS: Insulin LISPRO 300 UNITS/3 ML VIAL SQ SCH ×3 (08:26→17:10)
[2017-09-21] MEDS: BuPROPion SR (12 HR) 100 MG TABLET PO SCH (08:26)
[2017-09-21 08:43] LABS: Basophils % 0.2 %; Mean Platelet Volume 10.2 fL (9.4-12.4)
[2017-09-21 08:45] LABS: Eosinophils # 0.5 K/mcL (0.0-0.6); Eosinophils % 5.1 %; Hematocrit 33.6 % (35.3-44.9); Hemoglobin 10.4 g/dL (11.5-15.4); Immature Granulocytes % 1.2 % (0-4); Immature Platelets 3.4 % (1.1-6.1); Lymphocytes # 0.7 K/mcL (0.6-4.6); Lymphocytes % 7.7 %; Mean Corpuscular Hemoglobin 29.5 pg (28.0-33.3); Mean Corpuscular Volume 95.5 fL (83.0-100.0); Monocytes # 0.5 K/mcL (0.0-1.3); Monocytes % 4.9 %; Neutrophils # 7.4 K/mcL (1.6-8.9); Platelet Count 104 K/mcL (140-400); Red Blood Count 3.52 M/mcL (3.82-4.97); Red Cell Distribution Width 17.1 % (11.5-14.5); Segmented Neutrophils % 80.9 %
[2017-09-21 08:58] LABS: BUN/Creatinine Ratio 28 (6-26); Blood Urea Nitrogen 19 mg/dL (8-23); Calcium 8.6 mg/dL (8.6-10.3); Carbon Dioxide 39 mEq/L (23-29); Chloride 97 mEq/L (98-107); Glucose 84 mg/dL (70-105); Osmolality,Calculated 293 (280-300); Potassium 3.3 mEq/L (3.5-5.1); Sodium 141 mEq/L (136-145); eGFR For African Americans > 60 (> 60); eGFR For Non-African Americans > 60 (> 60)
[2017-09-21] MEDS: ALPRAZolam 0.25 MG TABLET PO PRN ×2 (09:27→16:53)
--- NOTE | 2017-09-21 12:25 | Internal Med Progress Note ---
Date of Encounter: 09/21/17 Time of Encounter: 09:00 - Assessment and plan (1) Acute on chronic diastolic (congestive) heart failure Current Visit: Yes Status: Acute Assessment and plan: EF of 65% on 09/04/2017. Continue Lasix 80 mg IV twice a day Lopressor 75 mg by mouth twice a day Monitor closely. Daily electrolytes. Renal function daily. (2) Acute respiratory failure with hypoxia Current Visit: No Status: Acute Assessment and plan: Multifactorial respiratory failure. Predominantly due to acute on chronic diastolic CHF. Healthcare associated pneumonia. ?COPD ?ARDS Chronic pulmonary embolism. See below. Continue Bipap and supplem O2 to maintain sats around 89-90% (3) Acute on chronic diastolic (congestive) heart failure Current Visit: No Status: Acute Assessment and plan: Lasix 80 mg IV twice a day. Excellent diuresis thus far of 6.3 L. Lasix due to soft blood pressure of 90 systolic. Renal function has tolerated Lasix well with a BUN/creatinine creatinine today of 23 over 0.96. Lopressor 75 mg po BID Continue to monitor. 09/21: Lasix restarted at 80 mg IV BID. Blood pressure is much improved today. Continue beta sp. Continue to closely monitor. Daily BMP (4) HCAP (healthcare-associated pneumonia) Current Visit: Yes Status: Acute Assessment and plan: Day #4 IV Zosyn Day #2 IV Azithromycin All Cx Negative to date. Continue current abx. As she is not improving significantly, will add Vanco empirically for MRSA coverage Day #1 IV Vancomycin If fails to improve, will consider Pulmonary consult 09/21: I did discuss the case of pulmonary medicine. Antibiotics: Zosyn for which she is now day #5, she is currently day #3 of IV azithromycin. Doxycycline 100 mg IV twice a day added for which he is now day #1. Vancomycin stopped. Fungal studies ordered Solumedrol 40 mg IV Q 8hr (5) Afib Current Visit: Yes Status: Acute Assessment and plan: Patient is on Coumadin. INR is near goal at 1.8. Of note she was supratherapeutic on admission. We will continue to adjust Coumadin dose as necessary. Check INR daily. She had A. fib with RVR last night. Rate is now controlled. Cardizem drip is off. Monitor. 09/21: Overall rate control improved. I will add in Cardizem 30 mg by mouth every 6 hours when necessary heart rate greater than 110. Continue current rate medications of: Lopressor 75 mg po BID Cardizem CD 240 mg po Daily Amiodarone 200 mg po daily On Coumadin, INR 2.1 today Qualifiers: Atrial fibrillation type: unspecified Qualified Code(s): I48.91 - Unspecified atrial fibrillation (6) Diabetes Current Visit: No Status: Chronic Assessment and plan: basal bolus insulin. Overall reasonable glycemic control. 09/21: Variable readings. Steroids now added so we will need to closely monitor and adjust accordingly. 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 with PTCA and BMS on August 26 (9) Hypokalemia Current Visit: Yes Status: Acute (10) PE (pulmonary thromboembolism) Current Visit: No Status: Chronic - Time Spent With Patient Total time spent is greater than 50% in coordination of care (as documented) at patient's floor/unit and/or counseling patient: Greater than 35 minutes - Subjective Interval history: This is an 86-year-old female with a past medical history of hypertension, hyperlipidemia, coronary artery disease with NSTEMI ( [facility] on 08/26/17 with PTCA and BMS), type 2 diabetes mellitus, atrial fibrillation (new since 08/26/17), pulmonary embolism for which she is on Coumadin, as well as a recent admission for multifactorial respiratory failure from August 24 through 09/09/2017. During that admission patient was also felt to have CHF. Likely acute on chronic diastolic CHF. Echocardiogram performed on 09/04/2017 showed EF of 65%. Essntially a normal echocardiogram with the exception of some mild asymmetric hypertrophy of the basal septum. During that admission patient ultimately improved with medical management. He was ultimately discharged on Coumadin, aspirin, and Plavix. During that admission patient was also treated for suspected pneumonia with a 7 day course of antibiotics including Augmentin and doxycycline. She was also given a steroid taper for suspected COPD exacerbation. [facility]. Patient was readmitted to our facility on 09/17/2017 for worsening shortness of breath, acute respiratory distress. She was placed on BiPAP and despite this was not improving. On arrival she had an O2 sat of 72%. Chest x-ray showed bilateral pneumonia versus CHF or both. White blood cell count was normal. BUN /creatinine of 24 over 0.76. INR 2.4. BNP elevated at 437. Troponin was 0.03. 09/17-: Patient has been placed on Lasix 80 mg IV twice a day. Patient has diuresed 6.3 L. He is slowly improving. Still requiring BiPAP. She also is undergoing treatment for suspected healthcare associated pneumonia. As of September 19 she is currently day #3 of IV Zosyn. Azithromycin was also started on September 19 at which time she is day #1. 09/20: Overnight patient developed atrial fibrillation with rapid ventricular response. She was on a Cardizem drip which is now turned off. Her heart rate remains controlled. Patient is still complaining of shortness of breath and weakness but is feeling better in this regard. No nausea, vomiting, diarrhea. She continues on BiPAP as needed, also wearing it at night. 09/21: Lasix was held yesterday and patient is now more short of breath. His been restarted. She also has anxiety for which Xanax is added. Patient still is requiring high amounts of oxygen. Reporting shortness of breath. No fevers or chills. No chest pain. No nausea, vomiting, diarrhea. - Constitutional Vitals: Temp Pulse Resp BP Pulse Ox 97.7 F 94 28 105/71 93 09/21/17 11:53 09/21/17 11:53 09/21/17 11:53 09/21/17 11:53 09/21/17 11:53 General appearance: Present: mild distress, A&O X 3, pleasant - Head Head exam: Present: atraumatic, normocephalic - Eye Eye exam: Present: PERRL, conjuntiva pink, sclera anicteric Pupils: Present: PERRL - Neck Neck exam general surgery: Present: supple, trachea midline. Absent: lymphadenopathy - Respiratory Respiratory exam: Present: accessory muscle use, rales, respiratory distress - Cardiovascular Cardiovascular exam: Present: irregular rhythm, tachycardia - GI/Abdominal GI/Abdominal exam: Present: normal bowel sounds, soft, no peritoneal signs. Absent: distended, tenderness - Extremities Exam Extremities exam: Present: pedal edema - Neurological Exam Neurological exam: Present: CN II-XII intact, oriented X3, no focal deficits. Absent: pronater drift, facial droop, speech deficit - Skin Skin exam: Present: dry, intact Internal Medicine: Result - Labs CBC & Chem 7: 09/21/17 08:14 09/21/17 08:14 Labs: Short CBC 09/21/17 Range/Units 08:14 WBC 9.2 (4.3-11.1) K/mcL Hgb 10.4 L (11.5-15.4) g/dL Hct 33.6 L (35.3-44.9) % Plt Count 104 L (140-400) K/mcL Neutrophils # 7.4 (1.6-8.9) K/mcL BMP 09/21/17 08:14 Sodium 141 Potassium 3.3 L Chloride 97 L Carbon Dioxide 39 H BUN 19 Creatinine 0.67 Glucose 84 Calcium 8.6 - ABG Interpretation ABG results: PT/INR, D-dimer PT 24.1 Seconds (9.4-12.1) H 09/21/17 04:13 Consult Discharge Plan - Plan Referrals: Arelis Will, 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
[2017-09-21] MEDS: Azithromycin 500 MG in D5% in Water 250 ML IVPB SCH (13:04)
[2017-09-21] MEDS: Furosemide 40 MG/4 ML VIAL IVP SCH (16:12)
[2017-09-21] MEDS: MethylPREDNISolone 40 MG/ML VIAL IVP SCH (17:01)
[2017-09-21] MEDS: Doxycycline 100 MG in 0.9 % Sodium Chloride Mini Bag 100 ML IVPB SCH (17:12)
[2017-09-21] MEDS ORDERED: *HR* Warfarin 2.5 MG TABLET PO ONE (18:00)
[2017-09-21] MEDS: Melatonin 3 MG TABLET PO SCH (20:42)
[2017-09-21] MEDS: Insulin DETEMIR 100 UNIT/ML X5UNITS SQ SCH (21:21)
[2017-09-22] MEDS: MethylPREDNISolone 40 MG/ML VIAL IVP SCH ×3 (00:23→15:29)
[2017-09-22] MEDS: Piperacillin/Tazobactam 3.375 GM in 0.9 % Sodium Chloride Mini Bag 100 ML IVPB SCH ×2 (02:36→10:13)
[2017-09-22] MEDS: Levalbuterol Neb 0.63 MG/3 ML IH SCH ×3 (03:42→15:22)
[2017-09-22 04:34] LABS: INR 2.3; Prothrombin Time 25.6 Seconds (9.4-12.1)
[2017-09-22 04:39] LABS: BUN/Creatinine Ratio 29 (6-26); Blood Urea Nitrogen 25 mg/dL (8-23); Calcium 8.4 mg/dL (8.6-10.3); Carbon Dioxide 33 mEq/L (23-29); Chloride 97 mEq/L (98-107); Glucose 272 mg/dL (70-105); Osmolality,Calculated 298 (280-300); Potassium 4.4 mEq/L (3.5-5.1); Sodium 137 mEq/L (136-145); eGFR For African Americans > 60 (> 60); eGFR For Non-African Americans > 60 (> 60)
[2017-09-22] MEDS: ALPRAZolam 0.25 MG TABLET PO PRN ×2 (04:49→15:27)
[2017-09-22] MEDS: Doxycycline 100 MG in 0.9 % Sodium Chloride Mini Bag 100 ML IVPB SCH (05:57)
[2017-09-22 06:48] LABS: Basophils % 0.2 %; Eosinophils % 0.3 %; Hematocrit 31.6 % (35.3-44.9); Hemoglobin 9.8 g/dL (11.5-15.4); Immature Granulocytes % 1.9 % (0-4); Lymphocytes # 0.5 K/mcL (0.6-4.6); Lymphocytes % 8.1 %; Mean Corpuscular Hemoglobin 29.3 pg (28.0-33.3); Mean Corpuscular Volume 94.6 fL (83.0-100.0); Mean Platelet Volume 10.7 fL (9.4-12.4); Monocytes # 0.2 K/mcL (0.0-1.3); Monocytes % 2.4 %; Neutrophils # 5.4 K/mcL (1.6-8.9); Red Blood Count 3.34 M/mcL (3.82-4.97); Red Cell Distribution Width 17.1 % (11.5-14.5); Segmented Neutrophils % 87.1 %
[2017-09-22 06:50] LABS: Platelet Count 88 K/mcL (140-400)
--- NOTE | 2017-09-22 09:49 | Palliative - Consult Note ---
Date of Encounter: 09/22/17 Time of Encounter: 09:30 - Assessment and Plan (1) Dyspnea Current Visit: No Status: Acute Assessment and plan: Patient continues to complain of dyspnea, possible relation to Anxiety. Patient switches between BiPAP and Oxygen therapy. Continue for oxygen saturation and patient's comfort. Roxanol PRN ordered for dyspnea. Qualifiers: Dyspnea type: shortness of breath Qualified Code(s): R06.02 - Shortness of breath; R06.00 - Dyspnea, unspecified; R06.01 - Orthopnea (2) Acute respiratory failure with hypoxia Current Visit: No Status: Acute Assessment and plan: COPD versus ARDS. Respiratory failure. Predominantly BiPAP dependent. (3) HCAP (healthcare-associated pneumonia) Current Visit: Yes Status: Acute Assessment and plan: WBC improved. VSS. Patient remains on Zosyn, Azithromycin, and Vancomycin. Continue IV Antibiotics. (4) Acute on chronic diastolic (congestive) heart failure Current Visit: Yes Status: Acute Assessment and plan: EF 65% from 09/04/17. Lasix and Lopressor ordered. Medically manage per primary team. (5) Goals of care, counseling/discussion Current Visit: Yes Status: Acute Assessment and plan: Conducted family meeting regarding goals of care. Consider continue aggressive treatment versus comfort care and transition home with Hospice. Family remains undecided, requested to have repeat family meeting when patient's other children can be present. Patient did verbalize "keep me comfortable until I meet my maker." Gave contact information of this newswriter to family, will follow up at their convenience. CODE STATUS well established as DNR CCA/DNI. Gave family education material from [facility]. Conducted meeting with multiple family members including all children. Plan to transition patient to [facility]. Patient will discharge home with [facility] once shortness of breath and anxiety stabilized. Spoke with Radha at [facility] for enrollment this evening and transition to [facility]. Informed Radha that patient plans to discharge home with [facility] once symptoms stablize of increased anxiety and dyspnea. CODE STATUS changed to DNR CC. (6) Anxiety Current Visit: Yes Status: Acute Assessment and plan: Patient continues to report increased anxiety. Has taken 3 doses of Xanax PRN in the last 24 hours. Discontinue Xanax. Add Ativan 1 mg SL Q2H PRN. Palliative-CN HPI - Data of Consult Patient: new to practice Consult date: 09/21/17 Requesting Physician: Armando Craven MD Primary Care Provider: Arelis Will CNP - Consult Narrative Palliative Care/Comfort Measures: Palliative care Reason for consult: Goals of care changes with family History of present illness: Ms. Mccloud is a 86 year old female Arrived to [place] ER on 09/17/17 with shortness of breath. Patient chronic COPD and CHF and reports identical to previous CHF episodes in the past. Patient a rehab resident at [facility]. Typically wears BiPAP at night and reports increased SOB with noted Oxygen saturation 72% on BiPAP. Initial Chest X-ray showed bilateral airspace disease , probable for pneumonia. EKG showed Left Ventricular Hypertrophy and ST-T change. Patient admitted and medically managed for Pneumonia, acute exacerbation of CHF, Acute Respiratory failure with hypoxia, Diabetes, and Atrial fibrillation. PMH: Pulmonary Embolus, NSTEMI, ARF, neoplasm of large intestines, pulmonary edema, and depression. New diagnoses of HCAP, managed with antibiotics. 09/18/17 chest x-ray showing: diffuse, multifocal airspace disease opacities stable from previous exam; pattern represents ARDS or multifocal pneumonia. 09/19/17-New A. fib with RVR, Cardizem drip initiated; rate controlled and discontinued. HCAP not significantly improving, Vancomycin added. 09/21/17: Dr. Garibay conducted family meeting with CODE STATUS change to DNR CCA/DNI; goal set during meeting to continue BiPAP as necessary. Palliative care consult for goals of care. Patient lying in bed with eyes open wearing BiPAP upon arrival for assessment. Patient's daughter (Lucia, ) at bedside. Patient's daughter Lucia reports patient has 3 other children (Francisco, , Bill, and Hugo). Reports had family meeting yesterday with herself, Francisco, and patient's sister. Requested to return in a few for patient to utilize bedpan. Upon return patient resting with eyes closed, difficult to arrouse and unable to follow commands. Allowed to let rest and discussed with patient's daughter and son (Hugo and Lucia) goals of care, near end of conversation patient awoke and requested to review conversation as she was asleep. Patient denied pain during assessment. No nausea/vomiting. Patient reports increased shortness of breath and anxiety. Currently prescribed Xanax PRN, has received 3 doses in last 24 hours. Patient switching between BiPAP and High flow oxygen for improved oxygenation. Family requested family meeting when patient's other 2 children and sister can be present. CC: Armando Craven MD Past Med Surg Social Fam HX - Past Medical History Medical history: pulmonary embolus Additional medical history: NSTEMI, ARF, neoplasm of large intestines, pulm edema, Psychiatric history: depression - Past Surgical History Surgical History: non-contributory Additional surgical history: colon cancer surgery, heart cath - Social History Smoking Status: Never smoker Smokeless Tobacco Status: No Alcohol use: none Drug use: none - Family History Mother Living Status: Age at : 44 Hx Family Cardiac Disorders: Yes Hx Family Endocrine Disorder: Yes (DM) Father Living Status: Age at : 80 Cause of : Influenza Hx Family Respiratory Disorders: Yes (Emphyzema, Lung cancer) Brother Name: Jhonny Living Status: Age at : 75 Hx Family Cancer: Yes Medications and Allergies Amiodarone [Cordarone] 200 mg PO DAILY 09/17/17 [History] Aspirin [Adult Aspirin] 1 tab PO DAILY 09/17/17 [History] BuPROPion SR (12 HR) [Wellbutrin SR] 100 mg PO DAILY 09/17/17 [History] Cholecalciferol (Vitamin D3) [Vitamin D] 1,000 unit PO DAILY 09/17/17 [History] Clopidogrel [Plavix] 1 tab PO DAILY 09/17/17 [History] Diltiazem CD (24hr) [Cardizem CD] 240 mg PO DAILY 09/17/17 [History] Furosemide [Lasix] 20 mg PO 1600 09/17/17 [History] Furosemide [Lasix] 40 mg PO 0800 09/17/17 [History] Gabapentin [Neurontin] 600 mg PO BID 09/17/17 [History] HYDROcodone/Acet 7.5/325 mg [[place] 7.5-325 mg] 1 tab PO Q6H PRN 09/17/17 [ History] Insulin Glargine,Hum.rec.anlog [Lantus Solostar] 24 units SQ HS 09/17/17 [ History] Insulin LISPRO [Humalog] 6 units SQ HS 09/17/17 [History] Insulin LISPRO [Humalog] 8 unit SQ TID 09/17/17 [History] Melatonin [Melatin] 3 mg PO HS 09/17/17 [History] Metoprolol Tartrate [Metoprolol Tartrate] 75 mg PO BID 09/17/17 [History] Pantoprazole Sodium [Protonix] 40 mg PO DAILY 09/17/17 [History] Warfarin [Coumadin] 2.5 mg PO DAILY 09/17/17 [History] predniSONE [PredniSONE] 10 mg PO DAILY 09/17/17 [History] 3 Allergy/AdvReac Type Severity Reaction Status Date / Time metoclopramide AdvReac Joint Pain Verified 08/24/17 02:53 simvastatin AdvReac Hives Verified 08/24/17 02:53 - Constitutional Constitutional ROS PAL: decreased appetite, lethargy - Cardiovascular Cardiovascular ROS: dyspnea on exertion - Respiratory Respiratory: dyspnea, dyspnea on exertion - Integumentary ROS Integumentary: dry skin, unusual bruising - Neurological Neurological ROS: weakness, no memory loss - Psychiatric Psychiatric general PM: anxiety, no confusion, no memory loss Palliative Care-Exam - Constitutional Vitals: Temp Pulse Resp BP Pulse Ox 98.1 F 69 31 144/63 95 09/22/17 07:22 09/22/17 07:22 09/22/17 07:22 09/22/17 07:22 09/22/17 07:22 General appearance: Present: cooperative, mild distress - Head Head Exam: Present: atraumatic, normal inspection - Eye Eye exam: Present: EOMI, normal appearance, PERRL. Absent: nystagmus, periorbital swelling, periorbital tenderness Pupils: Present: normal accommodation, PERRL - ENT ENT exam: Present: mucous membranes dry, normal external ear exam, normal oropharynx - Expanded ENT Exam Mouth Exam: Absent: drooling - Neck Neck exam: Present: full ROM, normal inspection. Absent: meningismus - Respiratory Respiratory exam: Present: accessory muscle use, rhonchi, wheezes, tachypnea - Cardiovascular Cardiovascular exam: Present: RRR, +S1, +S2 - Expanded Cardiovascular Exam Peripheral pulses: 2+: Radial (L), Radial (R), Posterior Tibialis (L), Posterior Tibialis (R), Dorsalis Pedis (L) PM, Dorsalis Pedis (R) PM - GI/Abdominal Exam GI/Abdominal exam: Present: normal bowel sounds, soft. Absent: tenderness - Expanded GI/Abdominal Exam GI/Abdominal exam: Absent: ascites - Rectal Rectal exam: Present: deferred - Catheter Type: Urethral (Jones) - Extremities Exam Extremities exam: Present: pedal edema. Absent: calf tenderness - Neurological Exam Neurological exam: Present: alert, oriented X3, strengths equal and symetr throughout. Absent: pronater drift, facial droop - Expanded Neurological Exam Neurological exam expanded: Absent: memory loss-recent event, memory loss- remote event Patient oriented to: Present: person, place, time Cranial nerves: EOM's intact: Normal Coma Scale Eye Opening: To Voice Coma Scale Motor Response: Obeys Commands Coma Scale Verbal Response: Oriented Coma Scale Total: 14 - Psychiatric Psychiatric exam: Present: normal affect, normal mood - Skin Skin exam: Present: dry, intact, petechiae. Absent: normal color (bruising noted to left thigh and abdomen.) - Other Additional findings: Palliative Performance Scale (PPS) 20-30%. Total bed Unable to do activity, extensive disease Total Care Minimal Sips/Reduced Intake Full or Drowsy Internal Medicine - CN: Reslt - Labs CBC & Chem 7: 09/22/17 06:38 09/22/17 03:58 Labs: Short CBC 09/22/17 Range/Units 06:38 WBC 6.2 (4.3-11.1) K/mcL Hgb 9.8 L (11.5-15.4) g/dL Hct 31.6 L (35.3-44.9) % Plt Count 88 L (140-400) K/mcL Neutrophils # 5.4 (1.6-8.9) K/mcL BMP 09/22/17 03:58 Sodium 137 Potassium 4.4 D Chloride 97 L Carbon Dioxide 33 H BUN 25 H Creatinine 0.85 Glucose 272 H Calcium 8.4 L - ABG Interpretation ABG results: PT/INR, D-dimer PT 25.6 Seconds (9.4-12.1) H 09/22/17 03:58 Consult Discharge Plan - Plan Referrals: Arelis Will, EMPLOYEE SERVICES MANAGER [Primary Care Provider] - Palliative Quality Palliative Quality: Screen for Code Status: Yes, Screen for Goals of Care: Yes, Screen for Pain: Yes, If Pain Regimen Started, Initiate Bowel Regimen: NA, Screen for Nausea/Vomitting: Yes Code Status: 09/21/17 14:13 DNR [Resuscitation Status: Active] [RES] Routine Comment: Resuscitation Status: [id number]
[2017-09-22] MEDS: Furosemide 40 MG/4 ML VIAL IVP SCH ×2 (10:12→17:09)
[2017-09-22] MEDS: Insulin LISPRO 300 UNITS/3 ML VIAL SQ SCH ×3 (10:14→17:10)
--- NOTE | 2017-09-22 10:32 | Internal Med Progress Note ---
Date of Encounter: 09/22/17 Time of Encounter: 09:00 - Assessment and plan (1) Acute on chronic diastolic (congestive) heart failure Current Visit: Yes Status: Acute Assessment and plan: EF of 65% on 09/04/2017. Continue Lasix 80 mg IV twice a day Lopressor 75 mg by mouth twice a day Monitor closely. Daily electrolytes. Renal function daily. 09/22: Minimal diuresis but symptomatically improving overnight. Renal function is tolerating diuresis. Vitals otherwise stable. Patient is presently on BiPAP. (2) Acute respiratory failure with hypoxia Current Visit: No Status: Acute Assessment and plan: Multifactorial respiratory failure. Predominantly due to acute on chronic diastolic CHF. Healthcare associated pneumonia. ?COPD ?ARDS Chronic pulmonary embolism. See below. Continue Bipap and supplem O2 to maintain sats around 89-90% (3) HCAP (healthcare-associated pneumonia) Current Visit: Yes Status: Acute Assessment and plan: Day #4 IV Zosyn Day #2 IV Azithromycin All Cx Negative to date. Continue current abx. As she is not improving significantly, will add Vanco empirically for MRSA coverage Day #1 IV Vancomycin If fails to improve, will consider Pulmonary consult 09/21: I did discuss the case of pulmonary medicine. Antibiotics: Zosyn for which she is now day #5, she is currently day #3 of IV azithromycin. Doxycycline 100 mg IV twice a day added for which he is now day #1. Vancomycin stopped. Fungal studies ordered Solumedrol 40 mg IV Q 8hr 09/22: Day #6 Zosyn Day #2 Doxycycline, Day #4 Azithromycin Solumedrol started yesterday. Fungal studies pending. Continue current therapy and monitor. She may be a little improved today. Update chest x-ray. (4) Afib Current Visit: Yes Status: Acute Assessment and plan: Patient is on Coumadin. INR is near goal at 1.8. Of note she was supratherapeutic on admission. We will continue to adjust Coumadin dose as necessary. Check INR daily. She had A. fib with RVR last night. Rate is now controlled. Cardizem drip is off. Monitor. 09/21: Overall rate control improved. I will add in Cardizem 30 mg by mouth every 6 hours when necessary heart rate greater than 110. Continue current rate medications of: Lopressor 75 mg po BID Cardizem CD 240 mg po Daily Amiodarone 200 mg po daily On Coumadin, INR 2.1 today 09/22: HR improved. Cardiology consulted yest. INR at goal Qualifiers: Atrial fibrillation type: unspecified Qualified Code(s): I48.91 - Unspecified atrial fibrillation (5) Diabetes Current Visit: No Status: Chronic Assessment and plan: basal bolus insulin. Overall reasonable glycemic control. 09/21: Variable readings. Steroids now added so we will need to closely monitor and adjust accordingly. 09/22: Levemir increased to 25 units sub QHS. Monitor. Qualifiers: Diabetes mellitus type: type 2 Diabetes mellitus intermediate insulin use: unspecified intermediate insulin use status Diabetes mellitus complication status : with unspecified complications Qualified Code(s): E11.8 - Type 2 diabetes mellitus with unspecified complications (6) Hypertension Current Visit: No Status: Chronic Assessment and plan: Reasonable control presently, continue current Rx Qualifiers: Hypertension type: essential hypertension Qualified Code(s): I10 - Essential (primary) hypertension (7) NSTEMI (non-ST elevated myocardial infarction) Current Visit: No Status: Acute Assessment and plan: S/P LHC with PTCA and BMS on August 26 (8) Hypokalemia Current Visit: Yes Status: Acute Assessment and plan: Monitor, replace as necessary (9) PE (pulmonary thromboembolism) Current Visit: No Status: Chronic Assessment and plan: On chronic anticoagulation - Time Spent With Patient Total time spent is greater than 50% in coordination of care (as documented) at patient's floor/unit and/or counseling patient: Greater than 35 minutes - Subjective Interval history: This is an 86-year-old female with a past medical history of hypertension, hyperlipidemia, coronary artery disease with NSTEMI ( LHC on 08/26/17 with PTCA and BMS), type 2 diabetes mellitus, atrial fibrillation (new since 08/26/17), pulmonary embolism for which she is on Coumadin, as well as a recent admission for multifactorial respiratory failure from August 24 through 09/09/2017. During that admission patient was also felt to have CHF. Likely acute on chronic diastolic CHF. Echocardiogram performed on 09/04/2017 showed EF of 65%. Essntially a normal echocardiogram with the exception of some mild asymmetric hypertrophy of the basal septum. During that admission patient ultimately improved with medical management. He was ultimately discharged on Coumadin, aspirin, and Plavix. During that admission patient was also treated for suspected pneumonia with a 7 day course of antibiotics including Augmentin and doxycycline. She was also given a steroid taper for suspected COPD exacerbation. She was discharged to a long term facility on 09/09/2017. Patient was readmitted to our facility on 09/17/2017 for worsening shortness of breath, acute respiratory distress. She was placed on BiPAP and despite this was not improving. On arrival she had an O2 sat of 72%. Chest x-ray showed bilateral pneumonia versus CHF or both. White blood cell count was normal. BUN /creatinine of 24 over 0.76. INR 2.4. BNP elevated at 437. Troponin was 0.03. 09/17-: Patient has been placed on Lasix 80 mg IV twice a day. Patient has diuresed 6.3 L. He is slowly improving. Still requiring BiPAP. She also is undergoing treatment for suspected healthcare associated pneumonia. As of September 19 she is currently day #3 of IV Zosyn. Azithromycin was also started on September 19 at which time she is day #1. 09/20: Overnight patient developed atrial fibrillation with rapid ventricular response. She was on a Cardizem drip which is now turned off. Her heart rate remains controlled. Patient is still complaining of shortness of breath and weakness but is feeling better in this regard. No nausea, vomiting, diarrhea. She continues on BiPAP as needed, also wearing it at night. 09/21: Lasix was held yesterday and patient is now more short of breath. His been restarted. She also has anxiety for which Xanax is added. Patient still is requiring high amounts of oxygen. Reporting shortness of breath. No fevers or chills. No chest pain. No nausea, vomiting, diarrhea. 09/22: Patient was restarted on IV Lasix today. He states her breathing has improved slightly. She continues on BiPAP as needed. No fevers or chills. - Constitutional Vitals: Temp Pulse Resp BP Pulse Ox 98.1 F 69 27 144/63 95 09/22/17 07:22 09/22/17 07:22 09/22/17 09:49 09/22/17 09:49 09/22/17 09:49 General appearance: Present: mild distress, A&O X 3, pleasant - Head Head exam: Present: atraumatic, normocephalic - Eye Eye exam: Present: PERRL, conjuntiva pink, sclera anicteric Pupils: Present: PERRL Additional comments: Dry mucous membranes - Neck Neck exam general surgery: Present: supple, trachea midline. Absent: lymphadenopathy - Respiratory Respiratory exam: Present: rales, rhonchi - Cardiovascular Cardiovascular exam: Present: RRR, +S1, +S2. Absent: diastolic murmur, gallop, rubs, systolic murmur - GI/Abdominal GI/Abdominal exam: Present: normal bowel sounds, soft, no peritoneal signs. Absent: distended, tenderness - Extremities Exam Extremities exam: Present: pedal edema, warm, radial pulses palpable and symmetrical. Absent: calf tenderness, cyanotic - Neurological Exam Neurological exam: Present: CN II-XII intact, oriented X3, no focal deficits. Absent: pronater drift, facial droop, speech deficit - Skin Skin exam: Present: dry, intact Internal Medicine: Result - Labs CBC & Chem 7: 09/22/17 06:38 09/22/17 03:58 Labs: Short CBC 09/22/17 Range/Units 06:38 WBC 6.2 (4.3-11.1) K/mcL Hgb 9.8 L (11.5-15.4) g/dL Hct 31.6 L (35.3-44.9) % Plt Count 88 L (140-400) K/mcL Neutrophils # 5.4 (1.6-8.9) K/mcL BMP 09/22/17 03:58 Sodium 137 Potassium 4.4 D Chloride 97 L Carbon Dioxide 33 H BUN 25 H Creatinine 0.85 Glucose 272 H Calcium 8.4 L - ABG Interpretation ABG results: PT/INR, D-dimer PT 25.6 Seconds (9.4-12.1) H 09/22/17 03:58 Consult Discharge Plan - Plan Referrals: Arelis Will, RN LABOR DELIVERY [Primary Care Provider] -
[2017-09-22] MEDS ORDERED: Insulin DETEMIR 100 UNIT/ML X5UNITS SQ SCH (10:47)
[2017-09-22] MEDS: Cholecalciferol (D-3) 1,000 UNIT TABLET PO SCH (11:23)
[2017-09-22] MEDS: BuPROPion SR (12 HR) 100 MG TABLET PO SCH (11:23)
[2017-09-22] MEDS: Aspirin Enteric Coated 81 MG Tablet PO SCH ×2 (11:23→11:31)
[2017-09-22] MEDS: Gabapentin 300 MG CAPSULE PO SCH (11:23)
[2017-09-22] MEDS: Diltiazem CD (24hr) 240 MG CAPSULE PO SCH (11:31)
[2017-09-22] MEDS: *HR* Amiodarone 200 MG TABLET PO SCH (11:31)
[2017-09-22] MEDS: Azithromycin 500 MG in D5% in Water 250 ML IVPB SCH (15:29)
[2017-09-22] MEDS ORDERED: *HR* LORazepam Oral Conc 2 MG/ML SL PRN (15:48)
[2017-09-22] MEDS ORDERED: MORPHINE SUL Oral CONC 10 MG/0.5 ML ORAL.SYG SL PRN (15:48)
--- NOTE | 2017-09-22 16:12 | Discharge Summary ---
- NOTES TO OUTPATIENT PROVIDER Notes to Outpatient Provider: Discharge to Hospice Care Orders not resulted at time of discharge: Pending orders 09/21/17 12:15 Histoplasma galactomannan,Ur Stat 09/21/17 12:20 Aspergillus galactomannan Ag Stat 09/23/17 04:00 BMP [Basic Metabolic Panel] AM 0400 CBC [Complete Blood Count] [HEME] AM 0400 PT/INR [Prothrombin Time INR] [COAG] AM 0400 09/24/17 04:00 PT/INR [Prothrombin Time INR] [COAG] AM 0400 09/25/17 04:00 PT/INR [Prothrombin Time INR] [COAG] AM 0400 09/26/17 04:00 PT/INR [Prothrombin Time INR] [COAG] AM 0400 Date of Encounter: 09/22/17 Time of Encounter: 14:00 - Discharge Diagnosis (1) Acute on chronic diastolic (congestive) heart failure Priority: Primary Status: Acute (2) Acute respiratory failure with hypoxia Priority: Primary Status: Acute (3) HCAP (healthcare-associated pneumonia) Priority: Primary Status: Acute (4) Afib Priority: Secondary Status: Acute Qualifiers: Atrial fibrillation type: unspecified Qualified Code(s): I48.91 - Unspecified atrial fibrillation (5) Diabetes Priority: Secondary Status: Chronic Qualifiers: Diabetes mellitus type: type 2 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: unspecified terminal press operator insulin use status Diabetes mellitus complication status : with unspecified complications Qualified Code(s): E11.8 - Type 2 diabetes mellitus with unspecified complications (6) Hypertension Priority: Secondary Status: Chronic Qualifiers: Hypertension type: essential hypertension Qualified Code(s): I10 - Essential (primary) hypertension (7) NSTEMI (non-ST elevated myocardial infarction) Priority: Secondary Status: Acute (8) Hypokalemia Priority: Secondary Status: Acute (9) PE (pulmonary thromboembolism) Priority: Secondary Status: Chronic Hospital course: This is an 86-year-old female with a past medical history of hypertension, hyperlipidemia, coronary artery disease with NSTEMI ( [facility] on 08/26/17 with PTCA and BMS), type 2 diabetes mellitus, atrial fibrillation (new since 08/26/17), pulmonary embolism for which she is on Coumadin, as well as a recent admission for multifactorial respiratory failure from August 24 through 09/09/2017. During that admission patient was also felt to have CHF. Likely acute on chronic diastolic CHF. Echocardiogram performed on 09/04/2017 showed EF of 65%. Essntially a normal echocardiogram with the exception of some mild asymmetric hypertrophy of the basal septum. During that admission patient ultimately improved with medical management. He was ultimately discharged on Coumadin, aspirin, and Plavix. During that admission patient was also treated for suspected pneumonia with a 7 day course of antibiotics including Augmentin and doxycycline. She was also given a steroid taper for suspected COPD exacerbation. She [place] [facility] on 09/09/2017. Patient was readmitted to our facility on 09/17/2017 for worsening shortness of breath, acute respiratory distress. She was placed on BiPAP and despite this was not improving. On arrival she had an O2 sat of 72%. Chest x-ray showed bilateral pneumonia versus CHF or both. White blood cell count was normal. BUN /creatinine of 24 over 0.76. INR 2.4. BNP elevated at 437. Troponin was 0.03. 09/17-: Patient has been placed on Lasix 80 mg IV twice a day. Patient has diuresed 6.3 L. He is slowly improving. Still requiring BiPAP. She also is undergoing treatment for suspected healthcare associated pneumonia. As of September 19 she is currently day #3 of IV Zosyn. Azithromycin was also started on September 19 at which time she is day #1. 09/20: Overnight patient developed atrial fibrillation with rapid ventricular response. She was on a Cardizem drip which is now turned off. Her heart rate remains controlled. Patient is still complaining of shortness of breath and weakness but is feeling better in this regard. No nausea, vomiting, diarrhea. She continues on BiPAP as needed, also wearing it at night. 09/21: Lasix was held yesterday and patient is now more short of breath. His been restarted. She also has anxiety for which Xanax is added. Patient still is requiring high amounts of oxygen. Reporting shortness of breath. No fevers or chills. No chest pain. No nausea, vomiting, diarrhea. 09/22: Patient was restarted on IV Lasix today. He states her breathing has improved slightly. She continues on BiPAP as needed. No fevers or chills. Addendum: Despite measures to treat her, she continued to decline. Requiring BiPAP almost around the clock. Patient was treated for suspected pneumonia with Zosyn day #6 , azithromycin day #3, as well as doxycycline started on September 21. Steroids added as well. Patient continued on Lasix diuresis for congestive heart failure. Despite all these measures patient did not improve. We had numerous discussions with the family and with the patient and ultimately they elected to sign on to hospice, comfort care. Patient states she did not want to continue with current care, and certainly would not want mechanical ventilation if her condition worsens. Patient was discharged to the care of hospice. 41 minutes spent on discharge and coordination of care. Family is comfortable with the plan. Discharge discussed with: patient, other (Palliative Care) - Time Spent with Patient Total time spent providing and/or coordinating discharge services: Greater than 30 minutes (41 minutes) - Discharge Medications Home Medications: Amiodarone [Cordarone] 200 mg PO DAILY 09/17/17 [History] Aspirin [Adult Aspirin] 1 tab PO DAILY 09/17/17 [History] BuPROPion SR (12 HR) [Wellbutrin SR] 100 mg PO DAILY 09/17/17 [History] Cholecalciferol (Vitamin D3) [Vitamin D] 1,000 unit PO DAILY 09/17/17 [History] Clopidogrel [Plavix] 1 tab PO DAILY 09/17/17 [History] Diltiazem CD (24hr) [Cardizem CD] 240 mg PO DAILY 09/17/17 [History] Furosemide [Lasix] 20 mg PO 1600 09/17/17 [History] Furosemide [Lasix] 40 mg PO 0800 09/17/17 [History] Gabapentin [Neurontin] 600 mg PO BID 09/17/17 [History] HYDROcodone/Acet 7.5/325 mg [[place] 7.5-325 mg] 1 tab PO Q6H PRN 09/17/17 [ History] Insulin Glargine,Hum.rec.anlog [Lantus Solostar] 24 units SQ HS 09/17/17 [ History] Insulin LISPRO [Humalog] 6 units SQ HS 09/17/17 [History] Insulin LISPRO [Humalog] 8 unit SQ TID 09/17/17 [History] Melatonin [Melatin] 3 mg PO HS 09/17/17 [History] Metoprolol Tartrate [Metoprolol Tartrate] 75 mg PO BID 09/17/17 [History] Pantoprazole Sodium [Protonix] 40 mg PO DAILY 09/17/17 [History] Warfarin [Coumadin] 2.5 mg PO DAILY 09/17/17 [History] predniSONE [PredniSONE] 10 mg PO DAILY 09/17/17 [History] Allergies/Adverse Reactions: 3 Allergy/AdvReac Type Severity Reaction Status Date / Time metoclopramide AdvReac Joint Pain Verified 08/24/17 02:53 simvastatin AdvReac Hives Verified 08/24/17 02:53 Date of admission: 09/17/17 14:45 Primary care physician: Arelis Will CNP Consults: 09/21/17 19:42 Consult to Palliative Care [CONS] Routine Comment: Consulting Provider: Palliative Care Berenice Reason for Consult: Pt's code status from full code to DNR-CCA DNI, acute respiratory distress/failure, anxiety, possible goals of care changes with family Call Completed: No Discharging clinician: Modesto Garibay Anticipated date of discharge: 09/22/17 - Constitutional Vitals: Temp Pulse Resp BP Pulse Ox 98.1 F 71 23 158/63 95 09/22/17 12:01 09/22/17 12:01 09/22/17 12:01 09/22/17 12:01 09/22/17 12:01 General appearance: Present: mild distress, A&O X 3, pleasant - Head Head exam: Present: atraumatic, normocephalic - Eye Eye exam: Present: PERRL, conjuntiva pink, sclera anicteric Pupils: Present: PERRL - Neck Neck exam general surgery: Present: supple, trachea midline. Absent: lymphadenopathy - Respiratory Respiratory exam: Present: decreased breath sounds, rales - Cardiovascular Cardiovascular exam: Present: irregular rhythm - GI/Abdominal GI/Abdominal exam: Present: normal bowel sounds, soft, no peritoneal signs. Absent: distended, tenderness - Extremities Exam Extremities exam: Present: pedal edema, warm, radial pulses palpable and symmetrical. Absent: calf tenderness, cyanotic - Neurological Exam Neurological exam: Present: CN II-XII intact, oriented X3, no focal deficits. Absent: pronater drift, facial droop, speech deficit - Skin Skin exam: Present: dry, intact - Patient Status Disposition: Transfer Inpatient Rehab Fac Condition: Undetermined Functional capacity at discharge: bed bound Overall status at discharge: patient is not back to baseline - Discharge Instructions Follow Up With: Arelis Will, [employer] [Primary Care Provider] - - Diet and Activity Activity: as per physical therapy Diet: advance to your usual diet
[2017-09-22] MEDS ORDERED: OXYCODONE Oral CONC 10 MG/0.5 ML ORAL.SYG SL PRN (16:34)
[2017-09-22 16:48] VITALS: BP 141/67
--- NOTE | 2017-09-22 17:47 | Electrocardiograph Report ---
[address] [address] Test Date: 2017-09-19 Pat Name: Jerrica Mccloud Department: 111 Room: 2NE19 Gender: F Curatorial Assistant: RAW : [id number] Requested By: Jackie Camacho Order Number: [id number] Reading MD: Emile Severino Measurements Intervals [place] Rate: 109 P: [place]: 0 QRS: -10 QRSD: 109 T: 99 QT: 371 QTc: 435 Interpretive Statements ATRIAL FIBRILLATION WITH RAPID VENTRICULAR RESPONSE VOLTAGE CRITERIA FOR LVH Electronically Signed On 09-22-2017 17:46:23 EDT by Emile Severino
[2017-09-22] MEDS ORDERED: *HR* Warfarin 2 MG TABLET PO ONE (18:00)
[2017-09-23 17:11] LABS: A.galactomannan Ag Index 0.05
== END 2017-09-22 17:45 | DRG 291 ==
LOC: 2NENU 01:37 → EMEROO 01:37 → 2NENU 04:13
PROVIDERS: ADMIT Family Medicine; ATTEND Family Medicine

== ENCOUNTER 2017-09-22 16:09 | Inpatient (IN) ==
[2017-09-22] MEDS ORDERED: Ondansetron ODT 4 MG TAB.RAPDIS SL PRN (16:10)
[2017-09-22] MEDS ORDERED: *HR* LORazepam Oral Conc 2 MG/ML PO PRN (16:10)
[2017-09-22] MEDS ORDERED: Bisacodyl 10 MG RECTAL SUPPOSITORY RC PRN (16:10)
[2017-09-22] MEDS ORDERED: Acetaminophen 650 MG RECTAL SUPP RC PRN (16:10)
[2017-09-22] MEDS: *HR* LORazepam Oral Conc 2 MG/ML SL SCH ×2 (18:27→23:33)
[2017-09-22] MEDS: Gabapentin 300 MG CAPSULE PO SCH (21:24)
[2017-09-22] MEDS: Furosemide 40 MG/4 ML VIAL IVP SCH (21:24)
[2017-09-22] MEDS: Melatonin 3 MG TABLET PO SCH (21:24)
[2017-09-22] MEDS: Levalbuterol Neb 0.63 MG/3 ML IH SCH (22:37)
[2017-09-22] MEDS: MethylPREDNISolone 40 MG/ML VIAL IVP SCH (23:33)
[2017-09-23] MEDS: Levalbuterol Neb 0.63 MG/3 ML IH SCH ×4 (03:58→21:29)
[2017-09-23] MEDS: *HR* LORazepam Oral Conc 2 MG/ML SL SCH ×3 (05:59→17:25)
[2017-09-23] MEDS: OXYCODONE Oral CONC 10 MG/0.5 ML ORAL.SYG SL PRN (09:09)
[2017-09-23] MEDS: MethylPREDNISolone 40 MG/ML VIAL IVP SCH ×2 (09:11→17:24)
[2017-09-23] MEDS: Furosemide 40 MG/4 ML VIAL IVP SCH ×2 (09:11→17:24)
[2017-09-23] MEDS: Diltiazem CD (24hr) 240 MG CAPSULE PO SCH (09:12)
[2017-09-23] MEDS: Gabapentin 300 MG CAPSULE PO SCH ×2 (09:12→20:19)
[2017-09-23] MEDS: *HR* Amiodarone 200 MG TABLET PO SCH (09:12)
[2017-09-23] MEDS: BuPROPion SR (12 HR) 100 MG TABLET PO SCH (09:12)
--- NOTE | 2017-09-23 09:28 | Palliative - Consult Note ---
Date of Encounter: 09/23/17 Time of Encounter: 08:45 - Assessment and Plan (1) Acute exacerbation of CHF (congestive heart failure) Current Visit: No Status: Acute Assessment and plan: Patient continued on Lasix and Lopressor. Blood pressure elevated. No pedal edema noted. Qualifiers: Heart failure type: combined systolic and diastolic Qualified Code(s): I50.43 - Acute on chronic combined systolic (congestive) and diastolic ( congestive) heart failure (2) Acute respiratory failure with hypoxia Current Visit: No Status: Acute Assessment and plan: COPD vs. ARDS. Family transitioned to [facility] GIP. Managing shortness of breath with oxygen therapy, Oxycodone, and Ativan (anxiety related shortness of breath). (3) Anxiety Current Visit: No Status: Acute Assessment and plan: Patient reports improved anxiety control with scheduled Ativan. Continue scheduled Ativan and Ativan PRN. (4) Dyspnea Current Visit: No Status: Acute Assessment and plan: Patient reports "breathing is better;" however, continues to use accessory muscles when breathing. Recommended Oxycodone PRN for improved dyspnea improvement. Qualifiers: Dyspnea type: shortness of breath Qualified Code(s): R06.02 - Shortness of breath; R06.00 - Dyspnea, unspecified; R06.01 - Orthopnea (5) Goals of care, counseling/discussion Current Visit: No Status: Acute Assessment and plan: Plan for patient's anxiety and dyspnea to be improved. Plan to discharge home with [facility], possibly . Palliative-CN HPI - Data of Consult Patient: known to practice within the last 3 years Consult date: 09/23/17 Requesting Physician: Mauricio Mcpherson MD Primary Care Provider: Arelis Will CNP - Consult Narrative Palliative Care/Comfort Measures: Hospice care Reason for consult: GIP Management History of present illness: Ms. Mccloud is a 86 year old female Arrived to [place] [facility] on 09/17/17 with shortness of breath. Patient chronic COPD and CHF and reports identical to previous CHF episodes in the past. Patient a rehab resident at [facility]. Patient had been wearing BiPAP at night; however, the day of arrival with BiPAP in plasy Oxygen saturation at 72%. Patient admitted and medically managed for ( HCAP) Pneumonia, acute exacerbation of CHF, Acute Respiratory failure with hypoxia, Diabetes, and Atrial fibrillation. PMH: Pulmonary Embolus, NSTEMI, ARF , neoplasm of large intestines, pulmonary edema, and depression. 09/18/17 chest x -ray showing: diffuse, multifocal airspace disease opacities stable from previous exam; pattern represents ARDS or multifocal pneumonia. 09/19/17-New A. fib with RVR, Cardizem drip initiated; rate controlled and discontinued. HCAP not significantly improving, Vancomycin added. 09/21/17: Dr. Garibay conducted family meeting with CODE STATUS change to DNR CCA/DNI; goal set during meeting to continue BiPAP as necessary. Palliative care consult for goals of care. Family meeting conducted on 09/22/17 and family agreed to transition to [facility] with [facility] and plan to return home once anxiety and dyspnea stablized. Patient sitting in bed with eyes open on 10L high flow on arrival for assessment. Patient's daughter Lucia and son Francisco present at bedside. Patient reports improved anxiety; however, continued accessory muscles noted noted respirations. Patient has received scheduled Ativan SL; however, has received no doses of PRN Oxycodone or Ativan. Spoke with patient regarding continued difficulty with "work of breathing" and patient requested Oxycodone for improved comfort. Notified Primary RN. Family reports they are pleased with improvement in anxiety and patient was able to eat breakfast this morning. Denies nausea/vomiting or pain. CC: Mauricio Mcpherson MD Past Med Surg Social Fam HX - Past Medical History Medical history: pulmonary embolus Additional medical history: NSTEMI, ARF, neoplasm of large intestines, pulm edema, Psychiatric history: depression - Past Surgical History Surgical History: non-contributory Additional surgical history: colon cancer surgery, heart cath - Social History Smoking Status: Never smoker Smokeless Tobacco Status: No Alcohol use: none Drug use: none - Family History Mother Living Status: Hx Family Cardiac Disorders: Yes Hx Family Endocrine Disorder: Yes (DM) Father Living Status: Hx Family Respiratory Disorders: Yes (Emphyzema, Lung cancer) Brother Living Status: Hx Family Cancer: Yes Medications and Allergies Amiodarone [Cordarone] 200 mg PO DAILY 09/17/17 [History] Aspirin [Adult Aspirin] 1 tab PO DAILY 09/17/17 [History] BuPROPion SR (12 HR) [Wellbutrin SR] 100 mg PO DAILY 09/17/17 [History] Cholecalciferol (Vitamin D3) [Vitamin D] 1,000 unit PO DAILY 09/17/17 [History] Clopidogrel [Plavix] 1 tab PO DAILY 09/17/17 [History] Diltiazem CD (24hr) [Cardizem CD] 240 mg PO DAILY 09/17/17 [History] Furosemide [Lasix] 20 mg PO 1600 09/17/17 [History] Furosemide [Lasix] 40 mg PO 0800 09/17/17 [History] Gabapentin [Neurontin] 600 mg PO BID 09/17/17 [History] HYDROcodone/Acet 7.5/325 mg [[place] 7.5-325 mg] 1 tab PO Q6H PRN 09/17/17 [ History] Insulin Glargine,Hum.rec.anlog [Lantus Solostar] 24 units SQ HS 09/17/17 [ History] Insulin LISPRO [Humalog] 6 units SQ HS 09/17/17 [History] Insulin LISPRO [Humalog] 8 unit SQ TID 09/17/17 [History] Melatonin [Melatin] 3 mg PO HS 09/17/17 [History] Metoprolol Tartrate [Metoprolol Tartrate] 75 mg PO BID 09/17/17 [History] Pantoprazole Sodium [Protonix] 40 mg PO DAILY 09/17/17 [History] Warfarin [Coumadin] 2.5 mg PO DAILY 09/17/17 [History] predniSONE [PredniSONE] 10 mg PO DAILY 09/17/17 [History] 3 Allergy/AdvReac Type Severity Reaction Status Date / Time metoclopramide AdvReac Joint Pain Verified 08/24/17 02:53 simvastatin AdvReac Hives Verified 08/24/17 02:53 - Constitutional Constitutional ROS PAL: decreased appetite, lethargy - Cardiovascular Cardiovascular ROS: dyspnea on exertion - Gastrointestinal Gastrointestinal: no constipation, no diarrhea, no nausea, no vomiting - Integumentary ROS Integumentary: dry skin - Neurological Neurological ROS: no memory loss - Psychiatric Psychiatric general PM: anxiety Palliative Care-Exam - Constitutional Vitals: Temp Pulse Resp BP Pulse Ox 97.5 F L 75 18 152/73 88 09/23/17 07:15 09/23/17 07:15 09/23/17 07:15 09/23/17 07:15 09/23/17 07:15 General appearance: Present: cooperative, no acute distress - Head Head Exam: Present: atraumatic, normal inspection - Eye Eye exam: Present: EOMI, normal appearance, PERRL. Absent: nystagmus, periorbital swelling, periorbital tenderness - ENT ENT exam: Present: mucous membranes dry, normal external ear exam - Neck Neck exam: Present: full ROM, normal inspection - Respiratory Respiratory exam: Present: accessory muscle use, rhonchi. Absent: respiratory distress - Cardiovascular Cardiovascular exam: Present: irregular rhythm, +S1, +S2 - Expanded Cardiovascular Exam Peripheral pulses: 1+: Radial (L), Radial (R), Posterior Tibialis (L), Posterior Tibialis (R), Dorsalis Pedis (L) PM, Dorsalis Pedis (R) PM - Expanded GI/Abdominal Exam GI/Abdominal exam: Absent: ascites - Rectal Rectal exam: Present: deferred - Catheter Type: Urethral (Jones) - Extremities Exam Extremities exam: Absent: calf tenderness, pedal edema - Neurological Exam Neurological exam: Present: alert, oriented X3, strengths equal and symetr throughout. Absent: altered, facial droop, speech deficit - Expanded Neurological Exam Coma Scale Eye Opening: Spontaneous Coma Scale Motor Response: Obeys Commands Coma Scale Verbal Response: Oriented Coma Scale Total: 15 - Psychiatric Psychiatric exam: Present: normal affect, normal mood. Absent: anxious Consult Discharge Plan - Plan Referrals: Arelis Will [employer] [Primary Care Provider] - Palliative Quality Palliative Quality: Screen for Code Status: Yes, Screen for Goals of Care: Yes, Screen for Pain: Yes, If Pain Regimen Started, Initiate Bowel Regimen: Yes, Screen for Nausea/Vomitting: Yes Code Status: 09/22/17 18:40 DNR [Resuscitation Status: Active] [RES] Routine Comment: Resuscitation Status: DNR-Comfort Care
--- NOTE | 2017-09-23 10:54 | Palliative Progress Note ---
Date of Encounter: 09/23/17 Time of Encounter: 09:10 - Time Spent With Patient Total time spent is greater than 50% in coordination of care (as documented) at patient's floor/unit and/or counseling patient: - Subjective Interval history: Ms. Mccloud is a 86 year old female Arrived to [place] [facility] on 09/17/17 with shortness of breath. Patient chronic COPD and CHF and reports identical to previous CHF episodes in the past. Patient a rehab resident at [facility]. Patient had been wearing BiPAP at night; however, the day of arrival with BiPAP in plasy Oxygen saturation at 72%. Patient admitted and medically managed for ( HCAP) Pneumonia, acute exacerbation of CHF, Acute Respiratory failure with hypoxia, Diabetes, and Atrial fibrillation. PMH: Pulmonary Embolus, NSTEMI, ARF , neoplasm of large intestines, pulmonary edema, and depression. 09/18/17 chest x -ray showing: diffuse, multifocal airspace disease opacities stable from previous exam; pattern represents ARDS or multifocal pneumonia. 09/19/17-New A. fib with RVR, Cardizem drip initiated; rate controlled and discontinued. HCAP not significantly improving, Vancomycin added. 09/21/17: Dr. Garibay conducted family meeting with CODE STATUS change to DNR CCA/DNI; goal set during meeting to continue BiPAP as necessary. Palliative care consult for goals of care. Family meeting conducted on 09/22/17 and family agreed to transition to [facility] with [place] [facility] and plan to return home once anxiety and dyspnea stablized. Patient is awake and alert this morning admits to having done well well last night, a little bit this morning's of the food tasted okay for hospital food. And is to make sure the patient is under good control with her medications prior to discharge with hospice. This is anticipated for as tomorrow is a holiday. Palliative Quality Palliative Quality: Screen for Code Status: Yes, Screen for Goals of Care: Yes, Screen for Pain: Yes, If Pain Regimen Started, Initiate Bowel Regimen: Yes, Screen for Nausea/Vomitting: Yes Code Status: 09/22/17 18:40 DNR [Resuscitation Status: Active] [RES] Routine Comment: Resuscitation Status: DNR-Comfort Care Consult Discharge Plan - Plan Referrals: Arelis Will, [employer] [Primary Care Provider] -
--- NOTE | 2017-09-23 10:58 | Pallative History & Physical ---
Date of Encounter: 09/23/17 Time of Encounter: 09:10 Assessment and Plan (1) Acute exacerbation of CHF (congestive heart failure) Current visit: No Status: Acute Continue Lasix and Lopressor. He to watch carefully Qualifiers: Heart failure type: combined systolic and diastolic Qualified Code(s): I50.43 - Acute on chronic combined systolic (congestive) and diastolic ( congestive) heart failure (2) Acute respiratory failure with hypoxia Current visit: No Status: Acute Continue oxygen therapy and oxycodone as needed (3) Anxiety Current visit: No Status: Acute Scheduled Ativan is working well, when necessary is still available. Continue to watch (4) Dyspnea Current visit: No Status: Acute Patient doing better was scheduled antianxiety medication and also will available. Qualifiers: Dyspnea type: shortness of breath Qualified Code(s): R06.02 - Shortness of breath; R06.00 - Dyspnea, unspecified; R06.01 - Orthopnea (5) Goals of care, counseling/discussion Current visit: No Status: Acute Internal Medicine - H&P: HPI Admitted From: Intrahospital Transfer Plans for Post Hospital Care: Hospice - Home History of present illness: Ms. Mccloud is a 86 year old female Ms. Mccloud is a 86 year old female Arrived to [place] [facility] on 09/17/17 with shortness of breath. Patient chronic COPD and CHF and reports identical to previous CHF episodes in the past. Patient a rehab resident at [facility]. Patient had been wearing BiPAP at night; however, the day of arrival with BiPAP in plasy Oxygen saturation at 72%. Patient admitted and medically managed for ( HCAP) Pneumonia, acute exacerbation of CHF, Acute Respiratory failure with hypoxia, Diabetes, and Atrial fibrillation. PMH: Pulmonary Embolus, NSTEMI, ARF , neoplasm of large intestines, pulmonary edema, and depression. 09/18/17 chest x -ray showing: diffuse, multifocal airspace disease opacities stable from previous exam; pattern represents ARDS or multifocal pneumonia. 09/19/17-New A. fib with RVR, Cardizem drip initiated; rate controlled and discontinued. HCAP not significantly improving, Vancomycin added. 09/21/17: Dr. Garibay conducted family meeting with CODE STATUS change to DNR CCA/DNI; goal set during meeting to continue BiPAP as necessary. Palliative care consult for goals of care. Family meeting conducted on 09/22/17 and family agreed to transition to [facility] with [facility] and plan to return home once anxiety and dyspnea stablized. She reports being relatively comfortable this morning breathing is a little bit better was able to eat this morning tasted okay for hospital food. She will kept in the hospital on general inpatient while we vacations for shortness of breath and anxiety and for discharge on as tomorrow is a holiday.. Past Med Surg Social Fam HX - Past Medical History Medical history: pulmonary embolus Additional medical history: NSTEMI, ARF, neoplasm of large intestines, pulm edema, Psychiatric history: depression - Past Surgical History Surgical History: non-contributory Additional surgical history: colon cancer surgery, heart cath - Social History Smoking Status: Never smoker Smokeless Tobacco Status: No Alcohol use: none Drug use: none - Family History Mother Living Status: Hx Family Cardiac Disorders: Yes Hx Family Endocrine Disorder: Yes (DM) Father Living Status: Hx Family Respiratory Disorders: Yes (Emphyzema, Lung cancer) Brother Living Status: Hx Family Cancer: Yes Internal Medicine - H&P: Meds Amiodarone [Cordarone] 200 mg PO DAILY 09/17/17 [History] Aspirin [Adult Aspirin] 1 tab PO DAILY 09/17/17 [History] BuPROPion SR (12 HR) [Wellbutrin SR] 100 mg PO DAILY 09/17/17 [History] Cholecalciferol (Vitamin D3) [Vitamin D] 1,000 unit PO DAILY 09/17/17 [History] Clopidogrel [Plavix] 1 tab PO DAILY 09/17/17 [History] Diltiazem CD (24hr) [Cardizem CD] 240 mg PO DAILY 09/17/17 [History] Furosemide [Lasix] 20 mg PO 1600 09/17/17 [History] Furosemide [Lasix] 40 mg PO 0800 09/17/17 [History] Gabapentin [Neurontin] 600 mg PO BID 09/17/17 [History] HYDROcodone/Acet 7.5/325 mg [[place] 7.5-325 mg] 1 tab PO Q6H PRN 09/17/17 [ History] Insulin Glargine,Hum.rec.anlog [Lantus Solostar] 24 units SQ HS 09/17/17 [ History] Insulin LISPRO [Humalog] 6 units SQ HS 09/17/17 [History] Insulin LISPRO [Humalog] 8 unit SQ TID 09/17/17 [History] Melatonin [Melatin] 3 mg PO HS 09/17/17 [History] Metoprolol Tartrate [Metoprolol Tartrate] 75 mg PO BID 09/17/17 [History] Pantoprazole Sodium [Protonix] 40 mg PO DAILY 09/17/17 [History] Warfarin [Coumadin] 2.5 mg PO DAILY 09/17/17 [History] predniSONE [PredniSONE] 10 mg PO DAILY 09/17/17 [History] 3 Allergy/AdvReac Type Severity Reaction Status Date / Time metoclopramide AdvReac Joint Pain Verified 08/24/17 02:53 simvastatin AdvReac Hives Verified 08/24/17 02:53 - Constitutional Constitutional ROS PAL: decreased appetite, lethargy - EENT Eyes: no dry eye, no pain Ears: no ear discharge, no ear pain Ears, nose, mouth, throat: no mouth pain, no nasal congestion - Cardiovascular Cardiovascular ROS: dyspnea on exertion, no chest pain - Respiratory Respiratory: dyspnea, dyspnea on exertion - Gastrointestinal Gastrointestinal: no nausea, no vomiting - Genitourinary Palliative ROS female: no urinary frequency, no urinary hesitancy, no urinary incontinence - Musculoskeletal Musculoskeletal ROS IM: muscle weakness - Integumentary ROS Integumentary: dry skin, no new lesions, no sores - Neurological Neurological ROS: no focal weakness, no memory loss - Psychiatric Psychiatric general PM: no homicidal ideation, no suicidal ideation - Endocrine Endocrine IM: other (Positive for diabetes) Palliative Care-Exam - Constitutional Vitals: Temp Pulse Resp BP Pulse Ox 97.5 F L 75 18 152/73 88 09/23/17 07:15 09/23/17 07:15 09/23/17 07:15 09/23/17 07:15 09/23/17 07:15 General appearance: Present: cooperative, no acute distress - Head Head Exam: Present: atraumatic, normal inspection - Eye Eye exam: Present: normal appearance - ENT ENT exam: Present: mucous membranes moist - Respiratory Respiratory exam: Present: decreased breath sounds, rhonchi - Cardiovascular Cardiovascular exam: Present: irregular rhythm. Absent: RRR - GI/Abdominal Exam GI/Abdominal exam: Present: normal bowel sounds, soft. Absent: tenderness - Catheter Type: Urethral (Jones) - Extremities Exam Extremities exam: Absent: pedal edema, tenderness - Neurological Exam Neurological exam: Present: alert, oriented X3 - Psychiatric Psychiatric exam: Absent: agitated, anxious - Skin Skin exam: Present: dry, warm Palliative Quality Palliative Quality: Screen for Code Status: Yes, Screen for Goals of Care: Yes, Screen for Pain: Yes, If Pain Regimen Started, Initiate Bowel Regimen: Yes, Screen for Nausea/Vomitting: Yes Code Status: 09/22/17 18:40 DNR [Resuscitation Status: Active] [RES] Routine Comment: Resuscitation Status: DNR-Comfort Care
--- NOTE | 2017-09-23 15:16 | Event Note ---
Date of Encounter: 09/23/17 Time of Encounter: 15:12 Hospice medical billing assistant certification of terminal illness: Hospice benefit. Start: 09/22/2017 Hospice benefit. In: +90 days Palliative performance scale: 30% History: Patient with history of severe COPD as well as congestive heart failure. Patient had hypoxemic respiratory failure with oxygen saturations in the 70s on. She was also diagnosed with H For which there is going to be no further aggressive therapy. She wishes for comfort only at this time. She is breathless even at rest minimal exertion therefore I believe that These findings support a life expectancy of 6 months or less. I attest that I have compose the above narrative based on my review of the patient's medical records, and or on my examination of the patient. Mauricio Mcpherson M.D. Associate durable medical equipment technician. [facility]
[2017-09-23] MEDS: Melatonin 3 MG TABLET PO SCH (20:19)
[2017-09-24] MEDS: *HR* LORazepam Oral Conc 2 MG/ML SL PRN ×3 (01:09→16:06)
[2017-09-24] MEDS: MethylPREDNISolone 40 MG/ML VIAL IVP SCH ×2 (01:10→08:52)
[2017-09-24] MEDS: *HR* LORazepam Oral Conc 2 MG/ML SL SCH ×5 (01:20→23:37)
[2017-09-24] MEDS: Atropine Sulfate 1% 40 DROP/2 ML BOTTLE SL PRN ×2 (03:55→11:55)
[2017-09-24] MEDS: Levalbuterol Neb 0.63 MG/3 ML IH SCH ×4 (04:06→22:02)
--- NOTE | 2017-09-24 08:20 | Palliative Progress Note ---
Date of Encounter: 09/24/17 Time of Encounter: 08:00 - Assessment and plan (1) Acute exacerbation of CHF (congestive heart failure) Current Visit: No Status: Acute Assessment and plan: Patient has been continuing to receive IV Lasix for control of edema. No edema noted. Continue Lasix, transition to PO. Qualifiers: Heart failure type: combined systolic and diastolic Qualified Code(s): I50.43 - Acute on chronic combined systolic (congestive) and diastolic ( congestive) heart failure (2) Acute respiratory failure with hypoxia Current Visit: No Status: Acute Assessment and plan: Patient's oxygen saturation 52% on 9.5L High flow NC. Continue oxygen therapy and Oxycodone PRN. Denies dyspnea; however, tachypnea and accessory muscle use noted. Family educated on signs of dyspnea, desires to wait for rest of family to be present prior to any other medications being given. Requested to notify nursing for any medication needs. (3) Anxiety Current Visit: No Status: Acute Assessment and plan: Patient reports improved anxiety. Family reports increased trying to get out of bed and increasing anxiety. Patient has received scheduled Ativan 1 mg SL; however, no PRN doses of have been administered. Educated family that PRN Ativan also available; verbalized understanding. (4) Dyspnea Current Visit: No Status: Acute Assessment and plan: Patient denies dyspnea during assessment. Has received 1 dose of Oxycodone in last 24 hours. Continue Oxycodone PRN SL. Upon reassessment, patient yelling out some confused. Lips turning blue. Requested Primary RN bring patient Oxycodone. Family in agreement to keep patient comfortable. Qualifiers: Dyspnea type: shortness of breath Qualified Code(s): R06.02 - Shortness of breath; R06.00 - Dyspnea, unspecified; R06.01 - Orthopnea (5) Goals of care, counseling/discussion Current Visit: No Status: Acute Assessment and plan: Patient's son reports continued plan to bring patient home tomorrow. Patient's son also refuses any PRN medications unless rest of family present. Educated on goals of care to keep patient comfortable; verbalized understanding. Patient's son expressed desire to return to BiPAP, educated that it is an option if for comfort; family to consider if desire to return to BiPAP and notify nursing. Patient only able to verbalize desire for water, assisted with. After other children arrived, patient's family present goal to keep patient comfortable. Discussed potential of patient not being able to survive transport home. Family in agreement to keep patient GIP and keep patient comfortable. Notified Primary RN. - Time Spent With Patient Total time spent is greater than 50% in coordination of care (as documented) at patient's floor/unit and/or counseling patient: 25 - 35 minutes - Subjective Interval history: Patient appears to be resting upon arrival for assessment, son present at bedside. Patient aroused with tactile stimulation. Denies pain, anxiety, nausea , vomiting, or shortness of breath during assessment. Reports Ativan helping anxiety. Patient had been attempting to get up as reporting needs to void, explained catheter placement; verbalized understanding. Patient is alert to person and place, disoriented to time. Patient's son reports patient woke up a few times throughout the night, but overall has mostly rested. Patient has received 4 doses of Ativan, as scheduled, in the last 24 hours, and 1 dose of Oxycodone in the last 24 hours. Oxygen saturation is dropping. Last meal consumed yesterday breakfast. Patient noted to have increased respiratory rate; explained possibility of Oxycodone to help with dyspnea; patient's son refused at this time per "she looks all right to me and I don't want her given any extra meds until the rest of the family is here to make decisions." Discussed potential of placing patient on BiPAP, informed was an option if for comfort not for treatment; verbalized understanding. - Constitutional General appearance: Present: cooperative, no acute distress - Head Head exam: Present: atraumatic, normal inspection - Eye Eye exam: Present: PERRL. Absent: periorbital swelling, periorbital tenderness Pupils: Present: normal accommodation, PERRL - ENT ENT exam: Present: mucous membranes dry, normal external ear exam - Neck Neck exam: Present: full ROM, normal inspection - Respiratory Respiratory exam: Present: accessory muscle use, rhonchi, wheezes, tachypnea - Cardiovascular Cardiovascular exam: Present: irregular rhythm, +S1, +S2 - GI/Abdominal GI/Abdominal exam: Present: diminished bowel sounds, soft. Absent: tenderness - Rectal Rectal exam: Present: deferred - Extremities Exam Extremities exam: Absent: normal inspection (mottling to BLE and bruising noted to BLE and BUE.), pedal edema - Neurological Exam Neurological exam: Present: alert, altered, strengths equal and symetr throughout (equally weak.). Absent: oriented X3 - Psychiatric Psychiatric exam: Present: flat affect. Absent: anxious - Skin Skin exam: Present: dry, mottled Palliative Quality Palliative Quality: Screen for Code Status: Yes, Screen for Goals of Care: Yes, Screen for Pain: Yes, If Pain Regimen Started, Initiate Bowel Regimen: Yes, Screen for Nausea/Vomitting: Yes Code Status: 09/22/17 18:40 DNR [Resuscitation Status: Active] [RES] Routine Comment: Resuscitation Status: DNR-Comfort Care Consult Discharge Plan - Plan Referrals: Arelis Will, PORT SURVEYOR [Primary Care Provider] -
[2017-09-24] MEDS: Diltiazem CD (24hr) 240 MG CAPSULE PO SCH (08:51)
[2017-09-24] MEDS: *HR* Amiodarone 200 MG TABLET PO SCH (08:51)
[2017-09-24] MEDS: Gabapentin 300 MG CAPSULE PO SCH ×2 (08:51→19:40)
[2017-09-24] MEDS: Furosemide 40 MG/4 ML VIAL IVP SCH ×2 (08:52→16:06)
[2017-09-24] MEDS: BuPROPion SR (12 HR) 100 MG TABLET PO SCH (08:52)
[2017-09-24] MEDS: OXYCODONE Oral CONC 10 MG/0.5 ML ORAL.SYG SL PRN ×2 (11:06→15:48)
[2017-09-24] MEDS: Melatonin 3 MG TABLET PO SCH (19:40)
[2017-09-24] MEDS ORDERED: *HR* LORazepam 2 MG/ML VIAL IVP PRN (19:54)
--- NOTE | 2017-09-24 19:54 | Event Note ---
Date of Encounter: 09/24/17 Time of Encounter: 19:42 Alerted by pts. nurse GAGANDEEP Bo that pt. was unable to take PO medications d/ t aspirating. Nurse instructed to hold PO medications w/exception of SL oxycodone and Ativan. IVP Ativan ordered if pt. not able to tolerate SL. Goal of care is to make pt. as comfortable as possible. Will monitor closely.
[2017-09-25] MEDS: *HR* LORazepam Oral Conc 2 MG/ML SL PRN ×3 (02:25→09:55)
[2017-09-25] MEDS: Levalbuterol Neb 0.63 MG/3 ML IH SCH ×4 (04:02→22:17)
[2017-09-25] MEDS: *HR* LORazepam Oral Conc 2 MG/ML SL SCH ×3 (06:48→17:56)
[2017-09-25] MEDS: *HR* Amiodarone 200 MG TABLET PO SCH (07:32)
[2017-09-25] MEDS: Gabapentin 300 MG CAPSULE PO SCH ×2 (07:32→21:29)
[2017-09-25] MEDS: Diltiazem CD (24hr) 240 MG CAPSULE PO SCH (07:32)
[2017-09-25] MEDS: predniSONE 20 MG TABLET PO SCH (07:32)
[2017-09-25] MEDS: BuPROPion SR (12 HR) 100 MG TABLET PO SCH (07:34)
[2017-09-25] MEDS: Furosemide 40 MG/4 ML VIAL IVP SCH ×2 (07:36→16:29)
--- NOTE | 2017-09-25 08:41 | Discharge Summary ---
Date of Encounter: 09/25/17 Time of Encounter: 07:15 - Discharge Diagnosis (1) Acute respiratory failure with hypoxia Priority: Primary Status: Acute (2) Acute exacerbation of CHF (congestive heart failure) Priority: Secondary Status: Acute Qualifiers: Heart failure type: unspecified Qualified Code(s): I50.9 - Heart failure, unspecified (3) Anxiety Priority: Primary Status: Acute (4) Dyspnea Priority: Primary Status: Acute Qualifiers: Dyspnea type: shortness of breath Qualified Code(s): R06.02 - Shortness of breath; R06.00 - Dyspnea, unspecified; R06.01 - Orthopnea (5) Goals of care, counseling/discussion Priority: Secondary Status: Acute - Hospital Course Hospital course: Ms. Mccloud is a 86 year old female - Time Spent with Patient Total time spent providing and/or coordinating discharge services: - Discharge Medications Prescriptions: LORazepam Oral Conc [Ativan Oral Conc] 1 mg PO Q4H PRN 7 Days #30 mls PRN Reason: Anxiety LORazepam Oral Conc [Ativan Oral Conc] 1 mg PO Q6H 7 Days #30 mls OXYCODONE Oral CONC [Oxycodone Oral Conc] 5 mg PO Q2H PRN 7 Days #30 ml PRN Reason: pain or sob Home Medications: Amiodarone [Cordarone] 200 mg PO DAILY 09/17/17 [History] Aspirin [Adult Aspirin] 1 tab PO DAILY 09/17/17 [History] BuPROPion SR (12 HR) [Wellbutrin SR] 100 mg PO DAILY 09/17/17 [History] Cholecalciferol (Vitamin D3) [Vitamin D] 1,000 unit PO DAILY 09/17/17 [History] Clopidogrel [Plavix] 1 tab PO DAILY 09/17/17 [History] Diltiazem CD (24hr) [Cardizem CD] 240 mg PO DAILY 09/17/17 [History] Furosemide [Lasix] 20 mg PO 1600 09/17/17 [History] Furosemide [Lasix] 40 mg PO 0800 09/17/17 [History] Gabapentin [Neurontin] 600 mg PO BID 09/17/17 [History] HYDROcodone/Acet 7.5/325 mg [[place] 7.5-325 mg] 1 tab PO Q6H PRN 09/17/17 [ History] Insulin Glargine,Hum.rec.anlog [Lantus Solostar] 24 units SQ HS 09/17/17 [ History] Metoprolol Tartrate [Metoprolol Tartrate] 75 mg PO BID 09/17/17 [History] Warfarin [Coumadin] 2.5 mg PO DAILY 09/17/17 [History] Amlodipine Besylate [Amlodipine Besylate] 10 mg PO DAILY 09/23/17 [History] Atenolol [Tenormin] 100 mg PO DAILY 09/23/17 [History] Esomeprazole Magnesium [Nexium] 40 mg PO DAILY 09/23/17 [History] Quinapril HCl 40 mg PO DAILY 09/23/17 [History] LORazepam Oral Conc [Ativan Oral Conc] 1 mg PO Q4H PRN 7 Days #30 mls 09/25/17 [ Rx] LORazepam Oral Conc [Ativan Oral Conc] 1 mg PO Q6H 7 Days #30 mls 09/25/17 [Rx] OXYCODONE Oral CONC [Oxycodone Oral Conc] 5 mg PO Q2H PRN 7 Days #30 ml [Rx] Allergies/Adverse Reactions: 3 Allergy/AdvReac Type Severity Reaction Status Date / Time metoclopramide AdvReac Joint Pain Verified 08/24/17 02:53 simvastatin AdvReac Hives Verified 08/24/17 02:53 Internal Medicine - DS: Prov Date of admission: 09/22/17 17:53 Primary care physician: Arelis Will CNP Consults: 09/22/17 16:10 Consult to Palliative Care [CONS] Routine Comment: Consulting Provider: Palliative Care Berenice Reason for Consult: GIP Call Completed: Yes Internal Medicine - DS: Exam - Constitutional Vitals: Vital Signs Temp Pulse Resp BP Pulse Ox 09/24/17 20:51 97.1 F L 124 19 137/88 88 09/24/17 11:32 22 151/77 77 Intake and Output 09/24/17 09/25/17 09/25/17 23:59 07:59 15:59 Output Total 690 / 690 250 / 250 Balance -690 / -690 -250 / -250 Output: Catheter 690 / 690 250 / 250 Urethral (Jones) 40 / 40 General appearance: no acute distress - Head Head exam: Present: atraumatic, normal inspection - Eye Eye exam: Present: normal appearance - Respiratory Respiratory exam: Present: decreased breath sounds, rhonchi - Cardiovascular Cardiovascular exam: Present: irregular rhythm, tachycardia - GI/Abdominal GI/Abdominal exam: Present: soft. Absent: tenderness - Extremities Exam Extremities exam: Present: pedal edema - Neurological Exam Neurological exam: Present: alert (Patient is able to answer some questions.) - Psychiatric Psychiatric exam: Absent: agitated, anxious - Skin Skin exam: Present: dry, warm - Patient Status Disposition: Hospice - Home Condition: Fair - Discharge Instructions Follow Up With: Arelis Will ABSENCE MANAGEMENT CONSULTANT [Primary Care Provider] -
[2017-09-25] MEDS: Atropine Sulfate 1% 40 DROP/2 ML BOTTLE SL PRN (09:54)
[2017-09-25] MEDS: OXYCODONE Oral CONC 10 MG/0.5 ML ORAL.SYG SL PRN ×3 (09:55→15:03)
[2017-09-25] MEDS ORDERED: OXYCODONE Oral CONC 10 MG/0.5 ML ORAL.SYG SL ONE (10:53)
--- NOTE | 2017-09-25 11:05 | Event Note ---
Date of Encounter: 09/25/17 Time of Encounter: 11:04 Patient is requiring more medication, and feeling breathless. He is allowing increased dose of medication, I have discussed with the family the patient has deteriorated since earlier this morning yesterday did look quite bad. She obviously rallied for this morning but now is looking worse. We will discharge for now go ahead and get the mid set up at home for probable discharge tomorrow unless the patient markedly deteriorates. Family is okay with holding off discharge still tomorrow.
--- NOTE | 2017-09-25 15:24 | Event Note ---
Date of Encounter: 09/25/17 Time of Encounter: 15:22 Reevaluation just now, she is responding very well to increased dose of medications DME should have been delivered today we will look at possible discharge tomorrow.
[2017-09-25] MEDS: Melatonin 3 MG TABLET PO SCH (21:28)
[2017-09-26] MEDS: *HR* LORazepam Oral Conc 2 MG/ML SL SCH ×2 (01:24→06:52)
[2017-09-26] MEDS: OXYCODONE Oral CONC 10 MG/0.5 ML ORAL.SYG SL PRN ×3 (01:24→09:41)
[2017-09-26] MEDS: *HR* LORazepam Oral Conc 2 MG/ML SL PRN ×2 (03:36→10:02)
[2017-09-26] MEDS: Levalbuterol Neb 0.63 MG/3 ML IH SCH ×3 (04:04→09:58)
[2017-09-26 07:22] VITALS: BP 116/78
[2017-09-26] MEDS: Furosemide 40 MG/4 ML VIAL IVP SCH (07:36)
[2017-09-26] MEDS: Diltiazem CD (24hr) 240 MG CAPSULE PO SCH (07:39)
[2017-09-26] MEDS: Gabapentin 300 MG CAPSULE PO SCH (07:39)
[2017-09-26] MEDS: *HR* Amiodarone 200 MG TABLET PO SCH (07:39)
[2017-09-26] MEDS: BuPROPion SR (12 HR) 100 MG TABLET PO SCH (07:39)
[2017-09-26] MEDS: predniSONE 20 MG TABLET PO SCH (07:39)
--- NOTE | 2017-09-26 09:02 | Palliative Progress Note ---
Date of Encounter: 09/26/17 Time of Encounter: 08:50 - Assessment and plan (1) Dyspnea Current Visit: No Status: Acute Assessment and plan: Patient has been more comfortable with higher dose of Oxycodone that was increased yesterday. Sent new script to pharmacy to reflect this change and notified them pt would be discharged today. Qualifiers: Dyspnea type: shortness of breath Qualified Code(s): R06.02 - Shortness of breath; R06.00 - Dyspnea, unspecified; R06.01 - Orthopnea (2) Acute respiratory failure with hypoxia Current Visit: No Status: Acute (3) Goals of care, counseling/discussion Current Visit: No Status: Acute Assessment and plan: Family and hospice nurse Nayely at bedside. Family ready to take her home today , and she appears quite stable at present. D/W primary nurse Stephanie - transport to be set up for 1100 today. - Time Spent With Patient Total time spent is greater than 50% in coordination of care (as documented) at patient's floor/unit and/or counseling patient: 25 - 35 minutes - Subjective Interval history: Patient alert at times, family at bedside. Appears comfortable. Does arouse at times and has periods of anxiousness. Family does want to transition home today. - Constitutional General appearance: Present: no acute distress - Respiratory Respiratory exam: Present: decreased breath sounds, CTAB Additional comments: Respirations shallow and regular at present - Cardiovascular Cardiovascular exam: Present: +S1, +S2 - GI/Abdominal GI/Abdominal exam: Present: normal bowel sounds, soft - Extremities Exam Extremities exam: Present: normal capillary refill, normal inspection - Neurological Exam Neurological exam: Present: alert - Skin Skin exam: Present: dry, warm Palliative Quality Palliative Quality: Screen for Code Status: Yes, Screen for Goals of Care: Yes, Screen for Pain: Yes, If Pain Regimen Started, Initiate Bowel Regimen: Yes, Screen for Nausea/Vomitting: Yes Code Status: 09/22/17 18:40 DNR [Resuscitation Status: Active] [RES] Routine Comment: Resuscitation Status: DNR-Comfort Care Consult Discharge Plan - Plan Referrals: Arelis Will, VETERINARY RECEPTIONIST [Primary Care Provider] - Prescriptions: Bisacodyl [Dulcolax] 10 mg RC HS PRN #10 supp.rect PRN Reason: Constipation LORazepam Oral Conc [Ativan Oral Conc] 1 mg PO Q4H PRN 7 Days #30 mls PRN Reason: Anxiety LORazepam Oral Conc [Ativan Oral Conc] 1 mg PO Q6H 7 Days #30 mls OXYCODONE Oral CONC [Oxycodone Oral Conc] 5 mg PO Q2H PRN 7 Days #30 ml PRN Reason: pain or sob OXYCODONE Oral CONC [Oxycodone Oral Conc] 10 - 15 mg PO Q1H PRN 7 Days #30 oral.syg PRN Reason: pain or shortness of breath
== END 2017-09-26 11:05 | disposition hospice, home (50) | DRG 291 ==
LOC: 2ANU 17:53
PROVIDERS: ADMIT Family Medicine Hospice and Palliative Medicine; ATTEND Family Medicine Hospice and Palliative Medicine